=== PATIENT | female | born 1935 | race Caucasian/White ===

== ENCOUNTER 2017-03-18 12:00 | Emergency (ER) | payer MEDICARE, OTHER ==
[2017-03-18 13:06] LABS: BASOPHILS # (AUTO) 0.1 10^3/uL (0.0-0.1); BASOPHILS % (AUTO) 1.2 %; EOSINOPHILS # (AUTO) 0.1 10^3/uL (0.0-0.7); EOSINOPHILS % (AUTO) 0.9 %; HCT - HEMATOCRIT 31.3 % (37.0-47.0); HGB - HEMOGLOBIN 10.9 g/dL (12.0-16.0); LYMPHOCYTES # (AUTO) 1.4 10^3/uL (1.5-3.5); LYMPHOCYTES % (AUTO) 20.3 %; MEAN CORPUSCULAR HEMOGLOBIN 40.6 pg (27.0-31.0); MEAN CORPUSCULAR HGB CONC 34.9 g/dL (32.0-36.0); MEAN CORPUSCULAR VOLUME 116.3 fL (81.0-99.0); MEAN PLATELET VOLUME 7.5 fL (7.9-10.8); MONOCYTES # (AUTO) 0.6 10^3/uL (0.0-1.0); MONOCYTES % (AUTO) 8.7 %; NEUTROPHILS # (AUTO) 4.8 10^3/uL (1.5-6.6); NEUTROPHILS % (AUTO) 68.9 %; RED BLOOD COUNT 2.69 10^6/uL (4.20-5.40); RED CELL DISTRIBUTION WIDTH 15.5 % (12.0-15.0)
[2017-03-18 13:18] LABS: ALBUMIN/GLOBULIN RATIO 0.9 (1.0-2.2); CALCIUM 9.4 mg/dL (8.5-10.3); CREATININE 0.7 mg/dL (0.4-1.0); POTASSIUM 4.5 mmol/L (3.5-5.0); TOTAL PROTEIN 6.8 g/dL (6.7-8.2)
--- NOTE | 2017-03-18 15:03 | ED Physician Documentation ---
PD HPI ABD PAIN - Stated complaint Stated Complaint: VOMITING - Chief complaint Chief Complaint: Abd Pain - History obtained from History obtained from: Patient, Family - History of Present Illness Timing - onset: Other (This is a 81-year-old alcoholic, fully anticoagulated on Xarelto for A. fib. Quit drinking a few days ago and she's had about a day and a half worth of melena and one episode of coffee-ground emesis today associated with some central abdominal pain. She's never had GI bleeding but does have a history of a fatty liver. No known history of varices. She had an upper endoscopy a few years ago, she thinks in [place], results are not known by the patient.) Review of Systems Ten Systems: 10 systems reviewed and negative Constitutional: denies: Fever, Chills, Fatigue, Weight Loss Nose: denies: Rhinorrhea / runny nose, Congestion Cardiac: denies: Chest pain / pressure, Palpitations Respiratory: denies: Dyspnea, Cough PD PAST MEDICAL HISTORY - Past Medical History Cardiovascular: Hypertension, High cholesterol, Atrial fibrillation Endocrine/Autoimmune: Type 2 diabetes GI: None : Frequency Musculoskeletal: Chronic back pain - Past Surgical History Past Surgical History: Yes 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 - Present Medications Home Medications: Ambulatory Orders Medication Instructions Recorded Confirmed Furosemide 20 mg DAILY 05/02/15 03/18/17 Levothyroxine Sodium [Levoxyl] 50 mcg DAILY 05/02/15 03/18/17 Metoprolol Tartrate 50 mg DAILY 05/02/15 03/18/17 Rivaroxaban [Xarelto] 20 mg DAILY 05/02/15 03/18/17 Simvastatin 40 mg DAILY 05/02/15 03/18/17 Spironolactone 25 mg DAILY 05/02/15 03/18/17 - Allergies Allergies/Adverse Reactions: Allergies Allergy/AdvReac Type Severity Reaction Status Date / Time No Known Drug Allergies Allergy Verified 03/18/17 12:07 - Social History Does the pt smoke?: No Smoking Status: Never smoker Does the pt drink ETOH?: Yes Does the pt have substance abuse?: No - Family History Family history: reports: Non contributory PD ED PE NORMAL - Vitals Vital signs reviewed: Yes - General General: Alert and oriented X 3, No acute distress - HEENT HEENT: PERRL, EOMI - Neck Neck: Supple, no meningeal sign, No bony TTP - Cardiac Cardiac: RRR, No murmur - Respiratory Respiratory: No respiratory distress, Clear bilaterally - Abdomen Abdomen: Soft, Non tender - Back Back: No CVA TTP, No spinal TTP - Derm Derm: Normal color, Warm and dry - Extremities Extremities: No edema, No calf tenderness / cord - Neuro Neuro: Alert and oriented X 3, Normal speech - Psych Psych: Normal mood, Normal affect Results - Vitals Vitals: Vital Signs - 24 hr 03/18/17 03/18/17 03/18/17 12:05 13:54 15:29 Temperature 36.9 C Heart Rate 89 77 Respiratory 18 18 Rate Blood Pressure 124/75 119/57 L O2 Saturation 99 99 03/18/17 03/18/17 18:10 20:41 Temperature 37.0 C Heart Rate 79 82 Respiratory 18 22 Rate Blood Pressure 121/58 L 110/60 O2 Saturation 97 100 Oxygen O2 Source Room air - Labs Labs: Laboratory Tests 03/18/17 03/18/17 03/18/17 12:44 12:44 12:44 WBC 7.0 RBC 2.69 L Hgb 10.9 L Hct 31.3 L MCV 116.3 H MCH 40.6 H MCHC 34.9 RDW 15.5 H Plt Count 220 MPV 7.5 L Neut # 4.8 Lymph # 1.4 L [place] # 0.6 Eos # 0.1 Baso # 0.1 Absolute Nucleated RBC 0.00 Nucleated RBCs 0.0 PT INR Sodium 132 L Potassium 4.5 Chloride 93 L Carbon Dioxide 30 Anion Gap 9.0 BUN 33 H Creatinine 0.7 Estimated GFR (MDRD) 81 L Glucose 235 H Calcium 9.4 Total Bilirubin 1.0 AST 26 ALT 21 Alkaline Phosphatase 87 Total Protein 6.8 Albumin 3.2 Globulin 3.6 Albumin/Globulin Ratio 0.9 L Lipase 13 L Urine Color Urine Clarity Urine pH Ur Specific [place] Urine Protein Urine Glucose (UA) Urine Ketones Urine Occult Blood Urine Nitrite Urine Bilirubin Urine Urobilinogen Ur Leukocyte Esterase Ur Microscopic Review Urine Culture Comments Blood Type Blood Type Recheck A POSITIVE Antibody Screen Crossmatch IS Only 03/18/17 03/18/17 03/18/17 15:02 15:02 16:28 WBC RBC Hgb 10.5 L Hct 30.5 L MCV MCH MCHC RDW Plt Count MPV Neut # Lymph # [place] # Eos # Baso # Absolute Nucleated RBC Nucleated RBCs PT 14.2 H INR 1.3 H Sodium Potassium Chloride Carbon Dioxide Anion Gap BUN Creatinine Estimated GFR (MDRD) Glucose Calcium Total Bilirubin AST ALT Alkaline Phosphatase Total Protein Albumin Globulin Albumin/Globulin Ratio Lipase Urine Color Urine Clarity Urine pH Ur Specific [place] Urine Protein Urine Glucose (UA) Urine Ketones Urine Occult Blood Urine Nitrite Urine Bilirubin Urine Urobilinogen Ur Leukocyte Esterase Ur Microscopic Review Urine Culture Comments Blood Type A POSITIVE Blood Type Recheck Antibody Screen NEGATIVE Crossmatch IS Only See Detail 03/18/17 17:00 WBC RBC Hgb Hct MCV MCH MCHC RDW Plt Count MPV Neut # Lymph # [place] # Eos # Baso # Absolute Nucleated RBC Nucleated RBCs PT INR Sodium Potassium Chloride Carbon Dioxide Anion Gap BUN Creatinine Estimated GFR (MDRD) Glucose Calcium Total Bilirubin AST ALT Alkaline Phosphatase Total Protein Albumin Globulin Albumin/Globulin Ratio Lipase Urine Color YELLOW Urine Clarity CLEAR Urine pH 7.5 Ur Specific [place] 1.010 Urine Protein NEGATIVE Urine Glucose (UA) NEGATIVE Urine Ketones NEGATIVE Urine Occult Blood TRACE-INTA Urine Nitrite NEGATIVE Urine Bilirubin NEGATIVE Urine Urobilinogen 0.2 (NORMAL) Ur Leukocyte Esterase NEGATIVE Ur Microscopic Review NOT INDICATED Urine Culture Comments NOT INDICATED Blood Type Blood Type Recheck Antibody Screen Crossmatch IS Only PD MEDICAL DECISION MAKING - ED course ED course: 81-year-old woman presents with upper GI bleed. She brings a vomit sample with her which is grossly bloody and Gastroccult positive. Her H&H is not too bad and her hemodynamics are reassuring. However she does have high risk for varices given her past medical history and overwhelming bleeding given her anticoagulation on Xarelto. As such arrangements are made to transfer to a tertiary facility with GI coverage, patient preferred [facility], call to the hospitalist service there at 255 p.m. After some delay did speak with the GI DrDr. Katelyn casillas who defers to the hospitalist service for admission. This was at 430 p.m. After a second delay she was accepted to [facility] by the hospitalist Dr. Laila woods at 625pm Departure - Departure Disposition: 02 Transfer Acute Care Hosp Clinical Impression: Upper gastrointestinal hemorrhage, Adequate anticoagulation on anticoagulant therapy Condition: Critical Discharge Date/Time: 03/18/17 20:53
[2017-03-18 15:20] LABS: INR 1.3 (0.8-1.2); PT - PROTHROMBIN TIME 14.2 secs (9.9-12.6)
[2017-03-18] MEDS ORDERED: SODIUM CHLORIDE 0.9% 1,000 ML IV ONE (16:00)
[2017-03-18] MEDS ORDERED: PANTOPRAZOLE 80 MG in SODIUM CHLORIDE 0.9% 100ML 100 ML IV STA ×4 (16:33)
[2017-03-18] MEDS ORDERED: traMADol 50 MG TABLET PO STA (16:35)
[2017-03-18 16:42] LABS: HCT - HEMATOCRIT 30.5 % (37.0-47.0); HGB - HEMOGLOBIN 10.5 g/dL (12.0-16.0)
[2017-03-18] MEDS ORDERED: traMADol 50 MG TABLET PO ONE (16:43)
[2017-03-18 18:17] LABS: BILIRUBIN,URINE NEGATIVE (NEGATIVE); PH,URINE 7.5 PH (5.0-7.5)
[2017-03-18 18:19] LABS: UA CHARGE (STRIP ONLY) YES; UR CULTURE IF IND NOT INDICATED
[2017-03-18 20:45] VITALS: BP 110/60
== END 2017-03-18 20:53 | disposition short-term general hospital (02) ==
LOC: ED 12:00
DX: K92.0 Hematemesis (principal); I48.91 Unspecified atrial fibrillation; Z79.01 Long term (current) use of anticoagulants; I10 Essential (primary) hypertension; E78.00 Pure hypercholesterolemia, unspecified; E11.9 Type 2 diabetes mellitus without complications
CPT/HCPCS: 36415; 80053; 81003; 83690; 85014; 85018; 85025; 85610; 86850; 86900; 86901; 86920; 96361; 96365; 96366; 99284; 99285; A9270; 81001; 87086

== ENCOUNTER 2017-03-18 20:51 | Outpatient (CLI) | payer MEDICARE, OTHER | END 2017-03-18 20:52 | disposition short-term general hospital (02) | LOC: EMS 20:51 | PROVIDERS: ATTEND Surgery | DX: K92.2 Gastrointestinal hemorrhage, unspecified (principal) | CPT/HCPCS: A0425; A0426 ==

== ENCOUNTER 2017-10-14 18:06 | Outpatient (CLI) | payer MEDICARE, OTHER | END 2017-10-14 18:07 | disposition EMS.NT | LOC: EMS 18:06 | PROVIDERS: ATTEND Surgery | DX: R61 Generalized hyperhidrosis (principal); R53.1 Weakness; R73.09 Other abnormal glucose ==

== ENCOUNTER 2017-11-06 19:29 | Outpatient (CLI) | payer MEDICARE, OTHER | END 2017-11-06 19:30 | disposition EMS.NT | LOC: EMS 19:29 | PROVIDERS: ATTEND Surgery | DX: R73.09 Other abnormal glucose (principal) ==

== ENCOUNTER 2018-07-16 12:43 | Outpatient (CLI) | payer MEDICARE, OTHER ==
--- NOTE | 2018-07-16 13:31 | XRAY Report ---
Reason: LT HIP PAIN Procedure Date: 07/16/2018 Accession Number: [id number] / [id number] Procedure: XR - Hip w/Pelvis 2-3V LT CPT Code: FULL RESULT: EXAM: LEFT HIP AND PELVIS RADIOGRAPHY EXAM DATE: 07/16/2018 01:02 PM. HISTORY: Fall. Left groin and hip pain. COMPARISONS: HIP 2 VIEW LT 05/19/2015 3:52 PM. TECHNIQUE: 1 view of the pelvis and 1 view of the hip. FINDINGS: Bones: Normal. No fracture or bone lesion. Joints: Remote fusion lumbar spine. Increasing degree of narrowing of both hip joints now moderate to marked in degree. Increasing osteophyte formation and subcortical sclerosis and cyst formation not only involving the acetabular roofs but also both femoral heads. Cortices of the femoral heads somewhat irregular at this time. Mild degenerative changes both SI joints. Soft Tissues: Normal. No soft tissue swelling. IMPRESSION: 1. No acute bony abnormality. 2. Progression of bilateral hip degenerative changes, now moderate to marked in degree, grade 3 Kellgren Pankaj classification. Avascular necrosis femoral heads not excluded. RADIA
== END 2018-07-16 12:44 | disposition home or self-care (01) ==
LOC: DI 12:43
PROVIDERS: ATTEND Internal Medicine
DX: M16.12 Unilateral primary osteoarthritis, left hip (principal)

== ENCOUNTER 2018-09-26 23:42 | Outpatient (CLI) | payer MEDICARE, OTHER | END 2018-09-26 23:43 | disposition EMS.NT | LOC: EMS 23:42 | PROVIDERS: ATTEND Surgery | DX: Z04.89 Encounter for examination and observation for other specified reasons (principal) ==

== ENCOUNTER 2019-05-09 21:12 | Outpatient (CLI) | payer MEDICARE, OTHER | END 2019-05-09 21:13 | disposition EMS.NT | LOC: EMS 21:12 | PROVIDERS: ATTEND Surgery | DX: R53.1 Weakness (principal) ==

== ENCOUNTER 2019-11-22 21:34 | Outpatient (CLI) | payer MEDICARE, OTHER | END 2019-11-22 21:35 | disposition EMS.NT | LOC: EMS 21:34 | PROVIDERS: ATTEND Surgery | DX: R53.1 Weakness (principal) ==

== ENCOUNTER 2020-01-09 19:58 | Outpatient (CLI) | payer MEDICARE, OTHER | END 2020-01-09 23:59 | disposition EMS.NT | LOC: EMS 19:58 | PROVIDERS: ATTEND Surgery | DX: R53.1 Weakness (principal) ==

== ENCOUNTER 2020-01-27 12:09 | Outpatient (CLI) | payer MEDICARE, OTHER | END 2020-01-27 12:10 | disposition EMS.NT | LOC: EMS 12:09 | PROVIDERS: ATTEND Surgery | DX: Z03.89 Encounter for observation for other suspected diseases and conditions ruled out (principal) ==

== ENCOUNTER 2020-01-28 12:58 | Outpatient (CLI) | payer MEDICARE, OTHER | END 2020-01-28 12:59 | disposition critical access hospital (66) | LOC: EMS 12:58 | PROVIDERS: ATTEND Surgery | DX: R53.1 Weakness (principal); R63.8 Other symptoms and signs concerning food and fluid intake | CPT/HCPCS: A0425; A0429 ==

== ENCOUNTER 2020-01-28 13:28 | Inpatient (IN) | payer MEDICARE, OTHER ==
[2020-01-28 14:35] LABS: BASOPHILS % (AUTO) 0.7 %; EOSINOPHILS # (AUTO) 0.1 10^3/uL (0.0-0.7); EOSINOPHILS % (AUTO) 1.3 %; HGB - HEMOGLOBIN 12.8 g/dL (12.0-16.0); LYMPHOCYTES # (AUTO) 0.9 10^3/uL (1.5-3.5); LYMPHOCYTES % (AUTO) 17.1 %; MEAN CORPUSCULAR HEMOGLOBIN 40.4 pg (27.0-31.0); MEAN CORPUSCULAR HGB CONC 34.9 g/dL (32.0-36.0); MEAN CORPUSCULAR VOLUME 115.8 fL (81.0-99.0); MEAN PLATELET VOLUME 9.4 fL (7.9-10.8); MONOCYTES # (AUTO) 0.9 10^3/uL (0.0-1.0); MONOCYTES % (AUTO) 17.3 %; NEUTROPHILS # (AUTO) 3.3 10^3/uL (1.5-6.6); NEUTROPHILS % (AUTO) 60.7 %; PLT - PLATELET COUNT 167 10^3/uL (130-450); RED BLOOD COUNT 3.17 10^6/uL (4.20-5.40); RED CELL DISTRIBUTION WIDTH 16.3 % (12.0-15.0); WHITE BLOOD COUNT 5.4 x10^3/uL (4.8-10.8)
[2020-01-28 14:53] LABS: ALBUMIN 2.3 g/dL (3.2-5.5); ALBUMIN/GLOBULIN RATIO 0.7 (1.0-2.2); BILIRUBIN,TOTAL 3.6 mg/dL (0.2-1.0); CALCIUM 8.3 mg/dL (8.5-10.3); CREATININE 1.3 mg/dL (0.4-1.0); TOTAL PROTEIN 5.4 g/dL (6.7-8.2)
--- NOTE | 2020-01-28 15:10 | ED Physician Documentation ---
History of Present Illness - Stated complaint Stated Complaint: WEAKNESS - Chief complaint Chief Complaint: General - History obtained from History obtained from: Patient - Additonal information Additional information: Patient is brought to the emergency department Reportedly because her primary care physician wanted her to have laboratory studies drawn. It is not clear what the laboratory studies were to be, as no communication was received from the patient's primary care physician. The patient states that she has had increasing swelling over the last couple of weeks, and that her doctor was c oncerned about this and wanted her to have further evaluation. The patient states she has no history of problems with her kidneys or liver. She states that she has no history that she knows of of congestive heart failure, but does have atrial fibrillation, for which she takes Xarelto. The patient states that she has chronic edema, but that has been getting worse over the last couple of weeks. She denies any chest pain or shortness of breath. No nausea or vomiting. No abdominal pain. She has not had fever chills or been ill with anything else. The patient does have a history of alcohol use daily. She has not noticed any worse swelling on one side than the other. She states the edema goes all the way up into her truncal area, and involves her arms, also. Pt does get up and walk at baseline. She has been using pressure wraps at home on her lower extremities. She believes she is on a diuretic. She denies any other complaints at this time. Review of Systems Ten Systems: 10 systems reviewed and negative Constitutional: reports: Reviewed and negative Eyes: reports: Reviewed and negative Ears: reports: Reviewed and negative Nose: reports: Reviewed and negative Throat: reports: Reviewed and negative Cardiac: reports: Reviewed and negative Respiratory: reports: Reviewed and negative GI: reports: Reviewed and negative : reports: Reviewed and negative Skin: reports: Other (Skin tear left lower extremity) Musculoskeletal: reports: Extremity pain, Extremity swelling Neurologic: reports: Generalized weakness Psychiatric: reports: Reviewed and negative Endocrine: reports: Reviewed and negative Immunocompromised: reports: Reviewed and negative PD PAST MEDICAL HISTORY - Past Medical History Past Medical History: Yes Cardiovascular: Hypertension, High cholesterol, Atrial fibrillation Endocrine/Autoimmune: Type 2 diabetes GI: None : Frequency Musculoskeletal: Chronic back pain - Past Surgical History Past Surgical History: Yes 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 - Present Medications Home Medications: Ambulatory Orders Medication Instructions Recorded Confirmed Furosemide 20 mg DAILY 05/02/15 01/28/20 Rivaroxaban [Xarelto] 20 mg PO QDDINNER 05/02/15 01/28/20 Simvastatin 40 mg PO QPM 05/02/15 01/28/20 Spironolactone 25 mg PO DAILY 05/02/15 01/28/20 Insulin Glargine [Lantus Solostar] 6 unit SUBQ QPM 01/28/20 01/28/20 Insulin Lispro [Humalog Kwikpen 3 unit SUBQ TIDWM 01/28/20 01/28/20 U-100] Levothyroxine Sodium 75 mcg PO QDAC 01/28/20 01/28/20 Metoprolol Succinate 50 mg PO DAILY 01/28/20 01/28/20 - Allergies Allergies/Adverse Reactions: Allergies Allergy/AdvReac Type Severity Reaction Status Date / Time No Known Drug Allergies Allergy Verified 01/28/20 13:40 - Social History Does the pt smoke?: No Smoking Status: Never smoker Does the pt drink ETOH?: Yes Does the pt have substance abuse?: No - Immunizations Immunizations are current?: Yes PD ED PE NORMAL - Vitals Vital signs reviewed: Yes - General General: Alert and oriented X 3, No acute distress, Well developed/nourished (Obese) - HEENT HEENT: Atraumatic, PERRL, EOMI, Moist mucous membranes - Neck Neck: Supple, no meningeal sign - Cardiac Cardiac: RRR, No murmur - Respiratory Respiratory: No respiratory distress, Clear bilaterally - Abdomen Abdomen: Soft, Non tender, Non distended - Derm Derm: Other (Patient has mild weeping of the skin bilateral lower extremities. Skin changes consistent with chronic edema and chronic peripheral vascular disease are noted. Patient has a superficial skin tear on her anterolateral left lower leg which is flap shaped and approximately 4 cm in total length. She also has a very small skin tear on her anterior right lower leg which is a pproximately 1 cm in length.No associated erythema or induration. No purulent drainage.) - Extremities Extremities: No deformity, Other (Patient has moderate, pitting lower extremity edema. Extremities are symmetrical in size. No erythema.) - Neuro Neuro: Alert and oriented X 3 - Psych Psych: Normal mood, Normal affect Results - Vitals Vitals: Oxygen O2 Source Room air - Labs Labs: Laboratory Tests 01/28/20 01/28/20 01/28/20 14:25 14:25 14:25 WBC 5.4 RBC 3.17 L Hgb 12.8 Hct 36.7 L MCV 115.8 H MCH 40.4 H MCHC 34.9 RDW 16.3 H Plt Count 167 MPV 9.4 Neut # (Auto) 3.3 Lymph # (Auto) 0.9 L [place] # (Auto) 0.9 Eos # (Auto) 0.1 Baso # (Auto) 0.0 Absolute Nucleated RBC 0.36 Nucleated RBC % 6.6 Manual Slide Review WBC Morphology Platelet Estimate Platelet Morphology RBC Morph Micro Appear PT INR Sodium 116 L* Potassium 4.8 Chloride 83 L Carbon Dioxide 21 Anion Gap 12.0 BUN 19 Creatinine 1.3 H Estimated GFR (MDRD) 39 L Glucose 167 H Glycated Hemoglobin Estim Average Glucose Lactic Acid Calcium 8.3 L Phosphorus Magnesium Total Bilirubin 3.6 H Direct Bilirubin AST 113 H ALT 68 H Alkaline Phosphatase 345 H Ammonia Total Creatine Kinase Troponin I High Sens 15.4 H* B-Natriuretic Peptide Total Protein 5.4 L Albumin 2.3 L Globulin 3.1 Albumin/Globulin Ratio 0.7 L Lipase 32 TSH Urine Color Urine Clarity Urine pH Ur Specific Ages [place] Urine Protein Urine Glucose (UA) Urine Ketones Urine Occult Blood Urine Nitrite Urine Bilirubin Urine Urobilinogen Ur Leukocyte Esterase Urine RBC Urine WBC Ur Squamous Epith Cells Urine Crystals Amorphous Sediment Urine Bacteria Ur Random Chloride Urine Creatinine Urine Sodium 01/28/20 01/28/20 01/28/20 14:25 14:26 15:42 WBC RBC Hgb Hct MCV MCH MCHC RDW Plt Count MPV Neut # (Auto) Lymph # (Auto) [place] # (Auto) Eos # (Auto) Baso # (Auto) Absolute Nucleated RBC Nucleated RBC % Manual Slide Review WBC Morphology Platelet Estimate Platelet Morphology RBC Morph Micro Appear PT INR Sodium Potassium Chloride Carbon Dioxide Anion Gap BUN Creatinine Estimated GFR (MDRD) Glucose Glycated Hemoglobin Estim Average Glucose Lactic Acid 2.9 H Calcium Phosphorus Magnesium Total Bilirubin Direct Bilirubin AST ALT Alkaline Phosphatase Ammonia Total Creatine Kinase Troponin I High Sens B-Natriuretic Peptide 271 H Total Protein Albumin Globulin Albumin/Globulin Ratio Lipase TSH 11.32 H Urine Color Urine Clarity Urine pH Ur Specific Ages [place] Urine Protein Urine Glucose (UA) Urine Ketones Urine Occult Blood Urine Nitrite Urine Bilirubin Urine Urobilinogen Ur Leukocyte Esterase Urine RBC Urine WBC Ur Squamous Epith Cells Urine Crystals Amorphous Sediment Urine Bacteria Ur Random Chloride Urine Creatinine Urine Sodium 01/28/20 01/28/20 01/28/20 15:42 15:42 17:27 WBC RBC Hgb Hct MCV MCH MCHC RDW Plt Count MPV Neut # (Auto) Lymph # (Auto) [place] # (Auto) Eos # (Auto) Baso # (Auto) Absolute Nucleated RBC Nucleated RBC % Manual Slide Review WBC Morphology Platelet Estimate Platelet Morphology RBC Morph Micro Appear PT INR Sodium Potassium Chloride Carbon Dioxide Anion Gap BUN Creatinine Estimated GFR (MDRD) Glucose Glycated Hemoglobin Estim Average Glucose Lactic Acid Calcium Phosphorus Magnesium Total Bilirubin Direct Bilirubin AST ALT Alkaline Phosphatase Ammonia 13.4 Total Creatine Kinase 92 Troponin I High Sens B-Natriuretic Peptide Total Protein Albumin Globulin Albumin/Globulin Ratio Lipase TSH Urine Color Urine Clarity Urine pH Ur Specific Ages [place] Urine Protein Urine Glucose (UA) Urine Ketones Urine Occult Blood Urine Nitrite Urine Bilirubin Urine Urobilinogen Ur Leukocyte Esterase Urine RBC Urine WBC Ur Squamous Epith Cells Urine Crystals Amorphous Sediment Urine Bacteria Ur Random Chloride < 14 Urine Creatinine 163.2 Urine Sodium < 12.0 01/28/20 01/28/20 01/28/20 17:27 20:22 20:22 WBC RBC Hgb Hct MCV MCH MCHC RDW Plt Count MPV Neut # (Auto) Lymph # (Auto) [place] # (Auto) Eos # (Auto) Baso # (Auto) Absolute Nucleated RBC Nucleated RBC % Manual Slide Review WBC Morphology Platelet Estimate Platelet Morphology RBC Morph Micro Appear PT INR Sodium 116 L* Potassium 4.5 Chloride 85 L Carbon Dioxide 21 Anion Gap 10.0 BUN 18 Creatinine 1.1 H Estimated GFR (MDRD) 48 L Glucose 121 H Glycated Hemoglobin Estim Average Glucose Lactic Acid Calcium 8.0 L Phosphorus Magnesium Total Bilirubin Direct Bilirubin AST ALT Alkaline Phosphatase Ammonia Total Creatine Kinase Troponin I High Sens 15.6 H* B-Natriuretic Peptide Total Protein Albumin Globulin Albumin/Globulin Ratio Lipase TSH Urine Color ORANGE Urine Clarity HAZY Urine pH 5.0 Ur Specific Ages [place] 1.025 Urine Protein NEGATIVE Urine Glucose (UA) NEGATIVE Urine Ketones NEGATIVE Urine Occult Blood NEGATIVE Urine Nitrite NEGATIVE Urine Bilirubin NEGATIVE Urine Urobilinogen 0.2 (NORMAL) Ur Leukocyte Esterase NEGATIVE Urine RBC None Seen Urine WBC 0-3 Ur Squamous Epith Cells MANY Squamous H Urine Crystals 26-50 Ca Oxalate Amorphous Sediment Rare Urine Bacteria Many H Ur Random Chloride Urine Creatinine Urine Sodium 01/28/20 01/29/20 01/29/20 20:22 00:45 08:00 WBC 4.4 L RBC 3.03 L Hgb 12.9 Hct 35.1 L MCV 115.8 H MCH 42.6 H MCHC 36.8 H RDW 16.4 H Plt Count 164 MPV 9.6 Neut # (Auto) 2.3 Lymph # (Auto) 0.9 L [place] # (Auto) 0.7 Eos # (Auto) 0.2 Baso # (Auto) 0.1 Absolute Nucleated RBC 0.19 Nucleated RBC % 4.3 Manual Slide Review Indicated WBC Morphology NORMAL APPEARANCE Platelet Estimate NORMAL (130-450,000) Platelet Morphology NORMAL APPEARANCE RBC Morph Micro Appear 1+ POLYCHROMASIA PT INR Sodium 112 L* Potassium 4.3 Chloride 83 L Carbon Dioxide 19 L Anion Gap 10.0 BUN 17 Creatinine 1.0 Estimated GFR (MDRD) 53 L Glucose 94 Glycated Hemoglobin Estim Average Glucose Lactic Acid 2.2 Calcium 7.6 L Phosphorus Magnesium Total Bilirubin Direct Bilirubin AST ALT Alkaline Phosphatase Ammonia Total Creatine Kinase Troponin I High Sens B-Natriuretic Peptide Total Protein Albumin Globulin Albumin/Globulin Ratio Lipase TSH Urine Color Urine Clarity Urine pH Ur Specific Ages [place] Urine Protein Urine Glucose (UA) Urine Ketones Urine Occult Blood Urine Nitrite Urine Bilirubin Urine Urobilinogen Ur Leukocyte Esterase Urine RBC Urine WBC Ur Squamous Epith Cells Urine Crystals Amorphous Sediment Urine Bacteria Ur Random Chloride Urine Creatinine Urine Sodium 01/29/20 01/29/20 01/29/20 08:00 08:00 08:00 WBC RBC Hgb Hct MCV MCH MCHC RDW Plt Count MPV Neut # (Auto) Lymph # (Auto) [place] # (Auto) Eos # (Auto) Baso # (Auto) Absolute Nucleated RBC Nucleated RBC % Manual Slide Review WBC Morphology Platelet Estimate Platelet Morphology RBC Morph Micro Appear PT 27.9 H INR 2.6 H Sodium 117 L* Potassium 4.2 Chloride 86 L Carbon Dioxide 21 Anion Gap 10.0 BUN 17 Creatinine 1.0 Estimated GFR (MDRD) 53 L Glucose 86 Glycated Hemoglobin 5.4 Estim Average Glucose 108 H Lactic Acid Calcium 7.7 L Phosphorus 3.3 Magnesium 1.7 Total Bilirubin Direct Bilirubin AST ALT Alkaline Phosphatase Ammonia Total Creatine Kinase Troponin I High Sens B-Natriuretic Peptide Total Protein Albumin Globulin Albumin/Globulin Ratio Lipase TSH Urine Color Urine Clarity Urine pH Ur Specific Ages [place] Urine Protein Urine Glucose (UA) Urine Ketones Urine Occult Blood Urine Nitrite Urine Bilirubin Urine Urobilinogen Ur Leukocyte Esterase Urine RBC Urine WBC Ur Squamous Epith Cells Urine Crystals Amorphous Sediment Urine Bacteria Ur Random Chloride Urine Creatinine Urine Sodium 01/29/20 08:00 WBC RBC Hgb Hct MCV MCH MCHC RDW Plt Count MPV Neut # (Auto) Lymph # (Auto) [place] # (Auto) Eos # (Auto) Baso # (Auto) Absolute Nucleated RBC Nucleated RBC % Manual Slide Review WBC Morphology Platelet Estimate Platelet Morphology RBC Morph Micro Appear PT INR Sodium Potassium Chloride Carbon Dioxide Anion Gap BUN Creatinine Estimated GFR (MDRD) Glucose Glycated Hemoglobin Estim Average Glucose Lactic Acid Calcium Phosphorus Magnesium Total Bilirubin 3.0 H Direct Bilirubin 1.5 H AST 99 H ALT 55 Alkaline Phosphatase 323 H Ammonia Total Creatine Kinase Troponin I High Sens B-Natriuretic Peptide Total Protein 5.3 L Albumin 2.4 L Globulin 2.9 Albumin/Globulin Ratio Lipase TSH Urine Color Urine Clarity Urine pH Ur Specific Ages [place] Urine Protein Urine Glucose (UA) Urine Ketones Urine Occult Blood Urine Nitrite Urine Bilirubin Urine Urobilinogen Ur Leukocyte Esterase Urine RBC Urine WBC Ur Squamous Epith Cells Urine Crystals Amorphous Sediment Urine Bacteria Ur Random Chloride Urine Creatinine Urine Sodium - Rads (name of study) chest xray Radiology: Final report received, See rad report (Progression of interstitial lung disease; increased density, possibly representing consolidation left lower lobe.) PD MEDICAL DECISION MAKING - ED course Complexity details: reviewed old records, reviewed results, re-evaluated patient, considered differential, d/w patient ED course: The patient was worked up with labs and chest x-ray. Labs revealed hyponatremia with a sodium of 116. She was also found to have A BNP of 271, a slightly e levated troponin at 15.4 with GFR of 39, and a TSH of 11, which was significantly elevated. I spoke with Dr. Clifton, who is the on-call hospitalist, and he did agree to admit the patient to his service for her hyponatremia and elevated troponin, though I suspect that with the decreased GFR and the congestive heart failure, as well as the patient's lack of acute cardiac symptoms, the troponin elevation is likely chronic. Patient is agreeable to the plan. Departure - Departure Disposition: ED Place in Observation Clinical Impression: Hyponatremia, NSTEMI (non-ST elevated myocardial infarction) Condition: Serious Discharge Date/Time: 01/28/20 15:48
--- NOTE | 2020-01-28 15:28 | PHARMACY PROGRESS NOTE ---
- Best Possible Medication History Admit Date and Time: Patient still in ED Processed by: Pharmacy Medication History completed: Yes Secondary Source(s): Physician records, Pharmacy records, Insurance records As the person ultimately responsible for medication therapy, providers are able to order a medication from an existing home medication list in [facility] via the "Reconcile Routine" prior to Confirmation of that medication by clinical support tech. Such practice is discouraged except when the physician, in their clinical judgment, deems that a medical need exists for a medication without regard to previous use.
--- NOTE | 2020-01-28 15:58 | HISTORY & PHYSICAL EXAMINATION ---
Chief Complaint - Chief Complaint Chief Complaint: Lower extremity swelling History of Present Illness - Admitted From Admitted From:: Home - History Obtained From Records Reviewed: Yes History obtained from: Patient, ER Physician, EMR - History of Present Illness HPI Comment/Other: This is a 84-year-old female with a past medical history significant for atrial fibrillation on Xarelto, chronic lower extremity edema, alcohol abuse, hypothyroidism, type 2 diabetes mellitus on insulin who presents today complaining of worsening lower extremity edema and weeping. The ER physician told me that the patient has been complaining of weakness and her primary care provider ordered labs to be performed on outpatient basis. There appears to have been some confusion and she went to the emergency department for these labs. Patient states that she is here for the weeping edema. She stated it has been going on for quite some time but that over the past week, she cut her left leg when she was scratching it and now has a wound that is draining. She reports no fevers, chills. She had her legs wrapped in Levi bandage. She reports pain at the site of the cut where she is weeping. She states her feet are cold and they are not covered with a blanket. She also reports that her upper extremities have been swollen for the past week as well. She does not believe that she has edema anywhere else. She denies any chest pain, dyspnea, dysuria, urgency, rash, nausea, vomiting, abdominal pain. She reports decreased oral intake for the past few days. She is not sure why she has not been drinking as much. She denies feeling dehydrated but then she tells me that she knows she is dehydrated. She denies feeling thirsty at the moment. She reports no history of heart failure, liver disease. She does drink 3 glasses of vodka daily and has been drinking for the past 20 years. She denies any recent sick contacts. In the emergency department, she is found to be afebrile with temperature of 36.6 C. Her heart rate was 63 and she was in atrial fibrillation. Her blood pressure is 142/72. She is not tachypneic and saturating 99% on room air. Labs revealed an MCV of 115.8. Her sodium was 116 and chloride was 83. Her creatinine was elevated at 1.3. Total bilirubin is elevated at 3.6, AST at 113, ALT at 68 and alkaline phosphatase at 345. Her BNP was 271. Given her electrolyte abnormalities, medicine was consulted for admission. I did discuss goals of care with the patient and she would like to be a full code. History - Past Medical History Cardiovascular: reports: Hypertension, High cholesterol, Atrial fibrillation Endocrine/Autoimmune: reports: Type 2 diabetes GI: reports: None : reports: Frequency Musculoskeletal: reports: Chronic back pain MRSA Hx?: No - Past Surgical History Ortho: reports: Spine surgery /SKIP MINER: reports: Hysterectomy - Family & Social History Family History Comment/Other: Reports her father from a myocardial infarction. Living arrangement: At home Living Situation: With spouse/s.o. Social History Notes: She lives at home with her . They have lived on [facility] for 12 years. 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 She smoked in her younger years but quit many years ago. She drinks 3 alcoholic beverages a day for at least the past 20 years. - Substance History Abuse: Recurrent use of substance despite neg consequences: Alcohol Meds/Allgy - Home Medications Home Medications: Ambulatory Orders Medication Instructions Recorded Confirmed Furosemide 20 mg DAILY 05/02/15 01/28/20 Rivaroxaban [Xarelto] 20 mg PO QDDINNER 05/02/15 01/28/20 Simvastatin 40 mg PO QPM 05/02/15 01/28/20 Spironolactone 25 mg PO DAILY 05/02/15 01/28/20 Insulin Glargine [Lantus Solostar] 6 unit SUBQ QPM 01/28/20 01/28/20 Insulin Lispro [Humalog Kwikpen 3 unit SUBQ TIDWM 01/28/20 01/28/20 U-100] Levothyroxine Sodium 75 mcg PO QDAC 01/28/20 01/28/20 Metoprolol Succinate 50 mg PO DAILY 01/28/20 01/28/20 - Allergies Allergies/Adverse Reactions: Allergies Allergy/AdvReac Type Severity Reaction Status Date / Time No Known Drug Allergies Allergy Verified 01/28/20 13:40 Review of Systems - Constitutional Constitutional: reports: Poor appetite. denies: Fatigue, Fever, Chills, Weakness - Eyes Eyes: denies: Blurred vision - Ears, Nose & Throat Ears, Nose & Throat: denies: Nasal congestion - Cardiovascular Cariovascular: reports: Edema. denies: Chest pain, Lightheadedness, Syncope, Exertional dyspnea, Decr. exercise tolerance - Respiratory Respiratory: reports: Cough. denies: SOB at rest, SOB with exertion - Gastrointestinal Gastrointestinal: denies: Abdominal pain, Constipation, Diarrhea, Nausea, Vomiting - Genitourinary Genitourinary: denies: Dysuria, Frequency, Urgency - Musculoskeletal Musculoskeletal: denies: Limited range of motion, Muscle weakness - Integumentary Integumentary: reports: Lesions. denies: Rash - Neurological Neurological: denies: General weakness, Focal weakness, Headache, Dizziness - All Other Systems All Other Systems: reports: Reviewed and negative Prior Level of Functionality: She lives at home with her . She ambulates with a walker or wheelchair at baseline. Exam - Vital Signs Reviewed Vital Signs: Yes Vital Signs: Vital Signs x48h Temp Pulse Resp BP Pulse Ox 01/28/20 14:32 57 L 18 96/69 100 01/28/20 13:40 36.6 C 63 23 142/72 H 99 - Physical Exam General Appearance: positive: No acute distress, Alert Eyes Bilateral: positive: Normal inspection, Other (Scleral icterus noted.) ENT: positive: ENT inspection nml Neck: positive: Nml inspection Respiratory: positive: No respiratory distress, Other (Slight crackles present bilaterally in the bases) Cardiovascular: positive: No murmur, Irregularly irregular. negative: Tachycardia, Bradycardia Abdomen: positive: Non-tender, No distention, Other (She does not have about +1 pitting edema in her abdomen). negative: Tenderness Skin: positive: Dry, Other (She does have a 4 cm laceration over the lateral aspect of her mid tibia. There is slight serosanguineous drainage. There is chronic venous stasis changes over the bilateral lower extremities.) Extremities: positive: Pedal edema (She has +1 to +2 pitting edema in her bilateral lower extremities. This is most prominent in her bilateral feet although she did have Levi bandage over her extremities prior to her arrival in the emergency department. Both of her feet are cool to touch but I am able to obtain pulses via Doppler.) Neurologic/Psychiatric: positive: Oriented x3, Other (She is oriented to self, location, year. She initially thought it was December but then realized it is 27 January. She has no focal motor deficits on exam.). negative: Disoriented to person, Disoriented to place, Disoriented to time Conclusion/Plan - Problem List (1) Hyponatremia Conclusion/Plan: She does have chronic hyponatremia the baseline around 128 but today it is 116. She appears hypervolemic on exam with edema in her upper and lower extremities as well as her abdomen. Although she is hypervolemic, she does appear to be intravascularly depleted and her blood pressure is on the lower side. Her lactic acid is also slightly elevated. We will start her on gentle hydration with normal saline and recheck a sodium this evening. If her sodium decreases, then she may ultimately benefit from IV diuresis. We will check urine electrolytes also may potentially be skewed given she is on oral Lasix at home. (2) DEIDRA (acute kidney injury) Conclusion/Plan: Creatinine is elevated at 1.3 and prior labs show a baseline of 0.7. She is hypervolemic on exam but I suspect she may be intravascularly depleted. We will start her on gentle hydration with normal saline. Avoid nephrotoxins and monitor her renal function as well as urine output. We will check urine elect rolytes given her hyponatremia. We will also check a urinalysis given her generalized edema to evaluate for proteinuria. (3) Abnormal LFTs Conclusion/Plan: Her LFTs are elevated with AST greater than ALT which may be secondary to her alcohol use or congestive hepatopathy. Given her generalized edema, there is concern for cirrhosis. We will obtain an ultrasound of the right upper quadrant for evaluation of the liver and for possible ascites. We will check an INR although this may be skewed given she is on Xarelto. We will also check an ammonia level. Trend LFTs. (4) Lower extremity edema Conclusion/Plan: Review of records shows a chronic problem for her although she now has edema in her upper extremities and abdomen as well. Differential at time remains broad including possible heart failure although her BNP is only 271. She does drink alcohol on a daily basis and her LFTs are elevated so may be a component of cirrhosis. There could also be a concern for nephrotic syndrome and therefore we will obtain a urinalysis. We will keep her legs elevated while hospitalized. Will obtain arterial Dopplers to evaluate for her pulses. Ideally would obtain echocardiogram but is not available over the weekend. If she remains hospitalized until Friday we will check an echocardiogram otherwise can be performed on outpatient basis. (5) Leg wound, left Conclusion/Plan: She has a 4 cm wound over the lateral aspect of her left tibia. This is consistent with her history of scratching the leg and causing the wound. This is likely exacerbated by her lower extremity edema. Will consult wound care if she remains hospitalized otherwise we will place the wound and the bandage. She does have diminished pulses in her lower extremities and so we will obtain a rterial Dopplers. Qualifiers: Encounter type: initial encounter Qualified Code(s): S81.802A - Unspecified open wound, left lower leg, initial encounter (6) Alcohol use disorder Conclusion/Plan: Reports drinking alcoholic beverages on a daily basis for the past 2 years. Her LFTs are elevated which may be suggestive of liver dysfunction due to alcohol use. We will watch her for withdrawal and start her on thiamine and folate. (7) Type 2 diabetes mellitus treated with insulin Conclusion/Plan: Blood glucose is 167 on admission. Will resume her home dose of insulin. Check an A1c in the morning. Carb controlled diet. (8) Chronic atrial fibrillation Conclusion/Plan: She is currently rate controlled and in atrial fibrillation. We will continue her home Xarelto and metoprolol. Monitor on telemetry. (9) Hypothyroidism Conclusion/Plan: Her TSH is elevated at 11.32. We will increase her Synthroid to 88 mcg. She needs a repeat TSH in 4 to 6 weeks. (10) Macrocytosis without anemia Conclusion/Plan: This is likely secondary to her chronic alcohol use. MCV is elevated at 115.8 which is stable for approximately 3 years ago. Her hemoglobin is also stable in the 12's. This can be monitored on an outpatient basis. - Lab Results Lab results reviewed: Yes Marc Bones: 01/28/20 14:25 01/28/20 14:25 Core Measures - Anticipated LOS I expect patient to be DC'd or transferred within 96 hours.: Yes - Issues Hospital Issues and Management Plan: This is an 84-year-old female who presents with lower extremity edema and found to have hyponatremia on labs. We will place her in observation and treat hyponatremia. - DVT/VTE - Prophylaxis VTE/DVT Device ordered at admit?: No Not Ordered - Medical Reason: Contraindicated VTE/DVT Prophylaxis med ordered at admit?: Yes
[2020-01-28] MEDS ORDERED: FUROSEMIDE 40 MG/4 ML VIAL IVP STA (16:26)
[2020-01-28] MEDS ORDERED: ACETAMINOPHEN 500 MG TABLET PO PRN (16:43)
--- NOTE | 2020-01-28 16:53 | XRAY Report ---
Reason: Cough. History of fibrosis. Procedure Date: 01/28/2020 Accession Number: [id number] / [id number] Procedure: XR - Chest 1 View X-Ray CPT Code: 34588 Final Report FULL RESULT: EXAM: CHEST RADIOGRAPHY EXAM DATE: 01/28/2020 04:36 PM. CLINICAL HISTORY: Cough. History of fibrosis. COMPARISON: CHEST 2 VIEW PA/LAT 05/02/2015 10:03 PM. TECHNIQUE: 1 view. FINDINGS: Lungs/Pleura: Progression of interstitial lung disease. Region of increased density seen in the left lower lung. No pneumothorax. Lung apices partly excluded. Lung volumes are low. Mediastinum: Heart is enlarged. Aorta is tortuous. Other: None. IMPRESSION: 1. Progression of interstitial lung disease compared to 05/02/2015. 2. Region of increased density left lower lung which may represent in the acute setting superimposed consolidation. RADIA
[2020-01-28] MEDS ORDERED: SODIUM CHLORIDE 0.9% 1,000 ML IV SCH (17:00)
[2020-01-28] MEDS ORDERED: NON FORMULARY MED (Rivaroxaban [Xarelto] 20 MG) PO SCH (17:00)
[2020-01-28] MEDS ORDERED: RIVAROXABAN 10 MG TABLET PO SCH (17:00)
[2020-01-28] MEDS: THIAMINE 100 MG TABLET PO SCH (17:10)
[2020-01-28] MEDS: traMADol 50 MG TABLET PO PRN ×2 (17:10→21:31)
[2020-01-28] MEDS: INSULIN ASPART 300 UNIT/3 ML PEN SUBQ SCH (17:11)
[2020-01-28] MEDS: SODIUM CHLORIDE FLUSH 0.9% 10 ML SYRINGE IVP SCH (17:12)
[2020-01-28 17:37] LABS: BILIRUBIN,URINE NEGATIVE (NEGATIVE); GLUCOSE, URINE (UA) NEGATIVE (NEGATIVE); KETONES,URINE (UA) NEGATIVE (NEGATIVE); LEUKOCYTE ESTERASE, URINE NEGATIVE (NEGATIVE); NITRITE,URINE NEGATIVE (NEGATIVE); OCCULT BLOOD,URINE NEGATIVE (NEGATIVE); PROTEIN,URINE NEGATIVE (NEGATIVE); UROBILINOGEN,URINE 0.2 (NORMAL) E.U./dL (NORMAL)
[2020-01-28 17:38] LABS: CLARITY,URINE HAZY (CLEAR)
[2020-01-28 17:50] LABS: AMORPHOUS SEDIMENT,UR Rare /LPF; BACTERIA,URINE Many /HPF (None Seen); RBC,URINE None Seen /HPF (0-5); SQUAMOUS EPITHELIAL CELL,UR MANY Squamous (<= Few)
[2020-01-28 17:51] LABS: CRYSTALS,URINE 26-50 Ca Oxalate /LPF
[2020-01-28 17:59] LABS: CREATININE,URINE 163.2 mg/dL
[2020-01-28 20:43] LABS: CREATININE 1.1 mg/dL (0.4-1.0)
[2020-01-28] MEDS ORDERED: NON FORMULARY MED (Simvastatin [Simvastatin] 40 MG) PO SCH (21:00)
[2020-01-28] MEDS ORDERED: INSULIN GLARGINE 300 UNIT/3 ML PEN SUBQ SCH (21:00)
[2020-01-28] MEDS: NYSTATIN POWDER 15 GM TOP SCH (21:20)
[2020-01-29] MEDS: SODIUM CHLORIDE FLUSH 0.9% 10 ML SYRINGE IVP SCH ×3 (00:19→17:06)
[2020-01-29 01:00] LABS: CALCIUM 7.6 mg/dL (8.5-10.3)
[2020-01-29] MEDS ORDERED: ALBUMIN 25% 12.5 GM/50 ML VIAL IV STA (01:07)
[2020-01-29] MEDS ORDERED: FUROSEMIDE 40 MG/4 ML VIAL IVP STA (01:08)
[2020-01-29] MEDS: SODIUM CHLORIDE FLUSH 0.9% 10 ML SYRINGE IVP PRN (01:25)
--- NOTE | 2020-01-29 02:08 | Ultrasound Report ---
Reason: Abnormal LFT's. Alcohol use. Procedure Date: 01/29/2020 Accession Number: [id number] / [id number] Procedure: US - Abdomen Complete CPT Code: Final Report FULL RESULT: EXAM: ABDOMEN ULTRASOUND EXAM DATE: 01/29/2020 12:15 AM. CLINICAL HISTORY: Abnormal LFTs. Alcohol use. COMPARISON: None. TECHNIQUE: Real-time scanning was performed with static images obtained. FINDINGS: Liver: The liver is diffusely echogenic. No focal lesion. The liver measures 20.4 cm. Main portal vein flow: Hepatopetal. Gallbladder: Gallbladder wall thickening, measuring 11 mm. No definite cholelithiasis. No pericholecystic fluid. Biliary System: Common bile duct measures 6 mm. No intrahepatic or extrahepatic ductal dilatation. Pancreas: Visualized portion is unremarkable. Kidneys: Right: 9 cm longitudinally. No hydronephrosis. Left: 9.7 cm longitudinally. No hydronephrosis. Spleen: 12 cm. Difficult visualization, secondary to bowel gas and limited windows. Aorta and Inferior Vena Cava: Obscured by bowel gas. Other: None. IMPRESSION: Hepatomegaly, with increased echotexture, compatible with fatty infiltration. No focal liver lesion. Gallbladder wall thickening, without evidence of cholelithiasis or pericholecystic fluid. The wall thickening may be secondary to hypoproteinemia. RADIA
--- NOTE | 2020-01-29 02:36 | Ultrasound Report ---
Reason: Diminished pulses bilaterally. Procedure Date: 01/29/2020 Accession Number: [id number] / [id number] Procedure: US - Duplex Lwr Ext Arterial Bilat CPT Code: Final Report FULL RESULT: EXAM: Bilateral Lower Extremity Arterial Doppler Ultrasound EXAM DATE: 01/29/2020 12:15 AM. CLINICAL HISTORY: Diminished pulses bilaterally. COMPARISON: None. TECHNIQUE: Real-time sonographic vascular imaging was performed by the experimental box tester, utilizing color-flow, Doppler flow, and spectral analysis. Multiple petroleum products sales representative static images were saved for review. FINDINGS: Right: Waveforms are predominantly monophasic. There is no evidence of a focal velocity increase to suggest a hemodynamically significant stenosis. Left: Waveforms are predominantly monophasic. There is no evidence of a focal velocity increase to suggest a hemodynamically significant stenosis. Right Leg: TURBINE ENGINE ASSEMBLER: PSV 83 cm/sec. Monophasic waveform. PSFA: PSV 102 cm/sec. Monophasic waveform. MSFA: PSV 89 cm/sec. Monophasic waveform. DSFA: PSV 78 cm/sec. Monophasic waveform. PFA: PSV 60 cm/sec. Monophasic waveform. POP: PSV 51 cm/sec. Triphasic waveform. VERNON: PSV 26 cm/sec. Biphasic waveform. AUDIT MGR: PSV 12 cm/sec. Monophasic waveform. PER: PSV 24 cm/sec. Monophasic waveform. DPA: PSV 50 cm/sec. Biphasic waveform. Left Leg: TURBINE ENGINE ASSEMBLER: PSV 68 cm/sec. Monophasic waveform. PSFA: PSV 91 cm/sec. Biphasic waveform. MSFA: PSV 89 cm/sec. Monophasic waveform. DSFA: PSV 73 cm/sec. Monophasic waveform. PFA: PSV 102 cm/sec. Monophasic waveform. POP: PSV 41 cm/sec. Biphasic waveform. VERNON: PSV 25 cm/sec. Biphasic waveform. AUDIT MGR: PSV 22 cm/sec. Monophasic waveform. PER: PSV 21 cm/sec. Monophasic waveform. DPA: PSV 46 cm/sec. Biphasic waveform. IMPRESSION: No evidence of a hemodynamically significant arterial stenosis in either leg. Predominantly monophasic waveforms, suggesting inflow disease. RADIA
[2020-01-29] MEDS: LEVOTHYROXINE 88 MCG TABLET PO SCH (06:31)
--- NOTE | 2020-01-29 07:29 | PROVIDER PROGRESS NOTE ---
Subjective - Prog Note Date Prog Note Date: 01/29/20 - Subjective Subjective: Her sodium decreased to 1 overnight and she is given a dose of IV Lasix and albumin given her hypervolemic state. Unfortunately, her blood pressure has been low in the 70s systolic. Threes have been obtained from both of her wrists. The patient reports no dizziness or lightheadedness. She denies any chest pain or dyspnea. She reports having a cough but this is chronic for her. Current Medications - Current Medications Current Medications: Active Medications Folic Acid () 1 mg PO DAILY [facility] Insulin Aspart (Novolog) 3 unit SUBQ TIDWM [facility] Last Admin: 01/28/20 17:11 Dose: Not Given Insulin Glargine (Lantus Solostar) 6 unit SUBQ QPM [facility] Last Admin: 01/28/20 21:21 Dose: 6 unit Levothyroxine Sodium (Synthroid) 88 mcg PO QDAC [facility] Last Admin: 01/29/20 06:31 Dose: 88 mcg Metoprolol Succinate (Toprol Xl) 50 mg PO DAILY [facility] Nystatin (Nystop) 1 applic TOP BID [facility] Last Admin: 01/28/20 21:20 Dose: 1 applic Rivaroxaban (Xarelto) 20 mg PO QDDINNER [facility] Last Admin: 01/28/20 21:20 Dose: Not Given Sodium Chloride (Normal Saline Flush 0.9%) 10 ml IVP PRN PRN PRN Reason: NEEDED PER PROVIDER ORDERS Last Admin: 01/29/20 01:25 Dose: 10 ml Sodium Chloride (Normal Saline Flush 0.9%) 10 ml IVP 0100,0900,1700 [facility] Last Admin: 01/29/20 00:19 Dose: Not Given Thiamine HCl (Vitamin B-1) 100 mg PO DAILY [facility] Last Admin: 01/28/20 17:10 Dose: 100 mg Tramadol HCl (Ultram) 25 mg PO Q4HR PRN PRN Reason: PAIN Last Admin: 01/29/20 07:44 Dose: 25 mg Furosemide 20 mg DAILY 05/02/15 Rivaroxaban [Xarelto] 20 mg PO QDDINNER 05/02/15 Simvastatin 40 mg PO QPM 05/02/15 Spironolactone 25 mg PO DAILY 05/02/15 Insulin Glargine [Lantus Solostar] 6 unit SUBQ QPM 01/28/20 Insulin Lispro [Humalog Kwikpen U-100] 3 unit SUBQ TIDWM 01/28/20 Levothyroxine Sodium 75 mcg PO QDAC 01/28/20 Metoprolol Succinate 50 mg PO DAILY 01/28/20 Objective - Vital Signs/Intake & Output Vital Signs: Vital Signs x48h Temp Pulse Resp BP Pulse Ox 01/29/20 06:02 35.8 C L 01/29/20 06:00 76/44 L 01/29/20 03:22 35.7 C L 99 20 84/52 L 98 01/29/20 00:20 64 20 143/72 H 100 Intake & Output: Intake & Output 01/26/20 01/27/20 01/28/20 01/29/20 23:59 23:59 23:59 23:59 Intake Total 422.5 224.5 Output Total 100 600 Balance 322.5 -375.5 - Objective General Appearance: positive: No acute distress, Alert Eyes Bilateral: positive: Normal inspection ENT: positive: ENT inspection nml Neck: positive: Nml inspection Respiratory: positive: No respiratory distress, Other (Faint crackles bilaterally). negative: Wheezes, Rales Cardiovascular: positive: No murmur, Irregularly irregular. negative: T achycardia, Bradycardia, Systolic murmur Abdomen: positive: Non-tender, No distention, Other (Does have pitting edema in her abdominal wall but this has improved compared to yesterday.). negative: Tenderness, Guarding, Rebound Skin: positive: Warm, Dry, Other (Her lower extremities are no longer cool to touch. Lower extremities also placed in bandages bilaterally where she had the 2 small wounds yesterday.) Extremities: positive: Pedal edema (He does have bilateral lower extremity pitting edema but it is now about trace to +1.) Neurologic/Psychiatric: positive: Oriented x3, Other. negative: Disoriented to person, Disoriented to place, Disoriented to time - Lab Results Fish Bones: 01/29/20 08:00 01/29/20 12:39 Other Labs: Lab Results x24hrs 01/29/20 01/28/20 01/28/20 Range/Units 00:45 20:22 20:22 WBC (4.8-10.8) x10^3/uL RBC (4.20-5.40) 10^6/uL Hgb (12.0-16.0) g/dL Hct (37.0-47.0) % MCV (81.0-99.0) fL MCH (27.0-31.0) pg MCHC (32.0-36.0) g/dL RDW (12.0-15.0) % Plt Count (130-450) 10^3/uL MPV (7.9-10.8) fL Neut # (Auto) (1.5-6.6) 10^3/uL Lymph # (Auto) (1.5-3.5) 10^3/uL [place] # (Auto) (0.0-1.0) 10^3/uL Eos # (Auto) (0.0-0.7) 10^3/uL Baso # (Auto) (0.0-0.1) 10^3/uL Absolute Nucleated RBC x10^3/uL Nucleated RBC % /100WBC Sodium 112 L* (135-145) mmol/L Potassium 4.3 (3.5-5.0) mmol/L Chloride 83 L (101-111) mmol/L Carbon Dioxide 19 L (21-32) mmol/L Anion Gap 10.0 (6-13) BUN 17 (6-20) mg/dL Creatinine 1.0 (0.4-1.0) mg/dL Estimated GFR (MDRD) 53 L (>89) Glucose 94 (70-100) mg/dL Lactic Acid 2.2 (0.5-2.2) mmol/L Calcium 7.6 L (8.5-10.3) mg/dL Total Bilirubin (0.2-1.0) mg/dL AST (10-42) IU/L ALT (10-60) IU/L Alkaline Phosphatase (42-121) IU/L Ammonia (7-35) umol/L Total Creatine Kinase (22-269) IU/L Troponin I High Sens 15.6 H* (2.3-14.8) ng/L B-Natriuretic Peptide (5-100) pg/mL Total Protein (6.7-8.2) g/dL Albumin (3.2-5.5) g/dL Globulin (2.1-4.2) g/dL Albumin/Globulin Ratio (1.0-2.2) Lipase (22-51) U/L TSH (0.34-5.60) uIU/mL Urine Color Urine Clarity (CLEAR) Urine pH (5.0-7.5) PH Ur Specific [place] (1.002-1.030) Urine Protein (NEGATIVE) mg/dL Urine Glucose (UA) (NEGATIVE) mg/dL Urine Ketones (NEGATIVE) mg/dL Urine Occult Blood (NEGATIVE) Urine Nitrite (NEGATIVE) Urine Bilirubin (NEGATIVE) Urine Urobilinogen (NORMAL) E.U./dL Ur Leukocyte Esterase (NEGATIVE) Urine RBC (0-5) /HPF Urine WBC (0-5) /HPF Ur Squamous Epith Cells (<= Few) Urine Crystals /LPF Amorphous Sediment /LPF Urine Bacteria (None Seen) /HPF Ur Random Chloride mmol/L Urine Creatinine mg/dL Urine Sodium mmol/L 01/28/20 01/28/20 01/28/20 Range/Units 20:22 17:27 17:27 WBC (4.8-10.8) x10^3/uL RBC (4.20-5.40) 10^6/uL Hgb (12.0-16.0) g/dL Hct (37.0-47.0) % MCV (81.0-99.0) fL MCH (27.0-31.0) pg MCHC (32.0-36.0) g/dL RDW (12.0-15.0) % Plt Count (130-450) 10^3/uL MPV (7.9-10.8) fL Neut # (Auto) (1.5-6.6) 10^3/uL Lymph # (Auto) (1.5-3.5) 10^3/uL [place] # (Auto) (0.0-1.0) 10^3/uL Eos # (Auto) (0.0-0.7) 10^3/uL Baso # (Auto) (0.0-0.1) 10^3/uL Absolute Nucleated RBC x10^3/uL Nucleated RBC % /100WBC Sodium 116 L* (135-145) mmol/L Potassium 4.5 (3.5-5.0) mmol/L Chloride 85 L (101-111) mmol/L Carbon Dioxide 21 (21-32) mmol/L Anion Gap 10.0 (6-13) BUN 18 (6-20) mg/dL Creatinine 1.1 H (0.4-1.0) mg/dL Estimated GFR (MDRD) 48 L (>89) Glucose 121 H (70-100) mg/dL Lactic Acid (0.5-2.2) mmol/L Calcium 8.0 L (8.5-10.3) mg/dL Total Bilirubin (0.2-1.0) mg/dL AST (10-42) IU/L ALT (10-60) IU/L Alkaline Phosphatase (42-121) IU/L Ammonia (7-35) umol/L Total Creatine Kinase (22-269) IU/L Troponin I High Sens (2.3-14.8) ng/L B-Natriuretic Peptide (5-100) pg/mL Total Protein (6.7-8.2) g/dL Albumin (3.2-5.5) g/dL Globulin (2.1-4.2) g/dL Albumin/Globulin Ratio (1.0-2.2) Lipase (22-51) U/L TSH (0.34-5.60) uIU/mL Urine Color ORANGE Urine Clarity HAZY (CLEAR) Urine pH 5.0 (5.0-7.5) PH Ur Specific [place] 1.025 (1.002-1.030) Urine Protein NEGATIVE (NEGATIVE) mg/dL Urine Glucose (UA) NEGATIVE (NEGATIVE) mg/dL Urine Ketones NEGATIVE (NEGATIVE) mg/dL Urine Occult Blood NEGATIVE (NEGATIVE) Urine Nitrite NEGATIVE (NEGATIVE) Urine Bilirubin NEGATIVE (NEGATIVE) Urine Urobilinogen 0.2 (NORMAL) (NORMAL) E.U./dL Ur Leukocyte Esterase NEGATIVE (NEGATIVE) Urine RBC None Seen (0-5) /HPF Urine WBC 0-3 (0-5) /HPF Ur Squamous Epith Cells MANY Squamous H (<= Few) Urine Crystals 26-50 Ca Oxalate /LPF Amorphous Sediment Rare /LPF Urine Bacteria Many H (None Seen) /HPF Ur Random Chloride < 14 mmol/L Urine Creatinine 163.2 mg/dL Urine Sodium < 12.0 mmol/L 01/28/20 01/28/20 01/28/20 Range/Units 15:42 15:42 15:42 WBC (4.8-10.8) x10^3/uL RBC (4.20-5.40) 10^6/uL Hgb (12.0-16.0) g/dL Hct (37.0-47.0) % MCV (81.0-99.0) fL MCH (27.0-31.0) pg MCHC (32.0-36.0) g/dL RDW (12.0-15.0) % Plt Count (130-450) 10^3/uL MPV (7.9-10.8) fL Neut # (Auto) (1.5-6.6) 10^3/uL Lymph # (Auto) (1.5-3.5) 10^3/uL [place] # (Auto) (0.0-1.0) 10^3/uL Eos # (Auto) (0.0-0.7) 10^3/uL Baso # (Auto) (0.0-0.1) 10^3/uL Absolute Nucleated RBC x10^3/uL Nucleated RBC % /100WBC Sodium (135-145) mmol/L Potassium (3.5-5.0) mmol/L Chloride (101-111) mmol/L Carbon Dioxide (21-32) mmol/L Anion Gap (6-13) BUN (6-20) mg/dL Creatinine (0.4-1.0) mg/dL Estimated GFR (MDRD) (>89) Glucose (70-100) mg/dL Lactic Acid 2.9 H (0.5-2.2) mmol/L Calcium (8.5-10.3) mg/dL Total Bilirubin (0.2-1.0) mg/dL AST (10-42) IU/L ALT (10-60) IU/L Alkaline Phosphatase (42-121) IU/L Ammonia 13.4 (7-35) umol/L Total Creatine Kinase 92 (22-269) IU/L Troponin I High Sens (2.3-14.8) ng/L B-Natriuretic Peptide (5-100) pg/mL Total Protein (6.7-8.2) g/dL Albumin (3.2-5.5) g/dL Globulin (2.1-4.2) g/dL Albumin/Globulin Ratio (1.0-2.2) Lipase (22-51) U/L TSH (0.34-5.60) uIU/mL Urine Color Urine Clarity (CLEAR) Urine pH (5.0-7.5) PH Ur Specific [place] (1.002-1.030) Urine Protein (NEGATIVE) mg/dL Urine Glucose (UA) (NEGATIVE) mg/dL Urine Ketones (NEGATIVE) mg/dL Urine Occult Blood (NEGATIVE) Urine Nitrite (NEGATIVE) Urine Bilirubin (NEGATIVE) Urine Urobilinogen (NORMAL) E.U./dL Ur Leukocyte Esterase (NEGATIVE) Urine RBC (0-5) /HPF Urine WBC (0-5) /HPF Ur Squamous Epith Cells (<= Few) Urine Crystals /LPF Amorphous Sediment /LPF Urine Bacteria (None Seen) /HPF Ur Random Chloride mmol/L Urine Creatinine mg/dL Urine Sodium mmol/L 01/28/20 01/28/20 01/28/20 Range/Units 14:26 14:25 14:25 WBC (4.8-10.8) x10^3/uL RBC (4.20-5.40) 10^6/uL Hgb (12.0-16.0) g/dL Hct (37.0-47.0) % MCV (81.0-99.0) fL MCH (27.0-31.0) pg MCHC (32.0-36.0) g/dL RDW (12.0-15.0) % Plt Count (130-450) 10^3/uL MPV (7.9-10.8) fL Neut # (Auto) (1.5-6.6) 10^3/uL Lymph # (Auto) (1.5-3.5) 10^3/uL [place] # (Auto) (0.0-1.0) 10^3/uL Eos # (Auto) (0.0-0.7) 10^3/uL Baso # (Auto) (0.0-0.1) 10^3/uL Absolute Nucleated RBC x10^3/uL Nucleated RBC % /100WBC Sodium (135-145) mmol/L Potassium (3.5-5.0) mmol/L Chloride (101-111) mmol/L Carbon Dioxide (21-32) mmol/L Anion Gap (6-13) BUN (6-20) mg/dL Creatinine (0.4-1.0) mg/dL Estimated GFR (MDRD) (>89) Glucose (70-100) mg/dL Lactic Acid (0.5-2.2) mmol/L Calcium (8.5-10.3) mg/dL Total Bilirubin (0.2-1.0) mg/dL AST (10-42) IU/L ALT (10-60) IU/L Alkaline Phosphatase (42-121) IU/L Ammonia (7-35) umol/L Total Creatine Kinase (22-269) IU/L Troponin I High Sens 15.4 H* (2.3-14.8) ng/L B-Natriuretic Peptide 271 H (5-100) pg/mL Total Protein (6.7-8.2) g/dL Albumin (3.2-5.5) g/dL Globulin (2.1-4.2) g/dL Albumin/Globulin Ratio (1.0-2.2) Lipase (22-51) U/L TSH 11.32 H (0.34-5.60) uIU/mL Urine Color Urine Clarity (CLEAR) Urine pH (5.0-7.5) PH Ur Specific [place] (1.002-1.030) Urine Protein (NEGATIVE) mg/dL Urine Glucose (UA) (NEGATIVE) mg/dL Urine Ketones (NEGATIVE) mg/dL Urine Occult Blood (NEGATIVE) Urine Nitrite (NEGATIVE) Urine Bilirubin (NEGATIVE) Urine Urobilinogen (NORMAL) E.U./dL Ur Leukocyte Esterase (NEGATIVE) Urine RBC (0-5) /HPF Urine WBC (0-5) /HPF Ur Squamous Epith Cells (<= Few) Urine Crystals /LPF Amorphous Sediment /LPF Urine Bacteria (None Seen) /HPF Ur Random Chloride mmol/L Urine Creatinine mg/dL Urine Sodium mmol/L 01/28/20 01/28/20 Range/Units 14:25 14:25 WBC 5.4 (4.8-10.8) x10^3/uL RBC 3.17 L (4.20-5.40) 10^6/uL Hgb 12.8 (12.0-16.0) g/dL Hct 36.7 L (37.0-47.0) % MCV 115.8 H (81.0-99.0) fL MCH 40.4 H (27.0-31.0) pg MCHC 34.9 (32.0-36.0) g/dL RDW 16.3 H (12.0-15.0) % Plt Count 167 (130-450) 10^3/uL MPV 9.4 (7.9-10.8) fL Neut # (Auto) 3.3 (1.5-6.6) 10^3/uL Lymph # (Auto) 0.9 L (1.5-3.5) 10^3/uL [place] # (Auto) 0.9 (0.0-1.0) 10^3/uL Eos # (Auto) 0.1 (0.0-0.7) 10^3/uL Baso # (Auto) 0.0 (0.0-0.1) 10^3/uL Absolute Nucleated RBC 0.36 x10^3/uL Nucleated RBC % 6.6 /100WBC Sodium 116 L* (135-145) mmol/L Potassium 4.8 (3.5-5.0) mmol/L Chloride 83 L (101-111) mmol/L Carbon Dioxide 21 (21-32) mmol/L Anion Gap 12.0 (6-13) BUN 19 (6-20) mg/dL Creatinine 1.3 H (0.4-1.0) mg/dL Estimated GFR (MDRD) 39 L (>89) Glucose 167 H (70-100) mg/dL Lactic Acid (0.5-2.2) mmol/L Calcium 8.3 L (8.5-10.3) mg/dL Total Bilirubin 3.6 H (0.2-1.0) mg/dL AST 113 H (10-42) IU/L ALT 68 H (10-60) IU/L Alkaline Phosphatase 345 H (42-121) IU/L Ammonia (7-35) umol/L Total Creatine Kinase (22-269) IU/L Troponin I High Sens (2.3-14.8) ng/L B-Natriuretic Peptide (5-100) pg/mL Total Protein 5.4 L (6.7-8.2) g/dL Albumin 2.3 L (3.2-5.5) g/dL Globulin 3.1 (2.1-4.2) g/dL Albumin/Globulin Ratio 0.7 L (1.0-2.2) Lipase 32 (22-51) U/L TSH (0.34-5.60) uIU/mL Urine Color Urine Clarity (CLEAR) Urine pH (5.0-7.5) PH Ur Specific [place] (1.002-1.030) Urine Protein (NEGATIVE) mg/dL Urine Glucose (UA) (NEGATIVE) mg/dL Urine Ketones (NEGATIVE) mg/dL Urine Occult Blood (NEGATIVE) Urine Nitrite (NEGATIVE) Urine Bilirubin (NEGATIVE) Urine Urobilinogen (NORMAL) E.U./dL Ur Leukocyte Esterase (NEGATIVE) Urine RBC (0-5) /HPF Urine WBC (0-5) /HPF Ur Squamous Epith Cells (<= Few) Urine Crystals /LPF Amorphous Sediment /LPF Urine Bacteria (None Seen) /HPF Ur Random Chloride mmol/L Urine Creatinine mg/dL Urine Sodium mmol/L ABX Reporting Has patient been on IV antibiotics over the past 48 hours?: No Assessment/Plan - Problem List (1) Hyponatremia Impression: This appears to be hypervolemic hyponatremia although the etiology is not clear at the moment. Her sodium decreased with IV saline. Her ultrasound suggested fatty liver but no evidence of cirrhosis. Her BNP is only minimally elevated and unable to obtain echocardiogram over the weekend she has not yet ruled out heart failure as a cause of this. Her urine sodium is low despite her being on Lasix at home so she is sodium avid. We would ideally continue with IV diuresis but given her hypotension, this will need to be limited until we truly know that she is not hypotensive. We will continue to check her sodium every 6 hours. The goal is to increase her sodium by 8 mEq every 24 hours. (2) Hypotension Impression: Blood pressures have been as low as 84/52 although she does not show clinical signs of hypotension. Her renal function is improving and her mental status is at baseline. She does not appear septic as there is no tachycardia, fever or hypothermia, leukocytosis or leukopenia. Her troponins have also been negative and her EKG is not suggestive of ischemia. Given her low blood pressure, we will transfer her to the intensive care unit and we will consult anesthesia for arterial line placement. If she is truly hypotensive, she may need vasopressors and IV fluids. We will obtain blood cultures at this time. Will consider IV antibiotics if she is hypotensive. Although her chest x-ray did suggest possible infiltrate, she has not had clinical signs of pneumonia and she herself states that "I do not have pneumonia as I had it before and this is not similar ." (3) DEIDRA (acute kidney injury) Impression: Her renal function is improving and her creatinine is down to 1.0. Baseline is 0.7. Although she is hypotensive, her renal function continues to improve and her urine output remains adequate. We will attempt to diurese her if possible given the hyponatremia although we need to keep an eye out for clinical signs of hypotension including worsening renal function and decreased urine output. We will hold off on IV fluids given her hyponatremia. We will continue to monitor her renal function and urine output. (4) Abnormal LFTs Impression: LFTs are improving today. Suspect they are elevated secondary to her alcohol use. Her ultrasound suggested fatty infiltration but no evidence of cirrhosis. Continue to trend her LFTs. (5) Lower extremity edema Impression: This has improved compared to admission. She did receive Lasix 40 mg IV overnight. Her BNP is only mildly elevated do not suspect heart failure although we will need to echocardiogram on Friday as it is not available over the weekend. Do not suspect that she has cirrhosis based off of her ultrasound findings. We will continue with IV diuresis as long as her blood pressure tolerates it. (6) Leg wound, left Impression: We will continue with daily dressing changes. There is no evidence of infection. Arterial Dopplers did not suggest significant arterial stenosis. Qualifiers: Encounter type: initial encounter Qualified Code(s): S81.802A - Unspecified open wound, left lower leg, initial encounter (7) Alcohol use disorder Impression: Likely cause of her elevated LFTs. She does drink on a daily basis. We will mo nitor her for alcohol withdrawal although she shows no evidence of this at the moment. Continue with thiamine and folate. (8) Type 2 diabetes mellitus treated with insulin Impression: He is on insulin at home and the A1c checked this admission was 5.4%. Her blood glucose has been well controlled during his hospitalization. We will discontinue her insulin and monitor her blood glucose off of insulin. Continue with carb controlled diet. (9) Chronic atrial fibrillation Impression: She remains rate controlled. We will hold her metoprolol given the hypotension. We will also hold her Xarelto this evening in case we need to obtain central venous access for the hypotension. Continue to monitor on telemetry. (10) Hypothyroidism Impression: TSH was elevated and so we increased her Synthroid to 88 mcg. She will require repeat TSH in 4 to 6 weeks (11) Macrocytosis without anemia Impression: Hemoglobin is stable. This is secondary to her alcohol use.
[2020-01-29] MEDS: traMADol 50 MG TABLET PO PRN ×2 (07:44→17:42)
[2020-01-29] MEDS: INSULIN ASPART 300 UNIT/3 ML PEN SUBQ SCH ×2 (08:13→13:49)
[2020-01-29 08:15] LABS: BASOPHILS # (AUTO) 0.1 10^3/uL (0.0-0.1); BASOPHILS % (AUTO) 1.1 %; EOSINOPHILS # (AUTO) 0.2 10^3/uL (0.0-0.7); EOSINOPHILS % (AUTO) 4.3 %; HGB - HEMOGLOBIN 12.9 g/dL (12.0-16.0); LYMPHOCYTES # (AUTO) 0.9 10^3/uL (1.5-3.5); LYMPHOCYTES % (AUTO) 20.2 %; MEAN CORPUSCULAR HEMOGLOBIN 42.6 pg (27.0-31.0); MEAN CORPUSCULAR HGB CONC 36.8 g/dL (32.0-36.0); MEAN CORPUSCULAR VOLUME 115.8 fL (81.0-99.0); MEAN PLATELET VOLUME 9.6 fL (7.9-10.8); MONOCYTES # (AUTO) 0.7 10^3/uL (0.0-1.0); MONOCYTES % (AUTO) 16.6 %; NEUTROPHILS # (AUTO) 2.3 10^3/uL (1.5-6.6); NEUTROPHILS % (AUTO) 52.8 %; PLT - PLATELET COUNT 164 10^3/uL (130-450); RED BLOOD COUNT 3.03 10^6/uL (4.20-5.40); RED CELL DISTRIBUTION WIDTH 16.4 % (12.0-15.0); WHITE BLOOD COUNT 4.4 x10^3/uL (4.8-10.8)
[2020-01-29 08:16] LABS: INR 2.6 (0.8-1.2); PT - PROTHROMBIN TIME 27.9 secs (9.9-12.6)
[2020-01-29 08:25] LABS: CALCIUM 7.7 mg/dL (8.5-10.3); MAGNESIUM 1.7 mg/dL (1.7-2.8); PHOSPHORUS 3.3 mg/dL (2.5-4.6)
[2020-01-29 08:29] LABS: ALBUMIN 2.4 g/dL (3.2-5.5); BILIRUBIN,DIRECT 1.5 mg/dL (0.1-0.5); HB2 TOTAL 13.3 g/dL; HEMOGLOBIN A1C 0.47 g/dL; HEMOGLOBIN A1C % 5.4 % (4.6-6.2); TOTAL PROTEIN 5.3 g/dL (6.7-8.2)
[2020-01-29] MEDS: NYSTATIN POWDER 15 GM TOP SCH ×2 (08:46→22:17)
[2020-01-29] MEDS: FOLIC ACID 1 MG TABLET PO SCH (08:46)
[2020-01-29 08:51] LABS: PLATELET ESTIMATE, MANUAL NORMAL (130-450,000) (NORMAL); PLATELET MORPHOLOGY NORMAL APPEARANCE (NORMAL)
[2020-01-29] MEDS ORDERED: METOPROLOL SUCCINATE 50 MG TABLET PO SCH (09:00)
[2020-01-29] MEDS ORDERED: MORPHINE 2 MG/ML CARPUJECT IVP STA (10:27)
[2020-01-29] MEDS: THIAMINE 100 MG TABLET PO SCH (11:04)
[2020-01-29 13:20] LABS: CALCIUM 7.7 mg/dL (8.5-10.3)
--- NOTE | 2020-01-29 13:39 | CONSULTATION NOTE ---
Consultation Report: Called for Arterial line placement for new transfer to ICU after repeated low NIBP. HR stable, A&O x4. Xerelto for AF, last dose 01/28/20. Attempt A line at B radial arteries w/US due to inability to palpate artery. Blood return with each attempt but unable to thread catheter. Patient unable to remain still during procedure despite IV morphine after first attempt. It was later revealed that the pt is hypersensitive to touch and has a low threshold for pain. At this point the patient had made 2 references about wanting a drink of vodka. Patient verbally upset with each attempt and would often cry out in pain to "stop doing what you're doing" despite the patient not being touched. B wrist sites dressed with pressure dressing to hemostasis. After discussing inability to place Mis, decision was made to place CVL following patient consent. Patient assessed to have no identifiable internal jugular veins bilaterally after several minutes of scanning, using color flow, as well as changing depths and angles. Steep Trendelenburg used to assess both vessels without success. Internal medicine in to confirm no identifiable jugular veins using ultrasound. Decision to place PICC was made, with patient in agreement. Attempted a R basillic v PICC x2. Unable to access vessel due to size, depth, and patient movement and irritability and abusive language now dirwcted at myself. Patient demanded that the procedure stop after second attempt. Drapes removed and the need to place a basic peripheral IV was discussed. Pt willing to allow but shortly after attempting to place IV, she again insisted we stop and that she be let out of the hospital. Abusive language continued including her wanting to "wrap a tourniquet around my neck". Internal medicine apprised of situation.
[2020-01-29] MEDS: PIPERACILLIN/TAZOBACTAM 3.375 GM in SODIUM CHLORIDE 0.9% MINIBAG 100 ML IV SCH ×3 (13:41→22:16)
[2020-01-29] MEDS ORDERED: VANCOMYCIN 1 GM VIAL ONE (14:54)
[2020-01-29] MEDS ORDERED: VANCOMYCIN 500 MG VIAL ONE (14:54)
[2020-01-29] MEDS: VANCOMYCIN INJ 1 GM, VANCOMYCIN INJ 500 MG in SODIUM CHLORIDE 0.9% 500 ML IV SCH (14:55)
[2020-01-29 18:33] LABS: CALCIUM 7.4 mg/dL (8.5-10.3)
[2020-01-29] MEDS: DOPamine 800 MG/500 ML 800 MG/500 ML BAG IV SCH ×2 (18:56→22:00)
--- NOTE | 2020-01-29 21:30 | OPERATIVE REPORT ---
Operative Report - General Admit Date: 01/29/20 Procedure Date: 01/29/20 Pre-Op Diagnosis: ICU IV access for continuous medication drip and CVP monitoring Procedure Performed: Central venous triple lumen catheter placement Post Op Diagnosis: same - Procedure Note Primary Surgeon: Carol Knutson Anesthesia Technique: Local Indications: viji Phelps is an 84 yo WF in the ICU who has very poor IV access and is requiring continious IV drip for pressors and CVP monitoring, a triple lumen central catheter was requested. Anesthesia attempted placement in the IJ's without success and I was contacted for placement. Findings: access obtained in first attempt Complications: none, post placement CXR pending - Other Other Information/Narrative: [facility] and prepped and draped in a sterile fashion. A formal timeout was then held according to hospital regulations . Local anesthesia was then infused into the right subclavian area. Access of the vein was then obtained with the introducer needle and the wire placed down the needle in the standard fashion. A small incision was created along the wire at the insertion site. Then the venodilator was inserted and removed over the wire. The prior primed catheter was inserted the wire in the usual fashion and the wire was removed . The catheter was then flashed and flushed in all three ports without issue. The catheter cuff was attached at the skin and the catheter was secured in 4 spots at the cuff and the catheter with the provided silk suture. . Sterile dressing was then placed. The drapes were removed. All sponge, sharp, and instrument counts were correct. The patient tolerated the procedure without difficulty. Post procedure CXR was ordered.
--- NOTE | 2020-01-29 22:18 | XRAY Report ---
Reason: s/p line placement Procedure Date: 01/29/2020 Accession Number: [id number] / [id number] Procedure: XR - Chest for Line Placement CPT Code: Final Report FULL RESULT: EXAM: CHEST RADIOGRAPHY EXAM DATE: 01/29/2020 09:59 PM. CLINICAL HISTORY: S/p line placement. COMPARISON: CHEST 1 VIEW 01/28/2020 4:15 PM. TECHNIQUE: 1 view. FINDINGS: Lungs/Pleura: Stable basilar opacities, greater on left than right. Interstitial thickening throughout the lungs, unchanged. Possible small left pleural effusion. No pneumothorax. Mediastinum: Stable mild enlargement of cardiac silhouette. Other: Right subclavian catheter tip in superior right atrium. IMPRESSION: 1. Right subclavian catheter tip in superior right atrium. 2. Stable interstitial thickening in basilar infiltrates, greater on left than right. RADIA
[2020-01-30] MEDS: chlordiazePOXIDE 25 MG CAPSULE PO SCH ×3 (00:08→20:49)
[2020-01-30] MEDS: traZODone 50 MG TABLET PO SCH ×2 (00:09→20:49)
[2020-01-30 00:36] LABS: CALCIUM 7.6 mg/dL (8.5-10.3); CREATININE 1.1 mg/dL (0.4-1.0)
[2020-01-30] MEDS ORDERED: FUROSEMIDE 20 MG/2 ML VIAL IVP STA (01:26)
[2020-01-30] MEDS ORDERED: ALBUMIN 25% 12.5 GM/50 ML VIAL IV STA (01:29)
[2020-01-30] MEDS: SODIUM CHLORIDE FLUSH 0.9% 10 ML SYRINGE IVP SCH ×3 (01:51→17:52)
[2020-01-30] MEDS: PIPERACILLIN/TAZOBACTAM 3.375 GM in SODIUM CHLORIDE 0.9% MINIBAG 100 ML IV SCH ×4 (04:18→19:31)
[2020-01-30 05:02] LABS: BASOPHILS # (AUTO) 0.1 10^3/uL (0.0-0.1); EOSINOPHILS # (AUTO) 0.1 10^3/uL (0.0-0.7); EOSINOPHILS % (AUTO) 1.3 %; LYMPHOCYTES # (AUTO) 0.6 10^3/uL (1.5-3.5); LYMPHOCYTES % (AUTO) 9.3 %; MEAN CORPUSCULAR HEMOGLOBIN 42.1 pg (27.0-31.0); MEAN CORPUSCULAR HGB CONC 36.2 g/dL (32.0-36.0); MEAN CORPUSCULAR VOLUME 116.2 fL (81.0-99.0); MEAN PLATELET VOLUME 9.3 fL (7.9-10.8); MONOCYTES % (AUTO) 16.8 %; NEUTROPHILS # (AUTO) 4.1 10^3/uL (1.5-6.6); NEUTROPHILS % (AUTO) 67.4 %; PLT - PLATELET COUNT 177 10^3/uL (130-450); RED BLOOD COUNT 3.09 10^6/uL (4.20-5.40); RED CELL DISTRIBUTION WIDTH 16.5 % (12.0-15.0); WHITE BLOOD COUNT 6.1 x10^3/uL (4.8-10.8)
[2020-01-30 05:14] LABS: CALCIUM 7.4 mg/dL (8.5-10.3); CREATININE 1.1 mg/dL (0.4-1.0); MAGNESIUM 1.7 mg/dL (1.7-2.8); PHOSPHORUS 2.7 mg/dL (2.5-4.6)
[2020-01-30] MEDS: LEVOTHYROXINE 88 MCG TABLET PO SCH (06:13)
--- NOTE | 2020-01-30 07:53 | PHARMACY PROGRESS NOTE ---
- Therapy Status Vancomycin regimen day #: 2 Therapy status: Awaiting steady state Basis for treatment: Empirical Trough goal: 15-20 Concurrent antibiotics: pip/tazo - DEIDRA Risk Risk level for Acute Kidney Injury: High Acute Kidney Injury risk factors: Other nephrotoxic agents, Piperacillin/Tozobactam, Baseline CrCl <50, Goal trough >15, Admission to ICU, Acute hypotensive event, Sepsis - Monitoring and Recommendation Clinical response to treatment: I&O Previous 24 hours 01/28/20 01/29/20 01/30/20 23:59 23:59 23:59 Intake Total 422.5 1127.875 322.857 Output Total 100 1500 200 Balance 322.5 -372.125 122.857 Lab Results 01/30/20 01/30/20 01/29/20 04:50 00:22 18:06 BUN 18 18 18 Creatinine 1.1 H 1.1 H 1.0 Estimated GFR (MDRD) 48 L 48 L 53 L 01/29/20 01/29/20 01/29/20 12:39 08:00 00:45 BUN 18 17 17 Creatinine 1.0 1.0 1.0 Estimated GFR (MDRD) 53 L 53 L 53 L 01/28/20 01/28/20 20:22 14:25 BUN 18 19 Creatinine 1.1 H 1.3 H Estimated GFR (MDRD) 48 L 39 L Monitoring plan: Daily serum creatinine Next trough due prior to maintenance dose #: 4 Areas for additional monitoring: IV to PO when appropriate, Therapy de- escalation based on culture results Pharmacy recommendation: Continue current regime
--- NOTE | 2020-01-30 08:00 | PROVIDER PROGRESS NOTE ---
Subjective - Prog Note Date Prog Note Date: 01/30/20 - Subjective Subjective: General surgery is able to place a subclavian central line yesterday. She started on norepinephrine overnight and given dose of albumin and 20 mg of Lasix IV. Despite being on norepinephrine, her blood pressure has not increased. She was also started on Librium prevent alcohol withdrawal given her daily alcohol use. This morning she denies any pain. Continues to report a chronic cough but no dyspnea or chest pain. She denies feeling dizzy or lightheaded. Current Medications - Current Medications Current Medications: Active Medications Chlordiazepoxide HCl (Librium) 25 mg PO Q12H [facility] Folic Acid () 1 mg PO DAILY [facility] Last Admin: 01/29/20 08:46 Dose: 1 mg Vancomycin HCl 1 gm/Vancomycin HCl 500 mg/ Sodium Chloride 500 mls @ 250 mls/hr IV Q24H [facility] Last Infusion: 01/29/20 17:06 Dose: Infused Norepinephrine Bitartrate 8 mg (/ Dextrose) 250 mls @ 15 mls/hr IV .[id number] [facility]; Protocol Last Titration: 01/30/20 09:05 Dose: 14 mcg/min, 26.25 mls/hr Piperacillin Sod/Tazobactam (Sod 3.375 gm/ Sodium Chloride) 100 mls @ 25 mls/hr IV Q8H [facility] Last Admin: 01/30/20 08:50 Dose: 25 mls/hr Levothyroxine Sodium (Synthroid) 88 mcg PO QDAC [facility] Last Admin: 01/30/20 06:13 Dose: 88 mcg Nystatin (Nystop) 1 applic TOP BID [facility] Last Admin: 01/29/20 22:17 Dose: 1 applic Sodium Chloride (Normal Saline Flush 0.9%) 10 ml IVP PRN PRN PRN Reason: NEEDED PER PROVIDER ORDERS Last Admin: 01/29/20 01:25 Dose: 10 ml Sodium Chloride (Normal Saline Flush 0.9%) 10 ml IVP 0100,0900,1700 [facility] Last Admin: 01/30/20 01:51 Dose: 10 ml Thiamine HCl (Vitamin B-1) 100 mg PO DAILY [facility] Last Admin: 01/29/20 11:04 Dose: Not Given Tramadol HCl (Ultram) 25 mg PO Q4HR PRN PRN Reason: PAIN Last Admin: 01/29/20 17:42 Dose: 25 mg Trazodone HCl (Desyrel) 50 mg PO QPM [facility] Last Admin: 01/30/20 00:09 Dose: 50 mg Furosemide 20 mg DAILY 05/02/15 Rivaroxaban [Xarelto] 20 mg PO QDDINNER 05/02/15 Simvastatin 40 mg PO QPM 05/02/15 Spironolactone 25 mg PO DAILY 05/02/15 Insulin Glargine [Lantus Solostar] 6 unit SUBQ QPM 01/28/20 Insulin Lispro [Humalog Kwikpen U-100] 3 unit SUBQ TIDWM 01/28/20 Levothyroxine Sodium 75 mcg PO QDAC 01/28/20 Metoprolol Succinate 50 mg PO DAILY 01/28/20 Objective - Vital Signs/Intake & Output Vital Signs: Vital Signs Pulse Pulse Resp BP BP Pulse Ox 01/30/20 07:00 110 H 20 75/51 L 98 01/30/20 06:00 111 H 18 83/51 L 97 01/30/20 05:00 106 H 17 01/30/20 04:46 104 H 21 81/43 L 01/30/20 04:32 121 H 26 H 72/38 L 01/30/20 04:16 107 H 17 78/51 L 01/30/20 04:01 109 H 22 83/42 L Intake & Output: Intake & Output 01/27/20 01/28/20 01/29/20 01/30/20 23:59 23:59 23:59 23:59 Intake Total 422.5 1127.875 322.857 Output Total 100 1500 200 Balance 322.5 -372.125 122.857 - Objective General Appearance: positive: No acute distress, Alert Eyes Bilateral: positive: Normal inspection, Conjunctivae nml ENT: positive: ENT inspection nml Neck: positive: Nml inspection Respiratory: positive: No respiratory distress, Other (Faint crackles bilaterally.). negative: Wheezes, Rales Cardiovascular: positive: No murmur, Irregularly irregular, Tachycardia. negative: Systolic murmur, Diastolic murmur Peripheral Pulses: 2+ Radial (R), 2+ Radial (L) Abdomen: positive: Non-tender, Other (She has +1 pitting edema in the dependent portions of her abdomen.). negative: No distention, Tenderness, Guarding, Rebound Skin: positive: Warm (Her lower extremities are quite warm to touch compared to admission.), Dry Extremities: positive: Pedal edema (There is trace pitting edema in her lower extremities below the knee. She does have +1 pitting edema in her lower abdomen and the superior portion of her legs.) Neurologic/Psychiatric: positive: Oriented x3. negative: Disoriented to person, Disoriented to place, Disoriented to time - Lab Results Fish Bones: 01/30/20 04:50 01/30/20 04:50 Other Labs: Lab Results x24hrs 01/30/20 01/30/20 01/30/20 Range/Units 04:50 04:50 04:50 WBC 6.1 (4.8-10.8) x10^3/uL RBC 3.09 L (4.20-5.40) 10^6/uL Hgb 13.0 (12.0-16.0) g/dL Hct 35.9 L (37.0-47.0) % MCV 116.2 H (81.0-99.0) fL MCH 42.1 H (27.0-31.0) pg MCHC 36.2 H (32.0-36.0) g/dL RDW 16.5 H (12.0-15.0) % Plt Count 177 (130-450) 10^3/uL MPV 9.3 (7.9-10.8) fL Neut # (Auto) 4.1 (1.5-6.6) 10^3/uL Lymph # (Auto) 0.6 L (1.5-3.5) 10^3/uL Carver # (Auto) 1.0 (0.0-1.0) 10^3/uL Eos # (Auto) 0.1 (0.0-0.7) 10^3/uL Baso # (Auto) 0.1 (0.0-0.1) 10^3/uL Absolute Nucleated RBC 0.27 x10^3/uL Nucleated RBC % 4.4 /100WBC Manual Slide Review WBC Morphology (NORMAL) Platelet Estimate (NORMAL) Platelet Morphology (NORMAL) RBC Morph Micro Appear (NORMAL) PT (9.9-12.6) secs INR (0.8-1.2) Sodium 122 L (135-145) mmol/L Potassium 3.5 (3.5-5.0) mmol/L Chloride 89 L (101-111) mmol/L Carbon Dioxide 19 L (21-32) mmol/L Anion Gap 14.0 H (6-13) BUN 18 (6-20) mg/dL Creatinine 1.1 H (0.4-1.0) mg/dL Estimated GFR (MDRD) 48 L (>89) Glucose 168 H (70-100) mg/dL Glycated Hemoglobin (4.6-6.2) % Estim Average Glucose (70-100) Lactic Acid (0.5-2.2) mmol/L Calcium 7.4 L (8.5-10.3) mg/dL Phosphorus 2.7 (2.5-4.6) mg/dL Magnesium 1.7 (1.7-2.8) mg/dL Total Bilirubin (0.2-1.0) mg/dL Direct Bilirubin (0.1-0.5) mg/dL AST (10-42) IU/L ALT (10-60) IU/L Alkaline Phosphatase (42-121) IU/L Troponin I High Sens (2.3-14.8) ng/L C-Reactive Protein (0-1.0) mg/dL Total Protein (6.7-8.2) g/dL Albumin 2.6 L (3.2-5.5) g/dL Globulin (2.1-4.2) g/dL Nasal Screen MRSA (PCR) (NEGATIVE) 01/30/20 01/29/20 01/29/20 Range/Units 00:22 18:06 18:06 WBC (4.8-10.8) x10^3/uL RBC (4.20-5.40) 10^6/uL Hgb (12.0-16.0) g/dL Hct (37.0-47.0) % MCV (81.0-99.0) fL MCH (27.0-31.0) pg MCHC (32.0-36.0) g/dL RDW (12.0-15.0) % Plt Count (130-450) 10^3/uL MPV (7.9-10.8) fL Neut # (Auto) (1.5-6.6) 10^3/uL Lymph # (Auto) (1.5-3.5) 10^3/uL Carver # (Auto) (0.0-1.0) 10^3/uL Eos # (Auto) (0.0-0.7) 10^3/uL Baso # (Auto) (0.0-0.1) 10^3/uL Absolute Nucleated RBC x10^3/uL Nucleated RBC % /100WBC Manual Slide Review WBC Morphology (NORMAL) Platelet Estimate (NORMAL) Platelet Morphology (NORMAL) RBC Morph Micro Appear (NORMAL) PT (9.9-12.6) secs INR (0.8-1.2) Sodium 118 L* 119 L* (135-145) mmol/L Potassium 3.9 4.1 (3.5-5.0) mmol/L Chloride 86 L 89 L (101-111) mmol/L Carbon Dioxide 21 18 L (21-32) mmol/L Anion Gap 11.0 12.0 (6-13) BUN 18 18 (6-20) mg/dL Creatinine 1.1 H 1.0 (0.4-1.0) mg/dL Estimated GFR (MDRD) 48 L 53 L (>89) Glucose 139 H 113 H (70-100) mg/dL Glycated Hemoglobin (4.6-6.2) % Estim Average Glucose (70-100) Lactic Acid 1.7 (0.5-2.2) mmol/L Calcium 7.6 L 7.4 L (8.5-10.3) mg/dL Phosphorus (2.5-4.6) mg/dL Magnesium (1.7-2.8) mg/dL Total Bilirubin (0.2-1.0) mg/dL Direct Bilirubin (0.1-0.5) mg/dL AST (10-42) IU/L ALT (10-60) IU/L Alkaline Phosphatase (42-121) IU/L Troponin I High Sens (2.3-14.8) ng/L C-Reactive Protein (0-1.0) mg/dL Total Protein (6.7-8.2) g/dL Albumin (3.2-5.5) g/dL Globulin (2.1-4.2) g/dL Nasal Screen MRSA (PCR) (NEGATIVE) 01/29/20 01/29/20 01/29/20 Range/Units 14:30 12:39 12:39 WBC (4.8-10.8) x10^3/uL RBC (4.20-5.40) 10^6/uL Hgb (12.0-16.0) g/dL Hct (37.0-47.0) % MCV (81.0-99.0) fL MCH (27.0-31.0) pg MCHC (32.0-36.0) g/dL RDW (12.0-15.0) % Plt Count (130-450) 10^3/uL MPV (7.9-10.8) fL Neut # (Auto) (1.5-6.6) 10^3/uL Lymph # (Auto) (1.5-3.5) 10^3/uL Carver # (Auto) (0.0-1.0) 10^3/uL Eos # (Auto) (0.0-0.7) 10^3/uL Baso # (Auto) (0.0-0.1) 10^3/uL Absolute Nucleated RBC x10^3/uL Nucleated RBC % /100WBC Manual Slide Review WBC Morphology (NORMAL) Platelet Estimate (NORMAL) Platelet Morphology (NORMAL) RBC Morph Micro Appear (NORMAL) PT (9.9-12.6) secs INR (0.8-1.2) Sodium (135-145) mmol/L Potassium (3.5-5.0) mmol/L Chloride (101-111) mmol/L Carbon Dioxide (21-32) mmol/L Anion Gap (6-13) BUN (6-20) mg/dL Creatinine (0.4-1.0) mg/dL Estimated GFR (MDRD) (>89) Glucose (70-100) mg/dL Glycated Hemoglobin (4.6-6.2) % Estim Average Glucose (70-100) Lactic Acid (0.5-2.2) mmol/L Calcium (8.5-10.3) mg/dL Phosphorus (2.5-4.6) mg/dL Magnesium (1.7-2.8) mg/dL Total Bilirubin (0.2-1.0) mg/dL Direct Bilirubin (0.1-0.5) mg/dL AST (10-42) IU/L ALT (10-60) IU/L Alkaline Phosphatase (42-121) IU/L Troponin I High Sens 16.0 H* (2.3-14.8) ng/L C-Reactive Protein 3.3 H (0-1.0) mg/dL Total Protein (6.7-8.2) g/dL Albumin (3.2-5.5) g/dL Globulin (2.1-4.2) g/dL Nasal Screen MRSA (PCR) NEGATIVE (NEGATIVE) 01/29/20 01/29/20 01/29/20 Range/Units 12:39 08:00 08:00 WBC (4.8-10.8) x10^3/uL RBC (4.20-5.40) 10^6/uL Hgb (12.0-16.0) g/dL Hct (37.0-47.0) % MCV (81.0-99.0) fL MCH (27.0-31.0) pg MCHC (32.0-36.0) g/dL RDW (12.0-15.0) % Plt Count (130-450) 10^3/uL MPV (7.9-10.8) fL Neut # (Auto) (1.5-6.6) 10^3/uL Lymph # (Auto) (1.5-3.5) 10^3/uL Carver # (Auto) (0.0-1.0) 10^3/uL Eos # (Auto) (0.0-0.7) 10^3/uL Baso # (Auto) (0.0-0.1) 10^3/uL Absolute Nucleated RBC x10^3/uL Nucleated RBC % /100WBC Manual Slide Review WBC Morphology (NORMAL) Platelet Estimate (NORMAL) Platelet Morphology (NORMAL) RBC Morph Micro Appear (NORMAL) PT 27.9 H (9.9-12.6) secs INR 2.6 H (0.8-1.2) Sodium 117 L* (135-145) mmol/L Potassium 4.1 (3.5-5.0) mmol/L Chloride 86 L (101-111) mmol/L Carbon Dioxide 22 (21-32) mmol/L Anion Gap 9.0 (6-13) BUN 18 (6-20) mg/dL Creatinine 1.0 (0.4-1.0) mg/dL Estimated GFR (MDRD) 53 L (>89) Glucose 105 H (70-100) mg/dL Glycated Hemoglobin (4.6-6.2) % Estim Average Glucose (70-100) Lactic Acid (0.5-2.2) mmol/L Calcium 7.7 L (8.5-10.3) mg/dL Phosphorus (2.5-4.6) mg/dL Magnesium (1.7-2.8) mg/dL Total Bilirubin 3.0 H (0.2-1.0) mg/dL Direct Bilirubin 1.5 H (0.1-0.5) mg/dL AST 99 H (10-42) IU/L ALT 55 (10-60) IU/L Alkaline Phosphatase 323 H (42-121) IU/L Troponin I High Sens (2.3-14.8) ng/L C-Reactive Protein (0-1.0) mg/dL Total Protein 5.3 L (6.7-8.2) g/dL Albumin 2.4 L (3.2-5.5) g/dL Globulin 2.9 (2.1-4.2) g/dL Nasal Screen MRSA (PCR) (NEGATIVE) 01/29/20 01/29/20 01/29/20 Range/Units 08:00 08:00 08:00 WBC 4.4 L (4.8-10.8) x10^3/uL RBC 3.03 L (4.20-5.40) 10^6/uL Hgb 12.9 (12.0-16.0) g/dL Hct 35.1 L (37.0-47.0) % MCV 115.8 H (81.0-99.0) fL MCH 42.6 H (27.0-31.0) pg MCHC 36.8 H (32.0-36.0) g/dL RDW 16.4 H (12.0-15.0) % Plt Count 164 (130-450) 10^3/uL MPV 9.6 (7.9-10.8) fL Neut # (Auto) 2.3 (1.5-6.6) 10^3/uL Lymph # (Auto) 0.9 L (1.5-3.5) 10^3/uL Carver # (Auto) 0.7 (0.0-1.0) 10^3/uL Eos # (Auto) 0.2 (0.0-0.7) 10^3/uL Baso # (Auto) 0.1 (0.0-0.1) 10^3/uL Absolute Nucleated RBC 0.19 x10^3/uL Nucleated RBC % 4.3 /100WBC Manual Slide Review Indicated WBC Morphology NORMAL APPEARANCE (NORMAL) Platelet Estimate NORMAL (130-450,000) (NORMAL) Platelet Morphology NORMAL APPEARANCE (NORMAL) RBC Morph Micro Appear 1+ POLYCHROMASIA (NORMAL) PT (9.9-12.6) secs INR (0.8-1.2) Sodium 117 L* (135-145) mmol/L Potassium 4.2 (3.5-5.0) mmol/L Chloride 86 L (101-111) mmol/L Carbon Dioxide 21 (21-32) mmol/L Anion Gap 10.0 (6-13) BUN 17 (6-20) mg/dL Creatinine 1.0 (0.4-1.0) mg/dL Estimated GFR (MDRD) 53 L (>89) Glucose 86 (70-100) mg/dL Glycated Hemoglobin 5.4 (4.6-6.2) % Estim Average Glucose 108 H (70-100) Lactic Acid (0.5-2.2) mmol/L Calcium 7.7 L (8.5-10.3) mg/dL Phosphorus 3.3 (2.5-4.6) mg/dL Magnesium 1.7 (1.7-2.8) mg/dL Total Bilirubin (0.2-1.0) mg/dL Direct Bilirubin (0.1-0.5) mg/dL AST (10-42) IU/L ALT (10-60) IU/L Alkaline Phosphatase (42-121) IU/L Troponin I High Sens (2.3-14.8) ng/L C-Reactive Protein (0-1.0) mg/dL Total Protein (6.7-8.2) g/dL Albumin (3.2-5.5) g/dL Globulin (2.1-4.2) g/dL Nasal Screen MRSA (PCR) (NEGATIVE) Assessment/Plan - Problem List (1) Hypotension Impression: The etiology of her hypotension is not clear. She does not appear to be septic and clinically, does not appear to be cardiogenic shock. She shows no signs of hypoperfusion as her mental status is intact and her renal function is stable with excellent urine output. Her LFTs have also been trending down. Lactic acid has remained normal. She is tachycardic today but this is likely from her being off of her metoprolol and also on norepinephrine as her heart rate has remained stable in the 80s prior to initiation of vasopressors. I suspect we are unable to get an accurate blood pressure readings due to cuff size. Her radial pulses are palpable with a strong bounding pulse. Unfortunately, we were unable to obtain an arterial line yesterday. She has been started on norepinephrine and is currently on 16 mcg/minute. Interestingly, her blood pressure has remained the same with systolic in the 80s despite starting vasopressors. We have not given her IV fluids as she appears hypervolemic on exam. At this time, we will continue her on vancomycin and Zosyn empirically although there is no obvious source of infection and I doubt this is sepsis. We will obtain arterial Dopplers of her upper extremities to evaluate for any subclavian stenosis. We will check an SVO2 from her central line as if it is less than 60, this may suggest cardiogenic shock. We will ask anesthesia to place an arterial line. Continue to monitor her renal function. Continue to trend lactic acid. Cortisol has been ordered and is pending. An echocardiogram has also been ordered but unfortunately is unavailable over the weekend. (2) Hyponatremia Impression: This is likely hypervolemic hyponatremia although it is unclear if this seconda ry to heart failure or cirrhosis. Her ultrasound suggested fatty infiltration but no evidence of cirrhosis. Her sodium has increased and is now at 122. She is received Lasix once again overnight. We will continue to continue to monitor her sodium every 8 hours. (3) DEIDRA (acute kidney injury) Impression: She had acute kidney injury on admission which has since resolved. Her creatinine has remained stable 1.0-1.1. She continues to have excellent urine output despite her systolics being in the 80s. We will repeat her urinalysis to evaluate for any signs of ATN such as granular casts. We will continue to monitor her renal function and urine output. (4) Abnormal LFTs Impression: This is likely elevated secondary to her alcohol abuse although given her edema, there could be a component of congestive hepatopathy. Her LFTs have been improving and we will continue to trend these. Her ultrasound suggested fatty infiltration but no evidence of cirrhosis. (5) Lower extremity edema Impression: Her lower extremity edema has significantly improved although she still has pitting edema in her abdomen and upper thighs in the dependent areas. She did receive Lasix once again overnight. Given her hypotension, will hold off on continuing this for the time being. An echocardiogram has been ordered for tomorrow. (6) Leg wound, left Qualifiers: Encounter type: initial encounter Qualified Code(s): S81.802A - Unspecified open wound, left lower leg, initial encounter (7) Alcohol use disorder Impression: She has not shown signs of withdrawal during this hospitalization. We have started her on standing Librium. Continue with thiamine and folate. (8) Type 2 diabetes mellitus treated with insulin Impression: She is on insulin at home but her A1c is 5.4%. We have discontinued her home insulin and monitoring her blood glucose. Her sugars have ranged from 110s to 150s. We will continue to monitor her off of insulin and continue with a carb controlled diet. (9) Chronic atrial fibrillation Impression: She is tachycardic now with heart rates in the 110s which I suspect is secondary to her being on norepinephrine and off of her metoprolol. We will continue to m onitor her on telemetry. We are holding her Xarelto for the time being in case she would need any invasive procedures. (10) Hypothyroidism Impression: We have increased her Synthroid to 88 mcg given her TSH was elevated at 11. (11) Macrocytosis without anemia Impression: Is likely secondary to her chronic alcohol use and her hemoglobin remained stable with no evidence of bleeding.
[2020-01-30] MEDS: NYSTATIN POWDER 15 GM TOP SCH ×2 (12:25→20:50)
[2020-01-30] MEDS: FOLIC ACID 1 MG TABLET PO SCH (12:25)
[2020-01-30] MEDS: THIAMINE 100 MG TABLET PO SCH (12:25)
[2020-01-30] MEDS: VANCOMYCIN INJ 1 GM, VANCOMYCIN INJ 500 MG in SODIUM CHLORIDE 0.9% 500 ML IV SCH (14:00)
[2020-01-30 14:19] LABS: VBG PH 7.419 (7.31-7.41)
[2020-01-30 14:20] LABS: VBG BASE EXCESS -2.3 mmol/L (-2 - +2); VBG PCO2 33.9 mmHg (41-51); VBG PO2 38.2 mmHg (25-47); VBG TOTAL CO2 22.5 mmol/L (24-29)
[2020-01-30 14:32] LABS: ALBUMIN 2.3 g/dL (3.2-5.5); BILIRUBIN,DIRECT 1.7 mg/dL (0.1-0.5); BILIRUBIN,TOTAL 3.8 mg/dL (0.2-1.0); CALCIUM 7.3 mg/dL (8.5-10.3); TOTAL PROTEIN 4.6 g/dL (6.7-8.2)
[2020-01-30 21:15] LABS: CALCIUM 6.9 mg/dL (8.5-10.3)
[2020-01-30] MEDS ORDERED: SODIUM CHLORIDE 0.9% 500 ML IV PRN (21:49)
[2020-01-30 21:52] LABS: VBG PH 7.424 (7.31-7.41)
[2020-01-30] MEDS: POTASSIUM CHLOR 20 MEQ/100 ML 20 MEQ/100 ML BAG IV SCH ×2 (21:53→23:40)
[2020-01-30] MEDS ORDERED: CALCIUM GLUCONATE 2,000 MG in SODIUM CHLORIDE 0.9% 100ML 100 ML IV ONE (23:00)
[2020-01-31] MEDS: PIPERACILLIN/TAZOBACTAM 3.375 GM in SODIUM CHLORIDE 0.9% MINIBAG 100 ML IV SCH ×4 (00:15→23:48)
[2020-01-31] MEDS: SODIUM CHLORIDE FLUSH 0.9% 10 ML SYRINGE IVP SCH ×3 (00:37→16:20)
--- NOTE | 2020-01-31 00:47 | Ultrasound Report ---
Reason: Hypotension. Eval for stenosis. Procedure Date: 01/30/2020 Accession Number: [id number] / [id number] Procedure: US - Duplex Upr Ext Arterial Bilat CPT Code: Final Report FULL RESULT: EXAM: BILATERAL UPPER EXTREMITY ARTERIAL DOPPLER ULTRASOUND EXAM DATE: 01/30/2020 09:17 PM CLINICAL HISTORY: Hypotension. Evaluate for stenosis. COMPARISON: None. TECHNIQUE: Real-time sonographic vascular imaging was performed by the intranet specialist, utilizing color-flow, Doppler flow, and spectral analysis. Multiple airline security representative static images were saved for review. FINDINGS: Right: The right mid to distal subclavian artery were not visualized, due to habitus and positioning. Waveforms are predominantly monophasic. Velocities in the remainder of the right arm vascular system are unremarkable. There is no evidence of a hemodynamically significant stenosis. Left: The midportion of the left subclavian artery is not visualized, secondary to habitus and positioning. Waveforms are predominantly biphasic. Velocities in the remainder of the left arm vascular system are unremarkable. There is no evidence of a hemodynamically significant arterial stenosis. Note is made of an irregular heart rhythm. Right Upper Extremity Velocities: Innominate: 134 cm/sec. Subclavian prox: 172 cm/sec. Subclavian mid: Not seen. Subclavian distal: Not seen. Axillary: 120 cm/sec. Brachial prox: 105 cm/sec. Brachial dist: 96 cm/sec. Radial prox: 51 cm/sec. Radial distal: 66 cm/sec. Ulnar prox: 55 cm/sec. Ulnar dist: 59 cm/sec. Left Upper Extremity Velocities: Innominate: -. Subclavian prox: 102 cm/sec. Subclavian mid: Not seen. Subclavian distal: 106 cm/sec. Axillary: 76 cm/s. Brachial prox: 92 cm/sec. Brachial dist: 91 cm/sec. Radial prox: 89 cm/sec. Radial distal: 78 cm/sec. Ulnar prox: 59 cm/sec. Ulnar dist: 44 cm/sec. IMPRESSION: No evidence of a focal hemodynamically significant arterial stenosis in the imaged segments. Irregular heart rhythm. RADIA
[2020-01-31 05:21] LABS: BASOPHILS # (AUTO) 0.1 10^3/uL (0.0-0.1); BASOPHILS % (AUTO) 1.1 %; EOSINOPHILS # (AUTO) 0.2 10^3/uL (0.0-0.7); EOSINOPHILS % (AUTO) 4.1 %; HGB - HEMOGLOBIN 11.8 g/dL (12.0-16.0); LYMPHOCYTES # (AUTO) 0.7 10^3/uL (1.5-3.5); LYMPHOCYTES % (AUTO) 16.7 %; MEAN CORPUSCULAR HEMOGLOBIN 40.1 pg (27.0-31.0); MEAN CORPUSCULAR HGB CONC 34.5 g/dL (32.0-36.0); MEAN CORPUSCULAR VOLUME 116.3 fL (81.0-99.0); MEAN PLATELET VOLUME 9.1 fL (7.9-10.8); MONOCYTES # (AUTO) 0.9 10^3/uL (0.0-1.0); NEUTROPHILS # (AUTO) 2.3 10^3/uL (1.5-6.6); NEUTROPHILS % (AUTO) 52.6 %; PLT - PLATELET COUNT 150 10^3/uL (130-450); RED BLOOD COUNT 2.94 10^6/uL (4.20-5.40); RED CELL DISTRIBUTION WIDTH 17.3 % (12.0-15.0); WHITE BLOOD COUNT 4.4 x10^3/uL (4.8-10.8)
[2020-01-31 05:59] LABS: ALBUMIN 2.3 g/dL (3.2-5.5); BILIRUBIN,DIRECT 1.6 mg/dL (0.1-0.5); BILIRUBIN,TOTAL 3.7 mg/dL (0.2-1.0); CALCIUM 7.8 mg/dL (8.5-10.3); MAGNESIUM 1.4 mg/dL (1.7-2.8); PHOSPHORUS 2.3 mg/dL (2.5-4.6)
[2020-01-31] MEDS: MIN OIL/DIMETHICON/COCONUT OIL 92 GM TUBE TOP PRN (06:00)
[2020-01-31 06:05] LABS: PLATELET ESTIMATE, MANUAL NORMAL (130-450,000) (NORMAL); PLATELET MORPHOLOGY NORMAL APPEARANCE (NORMAL); RBC MORPHOLOGY (MULTIPLE) 3+ MACROCYTOSIS (NORMAL)
[2020-01-31] MEDS: LEVOTHYROXINE 88 MCG TABLET PO SCH (06:30)
[2020-01-31] MEDS: NEUTRA-PHOS 250 MG TABLET PO SCH ×2 (06:48→08:47)
[2020-01-31] MEDS ORDERED: SODIUM CHLORIDE 0.9% 500 ML IV ONE ×3 (07:19→17:18)
--- NOTE | 2020-01-31 07:24 | PROVIDER PROGRESS NOTE ---
Subjective - Prog Note Date Prog Note Date: 01/31/20 - Subjective Subjective: She remains on norepinephrine but her requirements are decreasing. She reports feeling a little bit better today. She complains of pain in her right arm where the blood pressure cuff is. Continues to have a chronic cough. Current Medications - Current Medications Current Medications: Active Medications Chlordiazepoxide HCl (Librium) 25 mg PO Q12H [facility] Last Admin: 01/30/20 20:49 Dose: 25 mg Folic Acid () 1 mg PO DAILY [facility] Last Admin: 01/30/20 12:25 Dose: 1 mg Vancomycin HCl 1 gm/Vancomycin HCl 500 mg/ Sodium Chloride 500 mls @ 250 mls/hr IV Q24H [facility] Last Infusion: 01/30/20 16:10 Dose: Infused Norepinephrine Bitartrate 8 mg (/ Dextrose) 250 mls @ 15 mls/hr IV .[id number] [facility]; Protocol Last Titration: 01/31/20 02:18 Dose: 8 mcg/min, 15 mls/hr Piperacillin Sod/Tazobactam (Sod 3.375 gm/ Sodium Chloride) 100 mls @ 25 mls/hr IV Q8H [facility] Last Infusion: 01/31/20 05:11 Dose: Infused Sodium Chloride (Normal Saline 0.9%) 500 mls @ 0 mls/hr IV Q24H PRN PRN Reason: TKO RATE Levothyroxine Sodium (Synthroid) 88 mcg PO QDAC [facility] Last Admin: 01/31/20 06:30 Dose: 88 mcg Magnesium Oxide (Mag Ox) 400 mg PO Q6H [facility]; Protocol Stop: 01/31/20 17:01 Mineral Oil (Cavilon) 1 applic TOP PRN PRN PRN Reason: Skin Care Last Admin: 01/31/20 06:00 Dose: 1 applic Multi-Ingredient Ointment (Zinc Oxide) 1 applic TOP PRN PRN PRN Reason: Skin Care Nystatin (Nystop) 1 applic TOP BID CHEO Last Admin: 01/30/20 20:50 Dose: 1 applic Sodium Chloride (Normal Saline Flush 0.9%) 10 ml IVP PRN PRN PRN Reason: NEEDED PER PROVIDER ORDERS Last Admin: 01/29/20 01:25 Dose: 10 ml Sodium Chloride (Normal Saline Flush 0.9%) 10 ml IVP 0100,0900,1700 CHEO Last Admin: 01/31/20 00:37 Dose: Not Given Sodium Phosphate (K-Phos Neutral) 250 mg PO Q2H [facility]; Protocol Stop: 01/31/20 09:01 Last Admin: 01/31/20 06:48 Dose: 250 mg Thiamine HCl (Vitamin B-1) 100 mg PO DAILY [facility] Last Admin: 01/30/20 12:25 Dose: 100 mg Tramadol HCl (Ultram) 25 mg PO Q4HR PRN PRN Reason: PAIN Last Admin: 01/29/20 17:42 Dose: 25 mg Trazodone HCl (Desyrel) 50 mg PO QPM [facility] Last Admin: 01/30/20 20:49 Dose: 50 mg Furosemide 20 mg DAILY 05/02/15 Rivaroxaban [Xarelto] 20 mg PO QDDINNER 05/02/15 Simvastatin 40 mg PO QPM 05/02/15 Spironolactone 25 mg PO DAILY 05/02/15 Insulin Glargine [Lantus Solostar] 6 unit SUBQ QPM 01/28/20 Insulin Lispro [Humalog Kwikpen U-100] 3 unit SUBQ TIDWM 01/28/20 Levothyroxine Sodium 75 mcg PO QDAC 01/28/20 Metoprolol Succinate 50 mg PO DAILY 01/28/20 Objective - Vital Signs/Intake & Output Reviewed Vital Signs: Yes Vital Signs: Vital Signs Temp Pulse Resp BP Pulse Ox 01/31/20 07:00 96 25 H 108/55 L 96 01/31/20 06:00 36.5 C 104 H 23 98/57 L 98 01/31/20 05:00 95 20 97/49 L 98 01/31/20 04:00 94 21 95/59 L 97 Intake & Output: Intake & Output 01/28/20 01/29/20 01/30/20 01/31/20 23:59 23:59 23:59 23:59 Intake Total 422.5 1302.057 8606.169 449.375 Output Total 100 1500 1005 400 Balance 322.5 -372.125 800.169 49.375 - Objective General Appearance: positive: No acute distress, Alert Eyes Bilateral: positive: Normal inspection ENT: positive: ENT inspection nml Neck: positive: Nml inspection Respiratory: positive: No respiratory distress. negative: Wheezes, Rales Cardiovascular: positive: No murmur, Irregularly irregular. negative: Tachycardia, Bradycardia Abdomen: positive: Non-tender, No distention. negative: Tenderness Skin: positive: Warm, Dry Extremities: positive: Pedal edema (Trace edema in lower extremities.) Neurologic/Psychiatric: positive: Oriented x3. negative: Disoriented to person, Disoriented to place, Disoriented to time - Lab Results Fish Bones: 01/31/20 04:55 01/31/20 16:56 Other Labs: Lab Results x24hrs 01/31/20 01/31/20 01/30/20 Range/Units 04:55 04:55 21:47 WBC 4.4 L (4.8-10.8) x10^3/uL RBC 2.94 L (4.20-5.40) 10^6/uL Hgb 11.8 L (12.0-16.0) g/dL Hct 34.2 L (37.0-47.0) % MCV 116.3 H (81.0-99.0) fL MCH 40.1 H (27.0-31.0) pg MCHC 34.5 (32.0-36.0) g/dL RDW 17.3 H (12.0-15.0) % Plt Count 150 (130-450) 10^3/uL MPV 9.1 (7.9-10.8) fL Neut # (Auto) 2.3 (1.5-6.6) 10^3/uL Lymph # (Auto) 0.7 L (1.5-3.5) 10^3/uL Franklin # (Auto) 0.9 (0.0-1.0) 10^3/uL Eos # (Auto) 0.2 (0.0-0.7) 10^3/uL Baso # (Auto) 0.1 (0.0-0.1) 10^3/uL Absolute Nucleated RBC 0.15 x10^3/uL Nucleated RBC % 3.4 /100WBC Manual Slide Review Indicated WBC Morphology NORMAL APPEARANCE (NORMAL) Platelet Estimate NORMAL (130-450,000) (NORMAL) Platelet Morphology NORMAL APPEARANCE (NORMAL) RBC Morph Micro Appear 3+ MACROCYTOSIS (NORMAL) VBG pH 7.424 H (7.31-7.41) VBG pCO2 (41-51) mmHg VBG pO2 (25-47) mmHg VBG HCO3 (23-28) mmol/L VBG Total CO2 (24-29) mmol/L VBG O2 Saturation (60-80) % VBG Base Excess (-2 - +2) mmol/L Ionized Calcium 0.95 L (1.15-1.33) mmol/L Sodium 125 L (135-145) mmol/L Potassium 3.8 (3.5-5.0) mmol/L Chloride 95 L (101-111) mmol/L Carbon Dioxide 23 (21-32) mmol/L Anion Gap 7.0 (6-13) BUN 14 (6-20) mg/dL Creatinine 1.0 (0.4-1.0) mg/dL Estimated GFR (MDRD) 53 L (>89) Glucose 139 H (70-100) mg/dL Lactic Acid (0.5-2.2) mmol/L Calcium 7.8 L (8.5-10.3) mg/dL Phosphorus 2.3 L (2.5-4.6) mg/dL Magnesium 1.4 L (1.7-2.8) mg/dL Total Bilirubin 3.7 H (0.2-1.0) mg/dL Direct Bilirubin 1.6 H (0.1-0.5) mg/dL AST 67 H (10-42) IU/L ALT 46 (10-60) IU/L Alkaline Phosphatase 270 H (42-121) IU/L Total Protein 5.0 L (6.7-8.2) g/dL Albumin 2.3 L (3.2-5.5) g/dL Globulin 2.7 (2.1-4.2) g/dL Cortisol AM Sample ug/dL 01/30/20 01/30/20 01/30/20 Range/Units 21:00 21:00 14:12 WBC (4.8-10.8) x10^3/uL RBC (4.20-5.40) 10^6/uL Hgb (12.0-16.0) g/dL Hct (37.0-47.0) % MCV (81.0-99.0) fL MCH (27.0-31.0) pg MCHC (32.0-36.0) g/dL RDW (12.0-15.0) % Plt Count (130-450) 10^3/uL MPV (7.9-10.8) fL Neut # (Auto) (1.5-6.6) 10^3/uL Lymph # (Auto) (1.5-3.5) 10^3/uL Franklin # (Auto) (0.0-1.0) 10^3/uL Eos # (Auto) (0.0-0.7) 10^3/uL Baso # (Auto) (0.0-0.1) 10^3/uL Absolute Nucleated RBC x10^3/uL Nucleated RBC % /100WBC Manual Slide Review WBC Morphology (NORMAL) Platelet Estimate (NORMAL) Platelet Morphology (NORMAL) RBC Morph Micro Appear (NORMAL) VBG pH 7.419 H (7.31-7.41) VBG pCO2 33.9 L (41-51) mmHg VBG pO2 38.2 (25-47) mmHg VBG HCO3 21.4 L (23-28) mmol/L VBG Total CO2 22.5 L (24-29) mmol/L VBG O2 Saturation 72.5 (60-80) % VBG Base Excess -2.3 L (-2 - +2) mmol/L Ionized Calcium (1.15-1.33) mmol/L Sodium 124 L (135-145) mmol/L Potassium 3.2 L (3.5-5.0) mmol/L Chloride 93 L (101-111) mmol/L Carbon Dioxide 20 L (21-32) mmol/L Anion Gap 11.0 (6-13) BUN 15 (6-20) mg/dL Creatinine 1.0 (0.4-1.0) mg/dL Estimated GFR (MDRD) 53 L (>89) Glucose 178 H (70-100) mg/dL Lactic Acid 2.4 H (0.5-2.2) mmol/L Calcium 6.9 L (8.5-10.3) mg/dL Phosphorus (2.5-4.6) mg/dL Magnesium (1.7-2.8) mg/dL Total Bilirubin (0.2-1.0) mg/dL Direct Bilirubin (0.1-0.5) mg/dL AST (10-42) IU/L ALT (10-60) IU/L Alkaline Phosphatase (42-121) IU/L Total Protein (6.7-8.2) g/dL Albumin (3.2-5.5) g/dL Globulin (2.1-4.2) g/dL Cortisol AM Sample ug/dL 01/30/20 01/30/20 01/30/20 Range/Units 14:12 14:12 08:00 WBC (4.8-10.8) x10^3/uL RBC (4.20-5.40) 10^6/uL Hgb (12.0-16.0) g/dL Hct (37.0-47.0) % MCV (81.0-99.0) fL MCH (27.0-31.0) pg MCHC (32.0-36.0) g/dL RDW (12.0-15.0) % Plt Count (130-450) 10^3/uL MPV (7.9-10.8) fL Neut # (Auto) (1.5-6.6) 10^3/uL Lymph # (Auto) (1.5-3.5) 10^3/uL Franklin # (Auto) (0.0-1.0) 10^3/uL Eos # (Auto) (0.0-0.7) 10^3/uL Baso # (Auto) (0.0-0.1) 10^3/uL Absolute Nucleated RBC x10^3/uL Nucleated RBC % /100WBC Manual Slide Review WBC Morphology (NORMAL) Platelet Estimate (NORMAL) Platelet Morphology (NORMAL) RBC Morph Micro Appear (NORMAL) VBG pH (7.31-7.41) VBG pCO2 (41-51) mmHg VBG pO2 (25-47) mmHg VBG HCO3 (23-28) mmol/L VBG Total CO2 (24-29) mmol/L VBG O2 Saturation (60-80) % VBG Base Excess (-2 - +2) mmol/L Ionized Calcium (1.15-1.33) mmol/L Sodium 124 L (135-145) mmol/L Potassium 3.6 (3.5-5.0) mmol/L Chloride 91 L (101-111) mmol/L Carbon Dioxide 22 (21-32) mmol/L Anion Gap 11.0 (6-13) BUN 16 (6-20) mg/dL Creatinine 1.0 (0.4-1.0) mg/dL Estimated GFR (MDRD) 53 L (>89) Glucose 184 H (70-100) mg/dL Lactic Acid 2.3 H (0.5-2.2) mmol/L Calcium 7.3 L (8.5-10.3) mg/dL Phosphorus (2.5-4.6) mg/dL Magnesium (1.7-2.8) mg/dL Total Bilirubin 3.8 H (0.2-1.0) mg/dL Direct Bilirubin 1.7 H (0.1-0.5) mg/dL AST 76 H (10-42) IU/L ALT 50 (10-60) IU/L Alkaline Phosphatase 260 H (42-121) IU/L Total Protein 4.6 L (6.7-8.2) g/dL Albumin 2.3 L (3.2-5.5) g/dL Globulin 2.3 (2.1-4.2) g/dL Cortisol AM Sample 17.4 ug/dL Assessment/Plan - Problem List (1) Hypotension Impression: Echocardiogram revealed hyperdynamic left ventricle with ejection greater than 75%. Suspect that her hypotension may be intravascular depletion. She does not appear septic as she has remained afebrile with no leukocytosis. Given her echocardiogram findings and her SVO2, this does not appear to be cardiogenic s hock. Her vasopressor requirements are decreasing and prior to initiation of vasopressors, she did not show signs of hypoperfusion. Her lactic slightly elevated now but renal function remained stable with excellent urine output. Her arterial Dopplers of the upper extremities showed no significant stenosis. Given she appears intravascularly, we will start her on maintenance IV fluids and give her a bolus. Wean her norepinephrine as tolerated. We will continue with vancomycin and Zosyn empirically although there is no evidence of infection at this time. (2) Hyponatremia Impression: Continues to improve and her sodium is 125 today. Her baseline appears to be approximately 128. This was likely hypervolemic hyponatremia. Given she is intravascular depleted, we will hydrate her with normal saline. We will continue to monitor her sodium closely as it could begin to decline again with IV fluid resuscitation. We will check her sodium every 8 hours. (3) DEIDRA (acute kidney injury) Impression: This has resolved. Her renal function is stable with a creatinine of 1.0. Her urine output remains excellent. (4) Abnormal LFTs Impression: This is likely secondary to her alcohol use. Her LFTs have remained stable. Right upper quadrant ultrasound showed fatty infiltration. Continue to monitor LFTs (5) Lower extremity edema Impression: This has improved with IV diuresis. She is at risk for worsening edema she is hydrated. We will continue to monitor. (6) Leg wound, left Impression: No evidence of infection. This is secondary to her lower extremity edema and the patient scratching her leg. Continue with daily dressing changes. Wound care consult. Qualifiers: Encounter type: initial encounter Qualified Code(s): S81.802A - Unspecified open wound, left lower leg, initial encounter (7) Alcohol use disorder Impression: She has shown no evidence of withdrawal during his hospitalization. Continue with daily Librium. Continue with thiamine and folate. (8) Type 2 diabetes mellitus treated with insulin Impression: Her A1c was 5.4% and her blood sugars have remained stable off of her home dose of insulin. We will continue with sliding scale and carb controlled diet. (9) Chronic atrial fibrillation Impression: Heart rate remained stable in the 90s despite being off of her metoprolol. Peggy pect she is tachycardic due to the norepinephrine. Continue to monitor on telemetry. We will resume her home Xarelto today. (10) Hypothyroidism Impression: Her Synthroid was increased to 88 mcg. She will need repeat TSH within 4 to 6 weeks. (11) Macrocytosis without anemia Impression: Stable. No evidence of bleeding.
[2020-01-31] MEDS ORDERED: SODIUM CHLORIDE 0.9% 500 ML ONE (08:28)
[2020-01-31] MEDS: THIAMINE 100 MG TABLET PO SCH (08:40)
[2020-01-31] MEDS: FOLIC ACID 1 MG TABLET PO SCH (08:41)
[2020-01-31] MEDS: chlordiazePOXIDE 25 MG CAPSULE PO SCH ×2 (08:43→20:49)
[2020-01-31] MEDS: NYSTATIN POWDER 15 GM TOP SCH ×2 (10:52→20:48)
[2020-01-31] MEDS: ZINC OXIDE 20% OINT 30 GM TUBE TOP PRN ×2 (10:52→20:00)
[2020-01-31] MEDS: MAGNESIUM OXIDE 400 MG TABLET PO SCH ×2 (11:51→16:27)
[2020-01-31] MEDS: INSULIN ASPART 300 UNIT/3 ML PEN SUBQ SCH ×3 (11:59→20:49)
[2020-01-31] MEDS: VANCOMYCIN INJ 1 GM, VANCOMYCIN INJ 500 MG in SODIUM CHLORIDE 0.9% 500 ML IV SCH (13:55)
[2020-01-31] MEDS: RIVAROXABAN 10 MG TABLET PO SCH (16:32)
[2020-01-31] MEDS ORDERED: RIVAROXABAN 15 MG TABLET PO SCH (17:00)
[2020-01-31 17:14] LABS: CALCIUM 7.2 mg/dL (8.5-10.3); CREATININE 0.9 mg/dL (0.4-1.0)
[2020-01-31] MEDS: SODIUM CHLORIDE 0.9% 1,000 ML IV SCH (18:20)
[2020-01-31] MEDS: traZODone 50 MG TABLET PO SCH (20:49)
[2020-02-01] MEDS: SODIUM CHLORIDE FLUSH 0.9% 10 ML SYRINGE IVP SCH ×3 (01:07→16:47)
[2020-02-01] MEDS: SODIUM CHLORIDE 0.9% 1,000 ML IV SCH ×2 (04:24→14:53)
[2020-02-01 05:04] LABS: BASOPHILS # (AUTO) 0.1 10^3/uL (0.0-0.1); BASOPHILS % (AUTO) 1.9 %; EOSINOPHILS # (AUTO) 0.2 10^3/uL (0.0-0.7); EOSINOPHILS % (AUTO) 6.3 %; HGB - HEMOGLOBIN 11.4 g/dL (12.0-16.0); LYMPHOCYTES # (AUTO) 0.6 10^3/uL (1.5-3.5); MEAN CORPUSCULAR HEMOGLOBIN 42.2 pg (27.0-31.0); MEAN CORPUSCULAR HGB CONC 34.3 g/dL (32.0-36.0); MEAN PLATELET VOLUME 9.4 fL (7.9-10.8); MONOCYTES # (AUTO) 0.8 10^3/uL (0.0-1.0); NEUTROPHILS # (AUTO) 1.8 10^3/uL (1.5-6.6); NEUTROPHILS % (AUTO) 50.5 %; PLT - PLATELET COUNT 139 10^3/uL (130-450); RED CELL DISTRIBUTION WIDTH 18.1 % (12.0-15.0); WHITE BLOOD COUNT 3.6 x10^3/uL (4.8-10.8)
[2020-02-01 05:16] LABS: CALCIUM 7.4 mg/dL (8.5-10.3); CREATININE 0.8 mg/dL (0.4-1.0); MAGNESIUM 1.8 mg/dL (1.7-2.8); PHOSPHORUS 1.9 mg/dL (2.5-4.6)
[2020-02-01 05:24] LABS: PLATELET MORPHOLOGY NORMAL APPEARANCE (NORMAL); RBC MORPHOLOGY (MULTIPLE) 2+ MACROCYTOSIS (NORMAL)
[2020-02-01 05:25] LABS: PLATELET ESTIMATE, MANUAL NORMAL (130-450,000) (NORMAL)
[2020-02-01] MEDS: ZINC OXIDE 20% OINT 30 GM TUBE TOP PRN ×2 (05:35→08:30)
[2020-02-01 05:44] LABS: FOLATE 9.27 ng/mL (5.90 - >24.8)
[2020-02-01] MEDS ORDERED: NEUTRA-PHOS 250 MG TABLET PO SCH (07:00)
[2020-02-01] MEDS: LEVOTHYROXINE 88 MCG TABLET PO SCH (07:21)
[2020-02-01] MEDS: NEUTRA-PHOS 250 MG TABLET PO SCH ×3 (07:21→16:47)
[2020-02-01] MEDS ORDERED: traZODone 50 MG TABLET PO PRN (07:44)
--- NOTE | 2020-02-01 07:50 | PROVIDER PROGRESS NOTE ---
Assessment/Plan - Problem List (1) Hypotension Assessment/Plan: Etiology of very low BP is unclear. Acute FL has been ruled out. Morning cortisol was normal and she had not been on corticosteroids to explain this as an Addisonian crisis. TSH was low but the Synthroid dose has been increased. The Metoprolol, Spironolactone and Lasix doses from home have been on hold. Lactic Acid was elevated even yesterday, therefore she may have had septic shock and is on empiric antibiotics, though no source for infection is found yet, except a possible infiltrate. Upper extremity arterial Doppler sowed no stenoses. NorEpi iv drip was weaned to off at noon today. Will start tapering to off the scheduled Librium dose since she is now out of the window for alcohol withdrawal, is very lethargic today, and also will make Trazadone prn insomnia and not scheduled, in order to decrease the meds that could be adding to low BP. Continue gentle iv hydration, since LVEF is hyperdynamic. She is 4L(+) in fluid balance today since admission. Will order daily a.m. orthostatic VS and allow OOB to chair. If she is still or thostatic, may need to get CT to R/O IVC compression or obstruction, as seen with a potential clot from a renal cell CA (since the IVC was not seen on CT abdomen or by Echo). Remain in ICU. (2) Hyponatremia Assessment/Plan: Improving daily with iv hydration, fluid restriction and stopping alcohol intake. Follow BMP daily. (3) Lethargy Assessment/Plan: She can barely open her eyes to speak to me. The nurse says she has been like this for days; today is my first day of meeting her. PT tried to work with her but she needs a Aliyah lift (and there is a Olivia lift at home, according to social work). Her Librium dose will be decreased substantially, and Trazodone will be made as needed not scheduled because of this lethargy. The physical therapist told her she may need a SNF, since she wants to be able to walk. I repeated the same and she stated that she is not a fan of going to a SNF but would do it if she absolutely had to. SW to discuss with the what his abilities and her needs are. Today a swallowing eval was done and the ST witnessed the pt to choke on thin liquids. Honey or nectar thickened liquids will be ordered. (4) Chronic atrial fibrillation Assessment/Plan: Xarelto continues for stroke prophylaxis, dose is correrct. HR has gone up fromn 60's to 80's since of home Metoprolol dose. Will plan to resume B-kaity at a lower dose, if she is not orthostatic. (5) Type 2 diabetes mellitus treated with insulin Assessment/Plan: A1c was excessively low, therefore long-acting Insulin stopped and only on slidi ng scale. A dysphagia cc diet is ordered. (6) Hypothyroidism Assessment/Plan: The TSH was >11 at admission, home Synthroid dose increased from 75 mcg to 88 mcg daily at admission. A TSH should be repeated in a month. (7) Abnormal LFTs Assessment/Plan: These are consistent with her alcohol abuse, and are slowly improving. (8) Macrocytosis without anemia Assessment/Plan: Related to alcohol abuse. (9) Alcohol use disorder Assessment/Plan: If not yet done, a SW consult will be needed to provide resources for detox or counseling. Will decrease Librium, since she is very lethargic. (10) Anasarca Assessment/Plan: The leg edema was a chronic problem, possibly lymphedema therefore. On top of that she has a skin tear and her anasarca is weeping serous fluid through that. The arms are also edematous. She is 4L(+) in fluid balance today since admission. Will allow fluids to equilibrate, and not start Albumen which is temporary or Lasix due to soft BPs. Will request a Box, as she is not draining her bladder entirely with the PureWik (has >200cc residual by scan). (11) Leg wound, left Qualifiers: Encounter type: subsequent encounter Qualified Code(s): S81.802D - Unspecified open wound, left lower leg, subsequent encounter Assessment/Plan: Wound consult has been ordered and the Wound Nurse saw her today and recommended dry gauze to absorb the weeping serous fluid. When she is eventually OOB, will also need leg elevation. (12) DEIDRA (acute kidney injury) Assessment/Plan: Resolved with fluid replacement. - Current Meds Current Meds: Current Medications Generic Name Dose Route Start Last Admin Trade Name Freq PRN Reason Stop Dose Admin Chlordiazepoxide HCl 25 mg 01/30/20 21:00 01/31/20 20:49 Librium PO 02/01/20 09:00 25 mg Q12H CHEO Administration Folic Acid 1 mg 01/29/20 09:00 01/31/20 08:41 PO 1 mg DAILY CHEO Administration Vancomycin HCl 1 gm/ 500 mls @ 250 mls/hr 01/29/20 14:00 01/31/20 16:03 Vancomycin HCl 500 mg/ Sodium IV Infused Chloride Q24H CHEO Infusion Norepinephrine Bitartrate 8 mg 250 mls @ 15 mls/hr 01/30/20 02:00 02/01/20 05:46 / Dextrose IV Not Given .[id number] CHEO Protocol 8 MCG/MIN Piperacillin Sod/Tazobactam 100 mls @ 25 mls/hr 01/30/20 08:00 02/01/20 04:21 Sod 3.375 gm/ Sodium Chloride IV Infused Q8H CHEO Infusion Sodium Chloride 1,000 mls @ 100 mls/hr 01/31/20 18:00 02/01/20 04:24 Normal Saline 0.9% IV 100 mls/hr .Q10H CHEO Administration Insulin Aspart 1 - 5 unit 01/31/20 12:00 01/31/20 20:49 Novolog SUBQ 1 unit 0800,1200,1700,2100 CHEO Administration Protocol Levothyroxine Sodium 88 mcg 01/29/20 07:00 02/01/20 07:21 Synthroid PO 88 mcg QDAC CHEO Administration Mineral Oil 1 applic 01/30/20 16:44 01/31/20 06:00 Cavilon TOP 1 applic PRN PRN Administration Skin Care Multi-Ingredient Ointment 1 applic 01/30/20 16:44 02/01/20 05:35 Zinc Oxide TOP 1 applic PRN PRN Administration Skin Care Nystatin 1 applic 01/28/20 21:00 01/31/20 20:48 Nystop TOP 1 applic BID CHEO Administration Rivaroxaban 20 mg 01/31/20 17:00 01/31/20 16:32 Xarelto PO 20 mg 1700 CHEO Administration Sodium Chloride 10 ml 01/28/20 15:15 01/29/20 01:25 Normal Saline Flush 0.9% IVP 10 ml PRN PRN Administration NEEDED PER PROVIDER ORDERS Sodium Chloride 10 ml 01/28/20 17:00 02/01/20 01:07 Normal Saline Flush 0.9% IVP Not Given 0100,0900,1700 CHEO Sodium Phosphate 250 mg 02/01/20 08:00 02/01/20 07:21 K-Phos Neutral PO 250 mg TIDWM CHEO Administration Thiamine HCl 100 mg 01/28/20 15:19 01/31/20 08:40 Vitamin B-1 PO 100 mg DAILY CHEO Administration Tramadol HCl 25 mg 01/28/20 16:44 01/29/20 17:42 Ultram PO 25 mg Q4HR PRN Administration PAIN - Lab Result Fish Bone Diagrams: 02/01/20 05:00 02/01/20 05:00 - Additional Planning My Orders: My Active Orders 02/01/20 07:44 traZODone [Desyrel] 50 mg PO QPM PRN 02/01/20 09:00 Orthostatic [Vital Signs - Orthostatic] [RC] DAILY chlordiazePOXIDE [Librium] 12.5 mg PO Q12H 02/02/20 05:00 LIVER PANEL [CHEM] DAILYLAB Subjective - Subjective Patient Reports: Resting Comfortably Nursing Reports: Other (Sleeps alot.) Objective Vital Signs: Vital Signs - 24 hr 01/31/20 01/31/20 01/31/20 08:00 09:00 09:30 Temperature 36.5 C Heart Rate [ Activity] Heart Rate [ 93 96 97 Monitoring electrodes] Heart Rate [ Supine] Respiratory 18 21 Rate Blood Pressure [Activity] Blood Pressure 97/59 L 108/63 99/59 L [Left Brachial artery] Blood Pressure [Right Brachial artery] Blood Pressure [Supine] O2 Saturation 98 97 01/31/20 01/31/20 01/31/20 10:00 10:50 11:00 Temperature Heart Rate [ 106 H Activity] Heart Rate [ 93 104 H Monitoring electrodes] Heart Rate [ 100 Supine] Respiratory 23 21 Rate Blood Pressure 115/75 [Activity] Blood Pressure [Left Brachial artery] Blood Pressure 107/75 93/59 L [Right Brachial artery] Blood Pressure 93/59 L [Supine] O2 Saturation 99 98 01/31/20 01/31/20 01/31/20 11:41 12:00 13:00 Temperature Heart Rate [ Activity] Heart Rate [ 96 97 87 Monitoring electrodes] Heart Rate [ Supine] Respiratory 21 15 18 Rate Blood Pressure [Activity] Blood Pressure [Left Brachial artery] Blood Pressure 124/84 H 105/95 H 85/63 L [Right Brachial artery] Blood Pressure [Supine] O2 Saturation 100 97 98 01/31/20 01/31/20 01/31/20 14:00 15:00 16:00 Temperature 36.0 C L Heart Rate [ Activity] Heart Rate [ 88 91 74 Monitoring electrodes] Heart Rate [ Supine] Respiratory 20 20 22 Rate Blood Pressure [Activity] Blood Pressure [Left Brachial artery] Blood Pressure 90/48 L 101/62 86/53 L [Right Brachial artery] Blood Pressure [Supine] O2 Saturation 98 100 100 01/31/20 01/31/20 01/31/20 17:00 18:00 19:00 Temperature Heart Rate [ Activity] Heart Rate [ 84 82 76 Monitoring electrodes] Heart Rate [ Supine] Respiratory 20 22 24 Rate Blood Pressure [Activity] Blood Pressure [Left Brachial artery] Blood Pressure 85/56 L 85/55 L 84/51 L [Right Brachial artery] Blood Pressure [Supine] O2 Saturation 98 99 100 01/31/20 01/31/20 01/31/20 20:00 21:00 22:00 Temperature 36.4 C L Heart Rate [ Activity] Heart Rate [ 79 87 82 Monitoring electrodes] Heart Rate [ Supine] Respiratory 22 31 H 22 Rate Blood Pressure [Activity] Blood Pressure [Left Brachial artery] Blood Pressure 97/62 102/63 100/60 [Right Brachial artery] Blood Pressure [Supine] O2 Saturation 100 99 99 01/31/20 02/01/20 02/01/20 23:00 00:00 01:00 Temperature 36.4 C L Heart Rate [ Activity] Heart Rate [ 75 80 83 Monitoring electrodes] Heart Rate [ Supine] Respiratory 21 23 26 H Rate Blood Pressure [Activity] Blood Pressure [Left Brachial artery] Blood Pressure 81/57 L 89/66 L 75/48 L [Right Brachial artery] Blood Pressure [Supine] O2 Saturation 98 98 95 02/01/20 02/01/20 02/01/20 02:00 03:00 04:00 Temperature 36.5 C Heart Rate [ Activity] Heart Rate [ 89 91 95 Monitoring electrodes] Heart Rate [ Supine] Respiratory 25 H 26 H 27 H Rate Blood Pressure [Activity] Blood Pressure [Left Brachial artery] Blood Pressure 93/61 84/61 L 88/60 L [Right Brachial artery] Blood Pressure [Supine] O2 Saturation 96 98 99 05/05/20 05/05/20 05/05/20 05:00 06:00 07:00 Temperature Heart Rate [ Activity] Heart Rate [ 90 88 83 Monitoring electrodes] Heart Rate [ Supine] Respiratory 26 H 19 22 Rate Blood Pressure [Activity] Blood Pressure 91/60 96/58 L [Left Brachial artery] Blood Pressure 96/57 L [Right Brachial artery] Blood Pressure [Supine] O2 Saturation 98 98 96 Oxygen O2 Source Room air I&O (Last 24 Hrs): Intake and Output Totals x24h 01/30/20 01/31/20 02/01/20 23:59 23:59 23:59 Intake Total 2157.425 5804.875 1551.563 Output Total 1005 400 200 Balance 205.323 0395.875 1351.563 General: Other (Napping but awoke to hername. Opened herv eyes and then closed them but answered with mumbling.) HEENT: Mucous membr. moist/pink Neck: Supple Neuro: Non Focal, Other (Obtunded, lethargic.) Cardiovascular: No murmurs Respiratory: No respiratory distress Abdomen: Soft Extremities: Other (2+ edema of UEs and LEs. Both shins are gauze wrapped. L- sided leg gauze has clear drainage.) - Results Results: Laboratory Results WBC 3.6 x10^3/uL (4.8-10.8) L 02/01/20 05:00 RBC 2.70 10^6/uL (4.20-5.40) L 02/01/20 05:00 Hgb 11.4 g/dL (12.0-16.0) L 02/01/20 05:00 Hct 33.2 % (37.0-47.0) L 02/01/20 05:00 MCV 123.0 fL (81.0-99.0) H 02/01/20 05:00 MCH 42.2 pg (27.0-31.0) H 02/01/20 05:00 MCHC 34.3 g/dL (32.0-36.0) 02/01/20 05:00 RDW 18.1 % (12.0-15.0) H 02/01/20 05:00 Plt Count 139 10^3/uL (130-450) 05/05/20 05:00 MPV 9.4 fL (7.9-10.8) 02/01/20 05:00 Neut # (Auto) 1.8 10^3/uL (1.5-6.6) 02/01/20 05:00 Lymph # (Auto) 0.6 10^3/uL (1.5-3.5) L 02/01/20 05:00 Rowan # (Auto) 0.8 10^3/uL (0.0-1.0) 02/01/20 05:00 Eos # (Auto) 0.2 10^3/uL (0.0-0.7) 02/01/20 05:00 Baso # (Auto) 0.1 10^3/uL (0.0-0.1) 02/01/20 05:00 Absolute Nucleated RBC 0.10 x10^3/uL 02/01/20 05:00 Nucleated RBC % 2.8 /100WBC 02/01/20 05:00 Manual Slide Review Indicated 02/01/20 05:00 WBC Morphology NORMAL APPEARANCE (NORMAL) 01/31/20 04:55 Platelet Estimate NORMAL (130-450,000) (NORMAL) 02/01/20 05:00 Platelet Morphology NORMAL APPEARANCE (NORMAL) 02/01/20 05:00 RBC Morph Micro Appear 3+ MACROCYTOSIS (NORMAL) 01/31/20 04:55 RBC Morph Micro Appear 2+ MACROCYTOSIS (NORMAL) 02/01/20 05:00 PT 27.9 secs (9.9-12.6) H 01/29/20 08:00 INR 2.6 (0.8-1.2) H 01/29/20 08:00 VBG pH 7.424 (7.31-7.41) H 01/30/20 21:47 VBG pCO2 33.9 mmHg (41-51) L 01/30/20 14:12 VBG pO2 38.2 mmHg (25-47) 01/30/20 14:12 VBG HCO3 21.4 mmol/L (23-28) L 01/30/20 14:12 VBG Total CO2 22.5 mmol/L (24-29) L 01/30/20 14:12 VBG O2 Saturation 72.5 % (60-80) 01/30/20 14:12 VBG Base Excess -2.3 mmol/L (-2 - +2) L 01/30/20 14:12 Ionized Calcium 0.95 mmol/L (1.15-1.33) L 01/30/20 21:47 Sodium 129 mmol/L (135-145) L 02/01/20 05:00 Potassium 3.5 mmol/L (3.5-5.0) 02/01/20 05:00 Chloride 100 mmol/L (101-111) L 02/01/20 05:00 Carbon Dioxide 21 mmol/L (21-32) 02/01/20 05:00 Anion Gap 8.0 (6-13) 02/01/20 05:00 BUN 11 mg/dL (6-20) 02/01/20 05:00 Creatinine 0.8 mg/dL (0.4-1.0) 02/01/20 05:00 Estimated GFR (MDRD) 69 (>89) L 02/01/20 05:00 Glucose 153 mg/dL (70-100) H 02/01/20 05:00 Glycated Hemoglobin 5.4 % (4.6-6.2) 01/29/20 08:00 Estim Average Glucose 108 (70-100) H 01/29/20 08:00 Lactic Acid 1.6 mmol/L (0.5-2.2) 02/01/20 05:00 Calcium 7.4 mg/dL (8.5-10.3) L 02/01/20 05:00 Phosphorus 1.9 mg/dL (2.5-4.6) L 02/01/20 05:00 Magnesium 1.8 mg/dL (1.7-2.8) 02/01/20 05:00 Total Bilirubin 3.7 mg/dL (0.2-1.0) H 01/31/20 04:55 Direct Bilirubin 1.6 mg/dL (0.1-0.5) H 01/31/20 04:55 AST 67 IU/L (10-42) H 01/31/20 04:55 ALT 46 IU/L (10-60) 01/31/20 04:55 Alkaline Phosphatase 270 IU/L (42-121) H 01/31/20 04:55 Ammonia 13.4 umol/L (7-35) 01/28/20 15:42 Total Creatine Kinase 92 IU/L (22-269) 01/28/20 15:42 Troponin I High Sens 16.0 ng/L (2.3-14.8) H* 01/29/20 12:39 C-Reactive Protein 3.3 mg/dL (0-1.0) H 01/29/20 12:39 B-Natriuretic Peptide 271 pg/mL (5-100) H 01/28/20 14:26 Total Protein 5.0 g/dL (6.7-8.2) L 01/31/20 04:55 Albumin 2.0 g/dL (3.2-5.5) L 02/01/20 04:50 Globulin 2.7 g/dL (2.1-4.2) 01/31/20 04:55 Albumin/Globulin Ratio 0.7 (1.0-2.2) L 01/28/20 14:25 Lipase 32 U/L (22-51) 01/28/20 14:25 Vitamin B12 1186 pg/mL (180-914) H 02/01/20 05:00 Folate 9.27 ng/mL (5.90 - >24.8) 02/01/20 05:00 TSH 11.32 uIU/mL (0.34-5.60) H 01/28/20 14:25 Cortisol AM Sample 17.4 ug/dL 01/30/20 08:00 Urine Color ORANGE 01/28/20 17:27 Urine Clarity HAZY (CLEAR) 01/28/20 17:27 Urine pH 5.0 PH (5.0-7.5) 01/28/20 17:27 Ur Specific [place] 1.025 (1.002-1.030) 01/28/20 17:27 Urine Protein NEGATIVE mg/dL (NEGATIVE) 01/28/20 17:27 Urine Glucose (UA) NEGATIVE mg/dL (NEGATIVE) 01/28/20 17:27 Urine Ketones NEGATIVE mg/dL (NEGATIVE) 01/28/20 17:27 Urine Occult Blood NEGATIVE (NEGATIVE) 01/28/20 17:27 Urine Nitrite NEGATIVE (NEGATIVE) 01/28/20 17:27 Urine Bilirubin NEGATIVE (NEGATIVE) 01/28/20 17:27 Urine Urobilinogen 0.2 (NORMAL) E.U./dL (NORMAL) 01/28/20 17:27 Ur Leukocyte Esterase NEGATIVE (NEGATIVE) 01/28/20 17:27 Urine RBC None Seen /HPF (0-5) 01/28/20 17:27 Urine WBC 0-3 /HPF (0-5) 01/28/20 17:27 Ur Squamous Epith Cells MANY Squamous (<= Few) H 01/28/20 17:27 Urine Crystals 26-50 Ca Oxalate /LPF 01/28/20 17:27 Amorphous Sediment Rare /LPF 01/28/20 17:27 Urine Bacteria Many /HPF (None Seen) H 01/28/20 17:27 Urine Osmolality 392 mOsm/kg (50-1200) 01/28/20 17:27 Ur Random Chloride < 14 mmol/L 01/28/20 17:27 Urine Creatinine 163.2 mg/dL 01/28/20 17:27 Urine Sodium < 12.0 mmol/L 01/28/20 17:27 Nasal Screen MRSA (PCR) NEGATIVE (NEGATIVE) 01/29/20 14:30
[2020-02-01] MEDS: PIPERACILLIN/TAZOBACTAM 3.375 GM in SODIUM CHLORIDE 0.9% MINIBAG 100 ML IV SCH ×2 (07:54→16:38)
[2020-02-01] MEDS: MULTIVITAMIN W/MINERALS TABLET PO SCH (07:57)
[2020-02-01] MEDS: SACCHAROMYCES BOULARDII 250 MG CAPSULE PO SCH ×2 (07:57→16:54)
[2020-02-01] MEDS: INSULIN ASPART 300 UNIT/3 ML PEN SUBQ SCH ×4 (08:15→20:56)
[2020-02-01] MEDS: MIN OIL/DIMETHICON/COCONUT OIL 92 GM TUBE TOP PRN (08:30)
[2020-02-01] MEDS: NYSTATIN POWDER 15 GM TOP SCH ×2 (08:30→20:56)
[2020-02-01] MEDS ORDERED: chlordiazePOXIDE 25 MG CAPSULE PO SCH (09:00)
[2020-02-01] MEDS: THIAMINE 100 MG TABLET PO SCH (09:32)
[2020-02-01] MEDS: FOLIC ACID 1 MG TABLET PO SCH (09:32)
[2020-02-01] MEDS: chlordiazePOXIDE 5 MG CAPSULE PO SCH ×2 (09:38→20:55)
[2020-02-01] MEDS: chlordiazePOXIDE 25 MG CAPSULE PO SCH (09:43)
[2020-02-01 13:54] LABS: VANCOMYCIN,TROUGH 20.8 ug/mL (10.0-20.0)
[2020-02-01] MEDS: VANCOMYCIN INJ 1 GM, VANCOMYCIN INJ 500 MG in SODIUM CHLORIDE 0.9% 500 ML IV SCH (14:13)
[2020-02-01] MEDS: RIVAROXABAN 10 MG TABLET PO SCH (16:47)
--- NOTE | 2020-02-01 17:54 | PHARMACY PROGRESS NOTE ---
- Therapy Status Vancomycin regimen day #: 4 Therapy status: Trough supratherapeutic Basis for treatment: Empirical Trough goal: 15-20 - DEIDRA Risk Risk level for Acute Kidney Injury: High Acute Kidney Injury risk factors: Other nephrotoxic agents, Piperacillin/Tozobactam, Baseline CrCl <50, Goal trough >15, Admission to ICU, Acute hypotensive event, Sepsis - Monitoring and Recommendation Clinical response to treatment: I&O Previous 24 hours 01/30/20 01/31/20 02/01/20 23:59 23:59 23:59 Intake Total 1151.795 3014.875 2895.962 Output Total 1005 550 335 Balance 938.814 9094.875 2560.962 Lab Results 02/01/20 01/31/20 01/31/20 05:00 16:56 04:55 BUN 11 13 14 Creatinine 0.8 0.9 1.0 Estimated GFR (MDRD) 69 L 60 L 53 L 01/30/20 01/30/20 01/30/20 21:00 14:12 04:50 BUN 15 16 18 Creatinine 1.0 1.0 1.1 H Estimated GFR (MDRD) 53 L 53 L 48 L 01/30/20 01/29/20 01/29/20 00:22 18:06 12:39 BUN 18 18 18 Creatinine 1.1 H 1.0 1.0 Estimated GFR (MDRD) 48 L 53 L 53 L 01/29/20 01/29/20 01/28/20 08:00 00:45 20:22 BUN 17 17 18 Creatinine 1.0 1.0 1.1 H Estimated GFR (MDRD) 53 L 53 L 48 L 01/28/20 14:25 BUN 19 Creatinine 1.3 H Estimated GFR (MDRD) 39 L Vancomycin Monitoring 02/01/20 13:36 Vancomycin Trough 20.8 H Cultures 01/29/20 18:06 Blood Blood Culture - Preliminary NO GROWTH AFTER 2 DAYS 01/29/20 12:30 Blood - Right Arm Blood Culture - Preliminary NO GROWTH AFTER 2 DAYS Monitoring plan: Daily serum creatinine Areas for additional monitoring: IV to PO when appropriate, Therapy de- escalation based on culture results Pharmacy recommendation: Decrease dose (Steady state trough is slightly elevated at 20.8. I will decrease dose from 1500 mg to 1250 mg iv daily.)
[2020-02-02] MEDS: PIPERACILLIN/TAZOBACTAM 3.375 GM in SODIUM CHLORIDE 0.9% MINIBAG 100 ML IV SCH ×3 (00:09→15:50)
[2020-02-02] MEDS: SODIUM CHLORIDE FLUSH 0.9% 10 ML SYRINGE IVP SCH ×3 (00:09→16:56)
[2020-02-02] MEDS: SODIUM CHLORIDE 0.9% 1,000 ML IV SCH ×3 (00:25→22:40)
[2020-02-02] MEDS: traMADol 50 MG TABLET PO PRN (02:08)
[2020-02-02] MEDS: SODIUM CHLORIDE FLUSH 0.9% 10 ML SYRINGE IVP PRN (04:47)
[2020-02-02 05:26] LABS: BASOPHILS # (AUTO) 0.1 10^3/uL (0.0-0.1); BASOPHILS % (AUTO) 1.9 %; EOSINOPHILS # (AUTO) 0.3 10^3/uL (0.0-0.7); EOSINOPHILS % (AUTO) 5.8 %; HGB - HEMOGLOBIN 11.3 g/dL (12.0-16.0); LYMPHOCYTES # (AUTO) 0.6 10^3/uL (1.5-3.5); LYMPHOCYTES % (AUTO) 13.5 %; MEAN CORPUSCULAR HEMOGLOBIN 41.9 pg (27.0-31.0); MEAN CORPUSCULAR HGB CONC 34.3 g/dL (32.0-36.0); MEAN CORPUSCULAR VOLUME 121.9 fL (81.0-99.0); MEAN PLATELET VOLUME 9.4 fL (7.9-10.8); MONOCYTES # (AUTO) 0.9 10^3/uL (0.0-1.0); MONOCYTES % (AUTO) 21.3 %; NEUTROPHILS # (AUTO) 2.4 10^3/uL (1.5-6.6); NEUTROPHILS % (AUTO) 55.2 %; PLT - PLATELET COUNT 145 10^3/uL (130-450); RED CELL DISTRIBUTION WIDTH 18.4 % (12.0-15.0); WHITE BLOOD COUNT 4.3 x10^3/uL (4.8-10.8)
[2020-02-02 05:41] LABS: ALBUMIN 1.9 g/dL (3.2-5.5); BILIRUBIN,DIRECT 0.8 mg/dL (0.1-0.5); CREATININE 0.9 mg/dL (0.4-1.0); MAGNESIUM 1.5 mg/dL (1.7-2.8); PHOSPHORUS 2.3 mg/dL (2.5-4.6); TOTAL PROTEIN 4.6 g/dL (6.7-8.2)
[2020-02-02 05:51] LABS: PLATELET ESTIMATE, MANUAL NORMAL (130-450,000) (NORMAL)
[2020-02-02] MEDS ORDERED: MAGNESIUM SULFATE 2 GRAM 2 GM/50 ML BAG IV ONE (06:27)
[2020-02-02] MEDS: POTASSIUM CHLOR 20 MEQ/100 ML 20 MEQ/100 ML BAG IV SCH ×2 (07:00→08:10)
[2020-02-02] MEDS: LEVOTHYROXINE 88 MCG TABLET PO SCH (07:10)
[2020-02-02] MEDS: NYSTATIN POWDER 15 GM TOP SCH ×2 (07:51→21:40)
[2020-02-02] MEDS: INSULIN ASPART 300 UNIT/3 ML PEN SUBQ SCH ×4 (07:55→21:42)
[2020-02-02] MEDS: MAGNESIUM OXIDE 400 MG TABLET PO SCH (08:31)
[2020-02-02] MEDS: SACCHAROMYCES BOULARDII 250 MG CAPSULE PO SCH ×2 (08:31→17:13)
[2020-02-02] MEDS: FOLIC ACID 1 MG TABLET PO SCH (08:32)
[2020-02-02] MEDS: THIAMINE 100 MG TABLET PO SCH (08:32)
[2020-02-02] MEDS: MULTIVITAMIN W/MINERALS TABLET PO SCH (08:32)
[2020-02-02] MEDS: NEUTRA-PHOS 250 MG TABLET PO SCH ×5 (08:32→17:14)
--- NOTE | 2020-02-02 08:49 | PROVIDER PROGRESS NOTE ---
Assessment/Plan - Problem List (1) Hypotension Assessment/Plan: BP still "soft" at 90's-100, but RN said when he woke pt up, her BP amelia. Will decrease Librium from bid to daily, to allow her to wake up more. Will decrease iv rate from 100 to 80, since she has anasarca. Try to do orthostatic VS, but she needs a Seri lift, even at home. It was tried today, she could not go from sitting to standing, she sat back down with severe weakness. Lactic Acid level only normalized yesterday. Continue empiric iv antibiotics. Await cultures. Remain in ICU (2) Hyponatremia Assessment/Plan: This was the presenting problem which prompted admission. Sodium has improved daily with saline iv fluids running, fluid restriction ordered, and stopping alcohol intake (free water excess). Follow BMP daily. (3) Lethargy Assessment/Plan: She was on Librium 25 q6h to prevent alcohol withdrawal, until decreased to 10 mg bid yesterday. The patient stated to PT that she wants to be able to walk, but then does not participate much with PT, partly due to being somnolent possibly. Will decrease Librium to daily, since she is very lethargic still. Her weakness preceded the lethargy, per the notes, since she needed a Olivia lift at home. She was told by PT yesterday that she would need a SNF for rehab after D[facility], and she told me she would agree to go to a SNF only if there was no other option. ST saw the pt yesterday, and did witness choking on liquids. She needs nectar thick or honey thick liquids. (4) Chronic atrial fibrillation Assessment/Plan: Xarelto continues for stroke prophylaxis. HR has gone up fromn 60's to 80's since she is off home Metoprolol dose (due to hypotension). Will plan to resume B-kaity at a lower dose, if she is not orthostatic. (5) Type 2 diabetes mellitus treated with insulin Assessment/Plan: A1c was excessively low, therefore long-acting Insulin stopped and only on sliding scale. A dysphagia cc diet is ordered. (6) Hypothyroidism Assessment/Plan: The TSH was >11 at admission, home Synthroid dose increased from 75 mcg to 88 mcg daily at admission. A TSH should be repeated in a month. (7) Abnormal LFTs Assessment/Plan: Improved since admission, without alcohol intake. (8) Macrocytosis without anemia Assessment/Plan: Likely due to alcohol abuse. Vitamins are ordered. (9) Alcohol use disorder Assessment/Plan: The patient told SW that she does not want detox or resources to stop drinking, and that she has no intention in not using alcohol. She was on Librium 25 q6h to prevent alcohol withdrawal, until decreased to 10 mg bid yesterday. Will decrease Librium to daily, since she is very lethargic still. (10) Anasarca Assessment/Plan: The leg edema was a chronic problem, possibly lymphedema therefore. On top of that she has a skin tear and her anasarca is weeping serous fluid through that. The arms are also edematous. She is 7.5L(+) in fluid balance today since admission. Will decrease iv rate, allow fluids to equilibrate, and not start Albumen which is temporary or Lasix due to soft BPs. (11) Noninfected skin tear of leg Assessment/Plan: Wound consult has been ordered and the Wound Nurse saw her today and recommended dry gauze to absorb the weeping serous fluid. When she is eventually OOB, will also need leg elevation. (12) Hypokalemia Assessment/Plan: Related to inadequate intake in a pt with alcohol abuse. Replace and follow daily labs (13) Hypomagnesemia Assessment/Plan: Related to inadequate intake in a pt with alcohol abuse. Replace and follow daily labs (14) Hypophosphatemia Assessment/Plan: Related to inadequate intake in a pt with alcohol abuse. Replace and follow daily labs (15) DEIDRA (acute kidney injury) Assessment/Plan: Resolved - Current Meds Current Meds: Current Medications Generic Name Dose Route Start Last Admin Trade Name Freq PRN Reason Stop Dose Admin Folic Acid 1 mg 01/29/20 09:00 02/02/20 08:32 PO 1 mg DAILY CHEO Administration Norepinephrine Bitartrate 8 mg 250 mls @ 15 mls/hr 01/30/20 02:00 02/01/20 20:41 / Dextrose IV Not Given .[id number] [facility]O Protocol 8 MCG/MIN Piperacillin Sod/Tazobactam 100 mls @ 25 mls/hr 01/30/20 08:00 02/02/20 08:15 Sod 3.375 gm/ Sodium Chloride IV 25 mls/hr Q8H CHEO Administration Potassium Chloride 20 meq in 100 mls @ 100 mls/hr 02/02/20 07:00 02/02/20 08:10 Potassium Chloride IV 02/02/20 08:59 100 mls/hr Q1H CHEO Administration Insulin Aspart 1 - 5 unit 01/31/20 12:00 02/02/20 07:55 Novolog SUBQ Not Given 0800,1200,1700,2100 [facility] Protocol Levothyroxine Sodium 88 mcg 01/29/20 07:00 02/02/20 07:10 Synthroid PO 88 mcg QDAC CHEO Administration Magnesium Oxide 400 mg 02/02/20 08:00 02/02/20 08:31 Mag Ox PO 400 mg DAILYWM CHEO Administration Mineral Oil 1 applic 01/30/20 16:44 02/01/20 08:30 Cavilon TOP 1 applic PRN PRN Administration Skin Care Multi-Ingredient Ointment 1 applic 01/30/20 16:44 02/01/20 08:30 Zinc Oxide TOP 1 applic PRN PRN Administration Skin Care Multivitamins/Minerals 1 tab 02/01/20 08:00 02/02/20 08:32 Theragran M PO 1 tab DAILYWM [facility]O Administration Nystatin 1 applic 01/28/20 21:00 02/02/20 07:51 Nystop TOP 1 applic BID CHEO Administration Rivaroxaban 20 mg 01/31/20 17:00 02/01/20 16:47 Xarelto PO 20 mg 1700 [facility]O Administration Saccharomyces Boulardii 250 mg 02/01/20 08:00 02/02/20 08:31 Florastor PO 250 mg BIDWM CHEO Administration Sodium Chloride 10 ml 01/28/20 15:15 02/02/20 04:47 Normal Saline Flush 0.9% IVP 30 ml PRN PRN Administration NEEDED PER PROVIDER ORDERS Sodium Chloride 10 ml 01/28/20 17:00 02/02/20 08:32 Normal Saline Flush 0.9% IVP 10 ml 0100,0900,1700 CEHO Administration Sodium Phosphate 250 mg 02/01/20 08:00 02/02/20 08:32 K-Phos Neutral PO 250 mg TIDWM CHEO Administration Thiamine HCl 100 mg 01/28/20 15:19 02/02/20 08:32 Vitamin B-1 PO 100 mg DAILY CHEO Administration Tramadol HCl 25 mg 01/28/20 16:44 02/02/20 02:08 Ultram PO 25 mg Q4HR PRN Administration PAIN Trazodone HCl 50 mg 02/01/20 07:44 02/01/20 20:55 Desyrel PO 50 mg QPM PRN Administration Insomnia - Lab Result Fish Bone Diagrams: 02/02/20 04:45 02/02/20 04:45 - Additional Planning My Orders: My Active Orders 02/01/20 09:00 Orthostatic [Vital Signs - Orthostatic] [RC] DAILY 02/01/20 12:12 Box Insertion [RC] QSHIFT 02/02/20 08:00 Magnesium Oxide [Mag Ox] 400 mg PO DAILYWM 02/02/20 08:44 Sodium Chloride 0.9% [Normal Saline 0.9%] 1,000 ml IV 80 mls/hr 02/02/20 13:00 chlordiazePOXIDE [Librium] 10 mg PO 1300 02/03/20 08:00 Potassium Chloride Oral Soln 40 meq PO DAILYWM Subjective - Subjective Patient Reports: Fatigue, Other (Willing to participate in PT.) Nursing Reports: Other (When a set of orthostatic vital signs were being checked this morning, she could not go from seated to standing, she basically fell back into a seated position "like a wet noodle".) Objective Vital Signs: Vital Signs - 24 hr 02/01/20 02/01/20 02/01/20 09:00 10:00 10:15 Temperature Heart Rate [ 107 H Activity] Heart Rate [ 82 92 Monitoring electrodes] Heart Rate [ 97 Supine] Respiratory 18 19 Rate Blood Pressure 118/96 H [Activity] Blood Pressure 105/61 95/56 L [Left Brachial artery] Blood Pressure 95/56 L [Supine] O2 Saturation 97 95 O2 Saturation [ 98 Activity] O2 Saturation [ 97 Supine] 02/01/20 02/01/20 02/01/20 11:00 12:00 13:00 Temperature 35.9 C L Heart Rate [ Activity] Heart Rate [ 100 89 Monitoring electrodes] Heart Rate [ Supine] Respiratory 30 H 24 25 H Rate Blood Pressure [Activity] Blood Pressure 121/84 H 101/68 108/62 [Left Brachial artery] Blood Pressure [Supine] O2 Saturation 99 99 99 O2 Saturation [ Activity] O2 Saturation [ Supine] 02/01/20 02/01/20 02/01/20 14:00 15:00 15:34 Temperature 36.4 C L Heart Rate [ Activity] Heart Rate [ 77 99 Monitoring electrodes] Heart Rate [ Supine] Respiratory 19 20 Rate Blood Pressure [Activity] Blood Pressure 86/50 L 102/83 H [Left Brachial artery] Blood Pressure [Supine] O2 Saturation 98 99 O2 Saturation [ Activity] O2 Saturation [ Supine] 02/01/20 02/01/20 02/01/20 16:00 17:00 18:00 Temperature Heart Rate [ Activity] Heart Rate [ 73 73 84 Monitoring electrodes] Heart Rate [ Supine] Respiratory 19 21 21 Rate Blood Pressure [Activity] Blood Pressure 96/64 91/76 97/60 [Left Brachial artery] Blood Pressure [Supine] O2 Saturation 99 99 100 O2 Saturation [ Activity] O2 Saturation [ Supine] 02/01/20 02/01/20 02/01/20 19:00 20:00 21:00 Temperature 36.4 C L Heart Rate [ Activity] Heart Rate [ 78 80 86 Monitoring electrodes] Heart Rate [ Supine] Respiratory 21 22 26 H Rate Blood Pressure [Activity] Blood Pressure 104/66 104/60 107/57 L [Left Brachial artery] Blood Pressure [Supine] O2 Saturation 100 99 99 O2 Saturation [ Activity] O2 Saturation [ Supine] 02/01/20 02/01/20 02/02/20 22:00 23:00 00:00 Temperature Heart Rate [ Activity] Heart Rate [ 82 83 81 Monitoring electrodes] Heart Rate [ Supine] Respiratory 26 H 25 H 27 H Rate Blood Pressure [Activity] Blood Pressure 94/52 L 97/60 90/54 L [Left Brachial artery] Blood Pressure [Supine] O2 Saturation 99 100 100 O2 Saturation [ Activity] O2 Saturation [ Supine] 02/02/20 02/02/20 02/02/20 01:00 02:00 03:00 Temperature Heart Rate [ Activity] Heart Rate [ 90 85 83 Monitoring electrodes] Heart Rate [ Supine] Respiratory 25 H 30 H 19 Rate Blood Pressure [Activity] Blood Pressure 85/55 L 101/62 88/73 L [Left Brachial artery] Blood Pressure [Supine] O2 Saturation 97 97 95 O2 Saturation [ Activity] O2 Saturation [ Supine] 02/02/20 02/02/20 02/02/20 04:40 05:00 06:00 Temperature 36.4 C L Heart Rate [ Activity] Heart Rate [ 89 84 76 Monitoring electrodes] Heart Rate [ Supine] Respiratory 31 H 25 H 23 Rate Blood Pressure [Activity] Blood Pressure 92/56 L 79/52 L 87/52 L [Left Brachial artery] Blood Pressure [Supine] O2 Saturation 97 99 99 O2 Saturation [ Activity] O2 Saturation [ Supine] 02/02/20 07:00 Temperature Heart Rate [ Activity] Heart Rate [ 77 Monitoring electrodes] Heart Rate [ Supine] Respiratory 23 Rate Blood Pressure [Activity] Blood Pressure 88/59 L [Left Brachial artery] Blood Pressure [Supine] O2 Saturation 100 O2 Saturation [ Activity] O2 Saturation [ Supine] Oxygen O2 Source Room air I&O (Last 24 Hrs): Intake and Output Totals x24h 01/31/20 02/01/20 02/02/20 23:59 23:59 23:59 Intake Total 3331.875 3735.962 2111.666 Output Total 550 434 105 Balance 2781.875 3301.962 2006.666 General: Other (Lethargic, awakens and communicates better than yesterday) HEENT: Mucous membr. moist/pink Neck: Supple Neuro: Other (Lethargic, too weakness to stand from sitting) Cardiovascular: Regular rate Respiratory: No respiratory distress, Breath sounds nml Abdomen: Soft Extremities: Other (Leg edema has decreased to 1+, gauze bandages are less soaked over the shins. Arm edema is unchanged at 1-2+) - Results Results: Laboratory Results WBC 4.3 x10^3/uL (4.8-10.8) L 02/02/20 04:45 RBC 2.70 10^6/uL (4.20-5.40) L 02/02/20 04:45 Hgb 11.3 g/dL (12.0-16.0) L 02/02/20 04:45 Hct 32.9 % (37.0-47.0) L 02/02/20 04:45 MCV 121.9 fL (81.0-99.0) H 02/02/20 04:45 MCH 41.9 pg (27.0-31.0) H 02/02/20 04:45 MCHC 34.3 g/dL (32.0-36.0) 02/02/20 04:45 RDW 18.4 % (12.0-15.0) H 02/02/20 04:45 Plt Count 145 10^3/uL (130-450) 02/02/20 04:45 MPV 9.4 fL (7.9-10.8) 02/02/20 04:45 Neut # (Auto) 2.4 10^3/uL (1.5-6.6) 02/02/20 04:45 Lymph # (Auto) 0.6 10^3/uL (1.5-3.5) L 02/02/20 04:45 [place] # (Auto) 0.9 10^3/uL (0.0-1.0) 02/02/20 04:45 Eos # (Auto) 0.3 10^3/uL (0.0-0.7) 02/02/20 04:45 Baso # (Auto) 0.1 10^3/uL (0.0-0.1) 02/02/20 04:45 Absolute Nucleated RBC 0.10 x10^3/uL 02/02/20 04:45 Nucleated RBC % 2.3 /100WBC 02/02/20 04:45 Manual Slide Review Indicated 02/02/20 04:45 WBC Morphology NORMAL APPEARANCE (NORMAL) 01/31/20 04:55 Platelet Estimate NORMAL (130-450,000) (NORMAL) 02/02/20 04:45 Platelet Morphology NORMAL APPEARANCE (NORMAL) 02/01/20 05:00 RBC Morph Micro Appear 2+ MACROCYTOSIS (NORMAL) 02/01/20 05:00 RBC Morph Micro Appear 1+ HYPOCHROMASIA (NORMAL) 3+ MACROCYTOSIS (NORMAL) 02/02/20 04:45 RBC Morph Micro Appear 1+ HYPOCHROMASIA (NORMAL) 3+ MACROCYTOSIS (NORMAL) 02/02/20 04:45 PT 27.9 secs (9.9-12.6) H 01/29/20 08:00 INR 2.6 (0.8-1.2) H 01/29/20 08:00 VBG pH 7.424 (7.31-7.41) H 01/30/20 21:47 VBG pCO2 33.9 mmHg (41-51) L 01/30/20 14:12 VBG pO2 38.2 mmHg (25-47) 01/30/20 14:12 VBG HCO3 21.4 mmol/L (23-28) L 01/30/20 14:12 VBG Total CO2 22.5 mmol/L (24-29) L 01/30/20 14:12 VBG O2 Saturation 72.5 % (60-80) 01/30/20 14:12 VBG Base Excess -2.3 mmol/L (-2 - +2) L 01/30/20 14:12 Ionized Calcium 0.95 mmol/L (1.15-1.33) L 01/30/20 21:47 Sodium 134 mmol/L (135-145) L 02/02/20 04:45 Potassium 3.3 mmol/L (3.5-5.0) L 02/02/20 04:45 Chloride 106 mmol/L (101-111) 02/02/20 04:45 Carbon Dioxide 22 mmol/L (21-32) 02/02/20 04:45 Anion Gap 6.0 (6-13) 02/02/20 04:45 BUN 11 mg/dL (6-20) 02/02/20 04:45 Creatinine 0.9 mg/dL (0.4-1.0) 02/02/20 04:45 Estimated GFR (MDRD) 60 (>89) L 02/02/20 04:45 Glucose 147 mg/dL (70-100) H 02/02/20 04:45 Glycated Hemoglobin 5.4 % (4.6-6.2) 01/29/20 08:00 Estim Average Glucose 108 (70-100) H 01/29/20 08:00 Lactic Acid 1.6 mmol/L (0.5-2.2) 02/01/20 05:00 Calcium 7.0 mg/dL (8.5-10.3) L 02/02/20 04:45 Phosphorus 2.3 mg/dL (2.5-4.6) L 02/02/20 04:45 Magnesium 1.5 mg/dL (1.7-2.8) L 02/02/20 04:45 Total Bilirubin 2.0 mg/dL (0.2-1.0) H 02/02/20 04:45 Direct Bilirubin 0.8 mg/dL (0.1-0.5) H 02/02/20 04:45 AST 60 IU/L (10-42) H 02/02/20 04:45 ALT 41 IU/L (10-60) 02/02/20 04:45 Alkaline Phosphatase 233 IU/L (42-121) H 02/02/20 04:45 Ammonia 13.4 umol/L (7-35) 01/28/20 15:42 Total Creatine Kinase 92 IU/L (22-269) 01/28/20 15:42 Troponin I High Sens 16.0 ng/L (2.3-14.8) H* 01/29/20 12:39 C-Reactive Protein 3.3 mg/dL (0-1.0) H 01/29/20 12:39 B-Natriuretic Peptide 271 pg/mL (5-100) H 01/28/20 14:26 Total Protein 4.6 g/dL (6.7-8.2) L 02/02/20 04:45 Albumin 1.9 g/dL (3.2-5.5) L 02/02/20 04:45 Globulin 2.7 g/dL (2.1-4.2) 02/02/20 04:45 Albumin/Globulin Ratio 0.7 (1.0-2.2) L 01/28/20 14:25 Lipase 32 U/L (22-51) 01/28/20 14:25 Vitamin B12 1186 pg/mL (180-914) H 02/01/20 05:00 Folate 9.27 ng/mL (5.90 - >24.8) 02/01/20 05:00 TSH 11.32 uIU/mL (0.34-5.60) H 01/28/20 14:25 Cortisol AM Sample 17.4 ug/dL 01/30/20 08:00 Urine Color ORANGE 01/28/20 17:27 Urine Clarity HAZY (CLEAR) 01/28/20 17:27 Urine pH 5.0 PH (5.0-7.5) 01/28/20 17:27 Ur Specific [place] 1.025 (1.002-1.030) 01/28/20 17:27 Urine Protein NEGATIVE mg/dL (NEGATIVE) 01/28/20 17:27 Urine Glucose (UA) NEGATIVE mg/dL (NEGATIVE) 01/28/20 17:27 Urine Ketones NEGATIVE mg/dL (NEGATIVE) 01/28/20 17:27 Urine Occult Blood NEGATIVE (NEGATIVE) 01/28/20 17:27 Urine Nitrite NEGATIVE (NEGATIVE) 01/28/20 17:27 Urine Bilirubin NEGATIVE (NEGATIVE) 01/28/20 17:27 Urine Urobilinogen 0.2 (NORMAL) E.U./dL (NORMAL) 01/28/20 17:27 Ur Leukocyte Esterase NEGATIVE (NEGATIVE) 01/28/20 17:27 Urine RBC None Seen /HPF (0-5) 01/28/20 17:27 Urine WBC 0-3 /HPF (0-5) 01/28/20 17:27 Ur Squamous Epith Cells MANY Squamous (<= Few) H 01/28/20 17:27 Urine Crystals 26-50 Ca Oxalate /LPF 01/28/20 17:27 Amorphous Sediment Rare /LPF 01/28/20 17:27 Urine Bacteria Many /HPF (None Seen) H 01/28/20 17:27 Urine Osmolality 392 mOsm/kg (50-1200) 01/28/20 17:27 Ur Random Chloride < 14 mmol/L 01/28/20 17:27 Urine Creatinine 163.2 mg/dL 01/28/20 17:27 Urine Sodium < 12.0 mmol/L 01/28/20 17:27 Nasal Screen MRSA (PCR) NEGATIVE (NEGATIVE) 01/29/20 14:30 Last Dose Date UNK 02/01/20 13:36 Last Dose Time UNK 02/01/20 13:36 Vancomycin Trough 20.8 ug/mL (10.0-20.0) H 02/01/20 13:36
[2020-02-02] MEDS: ZINC OXIDE 20% OINT 30 GM TUBE TOP PRN (11:31)
[2020-02-02] MEDS: MIN OIL/DIMETHICON/COCONUT OIL 92 GM TUBE TOP PRN (11:31)
[2020-02-02] MEDS: chlordiazePOXIDE 5 MG CAPSULE PO SCH (13:15)
[2020-02-02] MEDS ORDERED: VANCOMYCIN 1 GM VIAL ONE (13:53)
[2020-02-02] MEDS: VANCOMYCIN INJ 1 GM, VANCOMYCIN INJ 250 MG in SODIUM CHLORIDE 0.9% 250 ML IV SCH (13:55)
[2020-02-02] MEDS: RIVAROXABAN 10 MG TABLET PO SCH (17:13)
[2020-02-02] MEDS: MIDODRINE 2.5 MG TABLET PO SCH (17:13)
[2020-02-03] MEDS: PIPERACILLIN/TAZOBACTAM 3.375 GM in SODIUM CHLORIDE 0.9% MINIBAG 100 ML IV SCH ×4 (00:30→23:58)
[2020-02-03 05:06] LABS: BASOPHILS # (AUTO) 0.1 10^3/uL (0.0-0.1); BASOPHILS % (AUTO) 2.3 %; EOSINOPHILS # (AUTO) 0.3 10^3/uL (0.0-0.7); EOSINOPHILS % (AUTO) 7.3 %; HGB - HEMOGLOBIN 10.8 g/dL (12.0-16.0); LYMPHOCYTES # (AUTO) 0.6 10^3/uL (1.5-3.5); LYMPHOCYTES % (AUTO) 15.9 %; MEAN CORPUSCULAR HGB CONC 34.5 g/dL (32.0-36.0); MEAN CORPUSCULAR VOLUME 124.7 fL (81.0-99.0); MEAN PLATELET VOLUME 9.2 fL (7.9-10.8); MONOCYTES # (AUTO) 0.8 10^3/uL (0.0-1.0); MONOCYTES % (AUTO) 20.1 %; NEUTROPHILS % (AUTO) 51.8 %; PLT - PLATELET COUNT 135 10^3/uL (130-450); RED BLOOD COUNT 2.51 10^6/uL (4.20-5.40); RED CELL DISTRIBUTION WIDTH 18.6 % (12.0-15.0); WHITE BLOOD COUNT 3.8 x10^3/uL (4.8-10.8)
[2020-02-03 05:17] LABS: CALCIUM 6.9 mg/dL (8.5-10.3); PHOSPHORUS 2.8 mg/dL (2.5-4.6)
[2020-02-03] MEDS: SODIUM CHLORIDE FLUSH 0.9% 10 ML SYRINGE IVP SCH ×3 (05:17→16:47)
[2020-02-03 05:37] LABS: PLATELET ESTIMATE, MANUAL NORMAL (130-450,000) (NORMAL)
[2020-02-03] MEDS: LEVOTHYROXINE 88 MCG TABLET PO SCH (07:03)
--- NOTE | 2020-02-03 08:23 | PROVIDER PROGRESS NOTE ---
Assessment/Plan - Problem List (1) Hypotension Assessment/Plan: BP improved with starting Midodrine 2.5 mg tid w/ meals, started yesterday with dinner. Will decrease iv fluids. She has been in 4 days of empiric antibiotics, for the possibility of septic shock as the cause of hypotension. Blood cx are neg to date. Urine and CXR were neg. WBC was not elevated and she had no fever, but Lactic Acid was up. Will stop empiric antibiotics after today's doses. Continue OOB and PT and OT rehab work. Decrease VS checks from q1h to q3h, and daily orthostatic VS check. Possibly out of ICU later today or tomorrow if BP remains better. (2) Lethargy Assessment/Plan: She was on Librium 25 q6h to prevent alcohol withdrawal, until decreased to 10 mg bid for 1 day then just daily, stating yesterday. She is slightly better today than yesterday, as the Librium dose was weaned down significantly. Will stop Librium after today's dose. Continue the dysphagia diet and nectar thick liquids. Continue working with PT. SINDY has reached out to her regarding the benfit of going to SNF for PT rehab. He and the patient are still deciding. (3) Chronic atrial fibrillation Assessment/Plan: Stable HR and continue anticoagulant, Xarelto. (4) Type 2 diabetes mellitus treated with insulin Assessment/Plan: Stable glu checks on cc diet and ss Insulin (5) Hypothyroidism Assessment/Plan: The TSH was >11 at admission, home Synthroid dose increased from 75 mcg to 88 mcg daily at admission. A TSH should be repeated in a month. (6) Abnormal LFTs Assessment/Plan: Related to alcohol abuse. Improved. (7) Macrocytosis without anemia Assessment/Plan: Related to alcohol abuse. B12 and Folate levels were adequate. She is on daily vitamin, Folate and Thiamine. Will check Iron stores, in case they are low and need replacement too. (8) Alcohol use disorder Assessment/Plan: The patient told SINDY several days ago, that she does not want detox or resources to stop drinking, and that she has no intention in stop using alcohol. She was on Librium 25 q6h to prevent alcohol withdrawal, until decreased to 10 mg bid then 10 mg daily. Will stop Librium after today. (9) Anasarca Assessment/Plan: Echo showed normal LV and RV sizes and systolic function. The likely cause is that she is 10L (+) in fluid balance as of today, since admission, which was needed for treating low serum sodium and low BP. Slightly better peripheral edema yesterday and today, especially legs are better with help of wraps. Will decrease iv fluids to TKO, since she is eating and since serum sodium is now corrected. (10) Noninfected skin tear of leg Assessment/Plan: Serous drainage decreased with gauze bandages wrapping her shins. Wound Nurse saw her at recommended only wraps. Leg edema nearly resolved. (11) Moderate protein-calorie malnutrition Assessment/Plan: She is eating and drinking. Will stop the fluid restriction, since her sodium has corrected and iv fluids are down to TKO starting today. Zinc order as per RD, for skin tear healing. (12) Hyponatremia Assessment/Plan: This was the initial reason for admission, with serum sodium severely low at 116. Resolved after many days of gentle replacement and fluid restriction and stopping alcohol intake since admitted. Will decrease NS to TKO. Follow BMP daily. (13) Hypokalemia Assessment/Plan: Resolved. Today she will start daily oral Potassium liquid. (14) Hypomagnesemia Assessment/Plan: Corrected with Mg supplement., which also helps the serum K stay normal. She will be on scheduled daily oral Mg. (15) Hypophosphatemia Assessment/Plan: Corrected with replacement. (16) DEIDRA (acute kidney injury) Assessment/Plan: Resolved - Current Meds Current Meds: Current Medications Generic Name Dose Route Start Last Admin Trade Name Freq PRN Reason Stop Dose Admin Chlordiazepoxide HCl 10 mg 02/02/20 13:00 02/02/20 13:15 Librium PO 02/04/20 00:00 10 mg 1300 CHEO Administration Folic Acid 1 mg 01/29/20 09:00 02/02/20 08:32 PO 1 mg DAILY CHEO Administration Norepinephrine Bitartrate 8 mg 250 mls @ 15 mls/hr 01/30/20 02:00 02/03/20 06:36 / Dextrose IV Not Given .[id number] CHEO Protocol 8 MCG/MIN Piperacillin Sod/Tazobactam 100 mls @ 25 mls/hr 01/30/20 08:00 02/03/20 08:10 Sod 3.375 gm/ Sodium Chloride IV 25 mls/hr Q8H CHEO Administration Vancomycin HCl 1 gm/ 250 mls @ 167 mls/hr 02/02/20 14:00 02/02/20 15:30 Vancomycin HCl 250 mg/ Sodium IV Infused Chloride Q24H CHEO Infusion Sodium Chloride 1,000 mls @ 80 mls/hr 02/02/20 08:44 02/03/20 08:00 Normal Saline 0.9% IV 80 mls/hr .[id number] CHEO Infusion Insulin Aspart 1 - 5 unit 01/31/20 12:00 02/02/20 21:42 Novolog SUBQ 1 unit 0800,1200,1700,2100 CHEO Administration Protocol Levothyroxine Sodium 88 mcg 01/29/20 07:00 02/03/20 07:03 Synthroid PO 88 mcg QDAC CHEO Administration Magnesium Oxide 400 mg 02/02/20 08:00 02/02/20 08:31 Mag Ox PO 400 mg DAILYWM CHEO Administration Midodrine 2.5 mg 02/02/20 17:00 02/02/20 17:13 PO 2.5 mg TIDWM CHEO Administration Mineral Oil 1 applic 01/30/20 16:44 02/02/20 11:31 Cavilon TOP 1 applic PRN PRN Administration Skin Care Multi-Ingredient Ointment 1 applic 01/30/20 16:44 02/02/20 11:31 Zinc Oxide TOP 1 applic PRN PRN Administration Skin Care Multivitamins/Minerals 1 tab 02/01/20 08:00 02/02/20 08:32 Theragran M PO 1 tab DAILYWM CHEO Administration Nystatin 1 applic 01/28/20 21:00 02/02/20 21:40 Nystop TOP 1 applic BID CHEO Administration Rivaroxaban 20 mg 01/31/20 17:00 02/02/20 17:13 Xarelto PO 20 mg 1700 CHEO Administration Saccharomyces Boulardii 250 mg 02/01/20 08:00 02/02/20 17:13 Florastor PO 250 mg BIDWM CHEO Administration Sodium Chloride 10 ml 01/28/20 15:15 02/02/20 04:47 Normal Saline Flush 0.9% IVP 30 ml PRN PRN Administration NEEDED PER PROVIDER ORDERS Sodium Chloride 10 ml 01/28/20 17:00 02/03/20 05:17 Normal Saline Flush 0.9% IVP 10 ml 0100,0900,1700 CHEO Administration Sodium Phosphate 250 mg 02/01/20 08:00 02/02/20 17:14 K-Phos Neutral PO 250 mg TIDWM CHEO Administration Thiamine HCl 100 mg 01/28/20 15:19 02/02/20 08:32 Vitamin B-1 PO 100 mg DAILY CHEO Administration Tramadol HCl 25 mg 01/28/20 16:44 02/02/20 02:08 Ultram PO 25 mg Q4HR PRN Administration PAIN Trazodone HCl 50 mg 02/01/20 07:44 02/01/20 20:55 Desyrel PO 50 mg QPM PRN Administration Insomnia - Lab Result Fish Bone Diagrams: 02/03/20 04:40 02/03/20 04:40 - Additional Planning My Orders: My Active Orders 02/02/20 08:00 Magnesium Oxide [Mag Ox] 400 mg PO DAILYWM 02/02/20 08:44 Sodium Chloride 0.9% [Normal Saline 0.9%] 1,000 ml IV 80 mls/hr 02/02/20 13:00 chlordiazePOXIDE [Librium] 10 mg PO 1300 02/02/20 17:00 Midodrine 2.5 mg PO TIDWM 02/03/20 05:00 IRON TIBC PANEL [CHEM] Routine 02/03/20 08:00 Potassium Chloride Oral Soln 40 meq PO DAILYWM Subjective - Subjective Patient Reports: No Complaints, Other (Answers and holds a conversation with me about her past) Objective Vital Signs: Vital Signs - 24 hr 02/02/20 02/02/20 02/02/20 09:00 10:00 11:00 Temperature 36.2 C L 36.4 C L Heart Rate [ 78 83 71 Monitoring electrodes] Heart Rate [ Sitting (After 1 Minute)] Heart Rate [ Standing (After 1 Minute)] Heart Rate [ Supine] Respiratory 24 24 20 Rate Blood Pressure 76/63 L 85/61 L 85/63 L [Left Brachial artery] Blood Pressure [Sitting (After 1 Minute)] Blood Pressure [Supine] O2 Saturation 100 99 100 02/02/20 02/02/20 02/02/20 12:00 12:07 13:00 Temperature Heart Rate [ 74 77 Monitoring electrodes] Heart Rate [ 83 Sitting (After 1 Minute)] Heart Rate [ 100 Standing (After 1 Minute)] Heart Rate [ 80 Supine] Respiratory 24 20 Rate Blood Pressure 85/53 L 113/73 [Left Brachial artery] Blood Pressure 79/53 L [Sitting (After 1 Minute)] Blood Pressure 85/63 L [Supine] O2 Saturation 100 100 02/02/20 02/02/20 02/02/20 14:00 15:00 16:00 Temperature 36.5 C 36.2 C L Heart Rate [ 70 74 70 Monitoring electrodes] Heart Rate [ Sitting (After 1 Minute)] Heart Rate [ Standing (After 1 Minute)] Heart Rate [ Supine] Respiratory 20 19 18 Rate Blood Pressure 105/66 119/61 111/60 [Left Brachial artery] Blood Pressure [Sitting (After 1 Minute)] Blood Pressure [Supine] O2 Saturation 100 100 100 02/02/20 02/02/20 02/02/20 17:00 18:00 19:00 Temperature 36.2 C L 96.5 C H Heart Rate [ 71 69 72 Monitoring electrodes] Heart Rate [ Sitting (After 1 Minute)] Heart Rate [ Standing (After 1 Minute)] Heart Rate [ Supine] Respiratory 18 19 20 Rate Blood Pressure 101/70 97/72 92/65 [Left Brachial artery] Blood Pressure [Sitting (After 1 Minute)] Blood Pressure [Supine] O2 Saturation 100 100 100 02/02/20 02/02/20 02/02/20 20:00 21:00 22:00 Temperature 36.8 C Heart Rate [ 71 72 76 Monitoring electrodes] Heart Rate [ Sitting (After 1 Minute)] Heart Rate [ Standing (After 1 Minute)] Heart Rate [ Supine] Respiratory 18 19 20 Rate Blood Pressure 94/68 89/59 L 87/69 L [Left Brachial artery] Blood Pressure [Sitting (After 1 Minute)] Blood Pressure [Supine] O2 Saturation 100 100 100 02/02/20 02/03/20 02/03/20 23:00 00:00 01:00 Temperature 36.5 C Heart Rate [ 69 70 71 Monitoring electrodes] Heart Rate [ Sitting (After 1 Minute)] Heart Rate [ Standing (After 1 Minute)] Heart Rate [ Supine] Respiratory 22 20 21 Rate Blood Pressure 98/66 104/59 L 86/57 L [Left Brachial artery] Blood Pressure [Sitting (After 1 Minute)] Blood Pressure [Supine] O2 Saturation 100 100 100 02/03/20 02/03/20 02/03/20 02:00 03:00 04:00 Temperature 36.2 C L Heart Rate [ 74 78 82 Monitoring electrodes] Heart Rate [ Sitting (After 1 Minute)] Heart Rate [ Standing (After 1 Minute)] Heart Rate [ Supine] Respiratory 19 24 24 Rate Blood Pressure 83/57 L 87/53 L 87/53 L [Left Brachial artery] Blood Pressure [Sitting (After 1 Minute)] Blood Pressure [Supine] O2 Saturation 100 99 100 02/03/20 02/03/20 02/03/20 05:00 06:00 07:00 Temperature Heart Rate [ 77 75 75 Monitoring electrodes] Heart Rate [ Sitting (After 1 Minute)] Heart Rate [ Standing (After 1 Minute)] Heart Rate [ Supine] Respiratory 24 21 26 H Rate Blood Pressure 94/57 L 99/75 167/112 H [Left Brachial artery] Blood Pressure [Sitting (After 1 Minute)] Blood Pressure [Supine] O2 Saturation 100 100 100 02/03/20 08:00 Temperature 36.1 C L Heart Rate [ 72 Monitoring electrodes] Heart Rate [ Sitting (After 1 Minute)] Heart Rate [ Standing (After 1 Minute)] Heart Rate [ Supine] Respiratory 20 Rate Blood Pressure 121/91 H [Left Brachial artery] Blood Pressure [Sitting (After 1 Minute)] Blood Pressure [Supine] O2 Saturation 99 Oxygen O2 Source Room air I&O (Last 24 Hrs): Intake and Output Totals x24h 02/01/20 02/02/20 02/03/20 23:59 23:59 23:59 Intake Total 3739.750 3982.333 846.667 Output Total 434 323 175 Balance 3305.750 3659.333 671.667 General: Alert, Oriented x3 HEENT: Mucous membr. moist/pink Neck: Supple Neuro: Alert, Other (bradykinetic as she raises cup to lips) Cardiovascular: No murmurs Respiratory: No respiratory distress Abdomen: Soft Extremities: Other (1+ pedal edema, shins wrapped in gauze. 1+ lower arm edema.) - Results Results: Laboratory Results WBC 3.8 x10^3/uL (4.8-10.8) L 02/03/20 04:40 RBC 2.51 10^6/uL (4.20-5.40) L 02/03/20 04:40 Hgb 10.8 g/dL (12.0-16.0) L 02/03/20 04:40 Hct 31.3 % (37.0-47.0) L 02/03/20 04:40 MCV 124.7 fL (81.0-99.0) H 02/03/20 04:40 MCH 43.0 pg (27.0-31.0) H 02/03/20 04:40 MCHC 34.5 g/dL (32.0-36.0) 02/03/20 04:40 RDW 18.6 % (12.0-15.0) H 02/03/20 04:40 Plt Count 135 10^3/uL (130-450) 02/03/20 04:40 MPV 9.2 fL (7.9-10.8) 02/03/20 04:40 Neut # (Auto) 2.0 10^3/uL (1.5-6.6) 02/03/20 04:40 Lymph # (Auto) 0.6 10^3/uL (1.5-3.5) L 02/03/20 04:40 [place] # (Auto) 0.8 10^3/uL (0.0-1.0) 02/03/20 04:40 Eos # (Auto) 0.3 10^3/uL (0.0-0.7) 02/03/20 04:40 Baso # (Auto) 0.1 10^3/uL (0.0-0.1) 02/03/20 04:40 Absolute Nucleated RBC 0.08 x10^3/uL 02/03/20 04:40 Nucleated RBC % 2.1 /100WBC 02/03/20 04:40 Manual Slide Review Indicated 02/03/20 04:40 WBC Morphology NORMAL APPEARANCE (NORMAL) 01/31/20 04:55 Platelet Estimate NORMAL (130-450,000) (NORMAL) 02/03/20 04:40 Platelet Morphology NORMAL APPEARANCE (NORMAL) 02/01/20 05:00 RBC Morph Micro Appear 1+ HYPOCHROMASIA (NORMAL) 3+ MACROCYTOSIS (NORMAL) 02/02/20 04:45 RBC Morph Micro Appear 1+ HYPOCHROMASIA (NORMAL) 3+ MACROCYTOSIS (NORMAL) 02/02/20 04:45 RBC Morph Micro Appear 3+ MACROCYTOSIS (NORMAL) 1+ HYPOCHROMASIA (NORMAL) 02/03/20 04:40 RBC Morph Micro Appear 3+ MACROCYTOSIS (NORMAL) 1+ HYPOCHROMASIA (NORMAL) 02/03/20 04:40 PT 27.9 secs (9.9-12.6) H 01/29/20 08:00 INR 2.6 (0.8-1.2) H 01/29/20 08:00 VBG pH 7.424 (7.31-7.41) H 01/30/20 21:47 VBG pCO2 33.9 mmHg (41-51) L 01/30/20 14:12 VBG pO2 38.2 mmHg (25-47) 01/30/20 14:12 VBG HCO3 21.4 mmol/L (23-28) L 01/30/20 14:12 VBG Total CO2 22.5 mmol/L (24-29) L 01/30/20 14:12 VBG O2 Saturation 72.5 % (60-80) 01/30/20 14:12 VBG Base Excess -2.3 mmol/L (-2 - +2) L 01/30/20 14:12 Ionized Calcium 0.95 mmol/L (1.15-1.33) L 01/30/20 21:47 Sodium 135 mmol/L (135-145) 02/03/20 04:40 Potassium 3.7 mmol/L (3.5-5.0) 02/03/20 04:40 Chloride 108 mmol/L (101-111) 02/03/20 04:40 Carbon Dioxide 19 mmol/L (21-32) L 02/03/20 04:40 Anion Gap 8.0 (6-13) 02/03/20 04:40 BUN 11 mg/dL (6-20) 02/03/20 04:40 Creatinine 1.0 mg/dL (0.4-1.0) 02/03/20 04:40 Estimated GFR (MDRD) 53 (>89) L 02/03/20 04:40 Glucose 111 mg/dL (70-100) H 02/03/20 04:40 Glycated Hemoglobin 5.4 % (4.6-6.2) 01/29/20 08:00 Estim Average Glucose 108 (70-100) H 01/29/20 08:00 Lactic Acid 1.6 mmol/L (0.5-2.2) 02/01/20 05:00 Calcium 6.9 mg/dL (8.5-10.3) L 02/03/20 04:40 Phosphorus 2.8 mg/dL (2.5-4.6) 02/03/20 04:40 Magnesium 2.0 mg/dL (1.7-2.8) 02/03/20 04:40 Total Bilirubin 2.0 mg/dL (0.2-1.0) H 02/02/20 04:45 Direct Bilirubin 0.8 mg/dL (0.1-0.5) H 02/02/20 04:45 AST 60 IU/L (10-42) H 02/02/20 04:45 ALT 41 IU/L (10-60) 02/02/20 04:45 Alkaline Phosphatase 233 IU/L (42-121) H 02/02/20 04:45 Ammonia 13.4 umol/L (7-35) 01/28/20 15:42 Total Creatine Kinase 92 IU/L (22-269) 01/28/20 15:42 Troponin I High Sens 16.0 ng/L (2.3-14.8) H* 01/29/20 12:39 C-Reactive Protein 3.3 mg/dL (0-1.0) H 01/29/20 12:39 B-Natriuretic Peptide 271 pg/mL (5-100) H 01/28/20 14:26 Total Protein 4.6 g/dL (6.7-8.2) L 02/02/20 04:45 Albumin 1.6 g/dL (3.2-5.5) L 02/03/20 06:00 Globulin 2.7 g/dL (2.1-4.2) 02/02/20 04:45 Albumin/Globulin Ratio 0.7 (1.0-2.2) L 01/28/20 14:25 Lipase 32 U/L (22-51) 01/28/20 14:25 Vitamin B12 1186 pg/mL (180-914) H 02/01/20 05:00 Folate 9.27 ng/mL (5.90 - >24.8) 02/01/20 05:00 TSH 11.32 uIU/mL (0.34-5.60) H 01/28/20 14:25 Cortisol AM Sample 17.4 ug/dL 01/30/20 08:00 Urine Color ORANGE 01/28/20 17:27 Urine Clarity HAZY (CLEAR) 01/28/20 17:27 Urine pH 5.0 PH (5.0-7.5) 01/28/20 17:27 Ur Specific [place] 1.025 (1.002-1.030) 01/28/20 17:27 Urine Protein NEGATIVE mg/dL (NEGATIVE) 01/28/20 17:27 Urine Glucose (UA) NEGATIVE mg/dL (NEGATIVE) 01/28/20 17: Urine Ketones NEGATIVE mg/dL (NEGATIVE) 01/28/20 17:27 Urine Occult Blood NEGATIVE (NEGATIVE) 01/28/20 17: Urine Nitrite NEGATIVE (NEGATIVE) 01/28/20 17: Urine Bilirubin NEGATIVE (NEGATIVE) 01/28/20 17:27 Urine Urobilinogen 0.2 (NORMAL) E.U./dL (NORMAL) 01/28/20 17:27 Ur Leukocyte Esterase NEGATIVE (NEGATIVE) 01/28/20 17:27 Urine RBC None Seen /HPF (0-5) 01/28/20 17:27 Urine WBC 0-3 /HPF (0-5) 01/28/20 17:27 Ur Squamous Epith Cells MANY Squamous (<= Few) H 01/28/20 17:27 Urine Crystals 26-50 Ca Oxalate /LPF 01/28/20 17:27 Amorphous Sediment Rare /LPF 01/28/20 17:27 Urine Bacteria Many /HPF (None Seen) H 01/28/20 17:27 Urine Osmolality 392 mOsm/kg (50-1200) 01/28/20 17:27 Ur Random Chloride < 14 mmol/L 01/28/20 17:27 Urine Creatinine 163.2 mg/dL 01/28/20 17:27 Urine Sodium < 12.0 mmol/L 01/28/20 17:27 Nasal Screen MRSA (PCR) NEGATIVE (NEGATIVE) 01/29/20 14:30 Stl C. diff Tox B Gene NEGATIVE (NEGATIVE) 02/02/20 13:00 Last Dose Date UNK 02/01/20 13:36 Last Dose Time UNK 02/01/20 13:36 Vancomycin Trough 20.8 ug/mL (10.0-20.0) H 02/01/20 13:36
[2020-02-03] MEDS: INSULIN ASPART 300 UNIT/3 ML PEN SUBQ SCH ×4 (08:24→20:47)
[2020-02-03] MEDS: SACCHAROMYCES BOULARDII 250 MG CAPSULE PO SCH ×2 (08:44→17:35)
[2020-02-03] MEDS: FOLIC ACID 1 MG TABLET PO SCH (08:44)
[2020-02-03] MEDS: MIDODRINE 2.5 MG TABLET PO SCH ×3 (08:44→17:34)
[2020-02-03] MEDS: NEUTRA-PHOS 250 MG TABLET PO SCH ×3 (08:45→17:34)
[2020-02-03] MEDS: MULTIVITAMIN W/MINERALS TABLET PO SCH (08:45)
[2020-02-03] MEDS: MAGNESIUM OXIDE 400 MG TABLET PO SCH (08:45)
[2020-02-03] MEDS: SODIUM CHLORIDE 0.9% 1,000 ML IV SCH (08:45)
[2020-02-03] MEDS: THIAMINE 100 MG TABLET PO SCH (08:46)
[2020-02-03] MEDS: POTASSIUM CHLORIDE 20 MEQ/15 ML UDC PO SCH (08:46)
[2020-02-03 08:53] LABS: % IRON SATURATION 64 % (20-50); IRON 87 ug/dL (28-170); TOTAL IRON BINDING CAPACITY 136 ug/dL (250-450); TRANSFERRIN 97 mg/dL (192-382)
[2020-02-03] MEDS: MIN OIL/DIMETHICON/COCONUT OIL 92 GM TUBE TOP PRN ×2 (11:00→20:00)
[2020-02-03] MEDS: chlordiazePOXIDE 5 MG CAPSULE PO SCH (12:11)
[2020-02-03] MEDS: ZINC SULFATE 220 MG CAPSULE PO SCH (12:12)
[2020-02-03] MEDS: ZINC OXIDE 20% OINT 30 GM TUBE TOP PRN ×2 (13:00→20:00)
[2020-02-03] MEDS: NYSTATIN POWDER 15 GM TOP SCH ×2 (13:00→20:00)
[2020-02-03] MEDS: VANCOMYCIN INJ 1 GM, VANCOMYCIN INJ 250 MG in SODIUM CHLORIDE 0.9% 250 ML IV SCH (14:10)
[2020-02-03] MEDS ORDERED: IRON DEXTRAN 1,000 MG in SODIUM CHLORIDE 0.9% 250 ML IV ONE (15:30)
[2020-02-03] MEDS: RIVAROXABAN 10 MG TABLET PO SCH (17:34)
--- NOTE | 2020-02-03 18:46 | ADVANCE CARE PLANNING NOTE ---
Advance Care Planning - Planning Encounter Date: 02/03/20 Time: 15:30 Purpose: To establish the patient and 's wishes regarding next site of care, SNF versus home. Parties in Attendance: This hospitalist met with the Mr. Garza alone, then we were joined by the patient's nurse Rahat Aguilar, Shoulder Sawyer Quinn Aburto, and Physical Therapist Kelly Wade. Following that we entered the patient's room to review everything in the patient's presence, but she was too sleepy to converse or make decisions. Decisional Capacity of the Patient: When the patient is awake she is alert and oriented x3. She has been very lethargic, partly from sedation on Librium, but also from hypotension and electrolyte imbalance during this admission. Today was the most awake she has been all admission, however at 3:30 in the afternoon, she was deeply asleep, would not awake for discussion or decision making. - Diagnosis for Encounter (1) Alcohol use disorder Summary: I updated the patient's , Mr. Garza regarding this admission for severe hyponatremia, impending alcohol withdrawal, then severe hypotension requiring ICU stay, aggressive IV fluids, empiric antibiotics, resolution of the low sodium, tapering use of her benzodiazepine and current severe deconditioned status. 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 In the past he would monitor her and police the amount of alcohol she got but eventually he gave up because it almost led to break up of their marriage, and over the past 6 months he has allowed her to have any alcohol that she wants. Over the past 1 year she has become so weak and deconditioned that he has to use a bed roller device to move her in her bed, and she needs a ssistance to get up OOB so she can just pivot to use a bedside commode, and she is mostly at bedrest all day at home. - Encounter Subjective/Patient's Story: The patient was admitted with an abnormal serum sodium of 116 but had nearly no complaints with this. She required sedatives as she went through alcohol withdrawal. Over the past 1-1/2 days she is slightly awoken and today communicates and can describe her past history. With the current severe deconditioning, the was starting to arrange for home health aides, 2 people at 12-hour shifts for the first 4 days that she is home, unknown what happened after that. The physical therapist and social workers described for the what is available if she should go to a SNF: Daily or twice daily physical therapy for rehab and strengthening versus 1-2 times a week home health visits with the PT. Objective/Medical Story: This is an 84-year-old female with a history of A. fib on Xarelto, alcohol use, hypertension, IDDM, hypothyroidism, CKD who felt weak and presented to the ER with labs showing a sodium of 116, elevated LFTs and was admitted for management of electrolytes. She subsequently went into impending alcohol withdrawal, needed Librium, blood pressure dropped to 70, she needed an art line and was on pressors in the ICU. She has been on empiric antibiotics. Work-up for [facility] has been negative with a morning cortisol being normal. She did have a very high TSH just doing undertreated hypothyroidism and the Synthroid dose has been increased over the past 5 days. She has ruled out for an FL with an Echo showing a normal LVEF. Her Librium dosing is now being weaned to off and she is starting to awaken since this morning. Patient started working with PT and all that she can do is dangle at the edge of the bed. She cannot stand, is too weak to pull herself up or bear weight. She is also orthostatic with change from supine to seated and dangling. The patient initially did not want to go to a SNF but in the last 1/2 days has said that she would agree to working with a physical therapist at a SNF. Social work has reached out to the before this [id number] visit and he wanted the patient to come home and was setting up the caregivers in the house. After seeing the patient's current condition today, he supports very much that she get more aggressive PT rehab at a SNF. Patient was not awake to discuss this with him however. Goals of Care: Patient wants to eventually return home and the misses her and wants her home as well. He appears very realistic and can see that the most aggressive management would be to go to a SNF for rehab before returning home. Therefore as of now, the patient's wants her to go to a SNF after discharge from here. When the patient is more awake tomorrow, another discussion between them will take place for final decision. Plan: Continue with PT, OT and the altered diet while here. Continue daily increase in activity and out of bed to chair. Continue to promote a decision on going to SNF for rehab after this hospitalization. Code Status: Attempt Resuscitation Time spent on advance care plannin min
[2020-02-03] MEDS: traMADol 50 MG TABLET PO PRN (20:44)
[2020-02-04] MEDS ORDERED: ALBUMIN 25% 12.5 GM/50 ML VIAL IV STA (00:05)
[2020-02-04] MEDS: SODIUM CHLORIDE FLUSH 0.9% 10 ML SYRINGE IVP SCH ×3 (00:42→18:05)
[2020-02-04] MEDS: SODIUM CHLORIDE FLUSH 0.9% 10 ML SYRINGE IVP PRN ×2 (04:28→14:17)
[2020-02-04 04:38] LABS: VBG PH 7.336 (7.31-7.41)
[2020-02-04 04:40] LABS: BASOPHILS # (AUTO) 0.1 10^3/uL (0.0-0.1); BASOPHILS % (AUTO) 2.2 %; EOSINOPHILS # (AUTO) 0.3 10^3/uL (0.0-0.7); EOSINOPHILS % (AUTO) 5.7 %; HGB - HEMOGLOBIN 11.3 g/dL (12.0-16.0); MEAN CORPUSCULAR HEMOGLOBIN 42.8 pg (27.0-31.0); MEAN CORPUSCULAR VOLUME 125.8 fL (81.0-99.0); MEAN PLATELET VOLUME 9.5 fL (7.9-10.8); MONOCYTES # (AUTO) 1.2 10^3/uL (0.0-1.0); MONOCYTES % (AUTO) 20.3 %; NEUTROPHILS # (AUTO) 3.1 10^3/uL (1.5-6.6); NEUTROPHILS % (AUTO) 52.6 %; PLT - PLATELET COUNT 177 10^3/uL (130-450); RED BLOOD COUNT 2.64 10^6/uL (4.20-5.40); RED CELL DISTRIBUTION WIDTH 18.7 % (12.0-15.0)
[2020-02-04 04:50] LABS: ALBUMIN 2.2 g/dL (3.2-5.5); PHOSPHORUS 3.5 mg/dL (2.5-4.6)
[2020-02-04 04:52] LABS: CALCIUM 7.5 mg/dL (8.5-10.3); CREATININE 1.1 mg/dL (0.4-1.0); MAGNESIUM 2.2 mg/dL (1.7-2.8)
[2020-02-04 05:04] LABS: PLATELET ESTIMATE, MANUAL NORMAL (130-450,000) (NORMAL)
[2020-02-04] MEDS: LEVOTHYROXINE 88 MCG TABLET PO SCH (06:54)
--- NOTE | 2020-02-04 09:29 | PROVIDER PROGRESS NOTE ---
Assessment/Plan - Problem List (1) Hypotension Assessment/Plan: The iv hydration was decreased to TKO yesterday and overnight zoila BP was as low as 70's. She was restarted on Levophed iv. Her Librium taper is done, she got her last dose yesterday. Will stop the prn Tramadol, which may beadding to the sedation and low BP. Will stop the Desyrel prn in somnia, since she is excessively sleepy. Will increase the Midodrine from 2.5 to 5 mg tid w/ meals. (2) Lethargy Assessment/Plan: As above in #1. She was slightly less weak today: The physical therapist reported that she could sit at the side of the bed and then tried to stand her self up, slumped but eventually did stand for about 20 seconds. Yesterday's meeting with the , social work etc. (see ACP dictation), resulted in discussing with the patient, and the plan was decided today. She will go to SNF for PT & OT rehab once she is stable for Dch. (3) Alcohol use disorder Assessment/Plan: Yesterday when I met with the in person, he gave me details about her alcohol abuse: (4) Anasarca Assessment/Plan: This is approximately the same as yesterday, even with decreasing the IV rate. (5) Skin tear of lower leg without complication Assessment/Plan: Continues to have copious clear liquid drainage onto the gauze that is wrapping the dixon. Both shins are wrapped. She was seen by [facility] [place] and this is all that was advised. (6) Anemia Assessment/Plan: She had adequate B12 and folate levels, low iron binding capacity and the RD recommended treatment with B12 for this, it was ordered (7) Chronic atrial fibrillation Assessment/Plan: Stable heart rate on current meds, stable on Xarelto with no bleeding noted. (8) DM type 2 (diabetes mellitus, type 2) Assessment/Plan: Stable glu checks on cc diet and ss Insulin (9) Hypothyroidism Assessment/Plan: The TSH was >11 at admission, home Synthroid dose increased from 75 mcg to 88 mcg daily at admission. A TSH should be repeated in a month. (10) Moderate protein-calorie malnutrition Assessment/Plan: Associated with her alcohol abuse and lweakness/ethargy. Fluid restriction has been lifted therefore RD will make her dietary choices more interesting for her, and add Ensure. - Current Meds Current Meds: Current Medications Generic Name Dose Route Start Last Admin Trade Name Aba PRN Reason Stop Dose Admin Folic Acid 1 mg 01/29/20 09:00 02/03/20 08:44 PO 1 mg DAILY CHEO Administration Sodium Chloride 1,000 mls @ 30 mls/hr 02/03/20 08:40 02/04/20 07:00 Normal Saline 0.9% IV 30 mls/hr .[id number] CHEO Infusion Norepinephrine Bitartrate 8 mg 250 mls @ 0 mls/hr 02/04/20 01:00 02/04/20 07:00 / Dextrose IV 8 mcg/min .Q0M CHEO 15 mls/hr Titration Protocol Per Protocol Insulin Aspart 1 - 5 unit 01/31/20 12:00 02/03/20 20:47 Novolog SUBQ 1 unit 0800,1200,1700,2100 CHEO Administration Protocol Levothyroxine Sodium 88 mcg 01/29/20 07:00 02/04/20 06:54 Synthroid PO 88 mcg QDAC CHEO Administration Magnesium Oxide 400 mg 02/02/20 08:00 02/03/20 08:45 Mag Ox PO 400 mg DAILYWM CHEO Administration Mineral Oil 1 applic 01/30/20 16:44 02/03/20 20:00 Cavilon TOP 1 applic PRN PRN Administration Skin Care Multi-Ingredient Ointment 1 applic 01/30/20 16:44 02/03/20 20:00 Zinc Oxide TOP 1 applic PRN PRN Administration Skin Care Multivitamins/Minerals 1 tab 02/01/20 08:00 02/03/20 08:45 Theragran M PO 1 tab DAILYWM CHEO Administration Nystatin 1 applic 01/28/20 21:00 02/03/20 20:00 Nystop TOP 1 applic BID CHEO Administration Potassium Chloride 40 meq 02/03/20 08:00 02/03/20 08:46 PO 40 meq DAILYWM CHEO Administration Rivaroxaban 20 mg 01/31/20 17:00 02/03/20 17:34 Xarelto PO 20 mg 1700 CHEO Administration Saccharomyces Boulardii 250 mg 02/01/20 08:00 02/03/20 17:35 Florastor PO 250 mg BIDWM CHEO Administration Sodium Chloride 10 ml 01/28/20 15:15 02/02/20 04:47 Normal Saline Flush 0.9% IVP 30 ml PRN PRN Administration NEEDED PER PROVIDER ORDERS Sodium Chloride 10 ml 01/28/20 17:00 02/04/20 00:42 Normal Saline Flush 0.9% IVP 10 ml 0100,0900,1700 CHEO Administration Sodium Chloride 20 ml 02/04/20 04:15 02/04/20 04:28 Normal Saline Flush 0.9% IVP 20 ml PRN PRN Administration After Blood Draw Sodium Phosphate 250 mg 02/01/20 08:00 02/03/20 17:34 K-Phos Neutral PO 250 mg TIDWM CHEO Administration Thiamine HCl 100 mg 01/28/20 15:19 02/03/20 08:46 Vitamin B-1 PO 100 mg DAILY CHEO Administration Zinc Sulfate 220 mg 02/03/20 12:00 02/03/20 12:12 PO 220 mg DAILY CHEO Administration - Lab Result Fish Bone Diagrams: 02/04/20 04:30 02/04/20 04:30 - Additional Planning My Orders: My Active Orders 02/03/20 08:40 Sodium Chloride 0.9% [Normal Saline 0.9%] 1,000 ml IV 30 mls/hr 02/03/20 12:00 Zinc Sulfate 220 mg PO DAILY 02/04/20 09:30 Midodrine 5 mg PO TIDWM Objective Vital Signs: Vital Signs - 24 hr 02/03/20 02/03/20 02/03/20 10:57 12:00 15:00 Temperature 36.2 C L Heart Rate [ 89 71 Monitoring electrodes] Heart Rate [ 89 Sitting (After 1 Minute)] Heart Rate [ 99 Supine] Respiratory 24 22 Rate Blood Pressure 100/79 [Left Brachial artery] Blood Pressure 132/109 H [Left Radial artery] Blood Pressure [Right Radial artery] Blood Pressure 100/79 [Sitting (After 1 Minute)] Blood Pressure 101/71 [Supine] O2 Saturation 95 98 02/03/20 02/03/20 02/03/20 18:00 20:00 20:53 Temperature 36.2 C L 36 C L Heart Rate [ 77 82 Monitoring electrodes] Heart Rate [ Sitting (After 1 Minute)] Heart Rate [ Supine] Respiratory 24 23 Rate Blood Pressure [Left Brachial artery] Blood Pressure 114/91 H [Left Radial artery] Blood Pressure 80/53 L [Right Radial artery] Blood Pressure [Sitting (After 1 Minute)] Blood Pressure [Supine] O2 Saturation 98 98 02/04/20 02/04/20 02/04/20 00:00 00:25 00:30 Temperature 36 C L Heart Rate [ 76 73 74 Monitoring electrodes] Heart Rate [ Sitting (After 1 Minute)] Heart Rate [ Supine] Respiratory 19 20 19 Rate Blood Pressure [Left Brachial artery] Blood Pressure 102/55 L 114/81 H [Left Radial artery] Blood Pressure 70/24 L [Right Radial artery] Blood Pressure [Sitting (After 1 Minute)] Blood Pressure [Supine] O2 Saturation 99 100 100 02/04/20 02/04/20 02/04/20 00:35 00:43 00:45 Temperature Heart Rate [ 75 85 81 Monitoring electrodes] Heart Rate [ Sitting (After 1 Minute)] Heart Rate [ Supine] Respiratory Rate Blood Pressure [Left Brachial artery] Blood Pressure 132/81 H 114/69 116/65 [Left Radial artery] Blood Pressure [Right Radial artery] Blood Pressure [Sitting (After 1 Minute)] Blood Pressure [Supine] O2 Saturation 02/04/20 02/04/20 02/04/20 00:50 01:00 01:19 Temperature Heart Rate [ 90 92 94 Monitoring electrodes] Heart Rate [ Sitting (After 1 Minute)] Heart Rate [ Supine] Respiratory 19 Rate Blood Pressure [Left Brachial artery] Blood Pressure 107/49 L 117/80 87/74 L [Left Radial artery] Blood Pressure [Right Radial artery] Blood Pressure [Sitting (After 1 Minute)] Blood Pressure [Supine] O2 Saturation 100 02/04/20 02/04/20 02/04/20 01:35 01:51 02:00 Temperature Heart Rate [ 88 91 95 Monitoring electrodes] Heart Rate [ Sitting (After 1 Minute)] Heart Rate [ Supine] Respiratory Rate Blood Pressure [Left Brachial artery] Blood Pressure 88/67 L 90/61 96/59 L [Left Radial artery] Blood Pressure [Right Radial artery] Blood Pressure [Sitting (After 1 Minute)] Blood Pressure [Supine] O2 Saturation 02/04/20 02/04/20 02/04/20 02:15 02:30 02:45 Temperature Heart Rate [ 97 95 96 Monitoring electrodes] Heart Rate [ Sitting (After 1 Minute)] Heart Rate [ Supine] Respiratory Rate Blood Pressure [Left Brachial artery] Blood Pressure 90/35 L 90/36 L 90/67 [Left Radial artery] Blood Pressure [Right Radial artery] Blood Pressure [Sitting (After 1 Minute)] Blood Pressure [Supine] O2 Saturation 02/04/20 02/04/20 02/04/20 03:00 03:15 03:30 Temperature 36.4 C L Heart Rate [ 98 97 100 Monitoring electrodes] Heart Rate [ Sitting (After 1 Minute)] Heart Rate [ Supine] Respiratory Rate Blood Pressure [Left Brachial artery] Blood Pressure 84/47 L 90/39 L 104/68 [Left Radial artery] Blood Pressure [Right Radial artery] Blood Pressure [Sitting (After 1 Minute)] Blood Pressure [Supine] O2 Saturation 02/04/20 02/04/20 02/04/20 03:45 04:00 04:30 Temperature Heart Rate [ 105 H 102 H 105 H Monitoring electrodes] Heart Rate [ Sitting (After 1 Minute)] Heart Rate [ Supine] Respiratory 21 Rate Blood Pressure [Left Brachial artery] Blood Pressure 104/75 98/58 L 109/66 [Left Radial artery] Blood Pressure [Right Radial artery] Blood Pressure [Sitting (After 1 Minute)] Blood Pressure [Supine] O2 Saturation 97 02/04/20 02/04/20 05:00 06:00 Temperature Heart Rate [ 105 H 102 H Monitoring electrodes] Heart Rate [ Sitting (After 1 Minute)] Heart Rate [ Supine] Respiratory 19 20 Rate Blood Pressure [Left Brachial artery] Blood Pressure 92/55 L 90/62 [Left Radial artery] Blood Pressure [Right Radial artery] Blood Pressure [Sitting (After 1 Minute)] Blood Pressure [Supine] O2 Saturation 98 98 Oxygen O2 Source Room air I&O (Last 24 Hrs): Intake and Output Totals x24h 02/02/20 02/03/20 02/04/20 23:59 23:59 23:59 Intake Total 3982.333 3104.500 594.125 Output Total 323 337 114 Balance 3659.333 2767.500 480.125 General: Other (Sleeping, awakens, falls back asleep.) HEENT: Mucous membr. moist/pink Neck: Supple Neuro: Other (Lethargic, non-focal) Respiratory: No respiratory distress Abdomen: Soft Extremities: Other (1+ pedal edema, shins wrapped in (absorbing) gauze) - Results Results: Laboratory Results WBC 6.0 x10^3/uL (4.8-10.8) 02/04/20 04:30 RBC 2.64 10^6/uL (4.20-5.40) L 02/04/20 04:30 Hgb 11.3 g/dL (12.0-16.0) L 02/04/20 04:30 Hct 33.2 % (37.0-47.0) L 02/04/20 04:30 MCV 125.8 fL (81.0-99.0) H 02/04/20 04:30 MCH 42.8 pg (27.0-31.0) H 02/04/20 04:30 MCHC 34.0 g/dL (32.0-36.0) 02/04/20 04:30 RDW 18.7 % (12.0-15.0) H 02/04/20 04:30 Plt Count 177 10^3/uL (130-450) 02/04/20 04:30 MPV 9.5 fL (7.9-10.8) 02/04/20 04:30 Neut # (Auto) 3.1 10^3/uL (1.5-6.6) 02/04/20 04:30 Lymph # (Auto) 1.0 10^3/uL (1.5-3.5) L 02/04/20 04:30 [place] # (Auto) 1.2 10^3/uL (0.0-1.0) H 02/04/20 04:30 Eos # (Auto) 0.3 10^3/uL (0.0-0.7) 02/04/20 04:30 Baso # (Auto) 0.1 10^3/uL (0.0-0.1) 02/04/20 04:30 Absolute Nucleated RBC 0.13 x10^3/uL 02/04/20 04:30 Nucleated RBC % 2.2 /100WBC 02/04/20 04:30 Manual Slide Review Indicated 02/04/20 04:30 WBC Morphology NORMAL APPEARANCE (NORMAL) 01/31/20 04:55 Platelet Estimate NORMAL (130-450,000) (NORMAL) 02/04/20 04:30 Platelet Morphology NORMAL APPEARANCE (NORMAL) 02/01/20 05:00 RBC Morph Micro Appear 1+ HYPOCHROMASIA (NORMAL) 3+ MACROCYTOSIS (NORMAL) 02/02/20 04:45 RBC Morph Micro Appear 3+ MACROCYTOSIS (NORMAL) 1+ HYPOCHROMASIA (NORMAL) 02/03/20 04:40 RBC Morph Micro Appear 3+ MACROCYTOSIS (NORMAL) 1+ HYPOCHROMASIA (NORMAL) 02/03/20 04:40 RBC Morph Micro Appear 3+ MACROCYTOSIS (NORMAL) 1+ HYPOCHROMASIA (NORMAL) 02/04/20 04:30 RBC Morph Micro Appear 3+ MACROCYTOSIS (NORMAL) 1+ HYPOCHROMASIA (NORMAL) 02/04/20 04:30 PT 27.9 secs (9.9-12.6) H 01/29/20 08:00 INR 2.6 (0.8-1.2) H 01/29/20 08:00 VBG pH 7.336 (7.31-7.41) 02/04/20 04:30 VBG pCO2 33.9 mmHg (41-51) L 01/30/20 14:12 VBG pO2 38.2 mmHg (25-47) 01/30/20 14:12 VBG HCO3 21.4 mmol/L (23-28) L 01/30/20 14:12 VBG Total CO2 22.5 mmol/L (24-29) L 01/30/20 14:12 VBG O2 Saturation 72.5 % (60-80) 01/30/20 14:12 VBG Base Excess -2.3 mmol/L (-2 - +2) L 01/30/20 14:12 Ionized Calcium 1.04 mmol/L (1.15-1.33) L 02/04/20 04:30 Sodium 132 mmol/L (135-145) L 02/04/20 04:30 Potassium 4.2 mmol/L (3.5-5.0) 02/04/20 04:30 Chloride 109 mmol/L (101-111) 02/04/20 04:30 Carbon Dioxide 16 mmol/L (21-32) L 02/04/20 04:30 Anion Gap 7.0 (6-13) 02/04/20 04:30 BUN 12 mg/dL (6-20) 02/04/20 04:30 Creatinine 1.1 mg/dL (0.4-1.0) H 02/04/20 04:30 Estimated GFR (MDRD) 48 (>89) L 02/04/20 04:30 Glucose 151 mg/dL (70-100) H 02/04/20 04:30 Glycated Hemoglobin 5.4 % (4.6-6.2) 01/29/20 08:00 Estim Average Glucose 108 (70-100) H 01/29/20 08:00 Lactic Acid 1.6 mmol/L (0.5-2.2) 02/01/20 05:00 Calcium 7.5 mg/dL (8.5-10.3) L 02/04/20 04:30 Phosphorus 3.5 mg/dL (2.5-4.6) 02/04/20 04:30 Magnesium 2.2 mg/dL (1.7-2.8) 02/04/20 04:30 Iron 87 ug/dL (28-170) 02/03/20 04:40 TIBC 136 ug/dL (250-450) L 02/03/20 04:40 % Saturation 64 % (20-50) H 02/03/20 04:40 Transferrin 97 mg/dL (192-382) L 02/03/20 04:40 Total Bilirubin 2.0 mg/dL (0.2-1.0) H 02/02/20 04:45 Direct Bilirubin 0.8 mg/dL (0.1-0.5) H 02/02/20 04:45 AST 60 IU/L (10-42) H 02/02/20 04:45 ALT 41 IU/L (10-60) 02/02/20 04:45 Alkaline Phosphatase 233 IU/L (42-121) H 02/02/20 04:45 Ammonia 13.4 umol/L (7-35) 01/28/20 15:42 Total Creatine Kinase 92 IU/L (22-269) 01/28/20 15:42 Troponin I High Sens 16.0 ng/L (2.3-14.8) H* 01/29/20 12:39 C-Reactive Protein 3.3 mg/dL (0-1.0) H 01/29/20 12:39 B-Natriuretic Peptide 271 pg/mL (5-100) H 01/28/20 14:26 Total Protein 4.6 g/dL (6.7-8.2) L 02/02/20 04:45 Albumin 2.2 g/dL (3.2-5.5) L 02/04/20 04:30 Globulin 2.7 g/dL (2.1-4.2) 02/02/20 04:45 Albumin/Globulin Ratio 0.7 (1.0-2.2) L 01/28/20 14:25 Lipase 32 U/L (22-51) 01/28/20 14:25 Vitamin B12 1186 pg/mL (180-914) H 02/01/20 05:00 Folate 9.27 ng/mL (5.90 - >24.8) 02/01/20 05:00 TSH 11.32 uIU/mL (0.34-5.60) H 01/28/20 14:25 Cortisol AM Sample 17.4 ug/dL 01/30/20 08:00 Urine Color ORANGE 01/28/20 17:27 Urine Clarity HAZY (CLEAR) 01/28/20 17:27 Urine pH 5.0 PH (5.0-7.5) 01/28/20 17:27 Ur Specific [place] 1.025 (1.002-1.030) 01/28/20 17:27 Urine Protein NEGATIVE mg/dL (NEGATIVE) 01/28/20 17: Urine Glucose (UA) NEGATIVE mg/dL (NEGATIVE) 01/28/20 17:27 Urine Ketones NEGATIVE mg/dL (NEGATIVE) 01/28/20 17:27 Urine Occult Blood NEGATIVE (NEGATIVE) 01/28/20 17: Urine Nitrite NEGATIVE (NEGATIVE) 01/28/20 17:27 Urine Bilirubin NEGATIVE (NEGATIVE) 01/28/20 17:27 Urine Urobilinogen 0.2 (NORMAL) E.U./dL (NORMAL) 01/28/20 17:27 Ur Leukocyte Esterase NEGATIVE (NEGATIVE) 01/28/20 17:27 Urine RBC None Seen /HPF (0-5) 01/28/20 17:27 Urine WBC 0-3 /HPF (0-5) 01/28/20 17:27 Ur Squamous Epith Cells MANY Squamous (<= Few) H 01/28/20 17:27 Urine Crystals 26-50 Ca Oxalate /LPF 01/28/20 17:27 Amorphous Sediment Rare /LPF 01/28/20 17:27 Urine Bacteria Many /HPF (None Seen) H 01/28/20 17:27 Urine Osmolality 392 mOsm/kg (50-1200) 01/28/20 17:27 Ur Random Chloride < 14 mmol/L 01/28/20 17:27 Urine Creatinine 163.2 mg/dL 01/28/20 17:27 Urine Sodium < 12.0 mmol/L 01/28/20 17:27 Nasal Screen MRSA (PCR) NEGATIVE (NEGATIVE) 01/29/20 14:30 Stl C. diff Tox B Gene NEGATIVE (NEGATIVE) 02/02/20 13:00 Last Dose Date UNK 02/01/20 13:36 Last Dose Time UNK 02/01/20 13:36 Vancomycin Trough 20.8 ug/mL (10.0-20.0) H 02/01/20 13:36
[2020-02-04] MEDS: INSULIN ASPART 300 UNIT/3 ML PEN SUBQ SCH ×4 (09:39→21:06)
[2020-02-04] MEDS: MIDODRINE 2.5 MG TABLET PO SCH ×3 (09:42→17:58)
[2020-02-04] MEDS: ZINC SULFATE 220 MG CAPSULE PO SCH (09:43)
[2020-02-04] MEDS: THIAMINE 100 MG TABLET PO SCH (09:43)
[2020-02-04] MEDS: FOLIC ACID 1 MG TABLET PO SCH (09:43)
[2020-02-04] MEDS: SACCHAROMYCES BOULARDII 250 MG CAPSULE PO SCH ×2 (09:43→17:56)
[2020-02-04] MEDS: MAGNESIUM OXIDE 400 MG TABLET PO SCH (09:45)
[2020-02-04] MEDS: NEUTRA-PHOS 250 MG TABLET PO SCH (09:45)
[2020-02-04] MEDS: MULTIVITAMIN W/MINERALS TABLET PO SCH (09:46)
[2020-02-04] MEDS: POTASSIUM CHLORIDE 20 MEQ/15 ML UDC PO SCH (09:47)
[2020-02-04] MEDS: NYSTATIN POWDER 15 GM TOP SCH ×2 (10:00→21:05)
[2020-02-04] MEDS: CYANOCOBALAMIN 500 MCG TABLET PO SCH ×2 (10:49→20:53)
[2020-02-04] MEDS ORDERED: SODIUM CHLORIDE 0.9% 500 ML ONE (14:18)
[2020-02-04] MEDS ORDERED: SODIUM CHLORIDE 0.9% 500 ML IV PRN (17:02)
[2020-02-04] MEDS: RIVAROXABAN 10 MG TABLET PO SCH (17:58)
[2020-02-04] MEDS: SODIUM CHLORIDE 0.9% 1,000 ML IV SCH (18:28)
[2020-02-05] MEDS: SODIUM CHLORIDE FLUSH 0.9% 10 ML SYRINGE IVP SCH ×4 (00:46→21:12)
[2020-02-05 05:16] LABS: BASOPHILS # (AUTO) 0.1 10^3/uL (0.0-0.1); BASOPHILS % (AUTO) 1.5 %; EOSINOPHILS # (AUTO) 0.4 10^3/uL (0.0-0.7); HGB - HEMOGLOBIN 9.6 g/dL (12.0-16.0); LYMPHOCYTES % (AUTO) 17.1 %; MEAN CORPUSCULAR HEMOGLOBIN 41.4 pg (27.0-31.0); MEAN CORPUSCULAR VOLUME 125.4 fL (81.0-99.0); MEAN PLATELET VOLUME 9.5 fL (7.9-10.8); MONOCYTES # (AUTO) 1.3 10^3/uL (0.0-1.0); MONOCYTES % (AUTO) 21.9 %; NEUTROPHILS # (AUTO) 3.1 10^3/uL (1.5-6.6); PLT - PLATELET COUNT 170 10^3/uL (130-450); RED BLOOD COUNT 2.32 10^6/uL (4.20-5.40); RED CELL DISTRIBUTION WIDTH 18.6 % (12.0-15.0); VBG PH 7.303 (7.31-7.41)
[2020-02-05 05:31] LABS: CALCIUM 7.9 mg/dL (8.5-10.3); MAGNESIUM 2.1 mg/dL (1.7-2.8); PHOSPHORUS 2.6 mg/dL (2.5-4.6)
[2020-02-05 05:41] LABS: PLATELET ESTIMATE, MANUAL NORMAL (130-450,000) (NORMAL); PLATELET MORPHOLOGY NORMAL APPEARANCE (NORMAL)
[2020-02-05] MEDS: LEVOTHYROXINE 88 MCG TABLET PO SCH (06:38)
[2020-02-05] MEDS: CYANOCOBALAMIN 500 MCG TABLET PO SCH ×2 (08:25→21:11)
[2020-02-05] MEDS: THIAMINE 100 MG TABLET PO SCH (08:27)
[2020-02-05] MEDS: MIDODRINE 2.5 MG TABLET PO SCH ×3 (08:27→16:49)
[2020-02-05] MEDS: MAGNESIUM OXIDE 400 MG TABLET PO SCH (08:27)
[2020-02-05] MEDS: PRENATAL VITAMIN TABLET PO SCH (08:34)
[2020-02-05] MEDS: ZINC SULFATE 220 MG CAPSULE PO SCH (08:34)
[2020-02-05] MEDS: SACCHAROMYCES BOULARDII 250 MG CAPSULE PO SCH ×2 (08:35→16:52)
[2020-02-05] MEDS: POTASSIUM CHLORIDE 20 MEQ/15 ML UDC PO SCH (08:41)
[2020-02-05] MEDS: INSULIN ASPART 300 UNIT/3 ML PEN SUBQ SCH ×4 (08:46→21:11)
[2020-02-05] MEDS: NYSTATIN POWDER 15 GM TOP SCH ×2 (10:00→21:10)
[2020-02-05] MEDS ORDERED: SODIUM CHLORIDE 0.9% 500 ML IV ONE (14:38)
[2020-02-05 14:43] LABS: ALBUMIN 1.9 g/dL (3.2-5.5); BILIRUBIN,DIRECT 0.7 mg/dL (0.1-0.5); BILIRUBIN,TOTAL 2.6 mg/dL (0.2-1.0); TOTAL PROTEIN 4.7 g/dL (6.7-8.2)
--- NOTE | 2020-02-05 15:36 | PROVIDER PROGRESS NOTE ---
Assessment/Plan - Problem List (1) Hypotension Assessment/Plan: Today the patient's blood pressure was the lowest since admission, despite being on iv Levophed drip: BP 69/57. I discussed with the that she is not improving and I recommend transferring her to a hospital with higher level of care which she agreed to. I spoke to critical care physician, Dr. Loreen Giordano from [facility] and reviewed the entire case with her. Dr. Giordano recommended that the patient get Hydrocortisone 50 mg IV every 6 hours as a stress steroid dose in someone who is hypothyroid, increase the Midrin to 10 mg 3 times daily with meals, and since her ammonia level is elevated today, to start Lactulose which would help with lethargy. Dr. Giordano said to call her back tomorrow and if these additions do not improve her case, they would take her in transfer tomorrow. Will increase the saline slightly as well, despite the anasarca. Follow serum albumen to readminister Albumen if it drops again. She is in critical condition, the and daughter from out of town may visit, discussed with Executive Vp. (2) Lethargy Assessment/Plan: since her ammonia level is elevated today, to start Lactulose which would help with lethargy. Will increase the saline slightly as well, despite the anasarca, for better BP and brain perfusion (3) Alcohol use disorder Assessment/Plan: As previously documented (4) Anasarca Assessment/Plan: This developed after being many liters positive and fluid balance, from getting IV saline hydration. Slowly the IV rate has been turned down, we cannot use Lasix because of hypotension. (5) Skin tear of lower leg without complication Assessment/Plan: Continue with gauze bandaging lightly to absorb the serous fluid. It was evaluated by wound therapy nurse and this is all that was advised (6) Anemia Assessment/Plan: Low iron levels and possibly TBG were found. 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 (9) Hypothyroidism Assessment/Plan: The TSH was >11 at admission, home Synthroid dose increased from 75 mcg to 88 mcg daily at admission. A TSH should be repeated in a month. (10) Moderate protein-calorie malnutrition Assessment/Plan: As per Hx. - Current Meds Current Meds: Current Medications Generic Name Dose Route Start Last Admin Trade Name Freq PRN Reason Stop Dose Admin Cyanocobalamin 500 mcg 02/04/20 11:00 02/05/20 08:25 Vitamin B-12 PO 500 mcg BID CHEO Administration Heparin Sodium (Beef Lung) 30 - 50 unit 02/04/20 04:13 02/05/20 12:36 IVP 100 unit PRN PRN Administration Central Line Protocol (<24 hr) Norepinephrine Bitartrate 8 mg 250 mls @ 15 mls/hr 02/04/20 01:00 02/05/20 14:45 / Dextrose IV 9 mcg/min .[id number] CHEO 16.88 mls/hr Titration Protocol 8 MCG/MIN Sodium Chloride 500 mls @ 0 mls/hr 02/04/20 17:02 02/04/20 18:29 Normal Saline 0.9% IV Infused Q24H PRN Infusion TKO RATE TKO Insulin Aspart 1 - 5 unit 01/31/20 12:00 02/05/20 12:42 Novolog SUBQ 1 unit 0800,1200,1700,2100 CHEO Administration Protocol Levothyroxine Sodium 88 mcg 01/29/20 07:00 02/05/20 06:38 Synthroid PO 88 mcg QDAC CHEO Administration Magnesium Oxide 400 mg 02/02/20 08:00 02/05/20 08:27 Mag Ox PO 400 mg DAILYWM CHEO Administration Mineral Oil 1 applic 01/30/20 16:44 02/03/20 20:00 Cavilon TOP 1 applic PRN PRN Administration Skin Care Multi-Ingredient Ointment 1 applic 01/30/20 16:44 02/03/20 20:00 Zinc Oxide TOP 1 applic PRN PRN Administration Skin Care Nystatin 1 applic 01/28/20 21:00 02/05/20 10:00 Nystop TOP 1 applic BID CHEO Administration Potassium Chloride 40 meq 02/03/20 08:00 02/05/20 08:41 PO 40 meq DAILYWM CHEO Administration Multivit/Folic Acid/Iron 1 tab 02/05/20 08:00 02/05/20 08:34 Trinatal Rx 1 PO 1 tab DAILYWM CHEO Administration Rivaroxaban 20 mg 01/31/20 17:00 02/04/20 17:58 Xarelto PO 20 mg 1700 CHEO Administration Saccharomyces Boulardii 250 mg 02/01/20 08:00 02/05/20 08:35 Florastor PO 250 mg BIDWM CHEO Administration Sodium Chloride 10 ml 01/28/20 15:15 02/04/20 14:17 Normal Saline Flush 0.9% IVP 10 ml PRN PRN Administration NEEDED PER PROVIDER ORDERS Sodium Chloride 10 ml 01/28/20 17:00 02/05/20 12:35 Normal Saline Flush 0.9% IVP 10 ml 0100,0900,1700 CHEO Administration Sodium Chloride 20 ml 02/04/20 04:15 02/04/20 04:28 Normal Saline Flush 0.9% IVP 20 ml PRN PRN Administration After Blood Draw Thiamine HCl 100 mg 01/28/20 15:19 02/05/20 08:27 Vitamin B-1 PO 100 mg DAILY CHEO Administration Zinc Sulfate 220 mg 02/03/20 12:00 02/05/20 08:34 PO 220 mg DAILY CHEO Administration - Lab Result Fish Bone Diagrams: 02/07/20 03:45 02/07/20 03:45 - Additional Planning My Orders: My Active Orders 02/04/20 17:02 Sodium Chloride 0.9% [Normal Saline 0.9%] 500 ml IV Q24H 02/05/20 08:00 Vitamin [Trinatal Rx 1] 1 tab PO DAILYWM 02/05/20 10:16 Miscellaenous Nursing Order [RC] ONCE 02/05/20 10:17 Miscellaenous Nursing Order [RC] QSHIFT 02/05/20 15:30 Sodium Chloride 0.9% [Normal Saline 0.9%] 1,000 ml IV 60 mls/hr 02/05/20 16:00 Hydrocortisone Succinate [Solu-CORTEF] 50 mg IVP Q6H 02/05/20 17:00 Lactulose [Enulose] 10 gm PO BIDWM Midodrine 10 mg PO TIDWM Subjective - Subjective Patient Reports: Other (Unchanged, minimally communicative) Objective Vital Signs: Vital Signs - 24 hr 02/04/20 02/04/20 02/04/20 15:33 15:45 15:46 Temperature 36.4 C L Heart Rate 98 91 Heart Rate [ 90 Monitoring electrodes] Respiratory 18 20 Rate Blood Pressure 97/47 L Blood Pressure 97/47 L [Left Radial artery] O2 Saturation 02/04/20 02/04/20 02/04/20 16:00 16:01 16:15 Temperature 36.4 C L Heart Rate 103 H 90 92 Heart Rate [ 94 Monitoring electrodes] Respiratory 19 19 22 Rate Blood Pressure 96/58 L Blood Pressure 96/58 L [Left Radial artery] O2 Saturation 100 02/04/20 02/04/20 02/04/20 16:16 16:30 16:31 Temperature Heart Rate 91 96 92 Heart Rate [ Monitoring electrodes] Respiratory 22 22 21 Rate Blood Pressure 120/59 L 112/90 H Blood Pressure [Left Radial artery] O2 Saturation 02/04/20 02/04/20 02/04/20 16:45 16:46 17:00 Temperature Heart Rate 100 100 102 H Heart Rate [ 97 Monitoring electrodes] Respiratory 20 17 25 H Rate Blood Pressure 95/44 L Blood Pressure 97/60 [Left Radial artery] O2 Saturation 100 02/04/20 02/04/20 02/04/20 17:01 17:02 17:15 Temperature Heart Rate 97 88 92 Heart Rate [ Monitoring electrodes] Respiratory 24 30 H 23 Rate Blood Pressure 132/118 H 111/97 H Blood Pressure [Left Radial artery] O2 Saturation 02/04/20 02/04/20 02/04/20 17:16 17:30 17:31 Temperature Heart Rate 102 H 91 95 Heart Rate [ Monitoring electrodes] Respiratory 21 28 H 28 H Rate Blood Pressure 97/60 101/23 L Blood Pressure [Left Radial artery] O2 Saturation 02/04/20 02/04/20 02/04/20 17:32 17:45 17:46 Temperature Heart Rate 93 88 93 Heart Rate [ Monitoring electrodes] Respiratory 23 24 21 Rate Blood Pressure 114/31 L 95/80 Blood Pressure [Left Radial artery] O2 Saturation 02/04/20 02/04/20 02/04/20 18:00 18:01 18:15 Temperature Heart Rate 87 93 97 Heart Rate [ 88 Monitoring electrodes] Respiratory 18 22 21 Rate Blood Pressure 102/85 H Blood Pressure 102/85 H [Left Radial artery] O2 Saturation 99 02/04/20 02/04/20 02/04/20 18:16 18:30 18:31 Temperature Heart Rate 102 H 96 94 Heart Rate [ Monitoring electrodes] Respiratory 22 22 23 Rate Blood Pressure 107/84 H 119/92 H Blood Pressure [Left Radial artery] O2 Saturation 02/04/20 02/04/20 02/04/20 18:45 18:58 19:00 Temperature Heart Rate 100 98 Heart Rate [ 92 100 Monitoring electrodes] Respiratory 23 22 Rate Blood Pressure Blood Pressure 119/92 H 130/70 [Left Radial artery] O2 Saturation 99 02/04/20 02/04/20 02/04/20 19:01 19:02 19:15 Temperature Heart Rate 104 H 99 103 H Heart Rate [ Monitoring electrodes] Respiratory 25 H 24 34 H Rate Blood Pressure 130/70 Blood Pressure [Left Radial artery] O2 Saturation 02/04/20 02/04/20 02/04/20 19:16 19:30 19:31 Temperature Heart Rate 96 99 91 Heart Rate [ Monitoring electrodes] Respiratory 20 27 H 28 H Rate Blood Pressure 83/68 L 82/66 L Blood Pressure [Left Radial artery] O2 Saturation 02/04/20 02/04/20 02/04/20 19:45 19:46 19:54 Temperature 35.9 C L Heart Rate 99 90 Heart Rate [ 99 Monitoring electrodes] Respiratory 21 22 24 Rate Blood Pressure 90/45 L Blood Pressure 96/60 [Left Radial artery] O2 Saturation 99 02/04/20 02/04/20 02/04/20 20:00 20:01 20:15 Temperature Heart Rate 99 91 102 H Heart Rate [ Monitoring electrodes] Respiratory 28 H 23 27 H Rate Blood Pressure 96/67 Blood Pressure [Left Radial artery] O2 Saturation 02/04/20 02/04/20 02/04/20 20:16 20:30 20:31 Temperature Heart Rate 103 H 100 107 H Heart Rate [ Monitoring electrodes] Respiratory 26 H 23 26 H Rate Blood Pressure 101/66 101/84 H Blood Pressure [Left Radial artery] O2 Saturation 02/04/20 02/04/20 02/04/20 20:45 20:46 21:00 Temperature Heart Rate 99 101 H 99 Heart Rate [ 102 H Monitoring electrodes] Respiratory 29 H 24 17 Rate Blood Pressure 115/99 H Blood Pressure 120/62 [Left Radial artery] O2 Saturation 100 02/04/20 02/04/20 02/04/20 21:01 21:15 21:16 Temperature Heart Rate 101 H 92 92 Heart Rate [ Monitoring electrodes] Respiratory 27 H 22 21 Rate Blood Pressure 120/62 113/64 Blood Pressure [Left Radial artery] O2 Saturation 02/04/20 02/04/20 02/04/20 21:30 21:31 21:45 Temperature Heart Rate 96 97 87 Heart Rate [ Monitoring electrodes] Respiratory 21 19 20 Rate Blood Pressure 99/68 Blood Pressure [Left Radial artery] O2 Saturation 02/04/20 02/04/20 02/04/20 21:46 22:00 22:01 Temperature Heart Rate 87 93 89 Heart Rate [ 93 Monitoring electrodes] Respiratory 21 20 20 Rate Blood Pressure 99/68 101/62 Blood Pressure [Left Radial artery] O2 Saturation 98 02/04/20 02/04/20 02/04/20 22:15 22:16 22:30 Temperature Heart Rate 88 83 87 Heart Rate [ Monitoring electrodes] Respiratory 22 20 21 Rate Blood Pressure 89/64 L Blood Pressure [Left Radial artery] O2 Saturation 02/04/20 02/04/20 02/04/20 22:31 22:45 22:46 Temperature Heart Rate 96 96 94 Heart Rate [ Monitoring electrodes] Respiratory 18 21 26 H Rate Blood Pressure 93/48 L 82/56 L Blood Pressure [Left Radial artery] O2 Saturation 02/04/20 02/04/20 02/04/20 23:00 23:01 23:02 Temperature Heart Rate 89 89 81 Heart Rate [ 93 Monitoring electrodes] Respiratory 20 20 20 Rate Blood Pressure 98/56 L Blood Pressure 98/56 L [Left Radial artery] O2 Saturation 98 02/04/20 02/04/20 02/04/20 23:15 23:16 23:30 Temperature Heart Rate 92 88 92 Heart Rate [ Monitoring electrodes] Respiratory 18 19 18 Rate Blood Pressure 94/69 Blood Pressure [Left Radial artery] O2 Saturation 02/04/20 02/04/20 02/04/20 23:31 23:32 23:45 Temperature Heart Rate 85 95 89 Heart Rate [ Monitoring electrodes] Respiratory 18 17 24 Rate Blood Pressure 92/53 L Blood Pressure [Left Radial artery] O2 Saturation 02/04/20 02/05/20 02/05/20 23:46 00:00 00:01 Temperature 36.1 C L Heart Rate 90 94 85 Heart Rate [ 97 Monitoring electrodes] Respiratory 21 20 20 Rate Blood Pressure 100/72 99/56 L Blood Pressure 96/53 L [Left Radial artery] O2 Saturation 100 02/05/20 02/05/20 02/05/20 00:15 00:16 00:30 Temperature Heart Rate 87 80 86 Heart Rate [ Monitoring electrodes] Respiratory 22 20 18 Rate Blood Pressure 99/49 L Blood Pressure [Left Radial artery] O2 Saturation 02/05/20 02/05/20 02/05/20 00:31 00:45 00:46 Temperature Heart Rate 87 83 96 Heart Rate [ Monitoring electrodes] Respiratory 22 23 22 Rate Blood Pressure 96/53 L Blood Pressure [Left Radial artery] O2 Saturation 02/05/20 02/05/20 02/05/20 00:47 01:00 01:01 Temperature Heart Rate 98 84 90 Heart Rate [ 91 Monitoring electrodes] Respiratory 24 23 26 H Rate Blood Pressure 101/69 80/34 L Blood Pressure 104/76 [Left Radial artery] O2 Saturation 99 02/05/20 02/05/20 02/05/20 01:02 01:15 01:16 Temperature Heart Rate 101 H 81 87 Heart Rate [ Monitoring electrodes] Respiratory 23 26 H 26 H Rate Blood Pressure 104/76 133/112 H Blood Pressure [Left Radial artery] O2 Saturation 02/05/20 02/05/20 02/05/20 01:18 01:19 01:30 Temperature Heart Rate 101 H 92 88 Heart Rate [ Monitoring electrodes] Respiratory 30 H 25 H 21 Rate Blood Pressure 163/107 H Blood Pressure [Left Radial artery] O2 Saturation 02/05/20 02/05/20 02/05/20 01:31 01:32 01:34 Temperature Heart Rate 98 86 92 Heart Rate [ Monitoring electrodes] Respiratory 24 19 34 H Rate Blood Pressure 253/226 H Blood Pressure [Left Radial artery] O2 Saturation 02/05/20 02/05/20 02/05/20 01:35 01:45 01:46 Temperature Heart Rate 100 85 87 Heart Rate [ Monitoring electrodes] Respiratory 27 H 27 H 31 H Rate Blood Pressure 253/229 H 240/212 H Blood Pressure [Left Radial artery] O2 Saturation 02/05/20 02/05/20 02/05/20 01:56 01:57 02:00 Temperature Heart Rate 90 82 82 Heart Rate [ 82 Monitoring electrodes] Respiratory 29 H 28 H 23 Rate Blood Pressure 113/87 H Blood Pressure 98/64 [Left Radial artery] O2 Saturation 99 02/05/20 02/05/20 02/05/20 02:01 02:15 02:16 Temperature Heart Rate 75 83 77 Heart Rate [ Monitoring electrodes] Respiratory 22 20 22 Rate Blood Pressure 98/64 78/32 L Blood Pressure [Left Radial artery] O2 Saturation 02/05/20 02/05/20 02/05/20 02:30 02:31 02:45 Temperature Heart Rate 75 81 88 Heart Rate [ Monitoring electrodes] Respiratory 20 18 20 Rate Blood Pressure 92/55 L Blood Pressure [Left Radial artery] O2 Saturation 02/05/20 02/05/20 02/05/20 02:46 03:00 03:01 Temperature Heart Rate 83 79 88 Heart Rate [ Monitoring electrodes] Respiratory 21 23 20 Rate Blood Pressure 85/47 L 100/60 Blood Pressure [Left Radial artery] O2 Saturation 100 02/05/20 02/05/20 02/05/20 03:15 03:16 03:30 Temperature Heart Rate 85 85 83 Heart Rate [ Monitoring electrodes] Respiratory 22 20 20 Rate Blood Pressure 98/59 L Blood Pressure [Left Radial artery] O2 Saturation 02/05/20 02/05/20 02/05/20 03:31 03:45 03:46 Temperature Heart Rate 80 89 78 Heart Rate [ Monitoring electrodes] Respiratory 19 20 17 Rate Blood Pressure 97/58 L 97/37 L Blood Pressure [Left Radial artery] O2 Saturation 02/05/20 02/05/20 02/05/20 04:00 04:01 04:15 Temperature 36.7 C Heart Rate 87 82 77 Heart Rate [ 88 Monitoring electrodes] Respiratory 18 19 18 Rate Blood Pressure 93/57 L Blood Pressure 93/57 L [Left Radial artery] O2 Saturation 100 02/05/20 02/05/20 02/05/20 04:16 04:30 04:31 Temperature Heart Rate 85 84 78 Heart Rate [ Monitoring electrodes] Respiratory 19 17 19 Rate Blood Pressure 83/56 L 99/61 Blood Pressure [Left Radial artery] O2 Saturation 02/05/20 02/05/20 02/05/20 04:45 04:46 05:00 Temperature Heart Rate 80 86 96 Heart Rate [ Monitoring electrodes] Respiratory 21 20 26 H Rate Blood Pressure 94/56 L Blood Pressure 107/80 [Left Radial artery] O2 Saturation 100 02/05/20 02/05/20 02/05/20 05:01 05:15 05:16 Temperature Heart Rate 86 94 85 Heart Rate [ Monitoring electrodes] Respiratory 30 H 25 H 30 H Rate Blood Pressure 107/80 112/88 H Blood Pressure [Left Radial artery] O2 Saturation 02/05/20 02/05/20 02/05/20 05:30 05:31 05:45 Temperature Heart Rate 93 91 83 Heart Rate [ Monitoring electrodes] Respiratory 24 23 20 Rate Blood Pressure 110/77 Blood Pressure [Left Radial artery] O2 Saturation 02/05/20 02/05/20 02/05/20 05:46 06:00 06:01 Temperature 36.7 C Heart Rate 92 92 91 Heart Rate [ 84 Monitoring electrodes] Respiratory 19 18 20 Rate Blood Pressure 91/57 L 83/59 L Blood Pressure 83/59 L [Left Radial artery] O2 Saturation 97 02/05/20 02/05/20 02/05/20 06:15 06:16 06:30 Temperature Heart Rate 88 86 86 Heart Rate [ Monitoring electrodes] Respiratory 19 18 20 Rate Blood Pressure 79/25 L Blood Pressure [Left Radial artery] O2 Saturation 02/05/20 02/05/20 02/05/20 06:31 06:45 06:46 Temperature Heart Rate 91 90 95 Heart Rate [ Monitoring electrodes] Respiratory 18 20 17 Rate Blood Pressure 71/39 L 103/51 L Blood Pressure [Left Radial artery] O2 Saturation 02/05/20 02/05/20 02/05/20 07:00 07:01 07:15 Temperature Heart Rate 95 84 92 Heart Rate [ 91 Monitoring electrodes] Respiratory 18 18 18 Rate Blood Pressure 91/32 L Blood Pressure 91/32 L [Left Radial artery] O2 Saturation 97 02/05/20 02/05/20 02/05/20 07:16 07:30 07:31 Temperature Heart Rate 99 98 98 Heart Rate [ Monitoring electrodes] Respiratory 19 19 19 Rate Blood Pressure 96/28 L Blood Pressure [Left Radial artery] O2 Saturation 02/05/20 02/05/20 02/05/20 07:32 07:45 07:46 Temperature Heart Rate 99 101 H 97 Heart Rate [ Monitoring electrodes] Respiratory 18 19 20 Rate Blood Pressure 95/49 L 91/52 L Blood Pressure [Left Radial artery] O2 Saturation 02/05/20 02/05/20 02/05/20 07:59 08:00 08:02 Temperature 36.4 C L Heart Rate 103 H 103 H 97 Heart Rate [ 103 H Monitoring electrodes] Respiratory 18 15 19 Rate Blood Pressure 93/30 L 113/62 Blood Pressure 113/62 [Left Radial artery] O2 Saturation 99 02/05/20 02/05/20 02/05/20 08:14 08:15 08:16 Temperature Heart Rate 94 102 H 97 Heart Rate [ Monitoring electrodes] Respiratory 29 H 24 22 Rate Blood Pressure 99/55 L Blood Pressure [Left Radial artery] O2 Saturation 02/05/20 02/05/20 02/05/20 08:29 08:30 08:31 Temperature Heart Rate 94 80 101 H Heart Rate [ Monitoring electrodes] Respiratory 34 H 25 H 26 H Rate Blood Pressure 103/41 L Blood Pressure [Left Radial artery] O2 Saturation 02/05/20 02/05/20 02/05/20 08:45 08:46 09:00 Temperature Heart Rate 104 H 103 H 103 H Heart Rate [ 104 H Monitoring electrodes] Respiratory 31 H 30 H 25 H Rate Blood Pressure 105/80 Blood Pressure 110/60 [Left Radial artery] O2 Saturation 98 02/05/20 02/05/20 02/05/20 09:01 09:15 09:16 Temperature Heart Rate 102 H 106 H 107 H Heart Rate [ Monitoring electrodes] Respiratory 28 H 20 28 H Rate Blood Pressure 110/60 92/54 L Blood Pressure [Left Radial artery] O2 Saturation 02/05/20 02/05/20 02/05/20 09:30 09:31 09:45 Temperature Heart Rate 101 H 102 H 102 H Heart Rate [ Monitoring electrodes] Respiratory 23 21 23 Rate Blood Pressure 92/34 L Blood Pressure [Left Radial artery] O2 Saturation 02/05/20 02/05/20 02/05/20 09:46 10:00 10:01 Temperature Heart Rate 103 H 99 109 H Heart Rate [ 102 H Monitoring electrodes] Respiratory 21 19 20 Rate Blood Pressure 98/44 L 104/50 L Blood Pressure 104/50 L [Left Radial artery] O2 Saturation 100 02/05/20 02/05/20 02/05/20 10:15 10:16 10:30 Temperature Heart Rate 101 H 99 102 H Heart Rate [ Monitoring electrodes] Respiratory 19 18 26 H Rate Blood Pressure 103/50 L Blood Pressure [Left Radial artery] O2 Saturation 02/05/20 02/05/20 02/05/20 10:31 10:40 10:46 Temperature Heart Rate 110 H 100 Heart Rate [ Monitoring electrodes] Respiratory 24 33 H Rate Blood Pressure 106/53 L 121/107 H Blood Pressure [Left Radial artery] O2 Saturation 02/05/20 02/05/20 02/05/20 10:52 11:00 11:01 Temperature Heart Rate 88 97 112 H Heart Rate [ 101 H Monitoring electrodes] Respiratory 31 H 28 H 24 Rate Blood Pressure 106/84 H Blood Pressure 106/84 H [Left Radial artery] O2 Saturation 99 02/05/20 02/05/20 02/05/20 11:15 11:16 11:30 Temperature Heart Rate 95 97 105 H Heart Rate [ Monitoring electrodes] Respiratory 23 21 24 Rate Blood Pressure 105/43 L Blood Pressure [Left Radial artery] O2 Saturation 02/05/20 02/05/20 02/05/20 11:31 11:45 11:46 Temperature Heart Rate 94 97 102 H Heart Rate [ Monitoring electrodes] Respiratory 23 21 21 Rate Blood Pressure 103/49 L 96/39 L Blood Pressure [Left Radial artery] O2 Saturation 02/05/20 02/05/20 02/05/20 12:00 12:01 12:15 Temperature 36.5 C Heart Rate 96 94 99 Heart Rate [ 100 Monitoring electrodes] Respiratory 26 H 30 H 29 H Rate Blood Pressure 100/89 H Blood Pressure 100/89 H [Left Radial artery] O2 Saturation 99 02/05/20 02/05/20 02/05/20 12:16 12:30 12:31 Temperature Heart Rate 101 H 95 106 H Heart Rate [ Monitoring electrodes] Respiratory 29 H 19 33 H Rate Blood Pressure 89/65 L Blood Pressure [Left Radial artery] O2 Saturation 02/05/20 02/05/20 02/05/20 12:32 12:45 12:46 Temperature Heart Rate 106 H 96 95 Heart Rate [ Monitoring electrodes] Respiratory 27 H 24 23 Rate Blood Pressure 124/111 H 122/105 H Blood Pressure [Left Radial artery] O2 Saturation 02/05/20 02/05/20 02/05/20 13:00 13:01 13:15 Temperature Heart Rate 99 108 H 102 H Heart Rate [ 114 H Monitoring electrodes] Respiratory 37 H 32 H 33 H Rate Blood Pressure 86/70 L Blood Pressure 86/70 L [Left Radial artery] O2 Saturation 97 02/05/20 02/05/20 02/05/20 13:16 13:30 13:31 Temperature Heart Rate 105 H 104 H 103 H Heart Rate [ Monitoring electrodes] Respiratory 19 22 25 H Rate Blood Pressure 85/32 L Blood Pressure [Left Radial artery] O2 Saturation 02/05/20 02/05/20 02/05/20 13:38 13:39 13:45 Temperature Heart Rate 93 104 H 100 Heart Rate [ Monitoring electrodes] Respiratory 24 20 22 Rate Blood Pressure 95/76 Blood Pressure [Left Radial artery] O2 Saturation 02/05/20 02/05/20 02/05/20 13:46 14:00 14:01 Temperature Heart Rate 92 99 94 Heart Rate [ 97 Monitoring electrodes] Respiratory 22 20 22 Rate Blood Pressure 111/92 H 138/105 H Blood Pressure 138/105 H [Left Radial artery] O2 Saturation 100 02/05/20 02/05/20 02/05/20 14:15 14:16 15:00 Temperature Heart Rate 96 98 Heart Rate [ 90 Monitoring electrodes] Respiratory 25 H 24 20 Rate Blood Pressure 81/48 L Blood Pressure 80/56 L [Left Radial artery] O2 Saturation 100 Oxygen O2 Source Room air I&O (Last 24 Hrs): Intake and Output Totals x24h 02/03/20 02/04/20 02/05/20 23:59 23:59 23:59 Intake Total 3104.500 2100.478 506.397 Output Total 337 339 301 Balance 2767.500 1761.478 205.397 General: Other (Lethargic, opens eyes to answer 1 word) HEENT: Mucous membr. moist/pink Neck: Supple Neuro: Disoriented, Other (Fine tremor of her right hand is noted) Cardiovascular: Regular rate, No murmurs Respiratory: No respiratory distress, Breath sounds nml Abdomen: Soft Extremities: Other (1+ edema of the arms and 1+ edema of the leg) - Results Results: Laboratory Results WBC 6.0 x10^3/uL (4.8-10.8) 02/05/20 04:30 RBC 2.32 10^6/uL (4.20-5.40) L 02/05/20 04:30 Hgb 9.6 g/dL (12.0-16.0) L 02/05/20 04:30 Hct 29.1 % (37.0-47.0) L 02/05/20 04:30 MCV 125.4 fL (81.0-99.0) H 02/05/20 04:30 MCH 41.4 pg (27.0-31.0) H 02/05/20 04:30 MCHC 33.0 g/dL (32.0-36.0) 02/05/20 04:30 RDW 18.6 % (12.0-15.0) H 02/05/20 04:30 Plt Count 170 10^3/uL (130-450) 02/05/20 04:30 MPV 9.5 fL (7.9-10.8) 02/05/20 04:30 Neut # (Auto) 3.1 10^3/uL (1.5-6.6) 02/05/20 04:30 Lymph # (Auto) 1.0 10^3/uL (1.5-3.5) L 02/05/20 04:30 [place] # (Auto) 1.3 10^3/uL (0.0-1.0) H 02/05/20 04:30 Eos # (Auto) 0.4 10^3/uL (0.0-0.7) 02/05/20 04:30 Baso # (Auto) 0.1 10^3/uL (0.0-0.1) 02/05/20 04:30 Absolute Nucleated RBC 0.21 x10^3/uL 02/05/20 04:30 Nucleated RBC % 3.5 /100WBC 02/05/20 04:30 Manual Slide Review Indicated 02/05/20 04:30 WBC Morphology NORMAL APPEARANCE (NORMAL) 02/05/20 04:30 Platelet Estimate NORMAL (130-450,000) (NORMAL) 02/05/20 04:30 Platelet Morphology NORMAL APPEARANCE (NORMAL) 02/05/20 04:30 RBC Morph Micro Appear 3+ MACROCYTOSIS (NORMAL) 1+ HYPOCHROMASIA (NORMAL) 02/03/20 04:40 RBC Morph Micro Appear 3+ MACROCYTOSIS (NORMAL) 1+ HYPOCHROMASIA (NORMAL) 02/03/20 04:40 RBC Morph Micro Appear 3+ MACROCYTOSIS (NORMAL) 1+ HYPOCHROMASIA (NORMAL) 02/04/20 04:30 RBC Morph Micro Appear 3+ MACROCYTOSIS (NORMAL) 1+ HYPOCHROMASIA (NORMAL) 02/04/20 04:30 RBC Morph Micro Appear 3+ MACROCYTOSIS (NORMAL) 1+ HYPOCHROMASIA (NORMAL) 02/05/20 04:30 RBC Morph Micro Appear 3+ MACROCYTOSIS (NORMAL) 1+ HYPOCHROMASIA (NORMAL) 02/05/20 04:30 PT 27.9 secs (9.9-12.6) H 01/29/20 08:00 INR 2.6 (0.8-1.2) H 01/29/20 08:00 VBG pH 7.303 (7.31-7.41) L 02/05/20 04:30 VBG pCO2 33.9 mmHg (41-51) L 01/30/20 14:12 VBG pO2 38.2 mmHg (25-47) 01/30/20 14:12 VBG HCO3 21.4 mmol/L (23-28) L 01/30/20 14:12 VBG Total CO2 22.5 mmol/L (24-29) L 01/30/20 14:12 VBG O2 Saturation 72.5 % (60-80) 01/30/20 14:12 VBG Base Excess -2.3 mmol/L (-2 - +2) L 01/30/20 14:12 Ionized Calcium 1.13 mmol/L (1.15-1.33) L 02/05/20 04:30 Sodium 133 mmol/L (135-145) L 02/05/20 04:30 Potassium 4.5 mmol/L (3.5-5.0) 02/05/20 04:30 Chloride 110 mmol/L (101-111) 02/05/20 04:30 Carbon Dioxide 18 mmol/L (21-32) L 02/05/20 04:30 Anion Gap 5.0 (6-13) L 02/05/20 04:30 BUN 11 mg/dL (6-20) 02/05/20 04:30 Creatinine 1.0 mg/dL (0.4-1.0) 02/05/20 04:30 Estimated GFR (MDRD) 53 (>89) L 02/05/20 04:30 Glucose 140 mg/dL (70-100) H 02/05/20 04:30 Glycated Hemoglobin 5.4 % (4.6-6.2) 01/29/20 08:00 Estim Average Glucose 108 (70-100) H 01/29/20 08:00 Lactic Acid 1.6 mmol/L (0.5-2.2) 02/01/20 05:00 Calcium 7.9 mg/dL (8.5-10.3) L 02/05/20 04:30 Phosphorus 2.6 mg/dL (2.5-4.6) 02/05/20 04:30 Magnesium 2.1 mg/dL (1.7-2.8) 02/05/20 04:30 Iron 87 ug/dL (28-170) 02/03/20 04:40 TIBC 136 ug/dL (250-450) L 02/03/20 04:40 % Saturation 64 % (20-50) H 02/03/20 04:40 Transferrin 97 mg/dL (192-382) L 02/03/20 04:40 Total Bilirubin 2.6 mg/dL (0.2-1.0) H 02/05/20 14:20 Direct Bilirubin 0.7 mg/dL (0.1-0.5) H 02/05/20 14:20 AST 64 IU/L (10-42) H 02/05/20 14:20 ALT 39 IU/L (10-60) 02/05/20 14:20 Alkaline Phosphatase 261 IU/L (42-121) H 02/05/20 14:20 Ammonia 51.3 umol/L (7-35) H 02/05/20 14:20 Total Creatine Kinase 92 IU/L (22-269) 01/28/20 15:42 Troponin I High Sens 16.0 ng/L (2.3-14.8) H* 01/29/20 12:39 C-Reactive Protein 3.3 mg/dL (0-1.0) H 01/29/20 12:39 B-Natriuretic Peptide 271 pg/mL (5-100) H 01/28/20 14:26 Total Protein 4.7 g/dL (6.7-8.2) L 02/05/20 14:20 Albumin 1.9 g/dL (3.2-5.5) L 02/05/20 14:20 Globulin 2.8 g/dL (2.1-4.2) 02/05/20 14:20 Albumin/Globulin Ratio 0.7 (1.0-2.2) L 01/28/20 14:25 Lipase 32 U/L (22-51) 01/28/20 14:25 Vitamin B12 1186 pg/mL (180-914) H 02/01/20 05:00 Folate 9.27 ng/mL (5.90 - >24.8) 02/01/20 05:00 TSH 11.32 uIU/mL (0.34-5.60) H 01/28/20 14:25 Cortisol AM Sample 17.4 ug/dL 01/30/20 08:00 Urine Color ORANGE 01/28/20 17:27 Urine Clarity HAZY (CLEAR) 01/28/20 17:27 Urine pH 5.0 PH (5.0-7.5) 01/28/20 17:27 Ur Specific [place] 1.025 (1.002-1.030) 01/28/20 17: Urine Protein NEGATIVE mg/dL (NEGATIVE) 01/28/20 17:27 Urine Glucose (UA) NEGATIVE mg/dL (NEGATIVE) 01/28/20 17: Urine Ketones NEGATIVE mg/dL (NEGATIVE) 01/28/20 17:27 Urine Occult Blood NEGATIVE (NEGATIVE) 01/28/20 17:27 Urine Nitrite NEGATIVE (NEGATIVE) 01/28/20 17:27 Urine Bilirubin NEGATIVE (NEGATIVE) 01/28/20 17:27 Urine Urobilinogen 0.2 (NORMAL) E.U./dL (NORMAL) 01/28/20 17:27 Ur Leukocyte Esterase NEGATIVE (NEGATIVE) 01/28/20 17:27 Urine RBC None Seen /HPF (0-5) 01/28/20 17:27 Urine WBC 0-3 /HPF (0-5) 01/28/20 17:27 Ur Squamous Epith Cells MANY Squamous (<= Few) H 01/28/20 17:27 Urine Crystals 26-50 Ca Oxalate /LPF 01/28/20 17:27 Amorphous Sediment Rare /LPF 01/28/20 17:27 Urine Bacteria Many /HPF (None Seen) H 01/28/20 17:27 Urine Osmolality 392 mOsm/kg (50-1200) 01/28/20 17:27 Ur Random Chloride < 14 mmol/L 01/28/20 17:27 Urine Creatinine 163.2 mg/dL 01/28/20 17:27 Urine Sodium < 12.0 mmol/L 01/28/20 17:27 Nasal Screen MRSA (PCR) NEGATIVE (NEGATIVE) 01/29/20 14:30 Stl C. diff Tox B Gene NEGATIVE (NEGATIVE) 02/02/20 13:00 Last Dose Date [facility] 02/01/20 13:36 Last Dose Time [facility] 02/01/20 13:36 Vancomycin Trough 20.8 ug/mL (10.0-20.0) H 02/01/20 13:36
[2020-02-05] MEDS: SODIUM CHLORIDE 0.9% 1,000 ML IV SCH ×2 (16:06→22:02)
[2020-02-05] MEDS: HYDROCORTISONE SUCCINATE 100 MG/2 ML VIAL IVP SCH ×2 (16:43→21:11)
[2020-02-05] MEDS: RIVAROXABAN 10 MG TABLET PO SCH (16:47)
[2020-02-05] MEDS: LACTULOSE 10 GM /15 ML UDC PO SCH (16:53)
[2020-02-05] MEDS: MIN OIL/DIMETHICON/COCONUT OIL 92 GM TUBE TOP PRN (21:30)
[2020-02-06] MEDS: HYDROCORTISONE SUCCINATE 100 MG/2 ML VIAL IVP SCH ×4 (04:12→20:54)
[2020-02-06] MEDS: SODIUM CHLORIDE FLUSH 0.9% 10 ML SYRINGE IVP PRN ×3 (04:13→04:25)
[2020-02-06 05:47] LABS: BASOPHILS % (AUTO) 0.4 %; HGB - HEMOGLOBIN 9.2 g/dL (12.0-16.0); LYMPHOCYTES # (AUTO) 0.7 10^3/uL (1.5-3.5); LYMPHOCYTES % (AUTO) 13.2 %; MEAN CORPUSCULAR HEMOGLOBIN 41.3 pg (27.0-31.0); MEAN CORPUSCULAR HGB CONC 32.6 g/dL (32.0-36.0); MEAN CORPUSCULAR VOLUME 126.5 fL (81.0-99.0); MEAN PLATELET VOLUME 9.6 fL (7.9-10.8); MONOCYTES # (AUTO) 0.4 10^3/uL (0.0-1.0); MONOCYTES % (AUTO) 7.9 %; NEUTROPHILS # (AUTO) 4.1 10^3/uL (1.5-6.6); NEUTROPHILS % (AUTO) 76.8 %; PLT - PLATELET COUNT 202 10^3/uL (130-450); RED BLOOD COUNT 2.23 10^6/uL (4.20-5.40); RED CELL DISTRIBUTION WIDTH 18.2 % (12.0-15.0); WHITE BLOOD COUNT 5.3 x10^3/uL (4.8-10.8)
[2020-02-06 05:52] LABS: ALBUMIN 1.9 g/dL (3.2-5.5); ALBUMIN/GLOBULIN RATIO 0.7 (1.0-2.2); BILIRUBIN,TOTAL 2.3 mg/dL (0.2-1.0); CREATININE 1.1 mg/dL (0.4-1.0); PHOSPHORUS 2.8 mg/dL (2.5-4.6); TOTAL PROTEIN 4.5 g/dL (6.7-8.2)
[2020-02-06 06:04] LABS: VBG PH 7.291 (7.31-7.41)
[2020-02-06] MEDS: MIN OIL/DIMETHICON/COCONUT OIL 92 GM TUBE TOP PRN ×3 (06:30→19:51)
[2020-02-06] MEDS: LEVOTHYROXINE 88 MCG TABLET PO SCH (06:32)
[2020-02-06 06:55] LABS: PLATELET ESTIMATE, MANUAL NORMAL (130-450,000) (NORMAL); PLATELET MORPHOLOGY NORMAL APPEARANCE (NORMAL)
[2020-02-06] MEDS: MIDODRINE 2.5 MG TABLET PO SCH ×3 (08:00→17:10)
[2020-02-06] MEDS: THIAMINE 100 MG TABLET PO SCH (08:27)
[2020-02-06] MEDS: CYANOCOBALAMIN 500 MCG TABLET PO SCH ×2 (08:27→20:54)
[2020-02-06] MEDS: PRENATAL VITAMIN TABLET PO SCH (08:29)
[2020-02-06] MEDS: SACCHAROMYCES BOULARDII 250 MG CAPSULE PO SCH ×2 (08:33→17:10)
[2020-02-06] MEDS: MAGNESIUM OXIDE 400 MG TABLET PO SCH (08:35)
[2020-02-06] MEDS: ZINC SULFATE 220 MG CAPSULE PO SCH (08:38)
[2020-02-06] MEDS: SODIUM CHLORIDE FLUSH 0.9% 10 ML SYRINGE IVP SCH ×3 (08:40→20:55)
[2020-02-06] MEDS: LACTULOSE 10 GM /15 ML UDC PO SCH ×3 (08:40→17:10)
[2020-02-06] MEDS: POTASSIUM CHLORIDE 20 MEQ/15 ML UDC PO SCH (08:46)
[2020-02-06] MEDS: INSULIN ASPART 300 UNIT/3 ML PEN SUBQ SCH ×4 (08:49→20:54)
[2020-02-06] MEDS: NYSTATIN POWDER 15 GM TOP SCH ×2 (10:58→19:51)
[2020-02-06] MEDS: SODIUM CHLORIDE 0.9% 1,000 ML IV SCH (14:39)
--- NOTE | 2020-02-06 15:40 | PROVIDER PROGRESS NOTE ---
Assessment/Plan - Problem List (1) Hypotension Assessment/Plan: BP 120's, after the Midodrine increased to max (10 tid) and stress steroids started (hydrocortisone 50 iv q6h) yesterday afternoon, as recommended by the critical care doctor at [facility], Dr Giordano. Levophed still on iv drip, weaning it down to off is ordered. Then pt can be moved out of ICU. (2) Hepatic encephalopathy Assessment/Plan: The patient remains lethargic despite a better blood pressure (see above), but ammonia level went up yesterday. If this confirms that she has hepatic encephalopathy as the cause of the lethargy, not fropm brain hypoperfusion. Because of blood pressure, she was transferred by lift, to recliner bed and is eating her meals there. She needs to be fed. Her eyes are closed as her is spoon feeding her pured food. Follow ammonia level daily. Increase lactulose from twice daily to 3 times daily, titrating to have at least 3 loose stools per day. (3) Alcohol use disorder Assessment/Plan: As previously described. Her LFTs are better, but this could be from "burned out liver" Continue to follow ammonia level daily. (4) Anasarca Assessment/Plan: Improved. Continue to decrease iv fluids. Follow I's and O's and BMP daily. (5) Skin tear of lower leg without complication Assessment/Plan: Less oozing as anasarca decreases. Continue topical gauze bandage. (7) Chronic atrial fibrillation Assessment/Plan: Rate is adequately controlled, she is on Eliquis anticoagulation for stroke prophylaxis (8) DM type 2 (diabetes mellitus, type 2) Assessment/Plan: CC diet, dysphagia pured with crushed meds and sliding scale insulin (9) Hypothyroidism Assessment/Plan: The TSH was >11 at admission, home Synthroid dose increased from 75 mcg to 88 mcg daily at admission. A TSH should be repeated in a month. (10) Moderate protein-calorie malnutrition Assessment/Plan: Related to poor intake during her last 2 months with alcohol abuse - Current Meds Current Meds: Current Medications Generic Name Dose Route Start Last Admin Trade Name Freq PRN Reason Stop Dose Admin Cyanocobalamin 500 mcg 02/04/20 11:00 02/06/20 08:27 Vitamin B-12 PO 500 mcg BID CHEO Administration Heparin Sodium (Beef Lung) 30 - 50 unit 02/04/20 04:13 02/06/20 10:57 IVP 50 unit PRN PRN Administration Central Line Protocol (<24 hr) Hydrocortisone Sodium Succinate 50 mg 02/05/20 16:00 02/06/20 10:56 Solu-Cortef IVP 50 mg Q6H CHEO Administration Norepinephrine Bitartrate 8 mg 250 mls @ 15 mls/hr 02/04/20 01:00 02/06/20 15:30 / Dextrose IV 4 mcg/min .[id number] CHEO 7.5 mls/hr Titration Protocol 8 MCG/MIN Sodium Chloride 500 mls @ 0 mls/hr 02/04/20 17:02 02/04/20 18:29 Normal Saline 0.9% IV Infused Q24H PRN Infusion TKO RATE TKO Sodium Chloride 1,000 mls @ 60 mls/hr 02/05/20 15:30 02/06/20 14:39 Normal Saline 0.9% IV 60 mls/hr .[id number] CHEO Administration Insulin Aspart 1 - 5 unit 01/31/20 12:00 02/06/20 12:23 Novolog SUBQ 2 unit 0800,1200,1700,2100 CHEO Administration Protocol Lactulose 10 gm 02/06/20 12:00 02/06/20 12:16 Enulose PO 10 gm TIDWM CHEO Administration Levothyroxine Sodium 88 mcg 01/29/20 07:00 02/06/20 06:32 Synthroid PO 88 mcg QDAC CHEO Administration Magnesium Oxide 400 mg 02/02/20 08:00 02/06/20 08:35 Mag Ox PO 400 mg DAILYWM CHEO Administration Midodrine 10 mg 02/05/20 17:00 02/06/20 12:14 PO 10 mg TIDWM CHEO Administration Mineral Oil 1 applic 01/30/20 16:44 02/06/20 10:57 Cavilon TOP 1 applic PRN PRN Administration Skin Care Multi-Ingredient Ointment 1 applic 01/30/20 16:44 02/03/20 20:00 Zinc Oxide TOP 1 applic PRN PRN Administration Skin Care Nystatin 1 applic 01/28/20 21:00 02/06/20 10:58 Nystop TOP 1 applic BID CHEO Administration Potassium Chloride 40 meq 02/03/20 08:00 02/06/20 08:46 PO Not Given DAILYWM CHEO Multivit/Folic Acid/Iron 1 tab 02/05/20 08:00 02/06/20 08:29 Trinatal Rx 1 PO 1 tab DAILYWM CHEO Administration Rivaroxaban 20 mg 01/31/20 17:00 02/05/20 16:47 Xarelto PO 20 mg 1700 CHEO Administration Saccharomyces Boulardii 250 mg 02/01/20 08:00 02/06/20 08:33 Florastor PO 250 mg BIDWM CHEO Administration Sodium Chloride 10 ml 01/28/20 15:15 02/06/20 04:25 Normal Saline Flush 0.9% IVP 10 ml PRN PRN Administration NEEDED PER PROVIDER ORDERS Sodium Chloride 10 ml 01/28/20 17:00 02/06/20 08:40 Normal Saline Flush 0.9% IVP 30 ml 0100,0900,1700 CHEO Administration Sodium Chloride 20 ml 02/04/20 04:15 02/06/20 04:25 Normal Saline Flush 0.9% IVP 20 ml PRN PRN Administration After Blood Draw Thiamine HCl 100 mg 01/28/20 15:19 02/06/20 08:27 Vitamin B-1 PO 100 mg DAILY CHEO Administration Zinc Sulfate 220 mg 02/03/20 12:00 02/06/20 08:38 PO 220 mg DAILY CHEO Administration - Lab Result Fish Bone Diagrams: 02/07/20 03:45 02/07/20 03:45 - Additional Planning My Orders: My Active Orders 02/05/20 15:30 Sodium Chloride 0.9% [Normal Saline 0.9%] 1,000 ml IV 60 mls/hr 02/05/20 16:00 Hydrocortisone Succinate [Solu-CORTEF] 50 mg IVP Q6H 02/05/20 17:00 Midodrine 10 mg PO TIDWM 02/06/20 12:00 Lactulose [Enulose] 10 gm PO TIDWM 02/07/20 05:00 AMMONIA [CHEM] DAILYLAB CBC - COMP BLD CT W/AUTO DIFF [HEME] DAILYLAB CMP [COMPREHENSIVE METABOLIC PANEL] [CHEM] DAILYLAB MAGNESIUM [CHEM] DAILYLAB 02/08/20 05:00 AMMONIA [CHEM] DAILYLAB CBC - COMP BLD CT W/AUTO DIFF [HEME] DAILYLAB CMP [COMPREHENSIVE METABOLIC PANEL] [CHEM] DAILYLAB MAGNESIUM [CHEM] DAILYLAB 02/09/20 05:00 AMMONIA [CHEM] DAILYLAB CBC - COMP BLD CT W/AUTO DIFF [HEME] DAILYLAB CMP [COMPREHENSIVE METABOLIC PANEL] [CHEM] DAILYLAB 02/10/20 05:00 AMMONIA [CHEM] DAILYLAB CBC - COMP BLD CT W/AUTO DIFF [HEME] DAILYLAB CMP [COMPREHENSIVE METABOLIC PANEL] [CHEM] DAILYLAB Subjective - Subjective Patient Reports: Other (Unchanged clinically: Sitting upright, eyes are closed, sleeps most of the day, opens her eyes to answer with one-word answers) Objective Vital Signs: Vital Signs - 24 hr 02/05/20 02/05/20 02/05/20 15:46 15:47 15:52 Temperature 36.6 C Heart Rate 101 H 91 Heart Rate [ 108 H Monitoring electrodes] Respiratory 17 27 H 18 Rate Blood Pressure 102/75 Blood Pressure 102/75 [Left Radial artery] O2 Saturation 100 02/05/20 02/05/20 02/05/20 16:01 16:02 16:04 Temperature Heart Rate 109 H 105 H 97 Heart Rate [ Monitoring electrodes] Respiratory 27 H 28 H 34 H Rate Blood Pressure 86/74 L Blood Pressure [Left Radial artery] O2 Saturation 02/05/20 02/05/20 02/05/20 16:05 16:15 16:16 Temperature Heart Rate 103 H 108 H 103 H Heart Rate [ Monitoring electrodes] Respiratory 25 H 27 H 27 H Rate Blood Pressure 138/98 H 148/104 H Blood Pressure [Left Radial artery] O2 Saturation 02/05/20 02/05/20 02/05/20 16:30 16:31 16:46 Temperature Heart Rate 108 H 107 H 100 Heart Rate [ Monitoring electrodes] Respiratory 19 26 H 21 Rate Blood Pressure 100/85 H Blood Pressure [Left Radial artery] O2 Saturation 02/05/20 02/05/20 02/05/20 16:47 16:51 17:00 Temperature Heart Rate 98 99 Heart Rate [ 100 Monitoring electrodes] Respiratory 21 22 27 H Rate Blood Pressure 116/90 H Blood Pressure 100/85 H [Left Radial artery] O2 Saturation 98 02/05/20 02/05/20 02/05/20 17:01 17:15 17:16 Temperature Heart Rate 103 H 108 H 99 Heart Rate [ Monitoring electrodes] Respiratory 27 H 20 27 H Rate Blood Pressure 106/70 99/70 Blood Pressure [Left Radial artery] O2 Saturation 02/05/20 02/05/20 02/05/20 17:30 17:31 17:45 Temperature Heart Rate 105 H 100 104 H Heart Rate [ Monitoring electrodes] Respiratory 22 22 24 Rate Blood Pressure 93/69 Blood Pressure [Left Radial artery] O2 Saturation 02/05/20 02/05/20 02/05/20 17:46 18:00 18:01 Temperature Heart Rate 98 107 H 108 H Heart Rate [ 98 Monitoring electrodes] Respiratory 27 H 32 H 29 H Rate Blood Pressure 78/19 L 76/58 L Blood Pressure 64/16 L [Left Radial artery] O2 Saturation 99 02/05/20 02/05/20 02/05/20 18:15 18:16 18:30 Temperature Heart Rate 107 H 102 H 96 Heart Rate [ Monitoring electrodes] Respiratory 32 H 31 H 21 Rate Blood Pressure 72/55 L Blood Pressure [Left Radial artery] O2 Saturation 02/05/20 02/05/20 02/05/20 18:31 18:32 18:33 Temperature Heart Rate 94 104 H 100 Heart Rate [ Monitoring electrodes] Respiratory 29 H 28 H 25 H Rate Blood Pressure 64/16 L Blood Pressure [Left Radial artery] O2 Saturation 02/05/20 02/05/20 02/05/20 19:00 19:27 19:30 Temperature 36.9 C Heart Rate Heart Rate [ 93 97 Monitoring electrodes] Respiratory 19 19 Rate Blood Pressure Blood Pressure 132/83 H 101/66 [Left Radial artery] O2 Saturation 98 98 02/05/20 02/05/20 02/05/20 20:00 20:33 21:00 Temperature Heart Rate Heart Rate [ 93 98 91 Monitoring electrodes] Respiratory 23 22 Rate Blood Pressure Blood Pressure 113/88 H 127/48 L 112/69 [Left Radial artery] O2 Saturation 100 98 02/05/20 02/05/20 02/06/20 22:00 23:00 00:00 Temperature 36.4 C L 36.3 C L Heart Rate Heart Rate [ 89 83 88 Monitoring electrodes] Respiratory 25 H 20 21 Rate Blood Pressure Blood Pressure 130/93 H 121/66 136/84 H [Left Radial artery] O2 Saturation 99 98 98 02/06/20 02/06/20 02/06/20 00:05 00:10 00:15 Temperature Heart Rate Heart Rate [ 87 87 88 Monitoring electrodes] Respiratory Rate Blood Pressure Blood Pressure 128/79 123/77 124/77 [Left Radial artery] O2 Saturation 02/06/20 02/06/20 02/06/20 00:30 00:45 01:00 Temperature Heart Rate Heart Rate [ 89 87 85 Monitoring electrodes] Respiratory 21 Rate Blood Pressure Blood Pressure 120/86 H 124/52 L 119/55 L [Left Radial artery] O2 Saturation 97 02/06/20 02/06/20 02/06/20 02:05 02:10 02:15 Temperature Heart Rate Heart Rate [ 91 90 84 Monitoring electrodes] Respiratory 21 Rate Blood Pressure Blood Pressure 106/79 111/72 115/71 [Left Radial artery] O2 Saturation 97 02/06/20 02/06/20 02/06/20 02:30 02:45 03:00 Temperature Heart Rate Heart Rate [ 85 80 86 Monitoring electrodes] Respiratory 19 Rate Blood Pressure Blood Pressure 117/77 110/59 L 107/68 [Left Radial artery] O2 Saturation 96 02/06/20 02/06/20 02/06/20 03:15 03:20 03:25 Temperature Heart Rate Heart Rate [ 90 92 82 Monitoring electrodes] Respiratory Rate Blood Pressure Blood Pressure 109/69 112/62 108/72 [Left Radial artery] O2 Saturation 02/06/20 02/06/20 02/06/20 03:30 03:45 04:00 Temperature Heart Rate Heart Rate [ 86 91 88 Monitoring electrodes] Respiratory 22 Rate Blood Pressure Blood Pressure 113/78 111/65 112/77 [Left Radial artery] O2 Saturation 97 02/06/20 02/06/20 02/06/20 04:15 04:20 04:26 Temperature 36.8 C Heart Rate Heart Rate [ 84 86 Monitoring electrodes] Respiratory Rate Blood Pressure Blood Pressure 114/73 111/66 [Left Radial artery] O2 Saturation 02/06/20 02/06/20 02/06/20 04:30 04:45 05:00 Temperature Heart Rate Heart Rate [ 86 88 85 Monitoring electrodes] Respiratory 22 Rate Blood Pressure Blood Pressure 95/58 L 97/82 H 94/56 L [Left Radial artery] O2 Saturation 98 02/06/20 02/06/20 02/06/20 05:15 05:20 05:25 Temperature Heart Rate Heart Rate [ 86 85 87 Monitoring electrodes] Respiratory Rate Blood Pressure Blood Pressure 101/56 L 95/54 L 93/46 L [Left Radial artery] O2 Saturation 02/06/20 02/06/20 02/06/20 05:30 06:00 06:15 Temperature Heart Rate Heart Rate [ 88 84 86 Monitoring electrodes] Respiratory 26 H Rate Blood Pressure Blood Pressure 97/55 L 99/68 88/49 L [Left Radial artery] O2 Saturation 98 02/06/20 02/06/20 02/06/20 06:45 07:00 07:01 Temperature Heart Rate 78 83 Heart Rate [ 82 81 Monitoring electrodes] Respiratory 18 18 Rate Blood Pressure 93/75 Blood Pressure 95/21 L 93/75 [Left Radial artery] O2 Saturation 100 02/06/20 02/06/20 02/06/20 07:15 07:16 07:30 Temperature Heart Rate 83 81 85 Heart Rate [ Monitoring electrodes] Respiratory 20 19 24 Rate Blood Pressure 97/70 Blood Pressure [Left Radial artery] O2 Saturation 02/06/20 02/06/20 02/06/20 07:31 07:45 07:46 Temperature Heart Rate 82 84 83 Heart Rate [ Monitoring electrodes] Respiratory 22 20 21 Rate Blood Pressure 105/82 H 107/77 Blood Pressure [Left Radial artery] O2 Saturation 02/06/20 02/06/20 02/06/20 08:00 08:01 08:15 Temperature 36.6 C Heart Rate 81 79 87 Heart Rate [ 87 Monitoring electrodes] Respiratory 23 21 24 Rate Blood Pressure 109/90 H Blood Pressure 109/90 H [Left Radial artery] O2 Saturation 100 02/06/20 02/06/20 02/06/20 08:16 08:31 08:32 Temperature Heart Rate 83 83 82 Heart Rate [ Monitoring electrodes] Respiratory 25 H 22 17 Rate Blood Pressure 111/92 H 129/67 Blood Pressure [Left Radial artery] O2 Saturation 02/06/20 02/06/20 02/06/20 08:45 08:46 09:00 Temperature Heart Rate 80 82 81 Heart Rate [ 100 Monitoring electrodes] Respiratory 20 24 13 Rate Blood Pressure 127/93 H Blood Pressure 118/100 H [Left Radial artery] O2 Saturation 99 02/06/20 02/06/20 02/06/20 09:01 09:15 09:16 Temperature Heart Rate 76 82 84 Heart Rate [ Monitoring electrodes] Respiratory 22 25 H 23 Rate Blood Pressure 118/100 H 116/92 H Blood Pressure [Left Radial artery] O2 Saturation 02/06/20 02/06/20 02/06/20 09:30 09:31 09:45 Temperature Heart Rate 76 78 82 Heart Rate [ Monitoring electrodes] Respiratory 19 15 21 Rate Blood Pressure 114/79 Blood Pressure [Left Radial artery] O2 Saturation 02/06/20 02/06/20 02/06/20 09:46 10:00 10:01 Temperature Heart Rate 74 68 80 Heart Rate [ 82 Monitoring electrodes] Respiratory 21 20 20 Rate Blood Pressure 108/91 H 115/67 Blood Pressure 115/67 [Left Radial artery] O2 Saturation 99 02/06/20 02/06/20 02/06/20 10:15 10:16 10:17 Temperature Heart Rate 73 72 78 Heart Rate [ Monitoring electrodes] Respiratory 19 22 24 Rate Blood Pressure 110/73 Blood Pressure [Left Radial artery] O2 Saturation 02/06/20 02/06/20 02/06/20 10:27 10:31 10:32 Temperature Heart Rate 79 77 Heart Rate [ Monitoring electrodes] Respiratory 26 H 30 H Rate Blood Pressure 101/82 H Blood Pressure [Left Radial artery] O2 Saturation 02/06/20 02/06/20 02/06/20 10:45 10:47 10:48 Temperature Heart Rate 76 77 77 Heart Rate [ Monitoring electrodes] Respiratory 27 H 23 26 H Rate Blood Pressure 104/80 Blood Pressure [Left Radial artery] O2 Saturation 02/06/20 02/06/20 02/06/20 10:55 10:56 11:00 Temperature Heart Rate 74 68 75 Heart Rate [ 81 Monitoring electrodes] Respiratory 23 27 H 23 Rate Blood Pressure 107/83 H Blood Pressure 109/86 H [Left Radial artery] O2 Saturation 100 02/06/20 02/06/20 02/06/20 11:01 11:15 11:16 Temperature Heart Rate 60 68 72 Heart Rate [ Monitoring electrodes] Respiratory 17 23 21 Rate Blood Pressure 109/86 H Blood Pressure [Left Radial artery] O2 Saturation 02/06/20 02/06/20 02/06/20 11:17 11:18 11:19 Temperature Heart Rate 66 77 74 Heart Rate [ Monitoring electrodes] Respiratory 20 21 20 Rate Blood Pressure Blood Pressure [Left Radial artery] O2 Saturation 02/06/20 02/06/20 02/06/20 11:20 11:21 11:30 Temperature Heart Rate 81 74 66 Heart Rate [ 78 Monitoring electrodes] Respiratory 30 H 23 16 Rate Blood Pressure Blood Pressure 95/60 [Left Radial artery] O2 Saturation 02/06/20 02/06/20 02/06/20 11:31 11:44 11:45 Temperature Heart Rate 68 69 72 Heart Rate [ 64 Monitoring electrodes] Respiratory 17 24 20 Rate Blood Pressure 95/60 Blood Pressure 108/68 [Left Radial artery] O2 Saturation 02/06/20 02/06/20 02/06/20 11:46 11:47 12:00 Temperature 36.3 C L Heart Rate 71 66 66 Heart Rate [ 80 Monitoring electrodes] Respiratory 19 17 17 Rate Blood Pressure 108/68 Blood Pressure 92/59 L [Left Radial artery] O2 Saturation 98 02/06/20 02/06/20 02/06/20 12:01 12:15 13:00 Temperature Heart Rate 67 70 Heart Rate [ 76 Monitoring electrodes] Respiratory 18 23 28 H Rate Blood Pressure 92/59 L Blood Pressure 97/75 [Left Radial artery] O2 Saturation 99 02/06/20 02/06/20 02/06/20 14:00 14:15 14:30 Temperature Heart Rate Heart Rate [ 65 72 65 Monitoring electrodes] Respiratory 20 22 15 Rate Blood Pressure Blood Pressure 70/49 L 112/69 100/78 [Left Radial artery] O2 Saturation 93 98 99 02/06/20 02/06/20 02/06/20 14:45 15:00 15:15 Temperature Heart Rate Heart Rate [ 66 Monitoring electrodes] Respiratory 17 Rate Blood Pressure Blood Pressure 97/75 95/79 97/86 H [Left Radial artery] O2 Saturation 99 02/06/20 15:30 Temperature Heart Rate Heart Rate [ 79 Monitoring electrodes] Respiratory Rate Blood Pressure Blood Pressure 72/44 L [Left Radial artery] O2 Saturation Oxygen O2 Source Room air I&O (Last 24 Hrs): Intake and Output Totals x24h 02/04/20 02/05/20 02/06/20 23:59 23:59 23:59 Intake Total 2100.478 2900.369 1559.932 Output Total 339 360 160 Balance 5627.068 5840.369 1399.932 General: Other (Lethargic, minimally communicative even with at bedside) HEENT: Mucous membr. moist/pink Neck: Supple Neuro: Disoriented, Other (Tended. Has fine resting tremor of the right hand) Cardiovascular: Regular rate, No murmurs Respiratory: Chest non-tender, Breath sounds nml Abdomen: Soft Extremities: No edema (Plus edema of the arms and 1+ edema of the lower legs) - Results Results: Laboratory Results WBC 5.3 x10^3/uL (4.8-10.8) 02/06/20 04:30 RBC 2.23 10^6/uL (4.20-5.40) L 02/06/20 04:30 Hgb 9.2 g/dL (12.0-16.0) L 02/06/20 04:30 Hct 28.2 % (37.0-47.0) L 02/06/20 04:30 MCV 126.5 fL (81.0-99.0) H 02/06/20 04:30 MCH 41.3 pg (27.0-31.0) H 02/06/20 04:30 MCHC 32.6 g/dL (32.0-36.0) 02/06/20 04:30 RDW 18.2 % (12.0-15.0) H 02/06/20 04:30 Plt Count 202 10^3/uL (130-450) 02/06/20 04:30 MPV 9.6 fL (7.9-10.8) 02/06/20 04:30 Neut # (Auto) 4.1 10^3/uL (1.5-6.6) 02/06/20 04:30 Lymph # (Auto) 0.7 10^3/uL (1.5-3.5) L 02/06/20 04:30 [place] # (Auto) 0.4 10^3/uL (0.0-1.0) 02/06/20 04:30 Eos # (Auto) 0.0 10^3/uL (0.0-0.7) 02/06/20 04:30 Baso # (Auto) 0.0 10^3/uL (0.0-0.1) 02/06/20 04:30 Absolute Nucleated RBC 0.28 x10^3/uL 02/06/20 04:30 Nucleated RBC % 5.3 /100WBC 02/06/20 04:30 Manual Slide Review Indicated 02/06/20 04:30 WBC Morphology NORMAL APPEARANCE (NORMAL) 02/06/20 04:30 Platelet Estimate NORMAL (130-450,000) (NORMAL) 02/06/20 04:30 Platelet Morphology NORMAL APPEARANCE (NORMAL) 02/06/20 04:30 RBC Morph Micro Appear 3+ MACROCYTOSIS (NORMAL) 1+ HYPOCHROMASIA (NORMAL) 02/03/20 04:40 RBC Morph Micro Appear 3+ MACROCYTOSIS (NORMAL) 1+ HYPOCHROMASIA (NORMAL) 02/04/20 04:30 RBC Morph Micro Appear 3+ MACROCYTOSIS (NORMAL) 1+ HYPOCHROMASIA (NORMAL) 02/04/20 04:30 RBC Morph Micro Appear 3+ MACROCYTOSIS (NORMAL) 1+ HYPOCHROMASIA (NORMAL) 02/05/20 04:30 RBC Morph Micro Appear 3+ MACROCYTOSIS (NORMAL) 1+ HYPOCHROMASIA (NORMAL) 02/05/20 04:30 RBC Morph Micro Appear 2+ HYPOCHROMASIA (NORMAL) 2+ MACROCYTOSIS (NORMAL) 1+ STOMATOCYTES (NORMAL) 02/06/20 04:30 RBC Morph Micro Appear 2+ HYPOCHROMASIA (NORMAL) 2+ MACROCYTOSIS (NORMAL) 1+ STOMATOCYTES (NORMAL) 02/06/20 04:30 RBC Morph Micro Appear 2+ HYPOCHROMASIA (NORMAL) 2+ MACROCYTOSIS (NORMAL) 1+ STOMATOCYTES (NORMAL) 02/06/20 04:30 PT 27.9 secs (9.9-12.6) H 01/29/20 08:00 INR 2.6 (0.8-1.2) H 01/29/20 08:00 VBG pH 7.291 (7.31-7.41) L 02/06/20 04:30 VBG pCO2 33.9 mmHg (41-51) L 01/30/20 14:12 VBG pO2 38.2 mmHg (25-47) 01/30/20 14:12 VBG HCO3 21.4 mmol/L (23-28) L 01/30/20 14:12 VBG Total CO2 22.5 mmol/L (24-29) L 01/30/20 14:12 VBG O2 Saturation 72.5 % (60-80) 01/30/20 14:12 VBG Base Excess -2.3 mmol/L (-2 - +2) L 01/30/20 14:12 Ionized Calcium 1.17 mmol/L (1.15-1.33) 02/06/20 04:30 Sodium 131 mmol/L (135-145) L 02/06/20 04:30 Potassium 5.4 mmol/L (3.5-5.0) H 02/06/20 04:30 Chloride 109 mmol/L (101-111) 02/06/20 04:30 Carbon Dioxide 19 mmol/L (21-32) L 02/06/20 04:30 Anion Gap 3.0 (6-13) L 02/06/20 04:30 BUN 13 mg/dL (6-20) 02/06/20 04:30 Creatinine 1.1 mg/dL (0.4-1.0) H 02/06/20 04:30 Estimated GFR (MDRD) 48 (>89) L 02/06/20 04:30 Glucose 214 mg/dL (70-100) H 02/06/20 04:30 POC Whole Bld Glucose 200 mg/dL (70 - 100) H 02/06/20 12:15 Glycated Hemoglobin 5.4 % (4.6-6.2) 01/29/20 08:00 Estim Average Glucose 108 (70-100) H 01/29/20 08:00 Lactic Acid 1.6 mmol/L (0.5-2.2) 02/01/20 05:00 Calcium 8.0 mg/dL (8.5-10.3) L 02/06/20 04:30 Phosphorus 2.8 mg/dL (2.5-4.6) 02/06/20 04:30 Magnesium 2.1 mg/dL (1.7-2.8) 02/06/20 04:30 Iron 87 ug/dL (28-170) 02/03/20 04:40 TIBC 136 ug/dL (250-450) L 02/03/20 04:40 % Saturation 64 % (20-50) H 02/03/20 04:40 Transferrin 97 mg/dL (192-382) L 02/03/20 04:40 Total Bilirubin 2.3 mg/dL (0.2-1.0) H 02/06/20 04:30 Direct Bilirubin 0.7 mg/dL (0.1-0.5) H 02/05/20 14:20 AST 57 IU/L (10-42) H 02/06/20 04:30 ALT 35 IU/L (10-60) 02/06/20 04:30 Alkaline Phosphatase 252 IU/L (42-121) H 02/06/20 04:30 Ammonia 67.4 umol/L (7-35) H 02/06/20 04:30 Total Creatine Kinase 92 IU/L (22-269) 01/28/20 15:42 Troponin I High Sens 16.0 ng/L (2.3-14.8) H* 01/29/20 12:39 C-Reactive Protein 3.3 mg/dL (0-1.0) H 01/29/20 12:39 B-Natriuretic Peptide 271 pg/mL (5-100) H 01/28/20 14:26 Total Protein 4.5 g/dL (6.7-8.2) L 02/06/20 04:30 Albumin 1.9 g/dL (3.2-5.5) L 02/06/20 04:30 Globulin 2.6 g/dL (2.1-4.2) 02/06/20 04:30 Albumin/Globulin Ratio 0.7 (1.0-2.2) L 02/06/20 04:30 Lipase 32 U/L (22-51) 01/28/20 14:25 Vitamin B12 1186 pg/mL (180-914) H 02/01/20 05:00 Folate 9.27 ng/mL (5.90 - >24.8) 02/01/20 05:00 TSH 11.32 uIU/mL (0.34-5.60) H 01/28/20 14:25 Cortisol AM Sample 17.4 ug/dL 01/30/20 08:00 Urine Color ORANGE 01/28/20 17:27 Urine Clarity HAZY (CLEAR) 01/28/20 17:27 Urine pH 5.0 PH (5.0-7.5) 01/28/20 17:27 Ur Specific [place] 1.025 (1.002-1.030) 01/28/20 17:27 Urine Protein NEGATIVE mg/dL (NEGATIVE) 01/28/20 17:27 Urine Glucose (UA) NEGATIVE mg/dL (NEGATIVE) 01/28/20 17:27 Urine Ketones NEGATIVE mg/dL (NEGATIVE) 01/28/20 17:27 Urine Occult Blood NEGATIVE (NEGATIVE) 01/28/20 17:27 Urine Nitrite NEGATIVE (NEGATIVE) 01/28/20 17:27 Urine Bilirubin NEGATIVE (NEGATIVE) 01/28/20 17:27 Urine Urobilinogen 0.2 (NORMAL) E.U./dL (NORMAL) 01/28/20 17:27 Ur Leukocyte Esterase NEGATIVE (NEGATIVE) 01/28/20 17:27 Urine RBC None Seen /HPF (0-5) 01/28/20 17:27 Urine WBC 0-3 /HPF (0-5) 01/28/20 17:27 Ur Squamous Epith Cells MANY Squamous (<= Few) H 01/28/20 17:27 Urine Crystals 26-50 Ca Oxalate /LPF 01/28/20 17:27 Amorphous Sediment Rare /LPF 01/28/20 17:27 Urine Bacteria Many /HPF (None Seen) H 01/28/20 17:27 Urine Osmolality 392 mOsm/kg (50-1200) 01/28/20 17:27 Ur Random Chloride < 14 mmol/L 01/28/20 17:27 Urine Creatinine 163.2 mg/dL 01/28/20 17:27 Urine Sodium < 12.0 mmol/L 01/28/20 17:27 Nasal Screen MRSA (PCR) NEGATIVE (NEGATIVE) 01/29/20 14:30 Stl C. diff Tox B Gene NEGATIVE (NEGATIVE) 02/02/20 13:00 Last Dose Date K 02/01/20 13:36 Last Dose Time K 02/01/20 13:36 Vancomycin Trough 20.8 ug/mL (10.0-20.0) H 02/01/20 13:36
[2020-02-06] MEDS: RIVAROXABAN 10 MG TABLET PO SCH (17:09)
--- NOTE | 2020-02-06 17:59 | ADVANCE CARE PLANNING NOTE ---
Advance Care Planning - Planning Encounter Date: 02/06/20 Time: 17:30 Purpose: To readdress patient's CODE BLUE status. Parties in Attendance: I spoke to the who was at bedside of the patient. The patient was sitting in a recliner chair getting dinner spoonfed to her. The RN Mari was in and out of the room during this conversation. Decisional Capacity of the Patient: The patient has hepatic encephalopathy, she is mostly lethargic and obtunded, speaks only in one-word answers, and she has no decisional capacity. The told me that several months ago they completed their advanced directives with the help of a patternmaker pressure cast. The patient is being asked by the directly whether she agrees to the answers that the is choosing on the POLST form and she is nodding and saying yes, but the has made the decisions. - Diagnosis for Encounter (1) Hypotension Summary: Yesterday due to persistent hypotension and no etiology found, I reached out to critical care at [facility] who recommended that the patient be started on hydrocortisone and maximum Midodrin dose for blood pressure support and this will help decrease the Levophed. (2) Hepatic encephalopathy Summary: The etiology was suspected, by discussion with the critical care doctor at [facility], to be hepatic failure, her liver is unable to clear metabolites including vaso-dilators like nitrous oxide from her body, and that it will take a long time for these to dissipate. Also management of the ammonia level with lactulose was advised. There has been minimal improvement since yesterday but some, and I updated the . - Encounter Subjective/Patient's Story: Patient has a history of A. fib on anticoagulation, undertreated hypothyroidism, DM, and significant alcohol abuse and she would argue with her over wanting the alcohol more then keeping their marriage together. Finally the gave up 6 months ago and let her have any alcohol that she requested. In the last 2 to 3 to 4 months she has become bedbound at her home, he has to use a roller to move her in her bed and she is only able to stand when OOB, pivot and use a bedside commode. She was able to feed herself at home but since being here and obtunded, she is mostly sleeping the entire day, cannot feed herself, she cannot pull herself up to standing position when working with PT, they have tried it several days in a row. There were 2 episodes where she simply flopped back down on the bed like a wet noodle, presumably from orthostasis but also from lethargy related to Librium, use earlier this hospitalization, and now we suspect hepatic encephalopathy. Objective/Medical Story: Patient was admitted with marked weakness, severe hyponatremia and then developed hypotension on day 2 and has needed IV fluids and pressors for over a week and is in the ICU. She has had work-up for septic shock ruled out, acute [place] and cardiomyopathy ruled out, dehydration and DEIDRA have been corrected, in fact she has anasarca, finally ammonia testing has shown that she has hepatic failure. Treatment is now focused on maintaining blood pressure and lactulose treatment for the hepatic encephalopathy. The states that he wants palliative care to be starting to help with the 's case. Goals of Care: The was able to clearly write the goals of care on side to of the POLST which is to keep her comfortable, give her selective medical treatment and to let her get home as soon as possible and she wants to at home. The has also decided to request that she now be a DNR/DNI. Palliative Care consult was requested by the . If the patient awakens, strengthens and able to participate in rehab, he does want her to have aggressive PT and OT at a SNF. Plan: Change CODE STATUS to DNR/DNI. Order palliative care consult. Code Status: Do Not Attempt Resuscitation Time spent on advance care plannin min
[2020-02-07] MEDS: HYDROCORTISONE SUCCINATE 100 MG/2 ML VIAL IVP SCH ×4 (03:48→21:24)
[2020-02-07] MEDS: SODIUM CHLORIDE FLUSH 0.9% 10 ML SYRINGE IVP PRN ×2 (03:49)
[2020-02-07 04:02] LABS: VBG PH 7.331 (7.31-7.41)
[2020-02-07 04:04] LABS: BASOPHILS % (AUTO) 0.3 %; HGB - HEMOGLOBIN 9.1 g/dL (12.0-16.0); LYMPHOCYTES # (AUTO) 0.9 10^3/uL (1.5-3.5); MEAN CORPUSCULAR HEMOGLOBIN 41.4 pg (27.0-31.0); MEAN CORPUSCULAR HGB CONC 32.3 g/dL (32.0-36.0); MEAN CORPUSCULAR VOLUME 128.2 fL (81.0-99.0); MEAN PLATELET VOLUME 9.3 fL (7.9-10.8); MONOCYTES # (AUTO) 0.8 10^3/uL (0.0-1.0); NEUTROPHILS % (AUTO) 76.5 %; PLT - PLATELET COUNT 202 10^3/uL (130-450); RED CELL DISTRIBUTION WIDTH 18.6 % (12.0-15.0); WHITE BLOOD COUNT 7.9 x10^3/uL (4.8-10.8)
[2020-02-07 04:14] LABS: ALBUMIN/GLOBULIN RATIO 0.7 (1.0-2.2); BILIRUBIN,TOTAL 2.1 mg/dL (0.2-1.0); CALCIUM 8.3 mg/dL (8.5-10.3); CREATININE 1.3 mg/dL (0.4-1.0); MAGNESIUM 2.3 mg/dL (1.7-2.8); TOTAL PROTEIN 4.8 g/dL (6.7-8.2)
[2020-02-07] MEDS: MIN OIL/DIMETHICON/COCONUT OIL 92 GM TUBE TOP PRN (04:23)
[2020-02-07 04:27] LABS: PLATELET ESTIMATE, MANUAL NORMAL (130-450,000) (NORMAL); PLATELET MORPHOLOGY NORMAL APPEARANCE (NORMAL)
[2020-02-07] MEDS: SODIUM CHLORIDE 0.9% 1,000 ML IV SCH ×2 (06:09→22:21)
[2020-02-07] MEDS: LEVOTHYROXINE 88 MCG TABLET PO SCH (06:09)
[2020-02-07] MEDS: MIDODRINE 2.5 MG TABLET PO SCH ×3 (08:14→17:07)
[2020-02-07] MEDS: CYANOCOBALAMIN 500 MCG TABLET PO SCH ×2 (08:15→21:24)
[2020-02-07] MEDS: THIAMINE 100 MG TABLET PO SCH (08:18)
[2020-02-07] MEDS: MAGNESIUM OXIDE 400 MG TABLET PO SCH (08:18)
[2020-02-07] MEDS: PRENATAL VITAMIN TABLET PO SCH (08:19)
[2020-02-07] MEDS: POTASSIUM CHLORIDE 20 MEQ/15 ML UDC PO SCH (08:20)
[2020-02-07] MEDS: ZINC SULFATE 220 MG CAPSULE PO SCH (08:22)
[2020-02-07] MEDS: SACCHAROMYCES BOULARDII 250 MG CAPSULE PO SCH ×2 (08:23→17:10)
[2020-02-07] MEDS: SODIUM CHLORIDE FLUSH 0.9% 10 ML SYRINGE IVP SCH ×2 (08:25→18:44)
[2020-02-07] MEDS: INSULIN ASPART 300 UNIT/3 ML PEN SUBQ SCH ×4 (08:30→21:24)
[2020-02-07] MEDS: LACTULOSE 10 GM /15 ML UDC PO SCH ×3 (08:30→17:12)
[2020-02-07] MEDS: NYSTATIN POWDER 15 GM TOP SCH ×2 (11:00→21:25)
--- NOTE | 2020-02-07 13:42 | CONSULTATION NOTE ---
Palliative Care Consultation - Referral Referring Provider: Dr. Mary Muller Time of Visit: 098-1414: 15:15-1530: [id number] Referral setting: Hospitalized patient Referral Reason: FTT/hepatic encephalopathy/Goals of Care - Information Sources Records reviewed: Previous records reviewed History/Review of Systems obtained from: Patient, Family ( Leonel), Nursing Exam limitations: Clinical condition (patient lethargic; fades off easily;) - History of Present Illness Brief History of Present Illness: This is an 84-year-old woman who has had a complicated course with her admission to [facility]. Patient has had declining health over the last several months and more acutely over the last several months. Patient has had lower extremity weeping, and worsening anasarca, and was admitted for severe hyponatremia at 116, DEIDRA worsening LFTs, left leg wound, and known alcohol use disorder. Over the last several days she has been monitored for alcohol withdrawal, including receiving librium. She is continued to have persistent hypotension, with difficulty titrating off her pressors. She presented with increasing encephalopathy, and was found to have high ammonia levels. She has been receiving lactulose, with concern for worsening hepatic failure, and hepatic encephalopathy. Patient up to this point has not been able to participate much has been mostly lethargic, has been up in the recliner, but needing assistance with feeding. She reports "all over pain", particularly with transfers and the Olivia lift, and continues to deteriorate. Palliative care is been asked to work with patient and family regarding goals of care, patient was actually able to sustain conversation for about 20 minutes with palliative care, and then follow-up with her Leonel who is her decision-maker. Please see palliative care discussion regarding goals. Patient on exam, has severe swelling in her upper extremities, bruising over her left hand and tenderness. Lower extremity swelling as well. Her abdomen is soft but obese, with hyperactive bowel tones. She does open her eyes slightly, does appear to have a slight droop on her left. She is unable to participate or move her extremities on request. Medical/Surgical History - Past Medical History Cardiovascular: reports: Hypertension, High cholesterol, Atrial fibrillation, Other (LE edema) Respiratory: reports: COPD Endocrine/Autoimmune: reports: Type 2 diabetes GI: reports: None : reports: Frequency HEENT: reports: Chronic vision loss Psych: reports: Depression, Anxiety Musculoskeletal: reports: Osteoarthritis, Chronic back pain MRSA Hx?: No - Past Surgical History Ortho: reports: Spine surgery /[employer] ENGINEER: reports: Hysterectomy - Substance History Use: Uses substance without health or social issues: Alcohol Abuse: Recurrent use of substance despite neg consequences: Alcohol Social History - Living Situation Living arrangement: At home Living Situation: With spouse/s.o. Support System: Patient lives at home patient was able to tell me that she has been 20 years, her says they have been together 25 and that they did meet at a wedding and confirmed her story. She has 3 children, one in an auto ac cident. He has been keeping her son and daughter in the loop. She reports they have lots of friends and support on [facility], and that they have been here for 12 years have built a house. This is her third marriage, she was a when her met her. He has been accommodating her as far as her alcohol intake, and she has had worsening functional status so he has been taking care of her up to this point in time with needing to help her with most ADLs. They have had multiple lift assist calls through EMS, and things have been more difficult at home with her decline in functional status. Medications/Allergies - Medications Active Medication List: Active Medications Cyanocobalamin (Vitamin B-12) 500 mcg PO BID [facility] Last Admin: 02/07/20 08:15 Dose: 500 mcg Heparin Sodium (Beef Lung) () 30 - 50 unit IVP PRN PRN PRN Reason: Central Line Protocol (<24 hr) Last Admin: 02/07/20 08:25 Dose: 50 unit Hydrocortisone Sodium Succinate (Solu-Cortef) 50 mg IVP Q6H [facility] Last Admin: 02/07/20 10:52 Dose: 50 mg Norepinephrine Bitartrate 8 mg (/ Dextrose) 250 mls @ 15 mls/hr IV .[id number] [facility]; Protocol Last Titration: 02/07/20 13:29 Dose: 2 mcg/min, 3.75 mls/hr Sodium Chloride (Normal Saline 0.9%) 500 mls @ 0 mls/hr IV Q24H PRN PRN Reason: TKO RATE Last Infusion: 02/04/20 18:29 Dose: Infused Sodium Chloride (Normal Saline 0.9%) 1,000 mls @ 60 mls/hr IV .[id number] [facility] Last Infusion: 02/07/20 07:00 Dose: 60 mls/hr Insulin Aspart (Novolog) 2 - 10 unit SUBQ 0800,1200,1700,2100 [facility]; Protocol Last Admin: 02/07/20 11:53 Dose: 4 unit Lactulose (Enulose) 10 gm PO TIDWM [facility] Last Admin: 02/07/20 11:53 Dose: 10 gm Levothyroxine Sodium (Synthroid) 88 mcg PO QDAC [facility] Last Admin: 02/07/20 06:09 Dose: 88 mcg Magnesium Oxide (Mag Ox) 400 mg PO DAILYWM [facility] Last Admin: 02/07/20 08:18 Dose: 400 mg Midodrine () 10 mg PO TIDWM [facility] Last Admin: 02/07/20 11:54 Dose: 10 mg Mineral Oil (Cavilon) 1 applic TOP PRN PRN PRN Reason: Skin Care Last Admin: 02/07/20 04:23 Dose: 1 applic Multi-Ingredient Ointment (Zinc Oxide) 1 applic TOP PRN PRN PRN Reason: Skin Care Last Admin: 02/03/20 20:00 Dose: 1 applic Nystatin (Nystop) 1 applic TOP BID [facility] Last Admin: 02/07/20 11:00 Dose: 1 applic Potassium Chloride () 40 meq PO DAILYWM [facility] Last Admin: 02/07/20 08:20 Dose: Not Given Multivit/Folic Acid/Iron (Trinatal Rx 1) 1 tab PO DAILYWM [facility] Last Admin: 02/07/20 08:19 Dose: 1 tab Rivaroxaban (Xarelto) 20 mg PO 1700 [facility] Last Admin: 02/06/20 17:09 Dose: 20 mg Saccharomyces Boulardii (Florastor) 250 mg PO BIDWM [facility] Last Admin: 02/07/20 08:23 Dose: 250 mg Sodium Chloride (Normal Saline Flush 0.9%) 10 ml IVP PRN PRN PRN Reason: NEEDED PER PROVIDER ORDERS Last Admin: 02/07/20 03:49 Dose: 10 ml Sodium Chloride (Normal Saline Flush 0.9%) 10 ml IVP 0100,0900,1700 [facility] Last Admin: 02/07/20 08:25 Dose: 10 ml Sodium Chloride (Normal Saline Flush 0.9%) 20 ml IVP PRN PRN PRN Reason: After Blood Draw Last Admin: 02/07/20 03:49 Dose: 20 ml Thiamine HCl (Vitamin B-1) 100 mg PO DAILY [facility] Last Admin: 02/07/20 08:18 Dose: 100 mg Zinc Sulfate () 220 mg PO DAILY [facility] Last Admin: 02/07/20 08:22 Dose: 220 mg Furosemide 20 mg DAILY 05/02/15 Rivaroxaban [Xarelto] 20 mg PO QDDINNER 05/02/15 Simvastatin 40 mg PO QPM 05/02/15 Spironolactone 25 mg PO DAILY 05/02/15 Insulin Glargine [Lantus Solostar] 6 unit SUBQ QPM 01/28/20 Insulin Lispro [Humalog Kwikpen U-100] 3 unit SUBQ TIDWM 01/28/20 Levothyroxine Sodium 75 mcg PO QDAC 01/28/20 Metoprolol Succinate 50 mg PO DAILY 01/28/20 - Allergies Allergies/Adverse Reactions: Allergies Allergy/AdvReac Type Severity Reaction Status Date / Time No Known Drug Allergies Allergy Verified 01/28/20 13:40 Review of Systems - Constitutional Constitutional: reports: Fatigue, Malaise, Poor appetite - Eyes Eyes: reports: Vision loss, Corrective lenses - Ears, Nose & Throat Ears, Nose & Throat: reports: Hearing loss, Hoarseness, Dry mouth - Cardiovascular Cardiovascular: reports: Edema, Exertional dyspnea, Decr. exercise tolerance - Respiratory Respiratory: reports: SOB with exertion. denies: SOB at rest - Gastrointestinal Gastrointestinal: reports: Abdominal distention, Poor appetite (needing to be fed), Other (on lactulose) - Genitourinary Genitourinary: reports: Other (العلي catheter) - Musculoskeletal Musculoskeletal: reports: Back pain, Muscle aches, Stiffness, Limited range of motion, Muscle weakness, Transfer issues (needing olivia lift) - Integumentary Integumentary: reports: Dryness, Other (weeping LE; anascarca) - Neurological Neurological: reports: General weakness, Memory problems, Slurred speech - Psychiatric Psychiatric: reports: Depression, Anxiety, Other (alcohol withdrawel;) - Endocrine Endocrine: reports: Diabetes type 2, Hypothyroidism (increased dose) - Hematologic/Lymphatic Hematologic/Lymphatic: reports: Anemia, Bruising - All Other Systems All Other Systems: reports: Other (limited related to memory) Physical Exam - Vital Signs Vital Signs: Vital Signs x48h Temp Pulse Pulse Resp BP BP Pulse Ox 02/07/20 12:46 72 22 84/51 L 02/07/20 12:45 77 22 02/07/20 12:31 76 19 83/68 L 02/07/20 12:30 79 20 02/07/20 12:16 79 19 96/45 L 02/07/20 12:15 74 21 02/07/20 12:01 74 20 90/45 L 02/07/20 12:00 36.1 C L 77 71 20 96/45 L 100 02/07/20 11:49 71 17 92/71 02/07/20 11:48 83 18 02/07/20 11:46 74 19 02/07/20 11:45 81 19 02/07/20 11:31 77 20 73/40 L 02/07/20 11:30 88 18 02/07/20 11:20 83 27 H 102/77 02/07/20 11:19 74 24 02/07/20 11:15 83 22 02/07/20 11:10 87 24 02/07/20 11:00 36.4 C L 75 19 92/71 97 02/07/20 10:46 78 22 02/07/20 10:45 86 22 02/07/20 10:31 86 23 115/44 L 02/07/20 10:30 83 23 02/07/20 10:16 81 22 111/89 H 02/07/20 10:15 88 23 02/07/20 10:01 80 21 118/78 02/07/20 10:00 86 91 22 115/44 L 98 02/07/20 09:46 85 22 105/68 02/07/20 09:45 72 21 02/07/20 09:31 85 23 116/70 02/07/20 09:30 76 25 H 02/07/20 09:16 88 21 127/76 02/07/20 09:15 87 22 02/07/20 09:01 73 23 125/88 H 02/07/20 09:00 85 82 23 105/68 92 02/07/20 08:46 75 21 117/77 02/07/20 08:45 75 20 05/11/20 08:31 87 21 115/71 02/07/20 08:30 81 23 02/07/20 08:15 85 21 02/07/20 08:02 82 23 135/68 H 02/07/20 08:01 73 21 02/07/20 08:00 37.0 C 83 80 25 H 135/68 H 98 02/07/20 07:45 79 26 H 02/07/20 07:31 83 25 H 81/40 L 02/07/20 07:30 81 28 H 02/07/20 07:15 79 23 02/07/20 07:01 82 25 H 79/49 L 02/07/20 07:00 81 78 25 H 79/49 L 98 02/07/20 06:00 35.6 C L 75 19 92/49 L 99 - Physical Exam General Appearance: positive: Mild distress, Lethargic Eyes Bilateral: positive: Other (slight drop to left eye; difficulty focusing) ENT: positive: Dry mucous membranes Neck: positive: Trachea midline Cardiovascular: positive: Regular rate & rhythm Respiratory: positive: Diminished throughout (anteriorly). negative: Wheezes Abdomen: positive: Soft, Abnml bowel sounds (hyperactive;), Tenderness (with palpation), Distended, Obese Skin: positive: Pallor Extremities: positive: Pedal edema, Other (anasarca; hands / arms with swelling) Neurologic/Psychiatric: positive: Disoriented to time, Weakness, Slurred/abnml speech, Depressed mood/affect, Flat affect Palliative Care - POLST Patient has POLST: Yes POLST Status: DNR, Selective Treatment Pain: Pain worsening, Location (Patient reports pain all over very tender to any kind of touch, nursing staff reports she demonstrates hyper analgesia. Have not been giving her anything for comfort secondary to hypotension. She cries out with any kind of movement and has lot of anticipatory pain transfers. Left hand particularly uncomfortable with swelling and bruising.) Tiredness/Fatigue: Severe (7-10) Drowsiness/Sedation: Severe (7-10) Nausea: None Depression: Severe (7-10) Anxiety: Severe (7-10) Feelings of wellbeing/Perceived Quality of Life: Poor, Worsening Performance Status: Patient has been previous to this attending PT 2 times a week, was able to am bulate short distances and pivot. She has had decline in functional status with a downward trend, some days were weaker than others, has been having frequent falls. Patient's perception when asked she felt like her strength she lost it "suddenly", is wondering if she had a stroke. She has only been up in the chair with a Olivia, and this has caused her some distress. At this point in time she is not been able to engage nor has demonstrated desired to engage in physical therapy. Continues to feel quite poorly. - Palliative Care Discussion: Patient was actually somewhat awake for about 20 minutes, did have a conversation with her. She did drift off particular towards the end. But did engage with my questions. When asked what she worried about, she replied "I worry about my health". She is aware she was in the hospital, she did remember some that she had seen her . When asked her a little bit more about her , she was able to tell me she had met him at a wedding, that she had 3 children, and that she came to [facility] 12 years ago because of building a house. When asked if she understood what was wrong with her or that she was very sick, she did not recall, she does not recall events leading up to this. We does discussed that the doctors were trying very hard to help her feel better, and were having trouble getting her blood pressure to stabilize, and concerned about her kidneys. I also discussed the fact her liver was not doing well, and that is why she was taking medications to see if we could help her be stronger and clear up a little bit. When asked if she had pain, she reports she had pain all over, asked her if this was why she drank, she said no this was because of "habit". When asked her about her goals, she said her "goal was to get well", we discussed that this would take quite a bit of work and my worried that this might be difficult at this point in time. That this would include of course not drinking, and her working with therapy. I did ask her if we were able to make her better, and we were looking at her getting worse, if she had thought about where she wanted would want to be for her end-of-life. And she was very clear if she were going to be not getting better she would "want to go home". She is appropriately tearful, and able to engage in this conversation, towards the end she drifted off, and was more difficult to arouse. This is my understanding that this is been her baseline. [id number] had 2 conversations over the day with Leonel. The first was about his perception of how his was doing, he does understand she is not getting better, they had made the decision to be a DO NOT RESUSCITATE. She was waiting to hear the recommendations from the physicians, whether to send her to a fpc for physical therapy, and to try and get better, or if she was not going to get better he had been preparing to care for her at home. He was very clear he does not want her to in the hospital, he had been lining up care through [facility] home [facility] with 12-hour shifts, as well as a couple who would come to the home and care for as well even though they were not professional, they would be able to have at least 2 people there at all times. He does not want to make the decision, he wants the recommendations to come from the physicians. He reports he is extremely distressed and lonely without her, and does believe the best situation is for her to be home. I did share my worry that she has not been doing well, and concerned that she may not get better. T hat she may do better with support at home, and focus on comfort. I did introduce at that point in time hospice. He did not want to send her anywhere. I reiterated it would be the hospice team coming to them, with visiting nurses, and team members to provide support to care for her in the home. This would mean the focus would be on comfort, they would provide equipment and guidance, but it would mean not returning to the hospital. 1630 Did speak with the again, he had gotten somewhat confused with the follow-up on hospice call, we reviewed again the recommendation at this point in time was patient would not be appropriate for group home facility, that this has come from the doctor, myself, the physical therapist and the staff caring for her. That is she is continuing decline, I did introduce my concern regarding we may need to discuss comfort measures, and she may not be able to go home if she worsens and the "drip" has not been able to sustain off of it so far. If this decision were to be made, he would very much like to be with her here at the hospital, he is still hoping to have her at home, but does seem to recognize that she is worsening and these conversations will need to continue regarding next steps. We agreed to talk in the morning with the new hospitalist, and see how she has done through the night. Results - Lab Results Fish Bones: 02/07/20 03:45 02/07/20 03:45 Lab and Imaging Results: Lab Results x24hrs 02/07/20 02/07/20 02/07/20 Range/Units 11:51 08:10 03:45 WBC (4.8-10.8) x10^3/uL RBC (4.20-5.40) 10^6/uL Hgb (12.0-16.0) g/dL Hct (37.0-47.0) % MCV (81.0-99.0) fL MCH (27.0-31.0) pg MCHC (32.0-36.0) g/dL RDW (12.0-15.0) % Plt Count (130-450) 10^3/uL MPV (7.9-10.8) fL Neut # (Auto) (1.5-6.6) 10^3/uL Lymph # (Auto) (1.5-3.5) 10^3/uL Dunn # (Auto) (0.0-1.0) 10^3/uL Eos # (Auto) (0.0-0.7) 10^3/uL Baso # (Auto) (0.0-0.1) 10^3/uL Absolute Nucleated RBC x10^3/uL Nucleated RBC % /100WBC Manual Slide Review Platelet Estimate (NORMAL) Platelet Morphology (NORMAL) RBC Morph Micro Appear (NORMAL) VBG pH 7.331 (7.31-7.41) Ionized Calcium 1.21 (1.15-1.33) mmol/L Sodium (135-145) mmol/L Potassium (3.5-5.0) mmol/L Chloride (101-111) mmol/L Carbon Dioxide (21-32) mmol/L Anion Gap (6-13) BUN (6-20) mg/dL Creatinine (0.4-1.0) mg/dL Estimated GFR (MDRD) (>89) Glucose (70-100) mg/dL POC Whole Bld Glucose 181 H 159 H (70 - 100) mg/dL Calcium (8.5-10.3) mg/dL Phosphorus (2.5-4.6) mg/dL Magnesium (1.7-2.8) mg/dL Total Bilirubin (0.2-1.0) mg/dL AST (10-42) IU/L ALT (10-60) IU/L Alkaline Phosphatase (42-121) IU/L Ammonia (7-35) umol/L Total Protein (6.7-8.2) g/dL Albumin (3.2-5.5) g/dL Globulin (2.1-4.2) g/dL Albumin/Globulin Ratio (1.0-2.2) 02/07/20 02/07/20 02/07/20 Range/Units 03:45 03:45 03:45 WBC (4.8-10.8) x10^3/uL RBC (4.20-5.40) 10^6/uL Hgb (12.0-16.0) g/dL Hct (37.0-47.0) % MCV (81.0-99.0) fL MCH (27.0-31.0) pg MCHC (32.0-36.0) g/dL RDW (12.0-15.0) % Plt Count (130-450) 10^3/uL MPV (7.9-10.8) fL Neut # (Auto) (1.5-6.6) 10^3/uL Lymph # (Auto) (1.5-3.5) 10^3/uL Dunn # (Auto) (0.0-1.0) 10^3/uL Eos # (Auto) (0.0-0.7) 10^3/uL Baso # (Auto) (0.0-0.1) 10^3/uL Absolute Nucleated RBC x10^3/uL Nucleated RBC % /100WBC Manual Slide Review Platelet Estimate (NORMAL) Platelet Morphology (NORMAL) RBC Morph Micro Appear (NORMAL) VBG pH (7.31-7.41) Ionized Calcium (1.15-1.33) mmol/L Sodium 135 (135-145) mmol/L Potassium 5.1 H (3.5-5.0) mmol/L Chloride 112 H (101-111) mmol/L Carbon Dioxide 19 L (21-32) mmol/L Anion Gap 4.0 L (6-13) BUN 19 (6-20) mg/dL Creatinine 1.3 H (0.4-1.0) mg/dL Estimated GFR (MDRD) 39 L (>89) Glucose 197 H (70-100) mg/dL POC Whole Bld Glucose (70 - 100) mg/dL Calcium 8.3 L (8.5-10.3) mg/dL Phosphorus 2.8 (2.5-4.6) mg/dL Magnesium 2.3 (1.7-2.8) mg/dL Total Bilirubin 2.1 H (0.2-1.0) mg/dL AST 62 H (10-42) IU/L ALT 37 (10-60) IU/L Alkaline Phosphatase 257 H (42-121) IU/L Ammonia 41.7 H (7-35) umol/L Total Protein 4.8 L (6.7-8.2) g/dL Albumin 2.0 L (3.2-5.5) g/dL Globulin 2.8 (2.1-4.2) g/dL Albumin/Globulin Ratio 0.7 L (1.0-2.2) 02/07/20 02/06/20 02/06/20 Range/Units 03:45 20:47 17:09 WBC 7.9 (4.8-10.8) x10^3/uL RBC 2.20 L (4.20-5.40) 10^6/uL Hgb 9.1 L (12.0-16.0) g/dL Hct 28.2 L (37.0-47.0) % MCV 128.2 H (81.0-99.0) fL MCH 41.4 H (27.0-31.0) pg MCHC 32.3 (32.0-36.0) g/dL RDW 18.6 H (12.0-15.0) % Plt Count 202 (130-450) 10^3/uL MPV 9.3 (7.9-10.8) fL Neut # (Auto) 6.0 (1.5-6.6) 10^3/uL Lymph # (Auto) 0.9 L (1.5-3.5) 10^3/uL Dunn # (Auto) 0.8 (0.0-1.0) 10^3/uL Eos # (Auto) 0.0 (0.0-0.7) 10^3/uL Baso # (Auto) 0.0 (0.0-0.1) 10^3/uL Absolute Nucleated RBC 0.42 x10^3/uL Nucleated RBC % 5.3 /100WBC Manual Slide Review Indicated Platelet Estimate NORMAL (130-450,000) (NORMAL) Platelet Morphology NORMAL APPEARANCE (NORMAL) RBC Morph Micro Appear 2+ HYPOCHROMASIA (NORMAL) VBG pH (7.31-7.41) Ionized Calcium (1.15-1.33) mmol/L Sodium (135-145) mmol/L Potassium (3.5-5.0) mmol/L Chloride (101-111) mmol/L Carbon Dioxide (21-32) mmol/L Anion Gap (6-13) BUN (6-20) mg/dL Creatinine (0.4-1.0) mg/dL Estimated GFR (MDRD) (>89) Glucose (70-100) mg/dL POC Whole Bld Glucose 259 H 188 H (70 - 100) mg/dL Calcium (8.5-10.3) mg/dL Phosphorus (2.5-4.6) mg/dL Magnesium (1.7-2.8) mg/dL Total Bilirubin (0.2-1.0) mg/dL AST (10-42) IU/L ALT (10-60) IU/L Alkaline Phosphatase (42-121) IU/L Ammonia (7-35) umol/L Total Protein (6.7-8.2) g/dL Albumin (3.2-5.5) g/dL Globulin (2.1-4.2) g/dL Albumin/Globulin Ratio (1.0-2.2) Impression and Recommendations - Palliative Care Impression: This is an 84-year-old woman who has significant comorbidities including alcohol abuse, now with worsening anasarca, hepatic encephalopathy, functional decline, and hypotension. She has been in the ICU over a week, she has had thorough work up, and treatment of underlying sequela of her issues. She is continue to remain quite lethargic, not showing improvement functionally, and has high symptom burden of uncontrolled pain, fatigue, depression and limited intake. Palliative care providing support for clarifying goals of care, and transition to hospice. Recommendations/Counseling Done: 1. Failure to thrive. Patient has had functional decline over the last several weeks, now presents with hepatic encephalopathy, and lethargy. She has multiple organ failure including DEIDRA, and hepatic failure. Patient presents with anasarca and with difficulty with persistent hypotension. In the context of her ongoing comorbidities, at this point, it does not appear she is improving. Both she and her expressed wishes as well as her , would like her to have an end-of-life event at home and not in the hospital if possible. Contact with hospice biomedical repair technician Dr. Chowdhury, will accept patient with diagnoses of hepatic failure, with multiple comorbidities. 2. Advanced care planning. expresses wishes for direction from hospitalist and clinical team, regarding transition plans. Patient does not demonstrate ability today, and in fact has had ongoing decline, to participate in meaningful rehab. Patient dislikes and has significant pain and discomfort with Olivia transfers, she may benefit from focusing on comfort, remaining bedbound, and transitioning to hospice. Concern is stabilizing patient enough to transition home, he is hiring assistance, will need to continue evaluate whether transition to comfort measures and in hospital may be more realistic if she continues to deteriorate. Time Spent: 95 minutes with greater than 50% of this done in counseling regarding goals of care, and coordination of care with hospice and hospital team.
[2020-02-07] MEDS: RIVAROXABAN 10 MG TABLET PO SCH (17:09)
--- NOTE | 2020-02-07 17:26 | PROVIDER PROGRESS NOTE ---
Assessment/Plan - Problem List (1) Hypotension Assessment/Plan: He developed severe hypotension on her second day here and has had been ruled out for having cardiogenic shock, septic shock, hypovolemic shock, addisonian crisis. As per my conversation with the critical care doctor at [facility] 2 da ys ago, this patient probably has liver failure, inability to clear metabolites like circulating vasodilators such as nitrous oxide, creating constant hypotension. The critical care doctor said that levophed sometimes needs to continued for 6 days. Continue with Midodrin, which is now at maximum dose. Continue with "stress steroids" Hydrocortisone 50 mg IV every 6 hours, which was recommended by the critical care doctor. IV Levophed has been ordered to wean to off, keeping MAP greater than 60, and patient has come off of it about 3 times but the longest that she can tolerate off is about 3 hours. Just yesterday the changed the POLST form and made her a DNR, DNI. still wants her on Levophed to continue trying this medical management. Because of this she remains in the ICU. She is making no progress with respect to her lethargy or her hypotension and today a Palliative Care consult will be done by Parvin Rubin, and Parvin will be speaking to the about changing the direction toward comfort care and Hospice. (2) Hepatic encephalopathy Assessment/Plan: Her lethargy is presumably from hepatic encephalopathy since she has the same mentation even when her blood pressure is in the 120s and she is perfusing her brain. Lactulose p.o. has been started several days ago, titrating to get about 3 loose BMs per day. Follow serum ammonia level daily, unless she transitions to comfort care or hospice. 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 Alcohol abuse was the cause. The patient did require Librium for about the first 3 days of hospitalization, to prevent alcohol withdrawal, that was weaned to off quickly. Follow labs daily. (4) Anasarca Assessment/Plan: She is greater than 10 L positive and fluid balance since admission because of the hypotension, DEIDRA, hyponatremia and dehydration. IV fluids have been decreased overall to prevent anasarca. There was a skin tear of the L arm and one of a leg, which were oozing serous fluid, related to the anasarca (5) Skin tear of lower leg without complication Assessment/Plan: Continue gauze bandages for absorption of fluid. (6) Anemia Assessment/Plan: If she will be transitioned to comfort care, no aggressive blood transfusions and work-up are planned. (7) Chronic atrial fibrillation Assessment/Plan: Heart rate control has been adequate, she can swallow her pills. She is on Eliquis for stroke prophylaxis (8) DM type 2 (diabetes mellitus, type 2) Assessment/Plan: Carb controlled diet, dysphagia pured, sliding scale insulin continue (9) Hypothyroidism Assessment/Plan: The TSH was >11 at admission, home Synthroid dose increased from 75 mcg to 88 mcg daily at admission. A TSH should be repeated in a month. (10) Moderate protein-calorie malnutrition Assessment/Plan: Related to her poor p.o. intake in the last few months during the alcohol abuse. - Current Meds Current Meds: Current Medications Generic Name Dose Route Start Last Admin Trade Name Aba PRN Reason Stop Dose Admin Cyanocobalamin 500 mcg 02/04/20 11:00 02/07/20 08:15 Vitamin B-12 PO 500 mcg BID CHEO Administration Heparin Sodium (Beef Lung) 30 - 50 unit 02/04/20 04:13 02/07/20 08:25 IVP 50 unit PRN PRN Administration Central Line Protocol (<24 hr) Hydrocortisone Sodium Succinate 50 mg 02/05/20 16:00 02/07/20 17:06 Solu-Cortef IVP 50 mg Q6H CHEO Administration Norepinephrine Bitartrate 8 mg 250 mls @ 15 mls/hr 02/04/20 01:00 02/07/20 17:06 / Dextrose IV 0 mcg/min .[id number] CHEO 0 mls/hr Titration Protocol 8 MCG/MIN Sodium Chloride 500 mls @ 0 mls/hr 02/04/20 17:02 02/04/20 18:29 Normal Saline 0.9% IV Infused Q24H PRN Infusion TKO RATE TKO Sodium Chloride 1,000 mls @ 60 mls/hr 02/05/20 15:30 02/07/20 07:00 Normal Saline 0.9% IV 60 mls/hr .[id number] CHEO Infusion Insulin Aspart 2 - 10 unit 02/06/20 21:00 02/07/20 17:12 Novolog SUBQ 2 unit 0800,1200,1700,2100 CHEO Administration Protocol Lactulose 10 gm 02/06/20 12:00 02/07/20 17:12 Enulose PO 10 gm TIDWM CHEO Administration Levothyroxine Sodium 88 mcg 01/29/20 07:00 02/07/20 06:09 Synthroid PO 88 mcg QDAC CHEO Administration Magnesium Oxide 400 mg 02/02/20 08:00 02/07/20 08:18 Mag Ox PO 400 mg DAILYWM CHEO Administration Midodrine 10 mg 02/05/20 17:00 02/07/20 17:07 PO 10 mg TIDWM CHEO Administration Mineral Oil 1 applic 01/30/20 16:44 02/07/20 04:23 Cavilon TOP 1 applic PRN PRN Administration Skin Care Multi-Ingredient Ointment 1 applic 01/30/20 16:44 02/03/20 20:00 Zinc Oxide TOP 1 applic PRN PRN Administration Skin Care Nystatin 1 applic 01/28/20 21:00 02/07/20 11:00 Nystop TOP 1 applic BID CHEO Administration Potassium Chloride 40 meq 02/03/20 08:00 02/07/20 08:20 PO Not Given DAILYWM CHEO Multivit/Folic Acid/Iron 1 tab 02/05/20 08:00 02/07/20 08:19 Trinatal Rx 1 PO 1 tab DAILYWM CHEO Administration Rivaroxaban 20 mg 01/31/20 17:00 02/07/20 17:09 Xarelto PO 20 mg 1700 CHEO Administration Saccharomyces Boulardii 250 mg 02/01/20 08:00 02/07/20 17:10 Florastor PO 250 mg BIDWM CHEO Administration Sodium Chloride 10 ml 01/28/20 15:15 02/07/20 03:49 Normal Saline Flush 0.9% IVP 10 ml PRN PRN Administration NEEDED PER PROVIDER ORDERS Sodium Chloride 10 ml 01/28/20 17:00 02/07/20 08:25 Normal Saline Flush 0.9% IVP 10 ml 0100,0900,1700 CHEO Administration Sodium Chloride 20 ml 02/04/20 04:15 02/07/20 03:49 Normal Saline Flush 0.9% IVP 20 ml PRN PRN Administration After Blood Draw Thiamine HCl 100 mg 01/28/20 15:19 02/07/20 08:18 Vitamin B-1 PO 100 mg DAILY CHEO Administration Zinc Sulfate 220 mg 02/03/20 12:00 02/07/20 08:22 PO 220 mg DAILY CHEO Administration - Lab Result Fish Bone Diagrams: 02/07/20 03:45 02/07/20 03:45 - Additional Planning My Orders: My Active Orders 02/06/20 21:00 Insulin Aspart [NovoLOG] 2 - 10 unit SUBQ 0800,1200,1700,2100 02/07/20 Hospice Referral [CONS] Routine 02/08/20 05:00 AMMONIA [CHEM] DAILYLAB CALCIUM, IONIZED ([facility]) [BG] DAILYLAB CBC - COMP BLD CT W/AUTO DIFF [HEME] DAILYLAB CMP [COMPREHENSIVE METABOLIC PANEL] [CHEM] DAILYLAB MAGNESIUM [CHEM] DAILYLAB PHOSPHORUS [CHEM] DAILYLAB 02/09/20 05:00 AMMONIA [CHEM] DAILYLAB CALCIUM, IONIZED ([facility]) [BG] DAILYLAB CBC - COMP BLD CT W/AUTO DIFF [HEME] DAILYLAB CMP [COMPREHENSIVE METABOLIC PANEL] [CHEM] DAILYLAB PHOSPHORUS [CHEM] DAILYLAB 02/10/20 05:00 AMMONIA [CHEM] DAILYLAB CBC - COMP BLD CT W/AUTO DIFF [HEME] DAILYLAB CMP [COMPREHENSIVE METABOLIC PANEL] [CHEM] DAILYLAB Subjective - Subjective Patient Reports: Other (Sitting in bed with head of bed propped up, sleeping, o pens her eyes to her name, answers in one-word answers then closes her eyes again and needs to be awoken. This is the same mental status that I have seen for this patient for approximately 4 days.) Objective Vital Signs: Vital Signs - 24 hr 02/06/20 02/06/20 02/06/20 17:30 17:31 17:45 Temperature Heart Rate 85 83 84 Heart Rate [ Monitoring electrodes] Respiratory 22 24 21 Rate Blood Pressure Blood Pressure [Left Radial artery] O2 Saturation 02/06/20 02/06/20 02/06/20 17:46 18:00 18:01 Temperature Heart Rate 96 84 85 Heart Rate [ 87 Monitoring electrodes] Respiratory 21 25 H 21 Rate Blood Pressure 128/93 H Blood Pressure 110/59 L [Left Radial artery] O2 Saturation 100 02/06/20 02/06/20 02/06/20 18:03 18:15 18:16 Temperature Heart Rate 86 88 98 Heart Rate [ Monitoring electrodes] Respiratory 22 23 24 Rate Blood Pressure 151/126 H Blood Pressure [Left Radial artery] O2 Saturation 02/06/20 02/06/20 02/06/20 18:30 18:31 18:45 Temperature Heart Rate 97 91 91 Heart Rate [ Monitoring electrodes] Respiratory 29 H 27 H 27 H Rate Blood Pressure 117/79 Blood Pressure [Left Radial artery] O2 Saturation 02/06/20 02/06/20 02/06/20 18:46 19:00 19:01 Temperature 36.7 C Heart Rate 86 84 83 Heart Rate [ 92 Monitoring electrodes] Respiratory 23 27 H 25 H Rate Blood Pressure 110/59 L 117/103 H Blood Pressure 122/82 H [Left Radial artery] O2 Saturation 100 02/06/20 02/06/20 02/06/20 19:15 19:30 20:00 Temperature 36.7 C Heart Rate 84 87 Heart Rate [ 71 Monitoring electrodes] Respiratory 26 H 23 22 Rate Blood Pressure Blood Pressure 111/66 [Left Radial artery] O2 Saturation 100 02/06/20 02/06/20 02/06/20 21:00 21:41 21:45 Temperature Heart Rate Heart Rate [ 81 75 71 Monitoring electrodes] Respiratory 22 Rate Blood Pressure Blood Pressure 100/71 101/56 L 96/59 L [Left Radial artery] O2 Saturation 100 02/06/20 02/06/20 02/06/20 21:50 21:55 22:00 Temperature Heart Rate Heart Rate [ 75 76 78 Monitoring electrodes] Respiratory 18 Rate Blood Pressure Blood Pressure 95/37 L 95/39 L 98/73 [Left Radial artery] O2 Saturation 97 02/06/20 02/06/20 02/06/20 22:15 22:30 22:45 Temperature Heart Rate Heart Rate [ 79 75 75 Monitoring electrodes] Respiratory Rate Blood Pressure Blood Pressure 102/50 L 112/71 97/53 L [Left Radial artery] O2 Saturation 02/06/20 02/06/20 02/06/20 23:00 23:10 23:15 Temperature 36.1 C L Heart Rate Heart Rate [ 74 74 72 Monitoring electrodes] Respiratory 24 Rate Blood Pressure Blood Pressure 103/48 L 94/58 L 107/54 L [Left Radial artery] O2 Saturation 98 02/06/20 02/06/20 02/06/20 23:25 23:35 23:45 Temperature Heart Rate Heart Rate [ 67 71 73 Monitoring electrodes] Respiratory Rate Blood Pressure Blood Pressure 92/57 L 94/45 L 97/62 [Left Radial artery] O2 Saturation 02/07/20 02/07/20 02/07/20 00:00 01:00 01:05 Temperature Heart Rate Heart Rate [ 71 69 64 Monitoring electrodes] Respiratory 18 20 Rate Blood Pressure Blood Pressure 88/40 L 100/48 L 94/50 L [Left Radial artery] O2 Saturation 99 100 02/07/20 02/07/20 02/07/20 01:10 01:15 01:30 Temperature Heart Rate Heart Rate [ 72 69 69 Monitoring electrodes] Respiratory Rate Blood Pressure Blood Pressure 88/42 L 83/53 L 83/41 L [Left Radial artery] O2 Saturation 02/07/20 02/07/20 02/07/20 01:45 02:00 02:15 Temperature Heart Rate Heart Rate [ 80 70 67 Monitoring electrodes] Respiratory 25 H Rate Blood Pressure Blood Pressure 127/56 L 114/91 H [Left Radial artery] O2 Saturation 98 02/07/20 02/07/20 02/07/20 03:00 03:54 04:21 Temperature 36.5 C Heart Rate Heart Rate [ 70 73 Monitoring electrodes] Respiratory 25 H 26 H Rate Blood Pressure Blood Pressure 122/100 H 100/66 [Left Radial artery] O2 Saturation 100 100 02/07/20 02/07/20 02/07/20 05:00 06:00 07:00 Temperature 35.6 C L Heart Rate 81 Heart Rate [ 68 75 78 Monitoring electrodes] Respiratory 22 19 25 H Rate Blood Pressure Blood Pressure 89/55 L 92/49 L 79/49 L [Left Radial artery] O2 Saturation 99 99 98 02/07/20 02/07/20 02/07/20 07:01 07:15 07:30 Temperature Heart Rate 82 79 81 Heart Rate [ Monitoring electrodes] Respiratory 25 H 23 28 H Rate Blood Pressure 79/49 L Blood Pressure [Left Radial artery] O2 Saturation 02/07/20 02/07/20 02/07/20 07:31 07:45 08:00 Temperature 37.0 C Heart Rate 83 79 83 Heart Rate [ 80 Monitoring electrodes] Respiratory 25 H 26 H 25 H Rate Blood Pressure 81/40 L Blood Pressure 135/68 H [Left Radial artery] O2 Saturation 98 02/07/20 02/07/20 02/07/20 08:01 08:02 08:15 Temperature Heart Rate 73 82 85 Heart Rate [ Monitoring electrodes] Respiratory 21 23 21 Rate Blood Pressure 135/68 H Blood Pressure [Left Radial artery] O2 Saturation 02/07/20 02/07/20 02/07/20 08:30 08:31 08:45 Temperature Heart Rate 81 87 75 Heart Rate [ Monitoring electrodes] Respiratory 23 21 20 Rate Blood Pressure 115/71 Blood Pressure [Left Radial artery] O2 Saturation 02/07/20 02/07/20 02/07/20 08:46 09:00 09:01 Temperature Heart Rate 75 85 73 Heart Rate [ 82 Monitoring electrodes] Respiratory 21 23 23 Rate Blood Pressure 117/77 125/88 H Blood Pressure 105/68 [Left Radial artery] O2 Saturation 92 02/07/20 02/07/20 02/07/20 09:15 09:16 09:30 Temperature Heart Rate 87 88 76 Heart Rate [ Monitoring electrodes] Respiratory 22 21 25 H Rate Blood Pressure 127/76 Blood Pressure [Left Radial artery] O2 Saturation 02/07/20 02/07/20 02/07/20 09:31 09:45 09:46 Temperature Heart Rate 85 72 85 Heart Rate [ Monitoring electrodes] Respiratory 23 21 22 Rate Blood Pressure 116/70 105/68 Blood Pressure [Left Radial artery] O2 Saturation 02/07/20 02/07/20 02/07/20 10:00 10:01 10:15 Temperature Heart Rate 86 80 88 Heart Rate [ 91 Monitoring electrodes] Respiratory 22 21 23 Rate Blood Pressure 118/78 Blood Pressure 115/44 L [Left Radial artery] O2 Saturation 98 02/07/20 02/07/20 02/07/20 10:16 10:30 10:31 Temperature Heart Rate 81 83 86 Heart Rate [ Monitoring electrodes] Respiratory 22 23 23 Rate Blood Pressure 111/89 H 115/44 L Blood Pressure [Left Radial artery] O2 Saturation 02/07/20 02/07/20 02/07/20 10:45 10:46 11:00 Temperature 36.4 C L Heart Rate 86 78 Heart Rate [ 75 Monitoring electrodes] Respiratory 22 22 19 Rate Blood Pressure Blood Pressure 92/71 [Left Radial artery] O2 Saturation 97 02/07/20 02/07/20 02/07/20 11:10 11:15 11:19 Temperature Heart Rate 87 83 74 Heart Rate [ Monitoring electrodes] Respiratory 24 22 24 Rate Blood Pressure Blood Pressure [Left Radial artery] O2 Saturation 02/07/20 02/07/20 02/07/20 11:20 11:30 11:31 Temperature Heart Rate 83 88 77 Heart Rate [ Monitoring electrodes] Respiratory 27 H 18 20 Rate Blood Pressure 102/77 73/40 L Blood Pressure [Left Radial artery] O2 Saturation 02/07/20 02/07/20 02/07/20 11:45 11:46 11:48 Temperature Heart Rate 81 74 83 Heart Rate [ Monitoring electrodes] Respiratory 19 19 18 Rate Blood Pressure Blood Pressure [Left Radial artery] O2 Saturation 02/07/20 02/07/20 02/07/20 11:49 12:00 12:01 Temperature 36.1 C L Heart Rate 71 77 74 Heart Rate [ 71 Monitoring electrodes] Respiratory 17 20 20 Rate Blood Pressure 92/71 90/45 L Blood Pressure 96/45 L [Left Radial artery] O2 Saturation 100 02/07/20 02/07/20 02/07/20 12:15 12:16 12:30 Temperature Heart Rate 74 79 79 Heart Rate [ Monitoring electrodes] Respiratory 21 19 20 Rate Blood Pressure 96/45 L Blood Pressure [Left Radial artery] O2 Saturation 02/07/20 02/07/20 02/07/20 12:31 12:45 12:46 Temperature Heart Rate 76 77 72 Heart Rate [ Monitoring electrodes] Respiratory 19 22 22 Rate Blood Pressure 83/68 L 84/51 L Blood Pressure [Left Radial artery] O2 Saturation 02/07/20 02/07/20 02/07/20 13:00 13:01 13:15 Temperature Heart Rate 78 83 72 Heart Rate [ 72 Monitoring electrodes] Respiratory 18 23 20 Rate Blood Pressure 88/60 L Blood Pressure 88/60 L [Left Radial artery] O2 Saturation 100 02/07/20 02/07/20 02/07/20 13:16 13:26 13:27 Temperature Heart Rate 74 76 79 Heart Rate [ Monitoring electrodes] Respiratory 19 18 19 Rate Blood Pressure 55/33 L Blood Pressure [Left Radial artery] O2 Saturation 02/07/20 02/07/20 02/07/20 13:30 13:31 13:45 Temperature Heart Rate 81 75 79 Heart Rate [ Monitoring electrodes] Respiratory 21 21 19 Rate Blood Pressure 84/63 L Blood Pressure [Left Radial artery] O2 Saturation 02/07/20 02/07/20 02/07/20 13:46 13:47 14:00 Temperature Heart Rate 79 81 87 Heart Rate [ 86 Monitoring electrodes] Respiratory 24 24 22 Rate Blood Pressure 97/85 H Blood Pressure 103/74 [Left Radial artery] O2 Saturation 98 02/07/20 02/07/20 02/07/20 14:01 14:15 14:30 Temperature Heart Rate 83 93 89 Heart Rate [ Monitoring electrodes] Respiratory 23 14 21 Rate Blood Pressure 103/74 Blood Pressure [Left Radial artery] O2 Saturation 02/07/20 02/07/20 02/07/20 14:45 15:00 15:13 Temperature Heart Rate 83 76 90 Heart Rate [ 87 Monitoring electrodes] Respiratory 19 17 20 Rate Blood Pressure Blood Pressure 106/56 L [Left Radial artery] O2 Saturation 100 02/07/20 02/07/20 02/07/20 15:14 15:15 15:16 Temperature Heart Rate 94 88 87 Heart Rate [ Monitoring electrodes] Respiratory 22 23 20 Rate Blood Pressure 106/56 L 114/80 Blood Pressure [Left Radial artery] O2 Saturation 02/07/20 02/07/20 02/07/20 15:30 15:31 15:45 Temperature Heart Rate 79 90 85 Heart Rate [ Monitoring electrodes] Respiratory 18 22 22 Rate Blood Pressure 107/72 Blood Pressure [Left Radial artery] O2 Saturation 02/07/20 02/07/20 02/07/20 16:00 16:01 16:15 Temperature 36.4 C L Heart Rate 90 81 82 Heart Rate [ 88 Monitoring electrodes] Respiratory 23 21 22 Rate Blood Pressure 113/55 L Blood Pressure 127/48 L [Left Radial artery] O2 Saturation 99 02/07/20 02/07/20 02/07/20 16:16 16:30 16:31 Temperature Heart Rate 85 81 78 Heart Rate [ Monitoring electrodes] Respiratory 22 22 21 Rate Blood Pressure 127/48 L 112/56 L Blood Pressure [Left Radial artery] O2 Saturation 02/07/20 02/07/20 02/07/20 16:45 16:46 17:00 Temperature Heart Rate 92 93 79 Heart Rate [ 82 Monitoring electrodes] Respiratory 25 H 21 25 H Rate Blood Pressure 92/55 L Blood Pressure 118/42 L [Left Radial artery] O2 Saturation 100 02/07/20 17:01 Temperature Heart Rate 84 Heart Rate [ Monitoring electrodes] Respiratory 23 Rate Blood Pressure 118/42 L Blood Pressure [Left Radial artery] O2 Saturation Oxygen O2 Source Room air I&O (Last 24 Hrs): Intake and Output Totals x24h 02/05/20 02/06/20 02/07/20 23:59 23:59 23:59 Intake Total 2900.369 2346.011 822.960 Output Total 360 216 117 Balance 2540.369 2130.011 705.960 General: Other (Lethargic) HEENT: Mucous membr. moist/pink, Other (eyes are nearly always closed) Neck: Supple Neuro: Other (Obtunded, severely weak overall, has resting tremor of hands R>L, cannot carry on a conversation) Cardiovascular: No murmurs, Other (Irreg) Respiratory: No respiratory distress, Breath sounds nml Abdomen: Soft, No tenderness Extremities: Other (2+ leg and arm edema) - Results Results: Laboratory Results WBC 7.9 x10^3/uL (4.8-10.8) 02/07/20 03:45 RBC 2.20 10^6/uL (4.20-5.40) L 02/07/20 03:45 Hgb 9.1 g/dL (12.0-16.0) L 02/07/20 03:45 Hct 28.2 % (37.0-47.0) L 02/07/20 03:45 MCV 128.2 fL (81.0-99.0) H 02/07/20 03:45 MCH 41.4 pg (27.0-31.0) H 02/07/20 03:45 MCHC 32.3 g/dL (32.0-36.0) 02/07/20 03:45 RDW 18.6 % (12.0-15.0) H 02/07/20 03:45 Plt Count 202 10^3/uL (130-450) 02/07/20 03:45 MPV 9.3 fL (7.9-10.8) 02/07/20 03:45 Neut # (Auto) 6.0 10^3/uL (1.5-6.6) 02/07/20 03:45 Lymph # (Auto) 0.9 10^3/uL (1.5-3.5) L 02/07/20 03:45 [place] # (Auto) 0.8 10^3/uL (0.0-1.0) 02/07/20 03:45 Eos # (Auto) 0.0 10^3/uL (0.0-0.7) 02/07/20 03:45 Baso # (Auto) 0.0 10^3/uL (0.0-0.1) 02/07/20 03:45 Absolute Nucleated RBC 0.42 x10^3/uL 02/07/20 03:45 Nucleated RBC % 5.3 /100WBC 02/07/20 03:45 Manual Slide Review Indicated 02/07/20 03:45 WBC Morphology NORMAL APPEARANCE (NORMAL) 02/06/20 04:30 Platelet Estimate NORMAL (130-450,000) (NORMAL) 02/07/20 03:45 Platelet Morphology NORMAL APPEARANCE (NORMAL) 02/07/20 03:45 RBC Morph Micro Appear 3+ MACROCYTOSIS (NORMAL) 1+ HYPOCHROMASIA (NORMAL) 02/04/20 04:30 RBC Morph Micro Appear 3+ MACROCYTOSIS (NORMAL) 1+ HYPOCHROMASIA (NORMAL) 02/04/20 04:30 RBC Morph Micro Appear 3+ MACROCYTOSIS (NORMAL) 1+ HYPOCHROMASIA (NORMAL) 02/05/20 04:30 RBC Morph Micro Appear 3+ MACROCYTOSIS (NORMAL) 1+ HYPOCHROMASIA (NORMAL) 02/05/20 04:30 RBC Morph Micro Appear 2+ HYPOCHROMASIA (NORMAL) 2+ MACROCYTOSIS (NORMAL) 1+ STOMATOCYTES (NORMAL) 02/06/20 04:30 RBC Morph Micro Appear 2+ HYPOCHROMASIA (NORMAL) 2+ MACROCYTOSIS (NORMAL) 1+ STOMATOCYTES (NORMAL) 02/06/20 04:30 RBC Morph Micro Appear 2+ HYPOCHROMASIA (NORMAL) 2+ MACROCYTOSIS (NORMAL) 1+ STOMATOCYTES (NORMAL) 02/06/20 04:30 RBC Morph Micro Appear 2+ MACROCYTOSIS (NORMAL) 2+ HYPOCHROMASIA (NORMAL) 02/07/20 03:45 RBC Morph Micro Appear 2+ MACROCYTOSIS (NORMAL) 2+ HYPOCHROMASIA (NORMAL) 02/07/20 03:45 PT 27.9 secs (9.9-12.6) H 01/29/20 08:00 INR 2.6 (0.8-1.2) H 01/29/20 08:00 VBG pH 7.331 (7.31-7.41) 02/07/20 03:45 VBG pCO2 33.9 mmHg (41-51) L 01/30/20 14:12 VBG pO2 38.2 mmHg (25-47) 01/30/20 14:12 VBG HCO3 21.4 mmol/L (23-28) L 01/30/20 14:12 VBG Total CO2 22.5 mmol/L (24-29) L 01/30/20 14:12 VBG O2 Saturation 72.5 % (60-80) 01/30/20 14:12 VBG Base Excess -2.3 mmol/L (-2 - +2) L 01/30/20 14:12 Ionized Calcium 1.21 mmol/L (1.15-1.33) 02/07/20 03:45 Sodium 135 mmol/L (135-145) 02/07/20 03:45 Potassium 5.1 mmol/L (3.5-5.0) H 02/07/20 03:45 Chloride 112 mmol/L (101-111) H 02/07/20 03:45 Carbon Dioxide 19 mmol/L (21-32) L 02/07/20 03:45 Anion Gap 4.0 (6-13) L 02/07/20 03:45 BUN 19 mg/dL (6-20) 02/07/20 03:45 Creatinine 1.3 mg/dL (0.4-1.0) H 02/07/20 03:45 Estimated GFR (MDRD) 39 (>89) L 02/07/20 03:45 Glucose 197 mg/dL (70-100) H 02/07/20 03:45 POC Whole Bld Glucose 188 mg/dL (70 - 100) H 02/07/20 16:40 Glycated Hemoglobin 5.4 % (4.6-6.2) 01/29/20 08:00 Estim Average Glucose 108 (70-100) H 01/29/20 08:00 Lactic Acid 1.6 mmol/L (0.5-2.2) 02/01/20 05:00 Calcium 8.3 mg/dL (8.5-10.3) L 02/07/20 03:45 Phosphorus 2.8 mg/dL (2.5-4.6) 02/07/20 03:45 Magnesium 2.3 mg/dL (1.7-2.8) 02/07/20 03:45 Iron 87 ug/dL (28-170) 02/03/20 04:40 TIBC 136 ug/dL (250-450) L 02/03/20 04:40 % Saturation 64 % (20-50) H 02/03/20 04:40 Transferrin 97 mg/dL (192-382) L 02/03/20 04:40 Total Bilirubin 2.1 mg/dL (0.2-1.0) H 02/07/20 03:45 Direct Bilirubin 0.7 mg/dL (0.1-0.5) H 02/05/20 14:20 AST 62 IU/L (10-42) H 02/07/20 03:45 ALT 37 IU/L (10-60) 02/07/20 03:45 Alkaline Phosphatase 257 IU/L (42-121) H 02/07/20 03:45 Ammonia 41.7 umol/L (7-35) H 02/07/20 03:45 Total Creatine Kinase 92 IU/L (22-269) 01/28/20 15:42 Troponin I High Sens 16.0 ng/L (2.3-14.8) H* 01/29/20 12:39 C-Reactive Protein 3.3 mg/dL (0-1.0) H 01/29/20 12:39 B-Natriuretic Peptide 271 pg/mL (5-100) H 01/28/20 14:26 Total Protein 4.8 g/dL (6.7-8.2) L 02/07/20 03:45 Albumin 2.0 g/dL (3.2-5.5) L 02/07/20 03:45 Globulin 2.8 g/dL (2.1-4.2) 02/07/20 03:45 Albumin/Globulin Ratio 0.7 (1.0-2.2) L 02/07/20 03:45 Lipase 32 U/L (22-51) 01/28/20 14:25 Vitamin B12 1186 pg/mL (180-914) H 02/01/20 05:00 Folate 9.27 ng/mL (5.90 - >24.8) 02/01/20 05:00 TSH 11.32 uIU/mL (0.34-5.60) H 01/28/20 14:25 Cortisol AM Sample 17.4 ug/dL 01/30/20 08:00 Urine Color ORANGE 01/28/20 17:27 Urine Clarity HAZY (CLEAR) 01/28/20 17:27 Urine pH 5.0 PH (5.0-7.5) 01/28/20 17:27 Ur Specific [place] 1.025 (1.002-1.030) 01/28/20 17:27 Urine Protein NEGATIVE mg/dL (NEGATIVE) 01/28/20 17: Urine Glucose (UA) NEGATIVE mg/dL (NEGATIVE) 01/28/20 17: Urine Ketones NEGATIVE mg/dL (NEGATIVE) 01/28/20 17: Urine Occult Blood NEGATIVE (NEGATIVE) 01/28/20 17: Urine Nitrite NEGATIVE (NEGATIVE) 01/28/20 17: Urine Bilirubin NEGATIVE (NEGATIVE) 01/28/20 17:27 Urine Urobilinogen 0.2 (NORMAL) E.U./dL (NORMAL) 01/28/20 17:27 Ur Leukocyte Esterase NEGATIVE (NEGATIVE) 01/28/20 17:27 Urine RBC None Seen /HPF (0-5) 01/28/20 17:27 Urine WBC 0-3 /HPF (0-5) 01/28/20 17:27 Ur Squamous Epith Cells MANY Squamous (<= Few) H 01/28/20 17:27 Urine Crystals 26-50 Ca Oxalate /LPF 01/28/20 17:27 Amorphous Sediment Rare /LPF 01/28/20 17:27 Urine Bacteria Many /HPF (None Seen) H 01/28/20 17:27 Urine Osmolality 392 mOsm/kg (50-1200) 01/28/20 17:27 Ur Random Chloride < 14 mmol/L 01/28/20 17:27 Urine Creatinine 163.2 mg/dL 01/28/20 17:27 Urine Sodium < 12.0 mmol/L 01/28/20 17:27 Nasal Screen MRSA (PCR) NEGATIVE (NEGATIVE) 01/29/20 14:30 Stl C. diff Tox B Gene NEGATIVE (NEGATIVE) 02/02/20 13:00 Last Dose Date UNK 02/01/20 13:36 Last Dose Time UNK 02/01/20 13:36 Vancomycin Trough 20.8 ug/mL (10.0-20.0) H 02/01/20 13:36
[2020-02-08] MEDS: SODIUM CHLORIDE FLUSH 0.9% 10 ML SYRINGE IVP SCH ×3 (01:59→18:13)
[2020-02-08] MEDS: HYDROCORTISONE SUCCINATE 100 MG/2 ML VIAL IVP SCH ×2 (04:00→18:10)
[2020-02-08 04:59] LABS: BASOPHILS % (AUTO) 0.2 %
[2020-02-08 05:00] LABS: VBG PH 7.306 (7.31-7.41)
[2020-02-08 05:01] LABS: HGB - HEMOGLOBIN 9.6 g/dL (12.0-16.0); LYMPHOCYTES % (AUTO) 7.6 %; MEAN CORPUSCULAR HEMOGLOBIN 42.5 pg (27.0-31.0); MEAN CORPUSCULAR HGB CONC 32.2 g/dL (32.0-36.0); MEAN CORPUSCULAR VOLUME 131.9 fL (81.0-99.0); MEAN PLATELET VOLUME 9.4 fL (7.9-10.8); MONOCYTES % (AUTO) 10.8 %; NEUTROPHILS % (AUTO) 77.9 %; PLT - PLATELET COUNT 223 10^3/uL (130-450); RED BLOOD COUNT 2.26 10^6/uL (4.20-5.40); RED CELL DISTRIBUTION WIDTH 18.9 % (12.0-15.0)
[2020-02-08 05:02] LABS: ABNORMAL LYMPHS % (MANUAL) 0 %; BAND NEUTROPHILS % (MANUAL) 0 %
[2020-02-08 05:12] LABS: ALBUMIN/GLOBULIN RATIO 0.7 (1.0-2.2); BILIRUBIN,TOTAL 2.1 mg/dL (0.2-1.0); CALCIUM 8.5 mg/dL (8.5-10.3); CREATININE 1.9 mg/dL (0.4-1.0); MAGNESIUM 2.1 mg/dL (1.7-2.8); PHOSPHORUS 3.8 mg/dL (2.5-4.6); TOTAL PROTEIN 4.7 g/dL (6.7-8.2)
[2020-02-08 05:18] LABS: LYMPHOCYTES # (MANUAL) 0.9 10^3/uL (1.5-3.5); LYMPHOCYTES % (MANUAL) 11 %; METAMYELOCYTES % (MANUAL) 1 %; MONOCYTES # (MANUAL) 0.4 10^3/uL (0.0-1.0); MYELOCYTES % (MANUAL) 1 %
[2020-02-08 05:23] LABS: DIFFERENTIAL COMMENT MANUAL DIFFERENTIAL; PLATELET ESTIMATE, MANUAL NORMAL (130-450,000) (NORMAL); PLATELET MORPHOLOGY NORMAL APPEARANCE (NORMAL)
[2020-02-08] MEDS: LEVOTHYROXINE 88 MCG TABLET PO SCH (06:44)
--- NOTE | 2020-02-08 07:56 | PROVIDER PROGRESS NOTE ---
Subjective - Prog Note Date Prog Note Date: 02/08/20 - Subjective Subjective: She remains quite lethargic. She will speak intermittently although what she says not always coherent. She denies pain today. She states her goal is to be at home and to be comfortable/happy with her spouse. Reports no dyspnea. Current Medications - Current Medications Current Medications: Active Medications Cyanocobalamin (Vitamin B-12) 500 mcg PO BID [facility] Last Admin: 02/07/20 21:24 Dose: 500 mcg Heparin Sodium (Beef Lung) () 30 - 50 unit IVP PRN PRN PRN Reason: Central Line Protocol (<24 hr) Last Admin: 02/07/20 08:25 Dose: 50 unit Hydrocortisone Sodium Succinate (Solu-Cortef) 50 mg IVP Q12H [facility] Norepinephrine Bitartrate 8 mg (/ Dextrose) 250 mls @ 15 mls/hr IV .[id number] [facility]; Protocol Last Titration: 02/07/20 17:06 Dose: 0 mcg/min, 0 mls/hr Sodium Chloride (Normal Saline 0.9%) 500 mls @ 0 mls/hr IV Q24H PRN PRN Reason: TKO RATE Last Infusion: 02/04/20 18:29 Dose: Infused Sodium Chloride (Normal Saline 0.9%) 1,000 mls @ 60 mls/hr IV .[id number] [facility] Last Admin: 02/07/20 22:21 Dose: 60 mls/hr Insulin Aspart (Novolog) 2 - 10 unit SUBQ 0800,1200,1700,2100 [facility]; Protocol Last Admin: 02/07/20 21:24 Dose: 4 unit Lactulose (Enulose) 10 gm PO TIDWM [facility] Last Admin: 02/07/20 17:12 Dose: 10 gm Levothyroxine Sodium (Synthroid) 88 mcg PO QDAC [facility] Last Admin: 02/08/20 06:44 Dose: Not Given Magnesium Oxide (Mag Ox) 400 mg PO DAILYWM [facility] Last Admin: 02/07/20 08:18 Dose: 400 mg Midodrine () 10 mg PO TIDWM [facility] Last Admin: 02/07/20 17:07 Dose: 10 mg Mineral Oil (Cavilon) 1 applic TOP PRN PRN PRN Reason: Skin Care Last Admin: 02/07/20 04:23 Dose: 1 applic Multi-Ingredient Ointment (Zinc Oxide) 1 applic TOP PRN PRN PRN Reason: Skin Care Last Admin: 02/03/20 20:00 Dose: 1 applic Nystatin (Nystop) 1 applic TOP BID [facility] Last Admin: 02/07/20 21:25 Dose: 1 applic Potassium Chloride () 40 meq PO DAILYWM [facility] Last Admin: 02/07/20 08:20 Dose: Not Given Multivit/Folic Acid/Iron (Trinatal Rx 1) 1 tab PO DAILYWM [facility] Last Admin: 02/07/20 08:19 Dose: 1 tab Rivaroxaban (Xarelto) 20 mg PO 1700 [facility] Last Admin: 02/07/20 17:09 Dose: 20 mg Saccharomyces Boulardii (Florastor) 250 mg PO BIDWM [facility] Last Admin: 02/07/20 17:10 Dose: 250 mg Sodium Chloride (Normal Saline Flush 0.9%) 10 ml IVP PRN PRN PRN Reason: NEEDED PER PROVIDER ORDERS Last Admin: 02/07/20 03:49 Dose: 10 ml Sodium Chloride (Normal Saline Flush 0.9%) 10 ml IVP 0100,0900,1700 [facility] Last Admin: 02/08/20 01:59 Dose: 10 ml Sodium Chloride (Normal Saline Flush 0.9%) 20 ml IVP PRN PRN PRN Reason: After Blood Draw Last Admin: 02/07/20 03:49 Dose: 20 ml Thiamine HCl (Vitamin B-1) 100 mg PO DAILY [facility] Last Admin: 02/07/20 08:18 Dose: 100 mg Zinc Sulfate () 220 mg PO DAILY [facility] Last Admin: 02/07/20 08:22 Dose: 220 mg Furosemide 20 mg DAILY 05/02/15 Rivaroxaban [Xarelto] 20 mg PO QDDINNER 05/02/15 Simvastatin 40 mg PO QPM 05/02/15 Spironolactone 25 mg PO DAILY 05/02/15 Insulin Glargine [Lantus Solostar] 6 unit SUBQ QPM 01/28/20 Insulin Lispro [Humalog Kwikpen U-100] 3 unit SUBQ TIDWM 01/28/20 Levothyroxine Sodium 75 mcg PO QDAC 01/28/20 Metoprolol Succinate 50 mg PO DAILY 01/28/20 Objective - Vital Signs/Intake & Output Reviewed Vital Signs: Yes Vital Signs: Vital Signs Temp Pulse Resp BP Pulse Ox 02/08/20 07:00 91 20 110/74 99 02/08/20 06:00 85 22 122/81 H 99 02/08/20 05:00 80 18 114/78 99 02/08/20 04:00 36.3 C L 78 14 107/65 98 Intake & Output: Intake & Output 02/05/20 02/06/20 02/07/20 02/08/20 23:59 23:59 23:59 23:59 Intake Total 2900.369 2346.011 2063.960 Output Total 360 216 134 29 Balance 2540.369 2130.011 1929.960 -29 - Objective General Appearance: positive: No acute distress, Lethargic (She will open her eyes and speak at times but is quite lethargic.) Eyes Bilateral: positive: Normal inspection, Conjunctivae nml ENT: positive: ENT inspection nml Neck: positive: Nml inspection Respiratory: positive: No respiratory distress. negative: Wheezes, Rales Cardiovascular: positive: No murmur, Irregularly irregular. negative: Tachycardia, Bradycardia Abdomen: positive: Non-tender, No distention Skin: positive: Warm, Dry, Other (Bandages in place over her lower extremities) Extremities: positive: Pedal edema (Trace pitting edema in her bilateral lower extremities) Neurologic/Psychiatric: positive: Other (He is oriented to self, location, year but not to month. She does recognize her spouse at bedside.). negative: Disoriented to person, Disoriented to place - Lab Results Fish Bones: 02/08/20 04:45 02/08/20 14:24 Other Labs: Lab Results x24hrs 02/08/20 02/08/20 02/08/20 Range/Units 04:45 04:45 04:45 WBC (4.8-10.8) x10^3/uL RBC (4.20-5.40) 10^6/uL Hgb (12.0-16.0) g/dL Hct (37.0-47.0) % MCV (81.0-99.0) fL MCH (27.0-31.0) pg MCHC (32.0-36.0) g/dL RDW (12.0-15.0) % Plt Count (130-450) 10^3/uL MPV (7.9-10.8) fL Neut # (Auto) Lymph # (Auto) [place] # (Auto) Eos # (Auto) Baso # (Auto) Absolute Nucleated RBC Total Counted Band Neuts % (Manual) (0 - 10) % Abnorm Lymph % (Manual) % Metamyelocytes % ( - 0) % Myelocytes % ( - 0) % Nucleated RBC % Neutrophils # (Manual) (1.5-6.6) 10^3/uL Lymphocytes # (Manual) (1.5-3.5) 10^3/uL Monocytes # (Manual) (0.0-1.0) 10^3/uL Eosinophils # (Manual) (0-0.7) 10^3/uL Basophils # (Manual) (0-0.1) 10^3/uL Nucleated RBCs % Differential Comment WBC Morphology (NORMAL) Platelet Estimate (NORMAL) Platelet Morphology (NORMAL) RBC Morph Micro Appear (NORMAL) VBG pH 7.306 L (7.31-7.41) Ionized Calcium 1.24 (1.15-1.33) mmol/L Sodium 137 (135-145) mmol/L Potassium 4.8 (3.5-5.0) mmol/L Chloride 114 H (101-111) mmol/L Carbon Dioxide 18 L (21-32) mmol/L Anion Gap 5.0 L (6-13) BUN 29 H (6-20) mg/dL Creatinine 1.9 H (0.4-1.0) mg/dL Estimated GFR (MDRD) 25 L (>89) Glucose 217 H (70-100) mg/dL POC Whole Bld Glucose (70 - 100) mg/dL Calcium 8.5 (8.5-10.3) mg/dL Phosphorus 3.8 (2.5-4.6) mg/dL Magnesium 2.1 (1.7-2.8) mg/dL Total Bilirubin 2.1 H (0.2-1.0) mg/dL AST 67 H (10-42) IU/L ALT 42 (10-60) IU/L Alkaline Phosphatase 267 H (42-121) IU/L Ammonia 42.7 H (7-35) umol/L Total Protein 4.7 L (6.7-8.2) g/dL Albumin 2.0 L (3.2-5.5) g/dL Globulin 2.7 (2.1-4.2) g/dL Albumin/Globulin Ratio 0.7 L (1.0-2.2) 02/08/20 02/07/20 02/07/20 Range/Units 04:45 21:13 16:40 WBC 8.0 (4.8-10.8) x10^3/uL RBC 2.26 L (4.20-5.40) 10^6/uL Hgb 9.6 L (12.0-16.0) g/dL Hct 29.8 L (37.0-47.0) % MCV 131.9 H (81.0-99.0) fL MCH 42.5 H (27.0-31.0) pg MCHC 32.2 (32.0-36.0) g/dL RDW 18.9 H (12.0-15.0) % Plt Count 223 (130-450) 10^3/uL MPV 9.4 (7.9-10.8) fL Neut # (Auto) Not Reportable Lymph # (Auto) Not Reportable [place] # (Auto) Not Reportable Eos # (Auto) Not Reportable Baso # (Auto) Not Reportable Absolute Nucleated RBC Not Reportable Total Counted 100 Band Neuts % (Manual) 0 (0 - 10) % Abnorm Lymph % (Manual) 0 % Metamyelocytes % 1 H ( - 0) % Myelocytes % 1 H ( - 0) % Nucleated RBC % Not Reportable Neutrophils # (Manual) 6.6 (1.5-6.6) 10^3/uL Lymphocytes # (Manual) 0.9 L (1.5-3.5) 10^3/uL Monocytes # (Manual) 0.4 (0.0-1.0) 10^3/uL Eosinophils # (Manual) 0.0 (0-0.7) 10^3/uL Basophils # (Manual) 0.0 (0-0.1) 10^3/uL Nucleated RBCs 8 % Differential Comment MANUAL DIFFERENTIAL WBC Morphology NORMAL APPEARANCE (NORMAL) Platelet Estimate NORMAL (130-450,000) (NORMAL) Platelet Morphology NORMAL APPEARANCE (NORMAL) RBC Morph Micro Appear 2+ HYPOCHROMASIA (NORMAL) VBG pH (7.31-7.41) Ionized Calcium (1.15-1.33) mmol/L Sodium (135-145) mmol/L Potassium (3.5-5.0) mmol/L Chloride (101-111) mmol/L Carbon Dioxide (21-32) mmol/L Anion Gap (6-13) BUN (6-20) mg/dL Creatinine (0.4-1.0) mg/dL Estimated GFR (MDRD) (>89) Glucose (70-100) mg/dL POC Whole Bld Glucose 189 H 188 H (70 - 100) mg/dL Calcium (8.5-10.3) mg/dL Phosphorus (2.5-4.6) mg/dL Magnesium (1.7-2.8) mg/dL Total Bilirubin (0.2-1.0) mg/dL AST (10-42) IU/L ALT (10-60) IU/L Alkaline Phosphatase (42-121) IU/L Ammonia (7-35) umol/L Total Protein (6.7-8.2) g/dL Albumin (3.2-5.5) g/dL Globulin (2.1-4.2) g/dL Albumin/Globulin Ratio (1.0-2.2) 02/07/20 02/07/20 Range/Units 11:51 08:10 WBC (4.8-10.8) x10^3/uL RBC (4.20-5.40) 10^6/uL Hgb (12.0-16.0) g/dL Hct (37.0-47.0) % MCV (81.0-99.0) fL MCH (27.0-31.0) pg MCHC (32.0-36.0) g/dL RDW (12.0-15.0) % Plt Count (130-450) 10^3/uL MPV (7.9-10.8) fL Neut # (Auto) Lymph # (Auto) [place] # (Auto) Eos # (Auto) Baso # (Auto) Absolute Nucleated RBC Total Counted Band Neuts % (Manual) (0 - 10) % Abnorm Lymph % (Manual) % Metamyelocytes % ( - 0) % Myelocytes % ( - 0) % Nucleated RBC % Neutrophils # (Manual) (1.5-6.6) 10^3/uL Lymphocytes # (Manual) (1.5-3.5) 10^3/uL Monocytes # (Manual) (0.0-1.0) 10^3/uL Eosinophils # (Manual) (0-0.7) 10^3/uL Basophils # (Manual) (0-0.1) 10^3/uL Nucleated RBCs % Differential Comment WBC Morphology (NORMAL) Platelet Estimate (NORMAL) Platelet Morphology (NORMAL) RBC Morph Micro Appear (NORMAL) VBG pH (7.31-7.41) Ionized Calcium (1.15-1.33) mmol/L Sodium (135-145) mmol/L Potassium (3.5-5.0) mmol/L Chloride (101-111) mmol/L Carbon Dioxide (21-32) mmol/L Anion Gap (6-13) BUN (6-20) mg/dL Creatinine (0.4-1.0) mg/dL Estimated GFR (MDRD) (>89) Glucose (70-100) mg/dL POC Whole Bld Glucose 181 H 159 H (70 - 100) mg/dL Calcium (8.5-10.3) mg/dL Phosphorus (2.5-4.6) mg/dL Magnesium (1.7-2.8) mg/dL Total Bilirubin (0.2-1.0) mg/dL AST (10-42) IU/L ALT (10-60) IU/L Alkaline Phosphatase (42-121) IU/L Ammonia (7-35) umol/L Total Protein (6.7-8.2) g/dL Albumin (3.2-5.5) g/dL Globulin (2.1-4.2) g/dL Albumin/Globulin Ratio (1.0-2.2) Assessment/Plan - Problem List (1) Hypotension Impression: She is now off of norepinephrine. She remains on midodrine with systolic in the 120s. It is believed that her hypotension is related to her liver failure here and inability to clear vasodilators such as nitrous oxide. Given her persistent lethargy underlying liver disease and overall poor prognosis, her felt that the patient should be a DNR/DNI. Was able to discuss with the patient today and she stated her goal was to get better but the most important thing for her was to be home and happy/comfortable. We did discuss briefly her overall guarded prognosis. The patient once again stated the most important thing is to be home. I discussed with her about what medications to discharge her home on tomorrow as she will be admitted under hospice care. He would like to continue midodrine on discharge. Today, we will transfer to the medical surgical floor and hope to discharge her tomorrow on hospice. (2) Hepatic encephalopathy Impression: It was felt that her lethargy was related to hepatic encephalopathy given her elevated ammonia. There is also likely component of her being deconditioned given her prolonged hospitalization. She will continue on lactulose for the time being. Will discuss with the tomorrow about discharging her on lactulose given she will be admitted under hospice care (3) DEIDRA (acute kidney injury) Impression: She has developed renal failure overnight and her creatinine this morning is increased at 1.9. Etiology is not clear as her blood pressure has been stable with no episodes of hypotension overnight. Given she will be admitted under hospice tomorrow, we will start her on maintenance IV fluids but perform no further work-up. (4) Abnormal LFTs Impression: Secondary to her alcohol use and she likely has underlying liver dysfunction contributing to her hypotension. (5) Alcohol use disorder Impression: This is the cause of her underlying liver disease. She did not go through withdrawal during this hospitalization. (6) Type 2 diabetes mellitus treated with insulin Impression: She was on insulin prior to admission and her A1c is 4 5.4%. We will discharge her on no insulin. (7) Chronic atrial fibrillation Impression: She remains rate controlled off of metoprolol. We will not discharge her on Xarelto and you need to hold her metoprolol given the hypotension and that she requires midodrine. (8) Hypothyroidism Impression: Her Synthroid dose has been increased and we will continue this on discharge tomorrow. (9) Moderate protein-calorie malnutrition Impression: Continue to encourage oral intake. (10) Skin tear of lower leg without complication Impression: This is secondary to lower extremity edema due to her cirrhosis. Continue with dressing changes. (11) Macrocytic anemia Impression: She has macrocytic anemia secondary to her alcohol use. Her hemoglobin has been stable without evidence of bleeding. (12) Anasarca Impression: Likely secondary to her liver dysfunction and the amount of IV fluid she receive d for her hypotension
[2020-02-08] MEDS: INSULIN ASPART 300 UNIT/3 ML PEN SUBQ SCH ×3 (09:29→17:45)
[2020-02-08] MEDS: SACCHAROMYCES BOULARDII 250 MG CAPSULE PO SCH ×2 (09:35→18:13)
[2020-02-08] MEDS: PRENATAL VITAMIN TABLET PO SCH (09:36)
[2020-02-08] MEDS: MIDODRINE 2.5 MG TABLET PO SCH ×2 (09:36→17:46)
[2020-02-08] MEDS: ZINC SULFATE 220 MG CAPSULE PO SCH (09:50)
[2020-02-08] MEDS: THIAMINE 100 MG TABLET PO SCH (09:50)
[2020-02-08] MEDS: MAGNESIUM OXIDE 400 MG TABLET PO SCH (09:50)
[2020-02-08] MEDS: CYANOCOBALAMIN 500 MCG TABLET PO SCH ×2 (09:51→20:29)
[2020-02-08] MEDS: LACTULOSE 10 GM /15 ML UDC PO SCH ×4 (09:52→18:13)
[2020-02-08] MEDS: POTASSIUM CHLORIDE 20 MEQ/15 ML UDC PO SCH ×2 (09:55→17:45)
--- NOTE | 2020-02-08 11:04 | CONSULTATION NOTE ---
Palliative Care Follow Up - Referral Referring Provider: Dr. Mary Saavedra Time of Visit: 11 Referral setting: Hospitalized patient Referral Reason: Liver Failure/FTT/Goals of Care - Information Sources Records reviewed: RN notes reviewed, Previous records reviewed History/Review of Systems obtained from: Patient, Nursing Exam limitations: Clinical condition (patient lethargic but able to engage in short conversation) - History of Present Illness Update Brief HPI Update: Please see HPI 02/06. This is an 84-year-old woman who has continued to have a complicated course, presenting with worsening renal function, functional decline, is currently off Norepinephrine drip. She is just taking few sips of water and bites, continues to struggle with dysphagia. Patient is still fairly lethargic, but able to engage in conversation, though drifts off easily. She continues to be high risk for transitioning to end-of-life event, both patient's and 's goal is for her to transition home. Social History - Living Situation Living arrangement: At home Living Situation: With spouse/s.o. Support System: Patient's Leonel, is appropriately tearful on the phone, is putting together caregiving team, is interviewing couple today. He has "reservation" with Katrina MENDENHALL for paid caregivers. They have been together for 25 years, and he does understand the seriousness of her illness, but is hoping however home at least for her end-of-life. Medications/Allergies - Medications Active Medication List: Active Medications Cyanocobalamin (Vitamin B-12) 500 mcg PO BID [facility]O Last Admin: 02/08/20 09:51 Dose: 500 mcg Heparin Sodium (Beef Lung) () 30 - 50 unit IVP PRN PRN PRN Reason: Central Line Protocol (<24 hr) Last Admin: 02/07/20 08:25 Dose: 50 unit Hydrocortisone Sodium Succinate (Solu-Cortef) 50 mg IVP Q12H [facility]O Norepinephrine Bitartrate 8 mg (/ Dextrose) 250 mls @ 15 mls/hr IV .[id number] [facility]O; Protocol Last Titration: 02/07/20 17:06 Dose: 0 mcg/min, 0 mls/hr Insulin Aspart (Novolog) 2 - 10 unit SUBQ 0800,1200,1700,2100 [facility]; Protocol Last Admin: 02/08/20 09:29 Dose: 4 unit Lactulose (Enulose) 10 gm PO TIDWM [facility] Last Admin: 02/08/20 09:52 Dose: 10 gm Levothyroxine Sodium (Synthroid) 88 mcg PO QDAC [facility] Last Admin: 02/08/20 06:44 Dose: Not Given Magnesium Oxide (Mag Ox) 400 mg PO DAILYWM [facility] Last Admin: 02/08/20 09:50 Dose: 400 mg Midodrine () 10 mg PO TIDWM [facility] Last Admin: 02/08/20 09:36 Dose: 10 mg Mineral Oil (Cavilon) 1 applic TOP PRN PRN PRN Reason: Skin Care Last Admin: 02/07/20 04:23 Dose: 1 applic Multi-Ingredient Ointment (Zinc Oxide) 1 applic TOP PRN PRN PRN Reason: Skin Care Last Admin: 02/03/20 20:00 Dose: 1 applic Nystatin (Nystop) 1 applic TOP BID [facility] Last Admin: 02/07/20 21:25 Dose: 1 applic Potassium Chloride () 40 meq PO DAILYWM [facility] Last Admin: 02/08/20 09:55 Dose: 40 meq Multivit/Folic Acid/Iron (Trinatal Rx 1) 1 tab PO DAILYWM [facility] Last Admin: 02/08/20 09:36 Dose: 1 tab Rivaroxaban (Xarelto) 20 mg PO 1700 [facility] Last Admin: 02/07/20 17:09 Dose: 20 mg Saccharomyces Boulardii (Florastor) 250 mg PO BIDWM [facility] Last Admin: 02/08/20 09:35 Dose: 250 mg Sodium Chloride (Normal Saline Flush 0.9%) 10 ml IVP PRN PRN PRN Reason: NEEDED PER PROVIDER ORDERS Last Admin: 02/07/20 03:49 Dose: 10 ml Sodium Chloride (Normal Saline Flush 0.9%) 10 ml IVP 0100,0900,1700 [facility] Last Admin: 02/08/20 01:59 Dose: 10 ml Sodium Chloride (Normal Saline Flush 0.9%) 20 ml IVP PRN PRN PRN Reason: After Blood Draw Last Admin: 02/07/20 03:49 Dose: 20 ml Thiamine HCl (Vitamin B-1) 100 mg PO DAILY [facility] Last Admin: 02/08/20 09:50 Dose: 100 mg Zinc Sulfate () 220 mg PO DAILY [facility] Last Admin: 02/08/20 09:50 Dose: 220 mg Furosemide 20 mg DAILY 05/02/15 Rivaroxaban [Xarelto] 20 mg PO QDDINNER 05/02/15 Simvastatin 40 mg PO QPM 05/02/15 Spironolactone 25 mg PO DAILY 05/02/15 Insulin Glargine [Lantus Solostar] 6 unit SUBQ QPM 01/28/20 Insulin Lispro [Humalog Kwikpen U-100] 3 unit SUBQ TIDWM 01/28/20 Levothyroxine Sodium 75 mcg PO QDAC 01/28/20 Metoprolol Succinate 50 mg PO DAILY 01/28/20 - Allergies Allergies/Adverse Reactions: Allergies Allergy/AdvReac Type Severity Reaction Status Date / Time No Known Drug Allergies Allergy Verified 01/28/20 13:40 Review of Systems - Constitutional Constitutional: reports: Fatigue. denies: Fever - Ears, Nose & Throat Ears, Nose & Throat: reports: Dry mouth - Cardiovascular Cardiovascular: reports: Edema - Respiratory Respiratory: denies: SOB at rest - Gastrointestinal Gastrointestinal: reports: Other (difficulty taking food/fluids). denies: Constipation (02/07) - Genitourinary Genitourinary: reports: Other (has العلي catheter) - Musculoskeletal Musculoskeletal: reports: Back pain, Muscle aches, Stiffness, Muscle weakness - Integumentary Integumentary: reports: Rash, Dryness, Other (bruising) - Neurological Neurological: reports: General weakness, Memory problems, Slurred speech - Psychiatric Psychiatric: reports: Depression, Anxiety - Hematologic/Lymphatic Hematologic/Lymphatic: reports: Anemia - All Other Systems All Other Systems: reports: Other (limited ROS) Physical Exam - Vital Signs Vital Signs: Vital Signs x48h Temp Pulse Resp BP Pulse Ox 02/08/20 10:00 84 21 108/61 98 02/08/20 09:00 36.4 C L 86 21 113/74 98 02/08/20 08:00 36.4 C L 76 19 106/75 98 02/08/20 07:00 91 20 110/74 99 02/08/20 06:00 85 22 122/81 H 99 02/08/20 05:00 80 18 114/78 99 02/08/20 04:00 36.3 C L 78 14 107/65 98 - Physical Exam General Appearance: positive: Moderate distress (with repositioning/movement), Anxious, Lethargic Eyes Bilateral: positive: Other (partially opens; difficulty focusing) Neck: positive: Trachea midline Cardiovascular: positive: Tachycardia Respiratory: positive: No respiratory distress Abdomen: positive: Soft, Tenderness, Obese Skin: positive: Dryness, Bruising Extremities: positive: Pedal edema (weeping consistenly; one open area both sides; needing to change wraps frequently through shift), Other (anasarca; UE swelling) Neurologic/Psychiatric: positive: Disoriented to time, Depressed mood/affect, Flat affect Palliative Care - POLST Patient has POLST: Yes POLST Status: DNR, Comfort Measures (discussed with need for new form to reflect current goals; filled out and left) Pain: Pain worsening, Comment (Patient still calls out with any kind of movement or repositioning. She is very happy when told she does not need to get into the sling, patient to remain bedbound, will be most comfortable for her. She does bruise easily, has skin tears, and very fragile skin. At high risk for further trauma.) Sleep: Sleep improved - Palliative Care Discussion: Patient only able to partially participate, but was able to understand going home, and seemed genuinely happy about this. We talked about was hiring help, we would focus on keeping her comfortable, and did not need to go in lift could stay in bed. This causes her significant amount of distress. Did share she would be getting support from nurses and hospice team so she could be as comfortable as possible. Did seem to acknowledge this. Spoke with who is currently arranging for care, aware hospice to be in contact regarding bed. Recommended to accept given patients care needs and need to have ability to change positions etc. for care and comfort. Reviewed most likely again, days most likely but hoping for time at home to enjoy time. He is planning to come in, will leave COMFORT CARE/DNAR new POLST is aware here for him, will need for ambulance transfer. Concern remains on patients fragile condition and probable on going decline. Results - Lab Results Lab results reviewed: Yes Fish Bones: 02/08/20 04:45 02/08/20 14:24 Lab and Imaging Results: Lab Results x24hrs 02/08/20 02/08/20 02/08/20 Range/Units 08:20 04:45 04:45 WBC (4.8-10.8) x10^3/uL RBC (4.20-5.40) 10^6/uL Hgb (12.0-16.0) g/dL Hct (37.0-47.0) % MCV (81.0-99.0) fL MCH (27.0-31.0) pg MCHC (32.0-36.0) g/dL RDW (12.0-15.0) % Plt Count (130-450) 10^3/uL MPV (7.9-10.8) fL Neut # (Auto) Lymph # (Auto) Alpine # (Auto) Eos # (Auto) Baso # (Auto) Absolute Nucleated RBC Total Counted Band Neuts % (Manual) (0 - 10) % Abnorm Lymph % (Manual) % Metamyelocytes % ( - 0) % Myelocytes % ( - 0) % Nucleated RBC % Neutrophils # (Manual) (1.5-6.6) 10^3/uL Lymphocytes # (Manual) (1.5-3.5) 10^3/uL Monocytes # (Manual) (0.0-1.0) 10^3/uL Eosinophils # (Manual) (0-0.7) 10^3/uL Basophils # (Manual) (0-0.1) 10^3/uL Nucleated RBCs % Differential Comment WBC Morphology (NORMAL) Platelet Estimate (NORMAL) Platelet Morphology (NORMAL) RBC Morph Micro Appear (NORMAL) VBG pH 7.306 L (7.31-7.41) Ionized Calcium 1.24 (1.15-1.33) mmol/L Sodium (135-145) mmol/L Potassium (3.5-5.0) mmol/L Chloride (101-111) mmol/L Carbon Dioxide (21-32) mmol/L Anion Gap (6-13) BUN (6-20) mg/dL Creatinine (0.4-1.0) mg/dL Estimated GFR (MDRD) (>89) Glucose (70-100) mg/dL POC Whole Bld Glucose 189 H (70 - 100) mg/dL Calcium (8.5-10.3) mg/dL Phosphorus (2.5-4.6) mg/dL Magnesium (1.7-2.8) mg/dL Total Bilirubin (0.2-1.0) mg/dL AST (10-42) IU/L ALT (10-60) IU/L Alkaline Phosphatase (42-121) IU/L Ammonia 42.7 H (7-35) umol/L Total Protein (6.7-8.2) g/dL Albumin (3.2-5.5) g/dL Globulin (2.1-4.2) g/dL Albumin/Globulin Ratio (1.0-2.2) 02/08/20 02/08/20 02/07/20 Range/Units 04:45 04:45 21:13 WBC 8.0 (4.8-10.8) x10^3/uL RBC 2.26 L (4.20-5.40) 10^6/uL Hgb 9.6 L (12.0-16.0) g/dL Hct 29.8 L (37.0-47.0) % MCV 131.9 H (81.0-99.0) fL MCH 42.5 H (27.0-31.0) pg MCHC 32.2 (32.0-36.0) g/dL RDW 18.9 H (12.0-15.0) % Plt Count 223 (130-450) 10^3/uL MPV 9.4 (7.9-10.8) fL Neut # (Auto) Not Reportable Lymph # (Auto) Not Reportable Alpine # (Auto) Not Reportable Eos # (Auto) Not Reportable Baso # (Auto) Not Reportable Absolute Nucleated RBC Not Reportable Total Counted 100 Band Neuts % (Manual) 0 (0 - 10) % Abnorm Lymph % (Manual) 0 % Metamyelocytes % 1 H ( - 0) % Myelocytes % 1 H ( - 0) % Nucleated RBC % Not Reportable Neutrophils # (Manual) 6.6 (1.5-6.6) 10^3/uL Lymphocytes # (Manual) 0.9 L (1.5-3.5) 10^3/uL Monocytes # (Manual) 0.4 (0.0-1.0) 10^3/uL Eosinophils # (Manual) 0.0 (0-0.7) 10^3/uL Basophils # (Manual) 0.0 (0-0.1) 10^3/uL Nucleated RBCs 8 % Differential Comment MANUAL DIFFERENTIAL WBC Morphology NORMAL APPEARANCE (NORMAL) Platelet Estimate NORMAL (130-450,000) (NORMAL) Platelet Morphology NORMAL APPEARANCE (NORMAL) RBC Morph Micro Appear 2+ HYPOCHROMASIA (NORMAL) VBG pH (7.31-7.41) Ionized Calcium (1.15-1.33) mmol/L Sodium 137 (135-145) mmol/L Potassium 4.8 (3.5-5.0) mmol/L Chloride 114 H (101-111) mmol/L Carbon Dioxide 18 L (21-32) mmol/L Anion Gap 5.0 L (6-13) BUN 29 H (6-20) mg/dL Creatinine 1.9 H (0.4-1.0) mg/dL Estimated GFR (MDRD) 25 L (>89) Glucose 217 H (70-100) mg/dL POC Whole Bld Glucose 189 H (70 - 100) mg/dL Calcium 8.5 (8.5-10.3) mg/dL Phosphorus 3.8 (2.5-4.6) mg/dL Magnesium 2.1 (1.7-2.8) mg/dL Total Bilirubin 2.1 H (0.2-1.0) mg/dL AST 67 H (10-42) IU/L ALT 42 (10-60) IU/L Alkaline Phosphatase 267 H (42-121) IU/L Ammonia (7-35) umol/L Total Protein 4.7 L (6.7-8.2) g/dL Albumin 2.0 L (3.2-5.5) g/dL Globulin 2.7 (2.1-4.2) g/dL Albumin/Globulin Ratio 0.7 L (1.0-2.2) 02/07/20 02/07/20 Range/Units 16:40 11:51 WBC (4.8-10.8) x10^3/uL RBC (4.20-5.40) 10^6/uL Hgb (12.0-16.0) g/dL Hct (37.0-47.0) % MCV (81.0-99.0) fL MCH (27.0-31.0) pg MCHC (32.0-36.0) g/dL RDW (12.0-15.0) % Plt Count (130-450) 10^3/uL MPV (7.9-10.8) fL Neut # (Auto) Lymph # (Auto) Alpine # (Auto) Eos # (Auto) Baso # (Auto) Absolute Nucleated RBC Total Counted Band Neuts % (Manual) (0 - 10) % Abnorm Lymph % (Manual) % Metamyelocytes % ( - 0) % Myelocytes % ( - 0) % Nucleated RBC % Neutrophils # (Manual) (1.5-6.6) 10^3/uL Lymphocytes # (Manual) (1.5-3.5) 10^3/uL Monocytes # (Manual) (0.0-1.0) 10^3/uL Eosinophils # (Manual) (0-0.7) 10^3/uL Basophils # (Manual) (0-0.1) 10^3/uL Nucleated RBCs % Differential Comment WBC Morphology (NORMAL) Platelet Estimate (NORMAL) Platelet Morphology (NORMAL) RBC Morph Micro Appear (NORMAL) VBG pH (7.31-7.41) Ionized Calcium (1.15-1.33) mmol/L Sodium (135-145) mmol/L Potassium (3.5-5.0) mmol/L Chloride (101-111) mmol/L Carbon Dioxide (21-32) mmol/L Anion Gap (6-13) BUN (6-20) mg/dL Creatinine (0.4-1.0) mg/dL Estimated GFR (MDRD) (>89) Glucose (70-100) mg/dL POC Whole Bld Glucose 188 H 181 H (70 - 100) mg/dL Calcium (8.5-10.3) mg/dL Phosphorus (2.5-4.6) mg/dL Magnesium (1.7-2.8) mg/dL Total Bilirubin (0.2-1.0) mg/dL AST (10-42) IU/L ALT (10-60) IU/L Alkaline Phosphatase (42-121) IU/L Ammonia (7-35) umol/L Total Protein (6.7-8.2) g/dL Albumin (3.2-5.5) g/dL Globulin (2.1-4.2) g/dL Albumin/Globulin Ratio (1.0-2.2) Impression and Recommendations - Palliative Care Impression: This is an 84-year-old woman who continues to decline, has significant comorbidities including alcohol abuse, atrial fib, worsening anasarca, hepatic encephalopathy, worsening kidney function, and high symptom burden. Goal at this point in time, will be to transition to home with hospice, with the hope for at home. Patient though is quite frail, may need to transition to comfort measures here at hospital if worsens significantly. Recommendations/Counseling Done: 1. Advanced care planning. At this point in time is to transition home with hospice, recognizing patient is quite frail and may continue to decline. is currently working on securing caregiving, he does feel like this is possible, pending discharge for tomorrow to hospice depending on availability and caregiving support. Will need BLS transfer. Will need comfort medications prior to discharge to have available in the home for hospice admit. POLST form is left for if he does come in to sign for ambulance transfer.Hospitalist to review plan of care with , follow-up with hospice team done for transition home. Time Spent: 45 minutes with greater than 50% of this done in coordination of care with hospitalist and clinical team, hospice team, anticipatory guidance with and psychosocial support for patient.
[2020-02-08] MEDS: MIN OIL/DIMETHICON/COCONUT OIL 92 GM TUBE TOP PRN ×2 (11:09→20:28)
[2020-02-08] MEDS: NYSTATIN POWDER 15 GM TOP SCH ×2 (11:09→20:29)
[2020-02-08] MEDS: SODIUM CHLORIDE FLUSH 0.9% 10 ML SYRINGE IVP PRN (14:26)
[2020-02-08 14:47] LABS: CALCIUM 8.8 mg/dL (8.5-10.3); CREATININE 2.1 mg/dL (0.4-1.0)
[2020-02-08] MEDS: LACTATED RINGERS 1,000 ML IV SCH (18:10)
[2020-02-08] MEDS: RIVAROXABAN 10 MG TABLET PO SCH (18:13)
[2020-02-09] MEDS: HYDROCORTISONE SUCCINATE 100 MG/2 ML VIAL IVP SCH (05:54)
[2020-02-09] MEDS: SODIUM CHLORIDE FLUSH 0.9% 10 ML SYRINGE IVP SCH ×2 (05:54→09:12)
[2020-02-09] MEDS: LACTATED RINGERS 1,000 ML IV SCH (05:55)
[2020-02-09] MEDS: LEVOTHYROXINE 88 MCG TABLET PO SCH ×2 (05:56→09:11)
[2020-02-09 06:02] LABS: VBG PH 7.343 (7.31-7.41)
[2020-02-09 06:09] LABS: BASOPHILS % (AUTO) 0.5 %; HGB - HEMOGLOBIN 9.6 g/dL (12.0-16.0); LYMPHOCYTES % (AUTO) 11.5 %; MEAN CORPUSCULAR HEMOGLOBIN 42.7 pg (27.0-31.0); MEAN CORPUSCULAR HGB CONC 32.1 g/dL (32.0-36.0); MEAN CORPUSCULAR VOLUME 132.9 fL (81.0-99.0); MEAN PLATELET VOLUME 9.6 fL (7.9-10.8); NEUTROPHILS % (AUTO) 71.2 %; PLT - PLATELET COUNT 233 10^3/uL (130-450); RED BLOOD COUNT 2.25 10^6/uL (4.20-5.40); RED CELL DISTRIBUTION WIDTH 19.2 % (12.0-15.0); WHITE BLOOD COUNT 8.2 x10^3/uL (4.8-10.8)
[2020-02-09 06:10] LABS: ALBUMIN/GLOBULIN RATIO 0.7 (1.0-2.2); CALCIUM 8.9 mg/dL (8.5-10.3); CREATININE 2.3 mg/dL (0.4-1.0); PHOSPHORUS 4.2 mg/dL (2.5-4.6); TOTAL PROTEIN 4.7 g/dL (6.7-8.2)
[2020-02-09 06:27] LABS: ABNORMAL LYMPHS % (MANUAL) 0 %; BAND NEUTROPHILS % (MANUAL) 0 %
[2020-02-09] MEDS ORDERED: MORPHINE 2 MG/ML CARPUJECT IVP PRN (06:32)
[2020-02-09 07:08] LABS: LYMPHOCYTES # (MANUAL) 1.2 10^3/uL (1.5-3.5); LYMPHOCYTES % (MANUAL) 13 %; MONOCYTES # (MANUAL) 1.3 10^3/uL (0.0-1.0)
[2020-02-09 07:09] LABS: DIFFERENTIAL COMMENT MANUAL DIFFERENTIAL; RBC MORPHOLOGY (MULTIPLE) 3+ MACROCYTOSIS (NORMAL)
[2020-02-09 08:09] VITALS: BP 102/53
[2020-02-09] MEDS: MIDODRINE 2.5 MG TABLET PO SCH ×2 (09:11→12:25)
[2020-02-09] MEDS: LACTULOSE 10 GM /15 ML UDC PO SCH ×2 (09:11→11:24)
[2020-02-09] MEDS: NYSTATIN POWDER 15 GM TOP SCH (09:12)
[2020-02-09] MEDS ORDERED: DEXTROSE 10% 250 ML IV STA (11:03)
[2020-02-09] MEDS ORDERED: INSULIN REGULAR HUMAN 300 UNIT/3 ML VIAL IVP ONE (11:03)
--- NOTE | 2020-02-09 11:37 | Discharge Plan ---
Discharge Plan Problem Reviewed?: Yes Disposition: 50 Hospice/Home DC/Xfer Condition: Serious Prescriptions: LORazepam [Ativan] 1 mg PO Q6HR PRN #15 tablet PRN Reason: Anxiety Haloperidol Oral Soln [Haldol Oral Soln] 1 mg PO Q6H PRN #15 ml PRN Reason: Nausea / Vomiting Levothyroxine [Synthroid] 88 mcg PO QDAC #30 tablet Midodrine HCl 5 mg PO TID #90 tablet Morphine Sulfate [Morphine Sulf Oral (Roxanol)] 5 mg PO Q2H PRN #30 ml PRN Reason: Pain/Dyspnea Diet: Regular Health Concerns: You were admitted to the hospital because of low sodium. This was felt to be secondary to your liver disease because of alcohol. While you are hospitalized, your blood pressure had dropped and he required to be placed in the intensive care unit. You were started on IV medications to help bring up your blood pressure. It was felt her blood pressure was low because your liver was not clearing metabolites which can lower your blood pressure. You were started on oral medications to help your blood pressure and your blood pressure has now been stable on these medications. While you have been hospitalized, you have become more weak and deconditioned. Your kidneys are not working as well as they were before. After discussion with you and your , the goal has been to focus on your comfort and as you want to go home, we will be discharging you home. Plan of Treatment: You can continue to take your Synthroid medication and midodrine which helps increase your blood pressure. You were provided with medications like morphine and Ativan which can help if you have pain, anxiety, difficulty breathing No Smoking: If you smoke, Please STOP! Call for help. Follow-up with: Carol Sharma MD [Primary Care Provider] -
--- NOTE | 2020-02-09 11:50 | DISCHARGE SUMMARY ---
"Discharge Summary Admit Date: 01/28/20 Discharge Date: 02/09/20 Discharging Provider: César Clifton Primary Care Provider: Carol Sharma Code Status: Do Not Attempt Resuscitation Condition at Discharge: Serious Discharge Disposition: 50 Hospice/Home DC/Xfer - DIAGNOSES Admission Diagnoses: Hyponatremia Acute kidney injury Abnormal LFTs Lower extremity edema Leg wound, left Alcohol use disorder Type 2 diabetes mellitus treated with insulin Chronic atrial fibrillation Hypothyroidism Macrocytosis without anemia Discharge Diagnoses with Status of Each Condition: Hypotension - stable. Hepatic encephalopathy - stable. Acute kidney injury - worsening. Abnormal LFTs - stable. Alcohol use disorder - stable. Type 2 diabetes mellitus - stable. Chronic atrial fibrillation - stable. Hypothyroidism - stable. Moderate protein calorie malnutrition - stable. Skin tear of lower leg without complication - stable. Macrocytic anemia - stable. Anasarca - stable. - HPI History of Present Illness: This is a 84-year-old female with a past medical history significant for atrial fibrillation on Xarelto, chronic lower extremity edema, alcohol abuse, hypothyroidism, type 2 diabetes mellitus on insulin who presents today complaining of worsening lower extremity edema and weeping. The ER physician told me that the patient has been complaining of weakness and her primary care provider ordered labs to be performed on outpatient basis. There appears to have been some confusion and she went to the emergency department for these labs. Patient states that she is here for the weeping edema. She stated it has been going on for quite some time but that over the past week, she cut her left leg when she was scratching it and now has a wound that is draining. She reports no fevers, chills. She had her legs wrapped in Levi bandage. She reports pain at the site of the cut where she is weeping. She states her feet are cold and they are not covered with a blanket. She also reports that her upper extremities have been swollen for the past week as well. She does not believe that she has edema anywhere else. She denies any chest pain, dyspnea, dysuria, urgency, rash, nausea, vomiting, abdominal pain. She reports decreased oral intake for the past few days. She is not sure why she has not been drinking as much. She denies feeling dehydrated but then she tells me that she knows she is dehydrated. She denies feeling thirsty at the moment. She reports no history of heart failure, liver disease. She does drink 3 glasses of vodka daily and has been drinking for the past 20 years. She denies any recent sick contacts. In the emergency department, she is found to be afebrile with temperature of 36.6 C. Her heart rate was 63 and she was in atrial fibrillation. Her blood pressure is 142/72. She is not tachypneic and saturating 99% on room air. Labs revealed an MCV of 115.8. Her sodium was 116 and chloride was 83. Her creatinine was elevated at 1.3. Total bilirubin is elevated at 3.6, AST at 113, ALT at 68 and alkaline phosphatase at 345. Her BNP was 271. Given her elect rolyte abnormalities, medicine was consulted for admission. I did discuss goals of care with the patient and she would like to be a full code. - CONSULTS | PROCEDURES Consultations: Palliative, Hospice. Procedures: Right subclavian central line. Lateral upper extremity arterial duplex which showed no evidence of focal hemodynamically significant arterial stenosis in the imaged segments. - HOSPITAL COURSE Hospital Course: He was admitted to the floor for hyponatremia and given her edematous state, was felt to be secondary to cirrhosis or heart failure. She was given Lasix with improvement in her hyponatremia. Ultrasound of the liver did not show cirrhosis but did suggest fatty infiltration. An echocardiogram showed a preserved ejection fraction with a small pericardial effusion. Shortly after hospitalization, she became hypotensive and required transfer to the intensive care unit. Her systolic was as low as the 70s but she showed no signs of hypoperfusion and her acute kidney injury had actually resolved and her urine output remained excellent. She was started empirically on vancomycin and Zosyn IV. She had a central line placed by general surgery and was started on no repinephrine. Blood cultures came back negative and there was no obvious signs of infection including a negative urinalysis and unremarkable chest x-ray. Arterial Dopplers of the upper extremities were obtained which showed no significant arterial stenosis as there was concern that the blood pressure readings were not accurate. Cortisol level was checked and this was within normal limits. Her TSH was elevated at 10 and her Synthroid dose was increased to 88 mcg. As her hyponatremia had resolved, she started on IV fluids with slight improvement in her blood pressures but we were unable to wean her off the norepinephrine. Her case was discussed with the meat service team member at [facility] who felt that given her alcohol use and likely underlying liver disease, she had difficulty clearing vasodilator metabolites and that was likely causing her hypotension. She was started on stress dose steroids and Midodrine. Unfortunately during her hospitalization, she became increasingly lethargic and fatigued. An ammonia level was checked and this was elevated at greater than 50. She was started on lactulose. We were ultimately able to wean her off of the norepinephrine and she continued on midodrine and stress dose steroids. The stress dose steroids were then weaned over the following 2 days. Despite improvement in her hypotension, the patient had become increasingly lethargic and deconditioned. Given her underlying liver disease, it was felt her prognosis was quite guarded and palliative care was consulted. After discussion with the patient's as she was too lethargic to make her own medical decisions, it was felt that the patient's goal would be to be at home with her spouse. Hospice referral was made. The day prior to discharge, the patient mental status had slightly improved. She was able to speak in very short sentences at times. When asked what her wishes are, she stated that she wanted to be home and happy. Prior to discharge, her creatinine had began to increase and she showed signs of multiorgan failure. This was discussed with her and he understands that she likely only has days to live. Both him and the patient want to focus on her comfort. After further discussion with her , a decision was made to discontinue her home medications except for the Synthroid and midodrine. She was discharged home on 08 February on hospice. She was provided with a prescription for Haldol, lorazepam, Roxanol. - ALLERGIES Allergies/Adverse Reactions: Allergies Allergy/AdvReac Type Severity Reaction Status Date / Time No Known Drug Allergies Allergy Verified 01/28/20 13:40 - MEDICATIONS Home Medications: Ambulatory Orders Medication Instructions Recorded Confirmed Haloperidol Oral Soln [Haldol Oral 1 mg PO Q6H PRN #15 ml 02/09/20 Soln] LORazepam [Ativan] 1 mg PO Q6HR PRN #15 tablet 02/09/20 Levothyroxine [Synthroid] 88 mcg PO QDAC #30 tablet 02/09/20 Midodrine HCl 5 mg PO TID #90 tablet 02/09/20 Morphine Sulfate [Morphine Sulf 5 mg PO Q2H PRN #30 ml 02/09/20 Oral (Roxanol)] - PHYSICAL EXAM AT DISCHARGE General Appearance: positive: No acute distress, Lethargic (She is quite lethargic but is able to open her eyes at times. Will occasionally speak in very short sentences.) Eyes Bilateral: positive: Normal inspection ENT: positive: ENT inspection nml Neck: positive: Nml inspection Respiratory: positive: No respiratory distress. negative: Wheezes, Rales Cardiovascular: positive: No murmur. negative: Irregularly irregular, Tachycardia, Bradycardia Abdomen: positive: Non-tender, No distention. negative: Tenderness Skin: positive: Warm, Dry, Other (Bandages in place over the bilateral lower extremities.) Extremities: positive: Pedal edema (+1 pitting edema in bilateral lower extremities.) Neurologic/Psychiatric: positive: Other (She is able to move all 4 extremities at times but very deconditioned.). negative: Disoriented to person - LABS Result Diagrams: 02/09/20 05:20 02/09/20 05:20 - TIME SPENT Time Spent in Discharge (Minutes): 35"
== END 2020-02-09 14:42 | disposition hospice, home (50) | DRG 433 ==
LOC: EDSEX → EDUNIT# → ED 13:28 → MS2 15:15 → OBSVTOIN 01-29 09:33 → ICU 01-29 10:03 → MS2 02-08 17:28
PROVIDERS: ADMIT Internal Medicine; ATTEND Internal Medicine
PROC: 02H633Z Insertion of Infusion Device into Right Atrium, Percutaneous Approach (ICD-10-PCS; principal; 2020-01-28)
DX: K70.40 Alcoholic hepatic failure without coma (principal); E87.1 Hypo-osmolality and hyponatremia; N17.9 Acute kidney failure, unspecified; I48.20 Chronic atrial fibrillation, unspecified; E44.0 Moderate protein-calorie malnutrition; I95.9 Hypotension, unspecified; F10.10 Alcohol abuse, uncomplicated; R60.0 Localized edema; K70.0 Alcoholic fatty liver; R60.1 Generalized edema; Z68.38 Body mass index [BMI] 38.0-38.9, adult; D53.9 Nutritional anemia, unspecified; D75.89 Other specified diseases of blood and blood-forming organs; E11.9 Type 2 diabetes mellitus without complications; E03.9 Hypothyroidism, unspecified; E86.9 Volume depletion, unspecified; E61.2 Magnesium deficiency; R35.0 Frequency of micturition; S81.812A Laceration without foreign body, left lower leg, initial encounter; W45.8XXA Other foreign body or object entering through skin, initial encounter; Y92.009 Unspecified place in unspecified non-institutional (private) residence as the place of occurrence of the external cause; R53.83 Other fatigue; H91.90 Unspecified hearing loss, unspecified ear; H54.7 Unspecified visual loss; R13.10 Dysphagia, unspecified; Z66 Do not resuscitate; Z51.5 Encounter for palliative care; Z74.01 Bed confinement status; Z79.4 Long term (current) use of insulin; Z79.01 Long term (current) use of anticoagulants; Z87.891 Personal history of nicotine dependence
CPT/HCPCS: 36415; 71045; 76700; 80048; 80053; 80076; 80202; 81001; 82040; 82140; 82330; 82436; 82533; 82550; 82570; 82607; 82746; 82803; 83036; 83540; 83605; 83690; 83735; 83880; 83935; 84100; 84300; 84443; 84466; 84484; 85025; 85610; 86140; 87040; 87150; 87493; 92610; 93005; 93306; 93925; 93930; 96360; 96361; 97110; 97161; 97167; 97530; 99223; 99285; A6250; A9270; G0378; J1750; J1815; J3370; J7120; P9047

== ENCOUNTER 2020-02-09 14:40 | Outpatient (CLI) | payer MEDICARE, OTHER | END 2020-02-09 14:41 | disposition home or self-care (01) | LOC: EMS 14:40 | PROVIDERS: ATTEND Surgery | DX: R53.1 Weakness (principal); E87.1 Hypo-osmolality and hyponatremia; Z74.01 Bed confinement status | CPT/HCPCS: A0425; A0428 ==